=== PATIENT | male | born 1970 | race Caucasian/White ===

== ENCOUNTER 2020-03-30 15:54 | Emergency (ER) | payer BC, SELFPAY ==
[2020-03-30 16:10] VITALS: BP 150/92; PULSE 80; RESP 16; TEMP 36.8; O2SAT 98
--- NOTE | 2020-03-30 16:18 | ED.SKABFB ---
HPI - Skin/Abscess/Foreign Bdy General Chief complaint: Skin/Abscess/Foreign Body Stated complaint: Possible poison oak Time Seen by Provider: 03/30/20 16:12 Source: patient and RN notes reviewed Mode of arrival: ambulatory Limitations: no limitations History of Present Illness HPI narrative: Patient presents today complaining of weeping, severely pruritic rash to the left arm x2 days after doing some yard work. Believes he may have poison zulema or poison oak. He has been using calamine lotion without relief. MD complaint: rash Related Data Allergies Allergy/AdvReac Type Severity Reaction Status Date / Time peanut Allergy Unknown Swelling Verified 03/30/20 16:10 of Lip/Tongue/Throat Review of Systems Review of Systems: Narrative: CONSTITUTIONAL: Denies body aches, fever, chills, or sweats. EYES: Denies visual changes, redness, or discharge. ENT: Denies rhinorrhea, congestion, sore throat, or otalgia. CARDIOVASCULAR: Denies chest pain, palpitations, or edema. RESPIRATORY: Denies cough or dyspnea. GASTROINTESTINAL: Denies abdominal pain, nausea, vomiting, or diarrhea. GENITOURINARY: Denies dysuria or hematuria. SKIN: Denies wounds.+ Pruritic rash MUSCULOSKELETAL: Denies back pain, joint pain, or myalgia. NEUROLOGIC: Denies headache, numbness, tingling, or weakness. PSYCH: Denies depression or anxiety. PMFSH Social History Social History Gender identity (if verbalized by the patient): Male Comments At time of signature, I have reviewed and agree with nursing past medical, surgical, social and family history unless otherwise noted. Please see nursing chart for further information. There is no relevant family history pertinent to the presenting complaint Exam Narrative: Exam Narrative: GENERAL: Well-appearing, well-nourished, and in no acute distress. HEAD: Normocephalic, atraumatic. EYES: EOMI. No redness or drainage. Conjunctivae normal. ENT: Mucous membranes pink and moist. NECK: Normal AROM. CHEST: No respiratory distress. EXTREMITIES: Normal range of motion. No edema. SKIN: Warm, dry. Capillary refill normal. Normal skin turgor. Erythematous papular/vesicular rash to the left antecubital fossa measuring ~9x9cm, weeping yellow fluid from multiple vesicles. No induration. No edema. NEURO: No focal deficits. Alert and oriented x3. Gait steady. PSYCH: Normal affect. No signs of depression or anxiety. Course Vital Signs Vital signs: Vital Signs Temperature 98.3 F 03/30/20 16:10 Pulse Rate 80 03/30/20 16:10 Respiratory Rate 16 03/30/20 16:10 Blood Pressure 150/92 H 03/30/20 16:10 Pulse Oximetry 98 03/30/20 16:10 Temperature 98.3 F 03/30/20 16:10 Pulse Rate 80 03/30/20 16:10 Respiratory Rate 16 03/30/20 16:10 Blood Pressure 150/92 H 03/30/20 16:10 Pulse Oximetry 98 03/30/20 16:10 Reviewed. Pt has been instructed to follow up with his PCP regarding his elevated blood pressure today. MDM - Skin/Abscess/Foreign Bdy Differential Diagnosis Differential diagnosis: Likely abscess of skin or subcutaneous tissue, urticaria, cellulitis, eczema, insect bites, impetigo and contact dermatitis Critical Care Time Critical Care Time Critical Care Time: No Discharge Plan Discharge Clinical Impression: Contact dermatitis Qualifiers: Contact dermatitis type: irritant Contact dermatitis trigger: unspecified trigger Qualified Code(s): L24.9 - Irritant contact dermatitis, unspecified cause Patient Disposition: Home, Self-Care Condition: Stable Instructions: Poison Zulema (ED) Additional Instructions: Please take the prednisone as directed until gone. You may continue topical calamine lotion if you wish. Keep covered if dripping. Follow-up with your doctor with any signs of infection such as increased redness, increased swelling, increased pain or pus drainage. Your blood pressure was elevated above 120/80 today at Urgent Care. This puts you above the threshold
== END 2020-03-30 16:27 | disposition home or self-care (01) ==
PROVIDERS: Emergency Provider Nurse Practitioner
DX: L24.9 Irritant contact dermatitis, unspecified cause (principal)
CPT/HCPCS: 99213; G0463

== ENCOUNTER 2020-04-21 21:03 | Emergency (ER) | payer BC, SELFPAY ==
--- NOTE | ~2020-04-21 | CT_ITS ---
EXAMINATION: CT abdomen pelvis wo con DATE: 04/21/2020 22:42 INDICATION: Left back pain TECHNIQUE: Computed tomography (CT) of the abdomen and pelvis was performed without intravenous contr ast. Automated exposure control and iterative reconstruction technique were employed. The dose-length product was 1082.53 mGy-cm. COMPARISON: 02/04/2019 FINDINGS: Lung bases are clear. Heart size is normal. No pericardial or pleural effusion. Small amount of ather osclerotic calcification along the right coronary artery. Liver, gallbladder, spleen, pancreas and bi lateral adrenal glands are normal. Nonobstructing nephrolithiasis with a pair of 1-2 mm stones in the right kidney and a 2 mm stone in the left kidney. No hydronephrosis or stones seen along the normal bilateral ureters. Bladder is normal. Postoperative changes at the tip of the cecum likely related to prior appendectomy. Mild scattered colonic diverticulosis without adjacent inflammatory change to batista ggest diverticulitis. No bowel obstruction. There is subtle haziness to the fat at the root of the me sentery which likely inflammatory in etiology. Tiny fat-containing umbilical hernia and small fat-con taining left inguinal hernia. No free intraperitoneal gas or fluid. No pathologically enlarged abdomi nal or pelvic lymphadenopathy. Mild lumbar spondylosis and mild to moderate bilateral hip osteoarthri tis. IMPRESSION: 1. Nonobstructing bilateral nephrolithiasis. 2. Nonspecific mild haziness to the fat at the root of the mesentery which likely inflammatory in kieran ology. Correlate with amylase/lipase levels to exclude acute interstitial pancreatitis. 3. Mild diverticulosis. Reviewed, dictated and finalized at location A. IMPRESSION: 1. Nonobstructing bilateral nephrolithiasis. 2. Nonspecific mild haziness to the fat at the root of the mesentery which like ly inflammatory in etiology. Correlate with amylase/lipase levels to exclude ac michelle interstitial pancreatitis. 3. Mild diverticulosis.
[2020-04-21 21:04] VITALS: BP 149/110; PULSE 93; RESP 22; TEMP 36.9; O2SAT 98
[2020-04-21 21:19] LABS: Basophils Percent Auto 0.2 % (0.2-1.2); Eosinophils Absolute Auto 0.3 K/mm3 (0-0.3); Hematocrit 45.1 % (42.0-52.0); Hemoglobin 14.7 g/dL (14.0-18.0); Immature Granulocyte Absolute 0.08 K/mm3 (0.00-0.031); Immature Granulocyte Percent A 0.6 % (0-0.5); Lymphocytes Absolute Auto 2.61 K/mm3 (0.9-3.2); Lymphocytes Percent Auto 20.9 % (18.3-44.2); Mean Corpuscular HGB Conc 32.6 g/dl (32-36); Mean Corpuscular Hemoglobin 29.3 pg (26-34); Mean Corpuscular Volume 89.8 fl (80-100); Mean Platelet Volume 10.5 fl (7.4-10.4); Monocytes Absolute Auto 0.9 K/mm3 (0.1-0.6); Neutrophils Absolute Auto 8.7 K/mm3 (1.3-6.7); Neutrophils Percent Auto 69.3 % (45.5-73.1); Platelet Count Result 219 k/mm3 (150-375); Red Blood Count 5.02 M/mm3 (4.6-6.20); Red Cell Distribution Width 13.1 % (11.5-14.5); White Blood Count 12.5 K/mm3 (4.5-10.0)
[2020-04-21 21:30] LABS: Anion Gap 6 mmol/L (8-16); Blood Urea Nitrogen 16 mg/dL (9-20); Calcium 8.8 mg/dL (8.4-10.2); Carbon Dioxide 25 mmol/L (22-30); Chloride 107 mmol/L (98-107); Estimated CRCL calculation 89 ml/min; Estimated Glomerular Filt Rate > 60; Glucose 107 mg/dL (75-110); Potassium 4.3 mmol/L (3.4-5.0); Sodium 138 mmol/L (137-145)
--- NOTE | 2020-04-21 22:11 | PC.NURSE ---
PT ATTEMPTING TO USE RESTROOM TO GIVE URINE SPECIMEN AT THIS TIME. PT INITIALLY REFUSED STATING THAT HE JUST WENT BEFORE HE CAME TO THE ED. DISCUSSED OPTION OF STRAIGHT CATHETER WITH PT, PT REFUSED STATING AW NAW, YOU AINT STICKIN ANYTHING UP MY JUNK . PT AGREED TO TRY TO PROVIDE A URINE SPECIMEN.
[2020-04-21] MEDS: KETOROLAC 30 MG/ML VIAL (*BKC) IV PUSH (22:25)
[2020-04-21] MEDS: CYCLOBENZAPRINE HCL 10 MG TABLET PO (22:25)
[2020-04-21 22:27] LABS: Add Urine Microscopic? NO; Appearance Urine Clear (Clear); Bilirubin Urine Negative (Negative); Blood Urine Negative (Negative); Color Urine Yellow (Yellow); Glucose Urine UA Negative (Negative); Ketones Urine Negative (Negative); Leukocyte Esterase Ur Negative LEU/UL (Negative); Nitrate Urine Negative (Negative); Protein Urine Negative (Negative); Specific Grav Ur 1.017 (1.001-1.035); Urobilinogen Urine Negative mg/dL (<2.0)
--- NOTE | 2020-04-21 23:31 | ED.GENADULT ---
HPI - General Adult General Chief complaint: Abdominal Pain Stated complaint: left flank pain Time Seen by Provider: 04/21/20 21:46 Source: patient History of Present Illness HPI narrative: Patient is a 49 y/o male complaining of left back for last 3 day. He states that his pain is sharp with no radiation. He rates is pain as 6/10. Pain is worse with movement. He has no vomiting, diarrhea or dysuria. He state that he has history of kidney stone, but states that this pain does not feel like kidney stone. Related Data Allergies Allergy/AdvReac Type Severity Reaction Status Date / Time peanut Allergy Unknown Swelling Verified 03/30/20 16:10 of Lip/Tongue/Throat Review of Systems Constitutional: Constitutional: Denies chills, Denies fever(s), Denies headache(s) and Denies weakness Eyes: Eyes: Denies blurry vision ENT: Denies headache(s) and Denies neck pain Cardiovascular: Cardiovascular: Denies chest pain and Denies dyspnea Respiratory: Respiratory: Denies cough and Denies dyspnea Gastrointestinal: Gastrointestinal: Denies abdominal pain, Denies diarrhea, Denies nausea and Denies vomiting Genitourinary: Genitourinary: Denies hematuria and Denies dysuria Musculoskeletal: Musculoskeletal: Reports back pain and Denies neck pain Neurologic: Denies headache(s) and Denies weakness PMFSH Social History Social History Gender identity (if verbalized by the patient): Male Exam Const: General: no acute distress and well developed Orientation/consciousness: oriented to person, oriented to place, oriented to time and patient oriented x3 HENMT: Head: normocephalic Ears: external ears normal General nose exam: Normal external nose present Eyes: General: appearance normal, both eyes and all related structures Conjunctivae: conjunctivae normal Neck: Neck: normal visual inspection and full ROM Chest: Chest palpation & inspection: normal inspection of the chest and no tenderness Resp: Effort & Inspection: normal respiratory effort Auscultation: clear to auscultation bilaterally Cardio: Rate: regular rate Rhythm: regular rhythm GI: GI Palp: No abdominal tenderness and Yes Soft to palpation Skin: General skin exam: normal color and turgor normal Neuro: General: oriented to person, oriented to place, oriented to time and patient oriented x3 Cognition (Neuro): normal cognition Extrem: General: normal to inspection, full ROM and no pedal edema Psych: Appearance: grossly normal Mental Status: mental status grossly normal Affect: normal affect Course Vital Signs Vital signs: Vital Signs Temperature 36.9 C 04/21/20 21:04 Pulse Rate 93 04/21/20 21:04 Respiratory Rate 22 H 04/21/20 21:04 Blood Pressure 149/110 H 04/21/20 21:04 Pulse Oximetry 98 04/21/20 21:04 Temperature 36.2 C L 04/22/20 00:23 Pulse Rate 88 04/22/20 00:23 Respiratory Rate 19 04/22/20 00:23 Blood Pressure 134/87 04/22/20 00:23 Pulse Oximetry 100 04/22/20 00:23 Medical Decision Making Vital Signs Vital Signs: Vital Signs Temperature 36.9 C 04/21/20 21:04 Pulse Rate 93 04/21/20 21:04 Respiratory Rate 22 H 04/21/20 21:04 Blood Pressure 149/110 H 04/21/20 21:04 Pulse Oximetry 98 04/21/20 21:04 Temperature 36.2 C L 04/22/20 00:23 Pulse Rate 88 04/22/20 00:23 Respiratory Rate 04/22/20 00:23 Blood Pressure 134/87 04/22/20 00:23 Pulse Oximetry 100 04/22/20 00:23 Lab Data Result diagrams: 04/21/20 21:08 04/21/20 21:08 Labs: Lab Results 04/21/20 04/21/20 04/21/20 Range/Units 21:08 21:08 21:08 WBC 12.5 H (4.5-10.0) K/mm3 RBC 5.02 (4.6-6.20) M/mm3 Hgb 14.7 (14.0-18.0) g/dL Hct 45.1 (42.0-52.0) % MCV 89.8 (80-100) fl MCH 29.3 (26-34) pg MCHC 32.6 (32-36) g/dl RDW 13.1 (11.5-14.5) % Plt Count 219 (150-375) k/mm3 MPV 10.5 H (7.4
[2020-04-21 23:47] LABS: Lipase 87 U/L (23-300)
[2020-04-22 00:23] VITALS: BP 134/87; PULSE 88; RESP 19; TEMP 36.2; O2SAT 100
== END 2020-04-22 00:24 | disposition home or self-care (01) ==
PROVIDERS: Emergency Provider Emergency Medicine
DX: M54.5 Low back pain (principal)
CPT/HCPCS: 36415; 74176; 80048; 81003; 83690; 85025; 96374; 99284; A9270; J1885

== ENCOUNTER 2021-01-19 19:32 | Emergency (ER) | payer BC, SELFPAY ==
[2021-01-19 20:12] VITALS: BP 180/92; PULSE 100; RESP 20; TEMP 37.6; O2SAT 99
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
== END 2021-01-19 21:23 | disposition home or self-care (01) ==
PROVIDERS: Emergency Provider Nurse Practitioner
DX: R50.9 Fever, unspecified (principal); F17.200 Nicotine dependence, unspecified, uncomplicated; Z20.822 Contact with and (suspected) exposure to COVID-19
CPT/HCPCS: 87426; 99213; C9803; G0463

== ENCOUNTER 2021-09-20 10:32 | Emergency (ER) | payer BC, SELFPAY ==
--- NOTE | ~2021-09-20 | XR_ITS ---
Negative DATE: 09/20/2021 14:36 INDICATION: Right shoulder pain TECHNIQUE: 4 views COMPARISON: None FINDINGS: There is no fracture or dislocation, periosteal reaction or bone destruction or abnormal so ft tissue calcification. IMPRESSION: Negative Reviewed, dictated and finalized at location A. BOTOMY DIRECTOR IMPRESSION: Negative
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
[2021-09-20 11:36] VITALS: BP 150/85; PULSE 87; RESP 18; TEMP 37.2; O2SAT 97
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
[2021-09-20] MEDS: ACETAMINOPHEN 325 MG TABLET 650 MG PO (14:44)
[2021-09-20] MEDS: KETOROLAC 30 MG/ML VIAL (*BKC) IM (14:48)
[2021-09-20] MEDS: TETANUS,DIPHTHERIA,AC PERTUSSIS ADULT (0.5 ML) BOOSTRIX IM (14:48)
[2021-09-20 17:13] VITALS: BP 148/81; PULSE 90; RESP 18; TEMP 37.1; O2SAT 97
== END 2021-09-20 17:15 | disposition home or self-care (01) ==
PROVIDERS: Emergency Provider Emergency Medicine
DX: S02.832A Fracture of medial orbital wall, left side, initial encounter for closed fracture (principal); Z23 Encounter for immunization; K02.9 Dental caries, unspecified; M16.0 Bilateral primary osteoarthritis of hip; Y04.2XXA Assault by strike against or bumped into by another person, initial encounter
CPT/HCPCS: 70450; 70486; 71046; 72170; 73030; 90471; 90715; 96372; 99284; A9270; J1885

== ENCOUNTER 2022-05-04 03:58 | Inpatient (IN) | payer BC, SELFPAY ==
[2022-05-04] VITALS (33 sets, daily range): BP systolic 136–169; BP diastolic 67–127; PULSE 75–108; RESP 15–27; TEMP 36.6–36.9; O2SAT 89–100; BMI 30.6; BMI 31.0
--- NOTE | ~2022-05-04 | XR_ITS ---
EXAMINATION: XR chest 2V DATE: 05/04/2022 04:44 INDICATION: Shortness of breath. TECHNIQUE: Frontal and lateral views of the chest were obtained. COMPARISON: Chest CT 05/04/2022, chest 2 views 09/20/2021 FINDINGS: There is a diffuse interstitial pattern, consistent with mild pulmonary edema. There are sm all pleural effusions. No pneumothorax. The heart size is normal. There is mild chronic anterior wedg ing of multiple vertebral bodies. IMPRESSION: 1. Mild pulmonary edema. 2. Small pleural effusions. Reviewed, dictated and finalized at location A.
--- NOTE | ~2022-05-04 | CT_ITS ---
EXAMINATION: CTA chest PE protocol DATE: 05/04/2022 05:39 INDICATION: Right chest pain. Shortness of breath. TECHNIQUE: Computed tomography angiography (CTA) of the chest was performed with 100 mL Omnipaque-350 intravenous contrast timed to evaluate the pulmonary arteries. Coronal maximum intensity projection 3D-reconstructions were created by the technologist. Automated exposure control and iterative reconst ruction technique were employed. The dose-length product was 823.08 mGy-cm. COMPARISON: Chest CT 02/04/2019 FINDINGS: The lungs demonstrate smooth septal thickening and groundglass opacities, consistent with p ulmonary edema. There is a pneumatocele in right lower lobe. There is mild dependent atelectasis bila terally. There are small pleural effusions. There is left atrial and left ventricular enlargement of the heart. No pericardial effusion. There are coronary artery calcifications. There is no pulmonary e mbolus. There is mild mediastinal lymphadenopathy, likely reactive. There is mild thoracic spondylosi s. There is mild chronic anterior wedging of multiple vertebral bodies. IMPRESSION: 1. No pulmonary embolus. 2. Moderate pulmonary edema. 3. Small pleural effusions. 4. Cardiomegaly. 5. Mild mediastinal lymphadenopathy, likely reactive. Reviewed, dictated and finalized at location A.
--- NOTE | ~2022-05-04 | NM_ITS ---
EXAMINATION: NM marta stress w perfusion DATE: 05/04/2022 13:03 INDICATION: Chest pain. TECHNIQUE: Rest images were obtained following intravenous administration of 9 mCi Tc99m tetrofosmin (Myoview). The patient was infused intravenously with Lexiscan (regadenoson). Then, 28.8 mCi Tc99m te trofosmin (Myoview) was administered intravenously, and supine and prone stress images were obtained. Data was reconstructed into short axis and horizontal and vertical long axis SPECT images. Gated SPE CT images were also obtained. COMPARISON: Chest CT 05/04/2022 FINDINGS: There is a small, mild, fixed perfusion defect involving mid to basal anterior wall of left ventricle, consistent with infarct. There is a small, mild, fixed perfusion defect involving apical to mid inferior wall of left ventricle, consistent with infarct. No reversible component to suggest i schemia. There is global hypokinesis.. Left ventricular ejection fraction measures 39%. IMPRESSION: 1. Small area of mild infarct involving mid to basal anterior wall of left ventricle. Small area of m ild infarct involving apical to mid inferior wall of left ventricle. 2. Global hypokinesis with left ventricular ejection fraction measuring 39%. Reviewed, dictated and finalized at location A. IMPRESSION: 1. Small area of mild infarct involving mid to basal anterior wall of left vent ricle. Small area of mild infarct involving apical to mid inferior wall of left ventricle. 2. Global hypokinesis with left ventricular ejection fraction measuring 39%.
--- NOTE | 2022-05-04 04:04 | ECG_ITS ---
Measurements Intervals [place] Rate: 98 P: 58 [place]: 152 QRS: 33 QRSD: 92 T: 102 QT: 348 QTc: 445 Interpretive Statements SINUS RHYTHM WITH OCCASIONAL SUPRAVENTRICULAR PREMATURE COMPLEXES POSSIBLE LEFT ATRIAL ENLARGEMENT [-0.1mV P WAVE IN V1/V2] NONSPECIFIC T-WAVE ABNORMALITY NO PREVIOUS ECG AVAILABLE FOR COMPARISON Electronically Signed On 05-04-2022 19:56:12 CDT by Michelle Lagunas M.D.
[2022-05-04 04:26] LABS: Basophils Percent Auto 0.2 % (0.2-1.2); Eosinophils Absolute Auto 0.3 K/mm3 (0-0.3); Eosinophils Percent Auto 1.6 % (0-4.4); Hematocrit 49.8 % (42.0-52.0); Hemoglobin 16.4 g/dL (14.0-18.0); Immature Granulocyte Absolute 0.07 K/mm3 (0.00-0.031); Immature Granulocyte Percent A 0.4 % (0-0.5); Lymphocytes Absolute Auto 2.27 K/mm3 (0.9-3.2); Lymphocytes Percent Auto 13.9 % (18.3-44.2); Mean Corpuscular HGB Conc 32.9 g/dl (32-36); Mean Corpuscular Hemoglobin 29.5 pg (26-34); Mean Corpuscular Volume 89.6 fl (80-100); Mean Platelet Volume 11.2 fl (7.4-10.4); Monocytes Absolute Auto 1.1 K/mm3 (0.1-0.6); Monocytes Percent Auto 6.8 % (2.6-8.5); Neutrophils Absolute Auto 12.6 K/mm3 (1.3-6.7); Neutrophils Percent Auto 77.1 % (45.5-73.1); Platelet Count Result 267 k/mm3 (150-375); Red Blood Count 5.56 M/mm3 (4.6-6.20); White Blood Count 16.4 K/mm3 (4.5-10.0)
[2022-05-04 04:36] LABS: Alanine Aminotransferase 14 U/L (6-50); Albumin Level 4.4 g/dL (3.5-5.1); Alkaline Phosphatase 84 U/L (38-126); Anion Gap 13 mmol/L (8-16); Aspartate Amino Transferase 20 U/L (17-59); Bilirubin,Total 0.5 mg/dL (0.2-1.3); Blood Urea Nitrogen 16 mg/dL (9-20); Calcium 9.1 mg/dL (8.4-10.2); Carbon Dioxide 27 mmol/L (22-30); Chloride 102 mmol/L (98-107); Estimated CRCL calculation 101 ml/min; Estimated Glomerular Filt Rate > 60; Glucose 108 mg/dL (65-110); Lipase 76 U/L (23-300); Potassium 3.8 mmol/L (3.4-5.0); Sodium 142 mmol/L (137-145)
[2022-05-04 04:37] LABS: INR 1.1; Prothrombin Time 13.3 Seconds (11.1-14.7)
[2022-05-04 04:38] LABS: Partial Thromboplastin Time 28.9 SECONDS (22.3-36.8)
[2022-05-04 04:47] LABS: Troponin I 0.034 ng/mL (0.000-0.034)
[2022-05-04] MEDS: IPRATROPIUM BR 0.02% INH SOLN 0.5 MG/2.5 ML VIAL INHALATION (05:05)
[2022-05-04] MEDS: ALBUTEROL SULFATE NEB 2.5 MG/3 ML INH 5 MG INHALATION (05:05)
[2022-05-04 05:46] LABS: NT Pro B Type Natriuretic Pept 3390 pg/mL (5-100)
[2022-05-04] MEDS: ASPIRIN 81 MG CHEWABLE TABLET 324 MG PO (05:48)
[2022-05-04] MEDS: MORPHINE SULFATE (*CRX) 4 MG/ML INJ IV PUSH ×2 (05:49→22:41)
--- NOTE | 2022-05-04 05:50 | ED.GENADULT ---
HPI - General Adult General Chief complaint: Chest Pain Stated complaint: chest tightness, sob Time Seen by Provider: 05/04/22 04:44 History of Present Illness HPI narrative: Patient 51-year-old gentleman who presents the emergency department with chief complaint of chest pain. Patient reports that he started having a discomfort feeling in his chest patient states it is a tightness and heaviness. Patient patient the pain is essentially resolved at this point patient reports he had a sharp type pain in the right lower chest reports its worse with inspiration and improved with rest. Patient states that he has had no prior history of PE no prior history of cardiac disease reports he just not felt well. Related Data Allergies Allergy/AdvReac Type Severity Reaction Status Date / Time peanut Allergy Unknown Swelling Verified 05/04/22 04:11 of Lip/Tongue/Throat Review of Systems Review of Systems: A 10 system review of systems was completed on the patient and is negative except for what is stated in the HPI. Nursing and ancillary documentation was reviewed. PMFSH Past Medical History Medical History Chronic back pain Chronic neck pain Surgical History Surgical History History of appendectomy Family History Family History Father No pertinent past medical history Social History Social History Smoking status: Current every day smoker Additional smoking assessment comments: Half pack per day Alcohol intake: current Alcohol use details: Socially Substance use: never Gender identity (if verbalized by the patient): Male Spiritual care concerns: No Exam Narrative: GENERAL: Well-appearing, well-nourished, and in no acute distress. HEAD: Normocephalic, atraumatic. EYES: PERRLA and EOMI. ENT: Nares clear, no rhinorrhea or epistaxis. Mucous membranes moist. NECK: Supple. CHEST: Clear to auscultation. No respiratory distress. HEART: Regular rate and rhythm. No murmur heard. Normal peripheral pulses. ABDOMEN: Soft, nontender, nondistended, normal active bowel sounds. EXTREMITIES: Normal range of motion. No edema. SKIN: Warm, dry, no rash. NEURO: No focal deficits. Alert and oriented x3. PSYCH: Normal mood and affect. Course Course Emergency Course: EKG is sinus rhythm rate of [address] elevation or ST depression The patient's pleuritic type pain. A CT pulmonary angiogram was ordered that showed evidence of pulmonary edema pleural effusions and cardiomegaly Given the shortness of breath and elevated BNP. The patient was started on diuresis the case was discussed with the hospitalist and the patient was admitted to the hospital for serial cardiac markers diuresis and echo. Vital Signs Vital signs: Vital Signs Pulse Rate 100 05/04/22 04:11 Pulse Rate 95 05/04/22 05:20 Respiratory Rate 24 H 05/04/22 05:20 Blood Pressure 163/108 H 05/04/22 04:12 Pulse Oximetry 99 05/04/22 04:12 Oxygen Delivery Room Air 05/04/22 04:12 Medical Decision Making Vital Signs Vital Signs: Vital Signs Pulse Rate 100 05/04/22 04:11 Pulse Rate 95 05/04/22 05:20 Respiratory Rate 24 H 05/04/22 05:20 Blood Pressure 163/108 H 05/04/22 04:12 Pulse Oximetry 99 05/04/22 04:12 Oxygen Delivery Room Air 05/04/22 04:12 Lab Data Result diagrams: 05/04/22 04:20 05/04/22 04:20 Labs: Lab Results 05/04/22 05/04/22 05/04/22 Range/Units 04:20 04:20 04:20 WBC 16.4 H (4.5-10.0) K/mm3 RBC 5.56 (4.6-6.20) M/mm3 Hgb 16.4 (14.0-18.0) g/dL Hct 49.8 (42.0-52.0) % MCV 89.6 (80-100) fl MCH 29.5 (26-34) pg MCHC 32.9 (32-36) g/dl RDW 13.0 (11.5-14.5) % Plt Count
[2022-05-04 06:24] LABS: Influenza A QL RT-PCR Negative (Negative); Influenza B QL RT-PCR Negative (Negative); SARS-CoV-2 RNA PCR Negative
--- NOTE | 2022-05-04 07:19 | PC.NURSE ---
Report given to LIZBETH Jackson
[2022-05-04] MEDS: FUROSEMIDE INJ 40 MG/4 ML VIAL IV PUSH ×2 (07:46→20:42)
[2022-05-04 07:50] LABS: Troponin I 0.035 ng/mL (0.000-0.034)
--- NOTE | 2022-05-04 07:52 | EST_ITS ---
Patient Info Name: Gallito Houston Age: 51 years : 1970 Gender: Male Ht: 71 in Wt: 220 lbs BSA: 2.26 m2 HR: 91 bpm BP: 190 / 117 mmHg Heart Rhythm: Sinus Rhythm Exam Date: 05/04/2022 11:57 AM Exam Location: [facility] Stress Patient Status: Outpatient Admit Date: 05/04/2022 Staff Ordering Physician: Zac Mello MD Attending Provider: Saroj Plummer MD Exercise Technologist: Ivette García CT Exercise Physician: Michelle Lagunas MD Exam Type: CA stress marta w NM Study Info Indications R07.9 - Chest pain, unspecified R06.02 - Shortness of breath A regadenoson stress test was performed. Summary 1. Resting hypertension, blood pressure 168/123, 190/117, 157/[address]-T wave changes with lexiscan. 3. Nuclear test results to follow. Protocol: Lexiscan Stress ECG Details Stage: REST Duration (min): 4 min : 41 sec HR (bpm): 94 SBP (mmHg): 190 DBP (mmHg): 117 Stage: REST Duration (min): 17 min : 15 sec HR (bpm): 91 SBP (mmHg): 157 DBP (mmHg): 114 Stage: STAGE 1 Duration (min): 1 min : 0 sec HR (bpm): 93 SBP (mmHg): 162 DBP (mmHg): 93 Stage: RECOVERY Duration (min): 1 min : 0 sec HR (bpm): 95 SBP (mmHg): 162 DBP (mmHg): 93 Stage: RECOVERY Duration (min): 2 min : 0 sec HR (bpm): 100 SBP (mmHg): 162 DBP (mmHg): 93 Stage: RECOVERY Duration (min): 3 min : 0 sec HR (bpm): 98 SBP (mmHg): 162 DBP (mmHg): 93 Stage: RECOVERY Duration (min): 4 min : 0 sec HR (bpm): 100 SBP (mmHg): 162 DBP (mmHg): 93 Stage: RECOVERY Duration (min): 4 min : 22 sec HR (bpm): 98 SBP (mmHg): 139 DBP (mmHg): 95 Rest HR: 91 bpm Peak HR: 104 bpm Rest Sys BP: 157 mmHg Peak Sys BP: 162 mmHg Max Pred HR: 167 bpm % Max Pred HR: 62 % Target HR: 142 bpm Max RPP: 16,848 bpm*mmHg BP Response: Normal blood pressure response Termination Reason: Completed protocol Cardiac Symptoms: None Total Time: 1 min : 0 sec Rest Singh BP: 114 mmHg Peak Singh BP: 93 mmHg Total Dose: 0.4 mg Resting ECG Normal sinus rhythm - normal ECG. Stress ECG No abnormal ST/T wave changes with exercise. Arrhythmias Occasional PACs. Occasional PVCs. Report Signatures
--- NOTE | 2022-05-04 10:27 | ADMGEN ---
This patient, Gallito Houston, was admitted to IMU Room 204-01. Patient/family oriented to hospital policies and general routines including ID bracelet, bed and alarms, visiting hours, pain management, procedures, bathroom and other care routines, personal items, smoking policy, room service/diet, and visiting hours. Information on how to activate the Rapid Response Team has been discussed. Patient/Family are encouraged to report perceived risks to care and to ask questions if they do not understand what they are told or what they should do.
--- NOTE | 2022-05-04 10:43 | PC.NURSE ---
Pt to nuclear medicine for raz
[2022-05-04 11:34] LABS: Troponin I 0.029 ng/mL (0.000-0.034)
--- NOTE | 2022-05-04 12:58 | PC.NURSE ---
Pt returned from [employer]
--- NOTE | 2022-05-04 16:43 | PM.CNCAR ---
Assessment and Plan Assessment and plan (1) Acute combined systolic and diastolic congestive heart failure: Code(s): I50.41 - Acute combined systolic (congestive) and diastolic (congestive) heart failure Status: Acute Assessment and Plan: Patient presents with new onset of acute heart failure, probably systolic and diastolic. Likely due to uncontrolled hypertension, rule out underlying CAD Feeling better after IV diuresis Start guideline directed medical therapy with Entresto, metoprolol, spironolactone, and Farxiga if insurance covers the brand-name medications. If not will use an ARB and skip the Farxiga. Counseled patient extensively about hypertension, cardiomyopathy, CHF, pharmacologic and nonpharmacologic treatment, etc. Cardiac catheterization for further evaluation tomorrow. Daily BMP Echo (2) Cardiomyopathy: Code(s): I42.9 - Cardiomyopathy, unspecified Status: Acute Assessment and Plan: New cardiomyopathy, EF 39% (3) Hypertensive heart disease: Code(s): I11.9 - Hypertensive heart disease without heart failure Status: Acute Assessment and Plan: Has had years of ?borderline? hypertension (150-170/90/110 mmHg that has not been treated. (4) Elevated troponin: Code(s): R77.8 - Other specified abnormalities of plasma proteins Status: Acute Assessment and Plan: Had elevated troponins but they are flat, and chest discomfort but atypical. Doubt ACS However stress test showed some fixed defects suggestive of old MIs Recommend cardiac catheterization for further evaluation. Reviewed possible risks and complications with patient including breathing problems, bleeding problems, blood vessel problems, unanticipated surgery, allergic reactions, kidney problems, CVA, AR, and among others. Discussed possibility of stenting and possible need for DAPT. Discussed the possibility that if DAPT is interrupted stent thrombosis can occur resulting in heart attack and . Patient understands risks and desires to proceed. (5) Tobacco use: Code(s): Z72.0 - Tobacco use Status: Acute Assessment and Plan: Counseled patient about the deleterious effects of smoking. States he will quit smoking. History of Present Illness History of Present Illness Consult date/time: 05/04/22 16:43 Reason For Visit: new onset chf,pulmonary edema Narrative: Gallito Houston is a 51-year-old male whom I was asked to see at the request of Dr. Mello for my advice and opinion regarding his abnormal stress test and ejection fraction of 39%, in consultation. The patient has a history of hypertension but does not have any regular medical care and does not like to take any medications. The patient came to the emergency room early this morning not feeling well with shortness of breath, PND and orthopnea over the past 2 days. He was also having some chest tightness and heaviness which was somewhat pleuritic. No edema or palpitations. Blood pressure was 163/108 mmHg. Troponins were 0.035 and 0.029. ProBNP was 3400. Chest x-ray and CT scan consistent with CHF. Patient was started on IV Lasix and is feeling better. Lexiscan stress test showed ejection fraction of 39% with small mild fixed defects in the mid to basal anterior wall and apical and mid inferior wall. No known diabetes. Does smoke half a pack per week. Family history of heart disease. Cholesterol status unknown. Prior to 2 days ago the patient states he could work hard and walk fast with no shortness of breath or chest discomfort. Review of Systems Constitutional: Constitutional: Denies fever(s) Eyes: Eyes: Reports no additional eye complaints ENT: Denies epistaxis and Denies nasal congestion Cardiovascular: Cardiovascular: Reports chest pain, Denies pedal edema, Denies lightheadedness and Reports dyspnea Respiratory: Respiratory: Denies chest congestion, Denies
--- NOTE | 2022-05-04 18:26 | PM.IMHP ---
H&P: HPI History of Present Illness Date/Time: 05/04/22 18:26 Chief Complaint: Chest pain Narrative: EDHPI narrative: Patient 51-year-old gentleman who presents the emergency department with chief complaint of chest pain.? Patient reports that he started having a discomfort feeling in his chest patient states it is a tightness and heaviness.? Patient patient the pain is essentially resolved at this point patient reports he had a sharp type pain in the right lower chest reports its worse with inspiration and improved with rest.? Patient states that he has had no prior history of PE no prior history of cardiac disease reports he just not felt well. patient is a 51-year-old male with no significant cardiac history presented with complaint of chest pain, patient states did have a strong family history coronary artery disease from both side of his parents, patient does states he occasionally smokes and drinks, there are no acute changes on EKG and tropes are slightly elevated to further evaluate patient had a Lexiscan which showed 1. Small area of mild infarct involving mid to basal anterior wall of left ventricle. Small area of mild infarct involving apical to mid inferior wall of left ventricle. 2. Global hypokinesis with left ventricular ejection fraction measuring 39%, to further evaluate will consult Cardiology and further recommendation to follow. patient admitted as observation status Review of Systems Constitutional: Constitutional: Denies fever(s) Cardiovascular: Cardiovascular: Reports chest pain, Denies pedal edema, Denies lightheadedness and Reports dyspnea PMFSH Past Medical History Medical History Cardiomyopathy Chronic back pain Chronic neck pain Hypertensive heart disease Tobacco use Surgical History Surgical History History of appendectomy Family History Family History Father No pertinent past medical history Heart disease, Onset Age: 58 Has had 7 stents Other Lung cancer Cerebrovascular accident Acute myocardial infarction Mother MVA (motor vehicle accident), Onset Age: 37 COD Social History Social History Smoking packs per day: 0.5 Smoking cigarettes per day: 10.0 Smoking status: Current some day smoker Tobacco type: cigarettes Additional smoking assessment comments: Half pack per day Alcohol intake: never Alcohol use details: Socially Substance use: never Gender identity (if verbalized by the patient): Male Spiritual care concerns: No Meds Home Medications and Allergies Home Medications Medication Instructions Recorded Confirmed Type No Home Medications 05/04/22 05/04/22 History Allergies Allergy/AdvReac Type Severity Reaction Status Date / Time No Known Allergies Allergy Verified 05/04/22 10:31 Vital Signs Vital Signs - 24 hr 05/04/22 04:11 05/04/22 04:12 05/04/22 05:08 Temperature Pulse Rate 100 99 93 Respiratory Rate 27 H 20 Blood Pressure 163/108 H Pulse Oximetry 99 Oxygen Delivery Room Air 05/04/22 05:20 05/04/22 05:45 05/04/22 06:00 Temperature Pulse Rate 95 101 H 99 Respiratory Rate 24 H 21 H 24 H Blood Pressure 164/109 H 168/109 H Pulse Oximetry 96 93 Oxygen Delivery 05/04/22 06:15 05/04/22 07:46 05/04/22 07:44 Temperature Pulse Rate 100 101 H 96 Respiratory Rate 23 H 18 19 Blood Pressure 169/102 H 148/89 H Pulse Oximetry 96 100 Oxygen Delivery 05/04/22 07:45 05/04/22 07:47 05/04/22 08:00 Temperature Pulse Rate 97 94 90 Respiratory Rate 23 H 20 19 Blood Pressure 148/89 H Pulse Oximetry 100 Oxygen Delivery 05/04/22 08:01 05/04/22 08:42 05/04/22 08:45 Temperature Pulse Rate 93 96 108 H Respiratory Rate 20 23 H 23 H Blood Pressure 166/110 H Pulse Oximetry 93 92
[2022-05-04] MEDS: HEPARIN SODIUM 5,000 UNITS/ML VIAL 5000 UNITS SUB-Q (20:42)
[2022-05-04] MEDS: SACUBITRIL/VALSARTAN 24-26 MG TABLET 1 TAB PO (20:42)
[2022-05-04] MEDS: ACETAMINOPHEN 500 MG TABLET 1000 MG PO (21:29)
[2022-05-04] MEDS: MELATONIN 5 MG TABLET PO (21:31)
[2022-05-04] MEDS: LIDOCAINE 5% PATCH 1 PATCH TRANSDERM (21:43)
[2022-05-05] VITALS (20 sets, daily range): BP systolic 101–142; BP diastolic 75–115; PULSE 67–95; RESP 16–20; TEMP 35.9–37; O2SAT 94–99
[2022-05-05 05:22] LABS: Anion Gap 11 mmol/L (8-16); Blood Urea Nitrogen 16 mg/dL (9-20); Calcium 8.9 mg/dL (8.4-10.2); Carbon Dioxide 26 mmol/L (22-30); Chloride 101 mmol/L (98-107); Cholesterol 163 mg/dL (0-200); Estimated CRCL calculation 102 ml/min; Estimated Glomerular Filt Rate > 60; Glucose 102 mg/dL (65-110); Potassium 3.4 mmol/L (3.4-5.0); Sodium 138 mmol/L (137-145)
--- NOTE | 2022-05-05 06:00 | ECHO_ITS ---
Patient Info Name: Gallito Houston Age: 51 years : 1970 Gender: Male Ht: 72 in Wt: 225 lbs BSA: 2.30 m2 HR: 77 bpm BP: 101 / 75 mmHg Heart Rhythm: Sinus Rhythm Exam Date: 05/05/2022 2:27 PM Exam Location: [facility]monary Patient Status: Inpatient Admit Date: 05/05/2022 Staff Ordering Physician: Rudy Betancourt MD Lever Tender: Derek Dobson, ROMINA, RT Attending Provider: Saroj Plummer MD Referring Physician: Serafin COBB; Exam Type: CA echo doppler color flow Study Info Indications I50.9 - Heart failure, unspecified Complete two-dimensional, color flow and Doppler transthoracic echocardiogram is performed. Strain analysis performed. Summary 1. Complete two-dimensional, color flow and Doppler transthoracic echocardiogram is performed. 2. Mild left ventricular enlargement with normal wall thickness. Severe global hypokinesis, ejection fraction 30-35%. Diastolic function is normal. Global longitudinal strain is-11%, severely reduced, consistent with systolic dysfunction. 3. Left atrial chamber dimension is mildly enlarged. 4. There is mild mitral valve regurgitation. 5. Right ventricular systolic pressure could not be evaluated with the study. 6. Normal sinus rhythm. Left Ventricle Left ventricular chamber dimension is normal. Left ventricular systolic function is moderately reduced, estimated at 35-40%. There is no increased left ventricular wall thickness. Left ventricular septal wall motion is normal. The left ventricular diastolic function is normal. Global longitudinal strain is severely elevated at -11 %. Right Ventricle Right ventricular chamber dimension is normal. Right ventricular systolic function is normal. Left Atria Left atrial chamber dimension is mildly enlarged. Right Atria Right atrial chamber dimension is normal. Aortic Valve The aortic valve is trileaflet. There is no aortic valve sclerosis. There is no aortic valve stenosis. There is no aortic valve regurgitation. Pulmonic Valve The pulmonic valve is normal. There is no pulmonic valve stenosis. There is no pulmonic regurgitation. Mitral Valve The mitral valve has normal leaflets. There is no mitral valve stenosis. There is mild mitral valve regurgitation. Tricuspid Valve The tricuspid valve leaflets are normal. There is no significant tricuspid valve stenosis. There is trace tricuspid valve regurgitation. No pulmonary hypertension, estimated pulmonary arterial systolic pressure is Empty. Pericardium/Pleural The pericardium appears normal. There is no pericardial effusion. Inferior Vena Cava Normal inferior vena cava with >50% collapse upon inspiration consistent with Empty right atrial pressure, Empty. Aorta The aortic root size at the sinus of Valsalva is normal. The prox ascending aorta size is normal. Left Ventricular Outflow Tract Name Value Normal LVOT 2D LVOT Diameter 2.1 cm LVOT Doppler LVOT Peak Gradient 3 mmHg LVOT Mean Gradient 2 mmHg LVOT VTI 14 cm
[2022-05-05 06:35] LABS: Phosphorus 4.5 mg/dL (2.5-4.5)
[2022-05-05] MEDS: ASPIRIN 81 MG CHEWABLE TABLET PO (08:03)
--- NOTE | 2022-05-05 08:24 | PC.NURSE ---
Pt to concrete laborer for cardiac cath via stretcher
--- NOTE | 2022-05-05 08:32 | WPDHPUPDATE1 ---
History and Physical Update Update Date/Time: 05/05/22 08:32 History and Physical has been reviewed, including an updated exam of the patient. There are NO changes in the patient's condition. Risks, benefits, and alternatives have been discussed and questions answered. Reviewed possible risks and complications with patient including breathing problems, bleeding problems, blood vessel problems, unanticipated surgery, allergic reactions, kidney problems, CVA, CT, and among others. Discussed possibility of stenting and possible need for DAPT. Discussed the possibility that if DAPT is interrupted stent thrombosis can occur resulting in heart attack and . Patient understands risks and desires to proceed. Patient agrees to proceed with procedure.
--- NOTE | 2022-05-05 08:32 | WPDMODSED ---
Moderate Sedation Note-Pt Data Patient Data Diagnosis: New onset CHF, cardiomyopathy, uncontrolled hypertension, abnormal stress test showing some fixed defects. Present Complaint: Chest pain, shortness of breath Procedure to be performed/Plan: Conscious sedation Left heart catheterization Possible PCI Allergies Allergy/AdvReac Type Severity Reaction Status Date / Time No Known Allergies Allergy Verified 05/04/22 10:31 Home Medications Medication Instructions Recorded Confirmed Type No Home Medications 05/04/22 05/04/22 History Current Medications: Active Medications Aspirin (Aspirin 81 Mg Chewable Tablet) 81 mg PO DAILY@0800 [facility] Last Admin: 05/05/22 08:03 Dose: 81 mg Furosemide (Furosemide Inj 40 Mg/4 Ml Vial) 40 mg IV PUSH Q12HR [facility] Last Admin: 05/04/22 20:42 Dose: 40 mg Heparin Sodium (Porcine) (Heparin Sodium 5,000 Units/Ml Vial) 5,000 units SUB-Q Q12HR [facility] Last Admin: 05/04/22 20:42 Dose: 5,000 units Sodium Chloride (Normal Saline Iv) 500 mls @ 100 mls/hr IV CONT .Q5H [facility] Lidocaine (Lidocaine 5% Patch) 1 patch TRANSDERM Q24H [facility] Last Admin: 05/04/22 21:43 Dose: 1 patch Melatonin (Melatonin 5 Mg Tablet) 5 mg PO HS [facility] Last Admin: 05/04/22 21:31 Dose: 5 mg Metoprolol Succinate (Metoprolol Succinate Ext Rel 25 Mg Tabcr) 25 mg PO [facility] Nitroglycerin (Nitroglycerin Sl 0.4 Mg Tablet) 0.4 mg SUBLINGUAL Q5MIN PRN PRN Reason: Chest Pain Ondansetron HCl (Ondansetron Inj 4 Mg/2 Ml Vial) 4 mg IV PUSH Q4H PRN PRN Reason: Nausea Perflutren Lipid Microsphere (Perflutren Lipid Microspheres 1.5 Ml Vial Diluted To 10 Ml Total Volume) 0 ml IV PUSH ONCE PRN; Protocol PRN Reason: adequate visualization Stop: 05/06/22 06:45 Sacubitril/Valsartan (Sacubitril/Valsartan 24-26 Mg Tablet) 1 tab PO Q12HR [facility] Last Admin: 05/04/22 20:42 Dose: 1 tab Spironolactone (Spironolactone 25 Mg Tablet) 25 mg PO [facility] Sedation/Anesthesia: No previous sedation/anesthesia problems (including family history). [facility] Past Medical History Medical History Cardiomyopathy Chronic back pain Chronic neck pain Hypertensive heart disease Tobacco use Surgical History Surgical History History of appendectomy Family History Family History Father No pertinent past medical history Heart disease, Onset Age: 58 Has had 7 stents Other Lung cancer Cerebrovascular accident Acute myocardial infarction Mother MVA (motor vehicle accident), Onset Age: 37 COD Social History Social History Smoking packs per day: 0.5 Smoking cigarettes per day: 10.0 Smoking status: Current some day smoker Tobacco type: cigarettes Additional smoking assessment comments: Half pack per day Alcohol intake: never Alcohol use details: Socially Substance use: never Gender identity (if verbalized by the patient): Male Spiritual care concerns: No Mod Sed Physical Exam Physical Exam Pre Procedural Exam: Normal: Appearance, Eyes, Ears, Nose, Neck, Throat, Airway, Lungs, Heart Size, Heart Rate, Heart Rhythm, Neuro Exam, Abdomen, Extremities (intact pedal pulses and radial pulse) and Skin Hours since solid foods: 12 Hours since liquid intake: 12 Mallampati Classification: class II Internal Medicine - PN: Obj Da Vital Signs Vital Signs: Vital Signs - 24 hr 05/04/22 08:42 05/04/22 08:45 05/04/22 08:47 Temperature Pulse Rate 96 108 H 82 Respiratory Rate 23 H 23 H 15 Blood Pressure 167/127 H Pulse Oximetry 93 92 93 Oxygen Delivery 05/04/22 09:00 05/04/22 09:04 05/04/22 09:27 Temperature Pulse Rate 108 H 94 93 Respiratory Rate 18 Blood Pressure 143/107 H Pulse Oximetry 92 89 L 97 Oxygen Delivery 05/04/22 09:30 05/04/22 09:48 05/04/22 10:01 Temperature Pulse Rate 86 84 92
--- NOTE | 2022-05-05 09:47 | PM.OP ---
Procedure Note - Brief Procedure Note - Brief Date of procedure: 05/05/22 Pre-op diagnosis: new onset chf,pulmonary edema Chest pain, abnormal stress test, new onset CHF, cardiomyopathy Post-op diagnosis: Other ( CAD) Procedure performed: conscious sedation Left heart catheterization Description of procedure: uneventful left heart catheterization, right radial approach ( Dilip's test yesterday was normal) Surgeon: Michelle Lagunas MD Findings: Significant stenosis of the proximal and mid right coronary artery Mild calcification of the proximal left vessels with mild luminal irregularities Moderate left ventricular dysfunction Recommendation: Dr. Piña assumed care of the patient for PCI of the right coronary artery
--- NOTE | 2022-05-05 09:50 | WPDCARDPROC ---
Cardiac Cath Procedure Note Date of procedure:: 05/05/22 Performing physician:: Michelle Lagunas MD Indication:: chest pain, elevated troponins, abnormal stress test, new onset CHF Brief clinical history:: 51-year-old male with untreated hypertension admitted through emergency room with CHF. Complained of chest pressure and tightness. Slight elevation of troponin, new cardiomyopathy, somewhat abnormal stress test. Procedure Procedure performed:: Procedure: 1. Conscious sedation 2. Left heart catheterization 3. Selective Coronary angiography 4. Left ventriculography 5. Intra-arterial nitroglycerin Sedation/Medication given:: Conscious sedation: The patient has no known prior history of adverse affects of conscious sedation. Oropharynx was clear. The patient is deemed a good candidate for conscious sedation. Conscious sedation began at: 8:50 a.m. Conscious sedation ended at: 9:39 a.m. Total conscious sedation time: 49 minutes Medications: Versed 2 mg, fentanyl 50 mcg IV push The patient had continuous hemodynamic monitoring, and was also continuously monitored by: Linnea Christopher RN The patient tolerated conscious sedation well. Access site:: right radial artery Estimated blood loss:: 5 cc Procedure note:: Catheters: 5 Bulgarian tapered arterial sheath, 5 Bulgarian Thi catheter, 5 Bulgarian pigtail catheter Detailed procedure: The Dilip's test yesterday showed good flow to the right hand through the ulnar artery.After informed consent the patient brought to the cathode washer and the right Radial area was prepped and draped in the usual fashion. After conscious sedation and local anesthesia the right radial artery was punctured using the micropuncture technique with the assistance of vascular ultrasound and cannulated with the arterial sheath. Nitorglycerin 200 mcg, verapamil 2.5 mg and heparin 5,000 mg were injected intra-arterially. Selective Coronary angiography was performed with the coronary catheter in multiple projections. This was withdrawn. The pigtail catheter was advanced into the central circulation and left ventricle for pressure measurements and left ventriculography which was performed in the CAMACHO projection. This was withdrawn. the case was reviewed with the patient and with who assumed care of the patient to perform PCI of the right coronary artery. The patient tolerated the procedure well with no complications. Estimated blood loss was negligible. Findings:: Pressures: Pre-ventriculography the aortic pressure was 100/60 mmHg and LV pressure was 120/20 mmHg Post ventriculography the LV pressure was 120/ 18 and aortic pressure was 120/80 mmHg Left coronary artery: Mild calcification was seen of the left main and proximal left vessels. There are mild luminal irregularities of the left main, proximal and mid and distal Left anterior descending. There was a medium-sized ramus, then the proximal circumflex had 2 lesions of 30-40% stenosis. The Circumflex gave rise to 1 large branching obtuse marginal vessel. Right coronary artery: The dominant right coronary artery had calcification proximally. There was a long diffuse segment of disease in the proximal to mid segment, which culminated in a 70-80% stenosis. In the distal part of the mid RCA there was a more discrete 90% stenosis. Mild luminal irregularities were noted in the remaining vessel. Left ventriculogram: Left ventriculography revealed moderate to severe global hypokinesis, with akinesis of part of the inferior wall and anterolateral wall. Ejection fraction is estimated to be 25-30% visually. There was no mitral regurgitation. Conclusion:: Coronary artery disease with along diffuse stenosis of the proximal and mid RCA, with a maximum of 70-80% stenosis poor. In the distal part of the mid RCA there is a more discrete 90% stenosis. Mild disease of the left system Moderate to severe global hypokinesis, EF 25-30% Mildly elevated
--- NOTE | 2022-05-05 11:09 | WPDCARDPROC ---
Cardiac Cath Procedure Note Date of procedure:: 05/05/22 Performing physician:: Sherlyn Piña MD Indication:: Right coronary artery stenosis Brief clinical history:: patient has a history of cardiomyopathy Dr. Roldan just finished a cardiac catheterization and was found to high-degree has been proximal distal RCA. I will proceed with a staged intervention Procedure Procedure performed:: 1- moderate sedation that started at 9:39 a.m. and ended at 11:02 a.m. with total duration 83 minutes using 4 mg Versed 125 mcg of fentanyl. the registered nurse was lyly pereyra. 2- intravascular ultrasound of the right coronary artery. 3- Deployment of drug-eluting stents 3.5 x 12 covering distal RCA. 4- deployment of a drug-eluting stent 3.5 x 38 overlapping the distal stent and covering proximally. 5- deployment of drug-eluting stent 3.5 x 15 proximal to the last stent covering proximal RCA. Sedation/Medication given:: moderate sedation Access site:: right radial artery Estimated blood loss:: 20cc Procedure note:: - right coronary artery engaged using 6 Upper Sorbian JR4 guide catheter. Usual advanced to distal RCA and then balloon angioplasty of distal RCA using 3 x 15 balloon under normal pressure for 25 seconds. Two inflations. Then we used that balloon to inflated across the proximal RCA under normal pressure for 25 seconds with 2 inflations. Intravascular ultrasound was done to measure the diameter of the artery. - Then we deployed drug-eluting stent 3.5 x 12 curving distal RCA under normal pressure for 25 seconds. - after that because there was some haziness proximal to the stent we decided to cover the mid segment all the way to the proximal segment and therefore we took balloon with 3.5 x 30 just to measure the length and then deployed 3.5 x 38 overlapping the distal stent proximal to it under normal pressure for 35 seconds. Then we used a balloon 3 x 15 to measure the proximal length and then deployed a 3.5 x 15 proximal to 38 mm stent and overlapping it and proximal to the under normal pressure for 35 seconds. We used a stent balloon to post dilate the overlap segment. Then after that we used noncompliant balloon 3.5 x 30 and inflated it across the right coronary artery under 20 atmospheres for 25 seconds each inflation. several inflations Findings:: - high-grade stenosis distal RCA and proximal RCA. - intravascular ultrasound of the right coronary artery shows the diameter of the RCA was 3.5 mm. Conclusion:: successful stenting of the right coronary artery Assessment and Plan Assessment and plan (1) Cardiomyopathy: Code(s): I42.9 - Cardiomyopathy, unspecified Status: Acute Plan - continue aspirin and Brilinta. - aggressive risk factor modification for CAD. - tobacco cessation.
--- NOTE | 2022-05-05 11:25 | ECG_ITS ---
Measurements Intervals [place] Rate: 72 P: 32 CT: 152 QRS: 15 QRSD: 92 T: 59 QT: 407 QTc: 446 Interpretive Statements SINUS RHYTHM NONSPECIFIC T-WAVE ABNORMALITY- HIGH LATERAL LEADS BASELINE ARTIFACT- I, II, III, AVR, AVL, V1 BORDERLINE ECG COMPARED TO ECG 05/04/2022 04:15:22 NO SIGNIFICANT CHANGES Electronically Signed On 05-05-2022 12:01:19 CDT by Russell Hunter D.O.
--- NOTE | 2022-05-05 12:27 | PM.IMPN ---
Progress Note: A&P Assessment and Plan (1) Chest pain: Code(s): R07.9 - Chest pain, unspecified Status: Acute Assessment and Plan: Status post stent to the RCA Continue antiplatelets (2) Cardiomyopathy: Code(s): I42.9 - Cardiomyopathy, unspecified Status: Acute Assessment and Plan: Acute, systolic CHF Continue Lasix, Entresto, spironolactone Subjective Date/time seen: 05/05/22 12:27 Exam Narrative: moderately obese Patient is comfortable, NAD HEENT: eyes are clear and none icteric LUNGS: normal respiratory effort ABD: distended Lower extremities: no edema SKIN: nonjaundiced Neuro: grossly intact. Objective Data Vital Signs Vital Signs: Vital Signs - 24 hr 05/04/22 13:15 05/04/22 14:00 05/04/22 16:00 Temperature 97.8 F Pulse Rate 78 89 100 Respiratory Rate 16 Blood Pressure 150/88 H Pulse Oximetry 99 Oxygen Delivery 05/04/22 16:00 05/04/22 16:00 05/04/22 18:00 Temperature 98.4 F Pulse Rate 78 88 Respiratory Rate 16 Blood Pressure 143/82 H Pulse Oximetry 97 Oxygen Delivery Room Air 05/04/22 20:00 05/04/22 20:40 05/04/22 20:00 Temperature 98.0 F Pulse Rate 80 98 Respiratory Rate 18 Blood Pressure 136/84 Pulse Oximetry 99 Oxygen Delivery Room Air 05/04/22 22:00 05/04/22 23:15 05/05/22 00:00 Temperature 97.9 F Pulse Rate 75 78 95 Respiratory Rate 20 Blood Pressure 141/67 H Pulse Oximetry 99 Oxygen Delivery 05/05/22 00:00 05/05/22 02:00 05/05/22 04:00 Temperature Pulse Rate 75 67 Respiratory Rate Blood Pressure Pulse Oximetry Oxygen Delivery Room Air 05/05/22 04:30 05/05/22 04:00 05/05/22 06:00 Temperature 97.8 F Pulse Rate 71 71 Respiratory Rate 20 Blood Pressure 101/75 Pulse Oximetry 97 Oxygen Delivery Room Air 05/05/22 08:00 05/05/22 08:00 05/05/22 08:00 Temperature 97.2 F L Pulse Rate 91 75 Respiratory Rate 16 Blood Pressure 139/86 Pulse Oximetry 94 Oxygen Delivery Room Air Intake/Output Intake/Output: Intake & Output 05/02/22 05/03/22 05/04/22 05/05/22 23:59 23:59 23:59 23:59 Intake Total 1320 400 Output Total 1450 Balance -130 400 Meds/Results Medications: Active Medications Generic Name Dose Route Start Last Admin Trade Name Freq PRN Reason Stop Dose Admin Hydrocodone Bitart/Acetaminophen 1 tab 05/05/22 12:01 Hydrocodone/Acetaminophen (*Crx) 5-325 Mg Tablet PO Q4-6H PRN Pain Rated 1-3 Hydrocodone Bitart/Acetaminophen 2 tab 05/05/22 12:01 Hydrocodone/Acetaminophen (*Crx) 5-325 Mg Tablet PO Q4-6H PRN Pain Rated 4-6 Aspirin 81 mg 05/04/22 10:00 05/05/22 08:03 Aspirin 81 Mg Chewable Tablet PO 81 mg DAILY@0800 [facility] Administration Atorvastatin Calcium 40 mg 05/06/22 09:00 Atorvastatin 40 Mg Tablet PO DAILY [facility] Furosemide 40 mg 05/04/22 21:00 05/04/22 20:42 Furosemide Inj 40 Mg/4 Ml Vial IV PUSH 40 mg Q12HR [facility] Administration Heparin Sodium (Porcine) 5,000 units 05/04/22 21:00 05/04/22 20:42 Heparin Sodium 5,000 Units/Ml Vial SUB-Q 5,000 units Q12HR [facility] Administration Sodium Chloride 500 mls @ 100 mls/hr 05/05/22 05:00 Normal Saline Iv IV CONT .Q5H [facility] Lidocaine 1 patch 05/04/22 21:00 05/04/22 21:43 Lidocaine 5% Patch TRANSDERM 1 patch Q24H [facility] Administration Melatonin 5 mg 05/04/22 21:00 05/04/22 21:31 Melatonin 5 Mg Tablet PO 5 mg HS [facility] Administration Metoprolol Succinate 25 mg 05/05/22 09:00 Metoprolol Succinate Ext Rel 25 Mg Tabcr PO QAM [facility] Nitroglycerin 0.4 mg 05/04/22 06:43 Nitroglycerin Sl 0.4 Mg Tablet SUBLINGUAL Q5MIN PRN Chest Pain Ondansetron HCl 4 mg 05/04/22 06:43 Ondansetron Inj 4 Mg/2 Ml Vial IV PUSH Q4H PRN Nausea Perflutren Lipid Microsphere 0 ml 05/04/22 06:43 Perflutren Lipid Microspheres 1.5 Ml Vial Diluted T
[2022-05-05] MEDS: FUROSEMIDE INJ 40 MG/4 ML VIAL IV PUSH ×2 (13:53→20:33)
--- NOTE | 2022-05-05 14:56 | PC.NURSE ---
On 05/05/22, the student, [Francisca Grijalva], provided care and completed [facility] documentation on this patient. I have reviewed the student's documentation and agree with the findings.
--- NOTE | 2022-05-05 14:57 | PC.NURSE ---
Pt returned from assistant laboratory director
[2022-05-05] MEDS: SPIRONOLACTONE 25 MG TABLET PO (15:07)
[2022-05-05] MEDS: METOPROLOL SUCCINATE EXT REL 25 MG TABCR PO (15:19)
--- NOTE | 2022-05-05 15:30 | PC.NURSE ---
[facility] flyer was given to patient.
[2022-05-05] MEDS: LIDOCAINE 5% PATCH 1 PATCH TRANSDERM (20:33)
[2022-05-05] MEDS: HEPARIN SODIUM 5,000 UNITS/ML VIAL 5000 UNITS SUB-Q (20:33)
[2022-05-05] MEDS: TICAGRELOR 90 MG TABLET PO (20:34)
[2022-05-05] MEDS: SACUBITRIL/VALSARTAN 24-26 MG TABLET 1 TAB PO (20:34)
[2022-05-05] MEDS: MELATONIN 5 MG TABLET PO (20:34)
[2022-05-05] MEDS: HYDROcodone/acetaminophen (*CRX) 5-325 MG TABLET 2 TAB PO (20:36)
[2022-05-05] MEDS: MORPHINE SULFATE (*CRX) 4 MG/ML INJ IV PUSH (23:57)
[2022-05-06] VITALS (8 sets, daily range): BP systolic 111–137; BP diastolic 77–88; PULSE 66–80; RESP 16–18; TEMP 36.2–36.7; O2SAT 94–97
[2022-05-06 04:59] LABS: Anion Gap 9 mmol/L (8-16); Blood Urea Nitrogen 15 mg/dL (9-20); Carbon Dioxide 25 mmol/L (22-30); Chloride 104 mmol/L (98-107); Cholesterol 176 mg/dL (0-200); Estimated CRCL calculation 114 ml/min; Estimated Glomerular Filt Rate > 60; Glucose 102 mg/dL (65-110); HDL Direct 34 mg/dL; Sodium 138 mmol/L (137-145); Triglycerides 157 mg/dL (<150)
[2022-05-06 05:10] LABS: LDL Cholesterol Direct 109 mg/dL
[2022-05-06] MEDS: HEPARIN SODIUM 5,000 UNITS/ML VIAL 5000 UNITS SUB-Q (09:15)
[2022-05-06] MEDS: FUROSEMIDE INJ 40 MG/4 ML VIAL IV PUSH (09:16)
[2022-05-06] MEDS: ATORVASTATIN 40 MG TABLET PO (09:16)
[2022-05-06] MEDS: METOPROLOL SUCCINATE EXT REL 25 MG TABCR PO (09:16)
[2022-05-06] MEDS: SACUBITRIL/VALSARTAN 24-26 MG TABLET 1 TAB PO (09:16)
[2022-05-06] MEDS: EMPAGLIFLOZIN 10 MG TABLET PO (09:16)
[2022-05-06] MEDS: TICAGRELOR 90 MG TABLET PO (09:16)
[2022-05-06] MEDS: ASPIRIN 81 MG CHEWABLE TABLET PO (09:16)
[2022-05-06] MEDS: SPIRONOLACTONE 25 MG TABLET PO (09:16)
--- NOTE | 2022-05-06 10:42 | PM.PNCARD ---
Progress Note: A&P Assessment and Plan (1) Cardiomyopathy: Code(s): I42.9 - Cardiomyopathy, unspecified Status: Acute Assessment and Plan: Patient presents with new onset of acute heart failure, probably systolic and diastolic. Likely due to uncontrolled hypertension and some CAD identified on cath yesterday, s/p PCI Rec'd fluids during cath yesterday and had some CHF, feeling much better this morning following IV diuresis. No evidence of CHF on exam. Start guideline directed medical therapy with Entresto, metoprolol, spironolactone, and Farxiga. Counseled patient extensively about hypertension, cardiomyopathy, CHF, pharmacologic and nonpharmacologic treatment, etc. Reiterated the importance of adherence to all medical therapy but in particular DAPT without interruption for at least one year. Smokng cessation Echo showing LVEF 35 - 40%. Has been started on medical therapy as above (2) CAD (coronary artery disease): Code(s): I25.10 - Atherosclerotic heart disease of marshall coronary artery without angina pectoris Status: Acute Assessment and Plan: LHC yesterday revealed high grade stenosis of the proximal and distal RCA. These lesions were stented. DAPT with ASA, Brilinta Statin Smoking cessation Other lifestyle modifications for CAD risk reduction (3) Acute combined systolic and diastolic congestive heart failure: Code(s): I50.41 - Acute combined systolic (congestive) and diastolic (congestive) heart failure Status: Acute (4) Hypertensive heart disease: Code(s): I11.9 - Hypertensive heart disease without heart failure Status: Acute Subjective Date/time seen: 05/06/22 10:42 Cardiology follow up for CAD, CHF He is feeling very well this morning and does not have any complaints. He has been ambulating about the room without difficulty. No shortness of breath. Able to lie flat. No swelling. No chest pain or palpitations. Review of Systems Constitutional: Constitutional: Denies fever(s) Eyes: Eyes: Reports no additional eye complaints ENT: Denies epistaxis and Denies nasal congestion Cardiovascular: Cardiovascular: Reports chest pain, Denies pedal edema, Denies lightheadedness, Reports dyspnea and Reports dyspnea on exertion Respiratory: Respiratory: Denies chest congestion, Denies cough, Reports dyspnea and Reports dyspnea on exertion Gastrointestinal: Gastrointestinal: Denies abdominal pain and Denies hematochezia Genitourinary: Genitourinary: Reports urinary frequency (Nocturia) Musculoskeletal: Musculoskeletal: Reports no additional musculoskeletal complaints and Reports myalgias (Some calf aching and cramps at rest, no claudication) Integumentary/Breasts: Skin/Breast: Reports system reviewed and no additional complaints, except as docu Neurologic: Reports system reviewed and no additional complaints, except as documented, Denies behavioral changes and Denies confusion Psychiatric: Psychiatric: Denies behavioral changes, Denies confusion and Reports depression Exam Const: General: cooperative, healthy appearing and comfortable; No confusion Orientation/consciousness: oriented to person, patient oriented x3 and No confusion HENMT: Mouth: Yes moist mucous membranes Eyes: EOM: EOMs intact bilaterally Neck: Neck: supple and no JVD Thyroid: thyroid normal Carotids: no bruits Resp: Effort & Inspection: normal respiratory effort Auscultation: clear to auscultation bilaterally Cardio: Rate: regular rate Rhythm: regular rhythm Heart sounds: no murmurs Other: Dorsalis pedis pulses present but diminished GI: Inspection: normal to inspection Skin: General skin exam: normal color and no rashes or lesions noted Other: R wrist arterial access site free from hematoma, ecchymosis. Radial and ulnar pulses intact. Neuro: General: oriented to person, patient oriented x3 and No confusion Extrem: Right lower extremity: no edema Left lo
--- NOTE | 2022-05-06 12:13 | PM.DS ---
DS: Admitting Diagnosis Discharge Date May 06, 2022 Admitting Diagnosis New onset CHF, coronary disease, stent placed DS: Discharge Diagnosis Discharge Diagnosis (1) Chest pain: Code(s): R07.9 - Chest pain, unspecified Status: Acute (2) Cardiomyopathy: Code(s): I42.9 - Cardiomyopathy, unspecified Status: Acute DS: Summary Hospital Course Hospital Course: Patient was admitted with chest pain. Underwent catheterization found RCA with significant coronary disease. Had 3 stents placed in the RCA. Currently he is chest pain-free cardiology evaluated the patient for ongoing CHF and coronary disease. Patient be on several new cardiac medications on discharge. He will follow-up with cardiology. No oxygen as needed he is ambulating without any issues Time Spent with Patient Time attestation: Total time spent providing and/or coordinating discharge services: DS: Data Data Completed and Pending Labs on day of discharge: Labs from last 24 hours 05/06/22 04:24 Sodium 138 Potassium 4.0 Chloride 104 Carbon Dioxide 25 Anion Gap 9 BUN 15 Creatinine 0.80 Estim Creat Clear Calc 114 Estimated GFR > 60 Glucose 102 Calcium 9.0 Triglycerides 157 H Cholesterol 176 LDL Cholesterol Direct 109 HDL Direct 34 Discharge Plan Discharge Attending physician on discharge: Venkat Elizondo Consulting providers: Andria Steinberg ; Michelle Lagunas Discharging Clinician: Venkat Elizondo Patient Disposition: Home, Self-Care Activity: no preference Diet: as tolerated Discharge Instructions: [facility] [address] [place] [address] DISCHARGE INSTRUCTIONS - POST PCI Activity 1. No driving until 05/07/22. 2. No lifting, pushing or pulling more than 10 pounds for 1 week. 3. No strenuous exercise or activity (including sexual activity) until you are released to do so. 4. May shower but no tub baths or swimming pool for 1 week. Avoid commercial hot tubs. Medications DO NOT STOP YOUR MEDICATIONS ONLY YOUR SINGLE ENDING MACHINE OPERATOR CAN STOP THE FOLLOWING MEDICATIONS - PLEASE CALL THE OFFICE WITH QUESTIONS. *Aspirin *Ticagrelor (Brilinta) *Atorvastatin *Lisinopril or ARB *Metoprolol Important Reminders 1. Keep your stent card in your wallet at all times 2. Follow a heart healthy diet paying extra attention to cholesterol and fats. 3. Stay hydrated. 4. If you have chest pain unrelieved by rest or nitroglycerin (if prescribed) call 911 immediately. 5. If you miss one dose of Brilinta (if prescribed) take a tablet at the next time due. If you miss 2 doses take a tablet when you remember and resume at the next time due. *For any other questions please call the office at [phone]. Office hours are 8AM 4:30PM Monday through Monday. Patient Instructions: Antibiotic Form, Metoprolol (By mouth), Spironolactone (By mouth), Furosemide (By mouth), Regadenoson (By injection), Dapagliflozin (By mouth), Sacubitril/Valsartan (By mouth), Chest Pain (DC), How to Stop Smoking (GEN), Heart Healthy Diet (DC), Heart Catheterization (DC), Coronary Intravascular Stent Placement (DC), Cardiac Stress Test (DC) Stand Alone Forms: General Discharge Information Follow-up/Referrals: Nunu Sanchez, OPERATER-C [Advanced Practice Nurse] - (You have an appointment on 05/18/22 at 10:30. Please arrive at 10:15. ) Discharge Medications: New atorvastatin 40 mg Tablet
== END 2022-05-06 13:05 | disposition home or self-care (01) | DRG 175 ==
LOC: ANHED 06:48 → ANHIMU 09:26
PROVIDERS: Family Medicine; Internal Medicine Cardiovascular Disease; Student in an Organized Health Care Education/Training Program; Admitting Provider Internal Medicine; Emergency Provider Emergency Medicine; Visit Provider Chiropractor
PROC: 4A023N7 Measurement of Cardiac Sampling and Pressure, Left Heart, Percutaneous Approach (ICD-10-PCS; CPT 93452; principal; 2022-05-05 08:30)
PROC: 027036Z Dilation of Coronary Artery, One Artery with Three Drug-eluting Intraluminal Devices, Percutaneous Approach (ICD-10-PCS; 2022-05-05 08:30)
PROC: 027036Z Dilation of Coronary Artery, One Artery with Three Drug-eluting Intraluminal Devices, Percutaneous Approach (ICD-10-PCS; 2022-05-05 08:30)
DX: I11.0 Hypertensive heart disease with heart failure (principal); I50.41 Acute combined systolic (congestive) and diastolic (congestive) heart failure; I25.10 Atherosclerotic heart disease of native coronary artery without angina pectoris; I42.9 Cardiomyopathy, unspecified; Z20.822 Contact with and (suspected) exposure to COVID-19; R77.8 Other specified abnormalities of plasma proteins; F17.210 Nicotine dependence, cigarettes, uncomplicated; E66.9 Obesity, unspecified; Z68.31 Body mass index [BMI] 31.0-31.9, adult; Z90.49 Acquired absence of other specified parts of digestive tract
CPT/HCPCS: 36415; 71046; 71275; 78452; 80048; 80053; 80061; 82465; 83690; 83735; 83880; 84100; 84484; 85025; 85610; 85730; 87502; 92978; 93005; 93017; 93306; 93458; 94640; 96372; 96374; 96375; 99285; A9270; A9502; C1725; C1753; C1769; C1874; C1887; C1894; C9600; C9803; G0378; G0379; J0583; J1644; J1940; J2250; J2270; J2785; J3010; J7040; Q9967; U0003; U0005

== ENCOUNTER 2022-06-27 11:27 | Observation (INO) | payer BC, SELFPAY ==
[2022-06-27] VITALS (7 sets, daily range): BP systolic 74–127; BP diastolic 62–103; PULSE 48–137; RESP 14–20; TEMP 35.7–36.5; O2SAT 97–99; BMI 31.1
--- NOTE | ~2022-06-27 | CT_ITS ---
EXAMINATION: CT brain wo con DATE: 06/27/2022 19:56 INDICATION: Dizziness TECHNIQUE: Computed tomography (CT) of the head was performed without intravenous contrast. The mA wa s adjusted according to patient size. Iterative reconstruction technique was employed. Exam dose: 68 1.00 mGy-cm total exam DLP. COMPARISON: 09/20/2021 CT brain 02/04/2019 CT brain FINDINGS: Mild cerebral calcified atherosclerosis. Mild nonspecific diminished attenuation of the cer ebral white matter, likely due to chronic small vessel ischemic changes. Minimal pinpoint left basal ganglia calcification. No intracranial mass lesion or hemorrhage, midline shift or mass effect. Normal ventricular size. No subdural or epidural hematoma. Probable old blowout fracture of the medial wall of the left orbit. Otherwise no skull fracture or bone destruction. Included paranasal sinuses and the mastoid air cells are normally developed and aerated. IMPRESSION: Mild cerebral atherosclerosis and chronic small vessel ischemic changes of cerebral whit e matter No acute intracranial finding Reviewed, dictated and finalized at [facility]. Reviewed, dictated and finalized at location [facility]. IMPRESSION: Mild cerebral atherosclerosis and chronic small vessel ischemic ch anges of cerebral white matter No acute intracranial finding
--- NOTE | ~2022-06-27 | XR_ITS ---
EXAMINATION: XR chest 2V DATE: 06/27/2022 12:11 INDICATION: Dizziness. Diaphoresis. TECHNIQUE: Frontal and lateral views of the chest were obtained. COMPARISON: Chest 2 views 05/04/2022 FINDINGS: The chest demonstrates clear lungs without pneumonia, pleural effusion, or pneumothorax. Th e heart size is normal. There is mild chronic anterior wedging of a midthoracic vertebral body. IMPRESSION: 1. No acute cardiopulmonary disease. Reviewed, dictated and finalized at location [facility].
--- NOTE | 2022-06-27 11:42 | ECG_ITS ---
Measurements Intervals [place] Rate: 108 P: [place]: 0 QRS: 16 QRSD: 90 T: 60 QT: 333 QTc: 447 Interpretive Statements UNDERLYING SINUS RHYTHM WITH POSSIBLE BRIEF ATRIAL FIBRILLATION WITH RAPID VENTRICULAR RESPONSE WITH ABERRANT CONDUCTION OR VENTRICULAR PREMATURE COMPLEXES NONSPECIFIC T-WAVE ABNORMALITY ABNORMAL ECG COMPARED TO ECG 05/05/2022 11:31:10 ATRIAL FIBRILLATION NOW PRESENT ABERRANT CONDUCTION OF SUPRAVENTRICULAR BEAT(S) NOW PRESENT Electronically Signed On 06-27-2022 16:17:47 CDT by Curry Sylvester M.D.
[2022-06-27 11:52] LABS: Basophils Percent Auto 0.3 % (0.2-1.2); Eosinophils Absolute Auto 0.2 K/mm3 (0-0.3); Eosinophils Percent Auto 1.3 % (0-4.4); Hematocrit 48.4 % (42.0-52.0); Hemoglobin 16.1 g/dL (14.0-18.0); Immature Granulocyte Absolute 0.14 K/mm3 (0.00-0.031); Immature Granulocyte Percent A 1.2 % (0-0.5); Lymphocytes Absolute Auto 2.05 K/mm3 (0.9-3.2); Lymphocytes Percent Auto 16.9 % (18.3-44.2); Mean Corpuscular HGB Conc 33.3 g/dl (32-36); Mean Corpuscular Hemoglobin 29.4 pg (26-34); Mean Corpuscular Volume 88.3 fl (80-100); Mean Platelet Volume 10.2 fl (7.4-10.4); Monocytes Absolute Auto 0.9 K/mm3 (0.1-0.6); Monocytes Percent Auto 7.5 % (2.6-8.5); Neutrophils Absolute Auto 8.8 K/mm3 (1.3-6.7); Neutrophils Percent Auto 72.8 % (45.5-73.1); Platelet Count Result 305 k/mm3 (150-375); Red Blood Count 5.48 M/mm3 (4.6-6.20); Red Cell Distribution Width 13.3 % (11.5-14.5); White Blood Count 12.1 K/mm3 (4.5-10.0)
[2022-06-27 12:04] LABS: Alanine Aminotransferase 27 U/L (6-50); Albumin Level 4.4 g/dL (3.5-5.1); Alkaline Phosphatase 84 U/L (38-126); Anion Gap 14 mmol/L (8-16); Aspartate Amino Transferase 27 U/L (17-59); Bilirubin,Total 0.3 mg/dL (0.2-1.3); Blood Urea Nitrogen 25 mg/dL (9-20); Calcium 9.4 mg/dL (8.4-10.2); Carbon Dioxide 25 mmol/L (22-30); Chloride 102 mmol/L (98-107); Estimated CRCL calculation 85 ml/min; Estimated Glomerular Filt Rate > 60; Glucose 125 mg/dL (65-110); Potassium 4.3 mmol/L (3.4-5.0); Sodium 141 mmol/L (137-145)
[2022-06-27 12:55] LABS: Add Urine Microscopic? YES; Appearance Urine Clear (Clear); Bilirubin Urine Negative (Negative); Blood Urine Negative (Negative); Color Urine Straw (Yellow); Glucose Urine UA 3+ mg/dL (Negative); Ketones Urine Negative (Negative); Leukocyte Esterase Ur Negative LEU/UL (Negative); Nitrate Urine Negative (Negative); Protein Urine Negative (Negative); Specific Grav Ur 1.012 (1.001-1.035); Urobilinogen Urine Negative mg/dL (<2.0); WBC Urine 0-3 /hpf
[2022-06-27 13:24] LABS: NT Pro B Type Natriuretic Pept 293 pg/mL (5-100); Troponin I < 0.012 ng/mL (0.000-0.034)
--- NOTE | 2022-06-27 13:45 | PM.IMHP ---
H&P: HPI History of Present Illness Date/Time: 06/27/22 13:45 Chief Complaint: Dizziness. Narrative: This is a 52-year-old male with coronary artery disease and ischemic cardiomyopathy with history of multiple stents to presented to the emergency department from home for evaluation of dizziness. The last several days he has had difficulties maintaining an erection and this morning he and his significant other were having intercourse when he suddenly lost his erection and became extremely dizzy. He has difficulties describing the dizziness, at times it sounds as though he was lightheaded and other times it sounds as though he was experiencing vertigo. He also felt a bit short of breath with that and his symptoms resolved within a few minutes. It was mainly because of his difficulties with erection that he came to the ER today. His blood pressures were stable on arrival and have remained stable. Labs have also been reassuring. At times he is in a sinus rhythm with occasional ectopy however at times it looks as though he goes into brief episodes of atrial fibrillation with rapid ventricular response. On a few occasions while I was in the room with the patient he had 3 to 5 beat runs of nonsustained V-tach of which he was asymptomatic. Given his cardiac history he is being admitted overnight for observation consultation with Cardiology. He denies syncope, chest pain, pleuritic pain, palpitations, sensations of racing heart, nausea, vomiting, and diaphoresis. Review of Systems Review of Systems: Twelve systems were reviewed. No fever, chills, or sweats. No recent cold or flu symptoms. No ear pain or aural fullness. No sinus congestion or sore throat. Appetite has been fine. No diarrhea or dysuria. He denies lower extremity edema, calf pain, and tenderness. Except as documented, all other systems were reviewed and are negative. [facility] Past Medical History Medical History Cardiomyopathy Chronic back pain Chronic neck pain Combined systolic and diastolic congestive heart failure Coronary artery disease Hypertensive heart disease Tobacco use Surgical History Surgical History (Updated 06/27/22 @ 20:58 by Ashley De La Torre PA-C) History of appendectomy History of cardiac catheterization History of heart artery stent Family History Family History Father No pertinent past medical history Heart disease, Onset Age: 58 Has had 7 stents Other Lung cancer Cerebrovascular accident Acute myocardial infarction Mother MVA (motor vehicle accident), Onset Age: 37 COD Social History Social History (Updated 06/27/22 @ 20:58 by Ashley De La Torre PA-C) Social History: Freaks Code status: Full code. Smoking packs per day: 0.5 Smoking cigarettes per day: 10.0 Years smoked: 20 Smoking pack-years: 10.00 Smoking status: Current every day smoker Tobacco type: cigarettes Additional smoking assessment comments: Half pack per day Alcohol intake: never Alcohol use details: Socially Substance use: never Spiritual care concerns: Yes Has the Lack of Transportation Kept You From Medical Appointments or From Getting Medications?: No Within the Past 12 Months, Were You Worried Whether Your Food Would Run Out Before You Got Money to Buy More?: Sometimes True What is Your Housing Situation Today?: I Have Housing Are You Worried That in the Next 2 Months, You May Not Have Your Own Housing to Live In?: No Do You Have Trouble Paying Your Heating Or Electricity Bill?: No Do You Have Trouble Paying For Medicines?: No Are You Currently Unemployed and Looking for Work?: No Highest Level of Education Completed: Trade/Vocational Certificate Do You Have Trouble With Childcare or the Care of a Family Member?: No Meds Home Medications and Allergies Home Medications Medication Instructions Recorded Confirmed Type aspirin 81 mg wendy
[2022-06-27 15:06] LABS: Troponin I < 0.012 ng/mL (0.000-0.034)
[2022-06-27 15:19] LABS: Influenza A QL RT-PCR Negative (Negative); Influenza B QL RT-PCR Negative (Negative); SARS-CoV-2 RNA PCR Negative
--- NOTE | 2022-06-27 15:58 | ADMGEN ---
This patient, Kahn, was admitted to IMU Room 209-01 at 1543. Patient/family oriented to hospital policies and general routines including ID bracelet, bed and alarms, visiting hours, pain management, procedures, bathroom and other care routines, personal items, smoking policy, room service/diet, and visiting hours. Information on how to activate the Rapid Response Team has been discussed. Patient/Family are encouraged to report perceived risks to care and to ask questions if they do not understand what they are told or what they should do.
[2022-06-27 17:33] LABS: Troponin I < 0.012 ng/mL (0.000-0.034)
--- NOTE | 2022-06-27 20:10 | ED.DIZZY ---
HPI - Dizziness General Chief Complaint: Dizziness Stated Complaint: dizziness Time Seen by Provider: 06/27/22 11:34 History of Present Illness HPI Narrative: 52-year-old male with history of CAD status post 3 stents placed a year month ago presents because he was trying to have sexual intercourse with his partner, and then felt he was having difficulty staying hard, and he feels somewhat dizzy so he came into the hospital. Denies any chest pain or difficulty breathing. Related Data Allergies Allergy/AdvReac Type Severity Reaction Status Date / Time No Known Allergies Allergy Verified 06/27/22 11:40 Review of Systems Review of Systems: CONST: No fever. HEENT: No sore throat C/V: No chest pain RESP: No difficulty breathing GI: No abdominal pain : Erectile dysfunction M/S: No joint pain. SKIN: No rash. NEURO: Episode of lightheadedness that resolved PSYCH: [No depression] PMFSH Past Medical History Medical History Cardiomyopathy Chronic back pain Chronic neck pain Hypertensive heart disease Tobacco use Surgical History Surgical History History of appendectomy Family History Family History Father No pertinent past medical history Heart disease, Onset Age: 58 Has had 7 stents Other Lung cancer Cerebrovascular accident Acute myocardial infarction Mother MVA (motor vehicle accident), Onset Age: 37 COD Social History Social History Smoking packs per day: 0.5 Smoking cigarettes per day: 10.0 Years smoked: 20 Smoking pack-years: 10.00 Smoking status: Current every day smoker Tobacco type: cigarettes Additional smoking assessment comments: Half pack per day Alcohol intake: never Alcohol use details: Socially Substance use: never Gender identity (if verbalized by the patient): Male Spiritual care concerns: Yes Has the Lack of Transportation Kept You From Medical Appointments or From Getting Medications?: No Within the Past 12 Months, Were You Worried Whether Your Food Would Run Out Before You Got Money to Buy More?: Sometimes True What is Your Housing Situation Today?: I Have Housing Are You Worried That in the Next 2 Months, You May Not Have Your Own Housing to Live In?: No Do You Have Trouble Paying Your Heating Or Electricity Bill?: No Do You Have Trouble Paying For Medicines?: No Are You Currently Unemployed and Looking for Work?: No Highest Level of Education Completed: Trade/Vocational Certificate Do You Have Trouble With Childcare or the Care of a Family Member?: No Exam Narrative: EXAMINATION OF ORGAN SYSTEMS/BODY AREAS: Constitutional: Vital signs per nursing GENERAL:[No acute distress, non-toxic appearing.] HEAD: Normal with no signs of head trauma. EYES: EOMI, conjunctiva normal ENT: Hearing grossly intact LUNGS: Nonlabored breathing. HEART: Irregularly irregular ABD: [Soft], [nontender to palpation] EXT: Normal range of motion SKIN: [No rashes or lesions.] NEURO: [Alert and oriented x 3. No gross focal sensory or strength deficits.] PSYCH: Normal affect Course Vital Signs Vital signs: Vital Signs Temperature 97.4 F L 06/27/22 11:33 Pulse Rate 88 06/27/22 11:33 Respiratory Rate 14 06/27/22 11:33 Blood Pressure 127/103 H 06/27/22 11:33 Pulse Oximetry 99 06/27/22 11:33 Temperature 96.2 F L 06/27/22 16:00 Pulse Rate 137 H 06/27/22 18:00 Respiratory Rate 16 06/27/22 16:00 Blood Pressure 96/74 L 06/27/22 16:00 Pulse Oximetry 99 06/27/22 16:00 Oxygen Delivery Room Air 06/27/22 16:00 MDM - Dizziness MDM Narrative Medical decision making narrative: 52-year-old male presenting with episode of dizziness after intercourse, vital signs notable for tachycardia, on exam he is well-appearing, in no distress, with normal respirations
--- NOTE | 2022-06-27 21:14 | ECG_ITS ---
Measurements Intervals [place] Rate: 128 P: 38 WY: 161 QRS: 19 QRSD: 101 T: 97 QT: 335 QTc: 489 Interpretive Statements UNDERLYING SINUS RHYTHM WITH POSSIBLE BRIEF ATRIAL FIBRILLATION WITH RAPID VENTRICULAR RESPONSE NONSPECIFIC T-WAVE ABNORMALITY COMPARED TO ECG 06/27/2022 11:39:00 NO SIGNIFICANT CHANGES Electronically Signed On 06-28-2022 16:05:00 CDT by Gab Avila M.D.
[2022-06-27] MEDS: TICAGRELOR 90 MG TABLET PO (21:32)
[2022-06-27] MEDS: SACUBITRIL/VALSARTAN 24-26 MG TABLET 1 TAB PO (21:32)
[2022-06-27 21:44] LABS: Magnesium 2.2 mg/dL (1.6-2.3)
[2022-06-27 21:45] LABS: Anion Gap 10 mmol/L (8-16); Blood Urea Nitrogen 29 mg/dL (9-20); Calcium 8.4 mg/dL (8.4-10.2); Carbon Dioxide 25 mmol/L (22-30); Chloride 101 mmol/L (98-107); Estimated CRCL calculation 83 ml/min; Estimated Glomerular Filt Rate > 60; Glucose 137 mg/dL (65-110); Magnesium 2.3 mg/dL (1.6-2.3); Potassium 3.8 mmol/L (3.4-5.0); Sodium 136 mmol/L (137-145)
--- NOTE | 2022-06-27 21:48 | PC.NURSE ---
PATIENTS GIRLFRIEND WAS STILL IN ROOM WHEN I WENT TO SEE PATIENT. PATIENT WAS INFORMED OF THE CURRENT VISITING POLICY. HE STARTED YELLING AND STATED THAT IF SHE CAN'T STAY THAT HE WAS LEAVING. CHARGE NURSE JOSE WAS JUST OUTSIDE THE ROOM AND I CALLED HER IN TO TRY TO EXPLAIN TO THE PATIENT THE POLICY. HE BECAME MORE IRATE AND DEMANDED TO SPEAK TO THE BOSS. NEAL THE MANUFACTURING QUALITY INSPECTOR WAS CALLED AND CAME IN AND INFORMED PATIENT OF THE VISITING POLICY. NOTHING ANY OF SAID MADE A DIFFERENCE. HE WAS DEMANDING THAT SHE COULD STAY. RICHY ZIEGLER AND SHE IS AWARE OF PATIENTS DECISION TO LEAVE AMA. HE SIGNED AMA PAPERS AND HIS IV WAS REMOVED FROM HIS RT FOREARM AND TELEMETRY BOX WAS REMOVED. PATIENT GOT DRESSED AND AMBULATED OUT OF HERE.
--- NOTE | 2022-06-27 23:11 | PC.NURSE ---
At 2144 this Nurse asked to speak to patient about visitor policy. As entering room patient is stating if she cant stay I will leave . Explained that we has a visitor policy that ends at 1999. We do not allow visitors to stay overnight. Pt getting more upset stating his girlfriend could stay at other hospitals. Re-explained our policy doesn't allow for overnight visitors and pt interrupts saying he will leave. Explained to patient that he has an abnormal heart rate and a blood pressure that is very low when he stands. Pt states I will have an abnormal heart rate at home . Explained he is putting his health at risk and could even experience sudden cardiac . Pt reiterates he is leaving if his girlfriend cant stay and asks to speak to your boss . Contacted Millie Barbosa and she came to speak with patient. Millie calmly reiterated visitor policy and warned against stroke and other health hazards. Pt saumya, talking over staff, states he is not going to argue while being argumentative. Patient signed AMA papers.
== END 2022-06-27 22:00 | disposition left against medical advice (07) ==
LOC: ANHED 12:23 → ANHIMU 15:55
PROVIDERS: Internal Medicine Cardiovascular Disease; Physician Assistant; Admitting Provider Internal Medicine; Emergency Provider Emergency Medicine; Visit Provider Internal Medicine
DX: R42 Dizziness and giddiness (principal); I25.10 Atherosclerotic heart disease of native coronary artery without angina pectoris; I50.40 Unspecified combined systolic (congestive) and diastolic (congestive) heart failure; I11.0 Hypertensive heart disease with heart failure; F17.210 Nicotine dependence, cigarettes, uncomplicated; Z79.82 Long term (current) use of aspirin
CPT/HCPCS: 36415; 70450; 71046; 80048; 80053; 81001; 83735; 83880; 84443; 84484; 85025; 87502; 93005; 99285; A9270; G0378; G0379; U0003; U0005

== ENCOUNTER 2023-05-19 09:30 | Emergency (ER) | payer BC, SELFPAY ==
--- NOTE | 2023-05-19 09:36 | ED.URI ---
HPI - URI/Sore Throat General Chief Complaint: Upper Respiratory Infection Stated Complaint: Sore Throat,Fatigue Time Seen by Provider: 05/19/23 09:36 Source: patient Mode of arrival: ambulatory Limitations: no limitations History of Present Illness HPI Narrative: 52-year-old male with history of hypertension, recent stents presents with complaint of nasal congestion, sneezing, fatigue for the last 2-3 days. Reports that he was very fatigued and slept for the past 2 days. Last night he was wide awake and could not fall asleep due to all of the recent sleeping. Was not able to go to work today even though he is feeling better because he did not sleep last night. Denies sore throat, cough. No nausea vomiting diarrhea. Patient concerned he may have had COVID. All systems reviewed and negative except as noted above. Related Data Allergies Allergy/AdvReac Type Severity Reaction Status Date / Time No Known Allergies Allergy Verified 05/19/23 09:39 Review of Systems Review of Systems: CONSTITUTIONAL: Denies fever, chills, or sweats. EYES: Denies visual changes, redness, or discharge. ENT: Reports rhinorrhea, congestion,, sneezing. Denies sore throat, or otalgia. CARDIOVASCULAR: Denies chest pain, palpitations, or edema. RESPIRATORY: Denies cough or dyspnea. GASTROINTESTINAL: Denies abdominal pain, nausea, vomiting, or diarrhea. GENITOURINARY: Denies dysuria or hematuria. SKIN: Denies rash or itching. MUSCULOSKELETAL: Denies back pain, joint pain, or myalgia. NEUROLOGIC: Denies headache, numbness, or weakness. PSYCHIATRIC: Denies anxiety or depression. All other systems reviewed are negative, except as documented in HPI. [facility] Past Medical History Medical History Cardiomyopathy Chronic back pain Chronic neck pain Combined systolic and diastolic congestive heart failure Coronary artery disease Hypertensive heart disease Tobacco use Surgical History Surgical History (Updated 06/27/22 @ 20:58 by Ashlye De La Torre PA-C) History of appendectomy History of cardiac catheterization History of heart artery stent Family History Family History Father No pertinent past medical history Heart disease, Onset Age: 60 Has had 7 stents Other Lung cancer Cerebrovascular accident Acute myocardial infarction Mother MVA (motor vehicle accident), Onset Age: 37 COD Social History Social History (Updated 06/27/22 @ 20:58 by Ashley De La Torre PA-C) Social History: Freaks Code status: Full code. Smoking packs per day: 0.5 Smoking cigarettes per day: 10.0 Years smoked: 20 Smoking pack-years: 10.00 Smoking status: Current every day smoker Tobacco type: cigarettes Additional smoking assessment comments: Half pack per day Alcohol intake: never Alcohol use details: Socially Substance use: never Lack of Transportation: No Lack of Food: Sometimes True Current Housing: I Have Housing Concerned About Future Housing: No Difficulty Paying Gas/Electric Bills: No Difficulty Paying for Meds: No Currently Unemployed: No Education: Trade/Vocational Certificate Difficulty w/ Childcare or Family Care: No Living arrangements: with family Spiritual care concerns: Yes Comments At time of signature, agree with nursing past medical, surgical, social and family history. There is no relevant family history pertinent to the presenting complaint. Exam Narrative: GENERAL: This is a well-nourished, well-developed patient, in no apparent distress. HEAD: normocephalic, atraumatic. EYES: PERRL. Sclera clear/white. Vision is grossly intact. EARS: External ears normal, auditory canals clear and without drainage, TMs normal without perforation. Hearing grossly intact. NOSE: External nose normal with clear nasal drainage, mild congestion. No significant erythema or swelling to nares. THROAT: Mucous membra
[2023-05-19 09:43] VITALS: BP 180/118; PULSE 77; RESP 18; TEMP 36.3; O2SAT 100
[2023-05-19 09:55] VITALS: BP 172/100
== END 2023-05-19 10:05 | disposition home or self-care (01) ==
PROVIDERS: Emergency Provider Nurse Practitioner Family
DX: J06.9 Acute upper respiratory infection, unspecified (principal); I25.10 Atherosclerotic heart disease of native coronary artery without angina pectoris; I11.0 Hypertensive heart disease with heart failure; I50.9 Heart failure, unspecified; F17.210 Nicotine dependence, cigarettes, uncomplicated; Z20.822 Contact with and (suspected) exposure to COVID-19
CPT/HCPCS: 87426; 99213; C9803; G0463

== ENCOUNTER 2024-01-02 15:55 | Inpatient (IN) | payer OTHER, MEDICAID, SELFPAY ==
[2024-01-02] VITALS (8 sets, daily range): BP systolic 129–151; BP diastolic 70–98; PULSE 65–78; RESP 16–20; TEMP 36.4; O2SAT 95–100; BMI 32.8
--- NOTE | ~2024-01-02 | XR_ITS ---
XR chest 2V DATE: 01/02/2024 16:23 INDICATION: Chest pain TECHNIQUE: PA and lateral views COMPARISON: 06/27/2022 2 view chest FINDINGS: Bilateral hyperinflation, suggesting COPD. No pulmonary infiltrate or consolidation, pleura l effusion or pulmonary vascular congestion or pneumothorax is detected. Normal heart size. Prominent coronary artery calcification and/or coronary stent. Aortic calcificatio n and minimal tortuosity. No hilar or mediastinal enlargement. IMPRESSION: Bilateral hyperinflation suggesting obstructive airways disease Aortic atherosclerosis Coronary atherosclerosis and/or coronary artery stent Reviewed, dictated and finalized at location A.
--- NOTE | ~2024-01-02 | NM_ITS ---
EXAMINATION: NM marta stress w perfusion DATE: 01/04/2024 11:18 INDICATION: Coronary artery disease. TECHNIQUE: Rest images were obtained following intravenous administration of 10.0 mCi Tc99m tetrofosm in (Myoview). The patient was infused intravenously with Lexiscan (Regadenoson). Then, 31.0 mCi Tc99m tetrofosmin (Myoview) was administered intravenously, and stress images were obtained initially in t he supine position with repeat post stress images obtained in the prone position. Data was reconstruc cata into short axis and horizontal and vertical long axis SPECT images. Gated SPECT images were also obtained. COMPARISON: 05/04/2022 FINDINGS: There is likely diaphragmatic attenuation artifact along a significant portion of the infer ior and inferolateral ames on both the rest and more prominently on the post stress imaging which ne alen normalize on the post stress imaging performed in the prone position with residual small region of mild decreased activity at the mid inferior segment equivalent for ischemia versus small amount of residual artifact. There is an additional small region of likely artifactual decreased perfusion at the mid anterolateral wall which also normalizes on the post stress imaging obtained in the prone pos ition. No other definite perfusion abnormalities identified in the prone post stress imaging. There is normal left ventricular chamber size, wall motion and ejection fraction. Left ventricular ejectio n fraction measures 56%. IMPRESSION: 1. Likely artifactual regions of decreased activity along significant portions of the inferior, infer olateral and anterolateral ames which largely normalizes on the post stress imaging obtained in the prone position. 2. Small region of persistent relative decreased activity at the mid inferior wall on the prone post stress images when compared with the rest images which is equivocal for mild reversible ischemia vers us residual diaphragmatic attenuation artifact. 3. Left ventricular ejection fraction measuring 56%. Reviewed, dictated and finalized at location A. IMPRESSION: 1. Likely artifactual regions of decreased activity along significant portions of the inferior, inferolateral and anterolateral ames which largely normalizes on the post stress imaging obtained in the prone position. 2. Small region of persistent relative decreased activity at the mid inferior w all on the prone post stress images when compared with the rest images which is equivocal for mild reversible ischemia versus residual diaphragmatic attenuati on artifact. 3. Left ventricular ejection fraction measuring 56%.
--- NOTE | 2024-01-02 15:59 | ECG_ITS ---
SEE SCANNED COPY FOR CONFIRMED REPORT MTDD
--- NOTE | 2024-01-02 16:01 | ED.GENADULT ---
HPI - General Adult General Chief complaint: Chest Pain Stated complaint: CHEST PAIN INT X WEEKS Time Seen by Provider: 01/02/24 16:01 Focused HPI: Winston is a 53 y/o with reports of having chest pain off and on for 2 weeks to his mid chest and radiates to his left arm. He states it was happening every other day and now its happening everyday - pain lasts for a couple hours / he also states that he is feeling a little short of breath. He reports he had 3 stents placed last year. 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 GENERAL: Well-appearing, well-nourished, and in no acute distress. HEAD: Normocephalic, atraumatic. CHEST: Clear to auscultation. ?No respiratory distress. HEART: Regular rate and rhythm.? NEURO: ?Alert and oriented x3. Patient screened in triage and initial orders placed.? ?Additional care and disposition to be based upon?diagnostic testing and treatment. Related Data Allergies Allergy/AdvReac Type Severity Reaction Status Date / Time No Known Allergies Allergy Verified 05/19/23 09:39 [facility] Past Medical History Medical History Chronic back pain Chronic neck pain Coronary artery disease Hypertensive heart disease Ischemic cardiomyopathy Mild left ventricular enlargement with severe global hypokinesis, EF of 33% global longitudinal strain negative of 11% Mixed hyperlipidemia Tobacco use Surgical History Surgical History (Updated 06/27/22 @ 20:58 by Ashley De La Torre PA-C) History of appendectomy History of cardiac catheterization History of heart artery stent Family History Family History Father No pertinent past medical history Heart disease, Onset Age: 60 Has had 7 stents Other Lung cancer Cerebrovascular accident Acute myocardial infarction Mother MVA (motor vehicle accident), Onset Age: 37 COD Social History Social History (Updated 01/03/24 @ 05:19 by Luly Rosales DO) Social History: [employer] where he works in [place]. He lives in his own apartment alone. He does have a 10-year-old son. He still smokes 0.5 packs of cigarettes per day for the last 6 months. He originally smoked at least 1 pack of cigarettes per day previously Since his mid 20s. He occasionally drinks alcohol but denies heavy alcohol use. He occasionally smokes marijuana. Code status: Full code. Surrogate decision maker: Greg (father) Smoking packs per day: 0.5 Smoking cigarettes per day: 10.0 Years smoked: 30 Smoking pack-years: 15.00 Smoking status: Current every day smoker Tobacco type: cigarettes Additional smoking assessment comments: Half pack per day Alcohol intake: never Alcohol use details: Socially Substance use: never Substance use type: marijuana Do You Feel Safe in your Home?: Yes Lack of Transportation: No Lack of Food: Never True Current Housing: I Have Housing Concerned About Future Housing: No Difficulty Paying Gas/Electric Bills: No Difficulty Paying for Meds: YES Currently Unemployed: No Education: Trade/Vocational Certificate Difficulty w/ Childcare or Family Care: No Living arrangements: with family Spiritual care concerns: No Course Vital Signs Vital signs: Vital Signs Temperature 36.4 C 01/02/24 16:32 Pulse Rate 78 01/02/24 16:32 Respiratory Rate 16 01/02/24 16:32 Blood Pressure 151/86 H 01/02/24 16:32 Pulse Oximetry 98 01/02/24 16:32 Oxygen Delivery Room Air 01/02/24 16:32 Temperature 35.8 C L 01/04/24 11:28 Pulse Rate 73 01/04/24 14:00 Respiratory Rate 18 01/04/24 11:28 Blood Pressure 149/73 H 01/04/24 12:50 Pulse Oximetry 97 01/04/24 11:28 Oxygen Delivery Room Air 01/04/24 12:00 Medical Decision Making Vital Signs Vital Signs: Vital Signs Temperature 36.4
[2024-01-02 16:19] LABS: Basophils Percent Auto 0.2 % (0.2-1.2); Eosinophils Absolute Auto 0.1 K/mm3 (0-0.3); Eosinophils Percent Auto 1.1 % (0-4.4); Hematocrit 51.5 % (42.0-52.0); Immature Granulocyte Absolute 0.04 K/mm3 (0.00-0.031); Immature Granulocyte Percent A 0.4 % (0-0.5); Lymphocytes Absolute Auto 1.71 K/mm3 (0.9-3.2); Lymphocytes Percent Auto 15.3 % (18.3-44.2); Mean Corpuscular Hemoglobin 29.7 pg (26-34); Mean Platelet Volume 10.2 fl (7.4-10.4); Monocytes Absolute Auto 0.6 K/mm3 (0.1-0.6); Monocytes Percent Auto 5.4 % (2.6-8.5); Neutrophils Absolute Auto 8.7 K/mm3 (1.3-6.7); Neutrophils Percent Auto 77.6 % (45.5-73.1); Platelet Count Result 251 k/mm3 (150-375); Red Blood Count 5.72 M/mm3 (4.6-6.20); Red Cell Distribution Width 12.5 % (11.5-14.5); White Blood Count 11.2 K/mm3 (4.5-10.0)
[2024-01-02 16:35] LABS: Partial Thromboplastin Time 27.2 Seconds (22.3-36.8); Prothrombin Time 13.4 Seconds (11.1-14.7)
[2024-01-02 17:59] LABS: Alanine Aminotransferase 21 U/L (6-50); Albumin Level 4.6 g/dL (3.5-5.1); Alkaline Phosphatase 82 U/L (38-126); Anion Gap 13 mmol/L (4-12); Aspartate Amino Transferase 25 U/L (17-59); Bilirubin,Total 0.8 mg/dL (0.2-1.3); Blood Urea Nitrogen 13 mg/dL (9-20); Calcium 9.8 mg/dL (8.4-10.2); Carbon Dioxide 18 mmol/L (22-30); Chloride 108 mmol/L (98-107); Estimated CRCL calculation 101 ml/min; Estimated Glomerular Filt Rate > 60; Glucose 125 mg/dL (65-110); Lipase 45 U/L (23-300); Potassium 3.9 mmol/L (3.4-5.0); Sodium 139 mmol/L (137-145)
[2024-01-02 18:33] LABS: NT Pro B Type Natriuretic Pept 366 pg/mL (19.9-100); Troponin I 0.043 ng/mL (0.000-0.034)
--- NOTE | 2024-01-02 18:52 | ECG_ITS ---
SEE SCANNED COPY FOR CONFIRMED REPORT MTDD
[2024-01-02] MEDS: ASPIRIN 81 MG CHEWABLE TABLET 324 MG PO (18:53)
[2024-01-02 19:36] LABS: Troponin I 0.047 ng/mL (0.000-0.034)
[2024-01-02] MEDS: ATORVASTATIN 40 MG TABLET 80 MG PO (20:14)
[2024-01-02] MEDS: METOPROLOL TARTRATE 25 MG TABLET PO (20:14)
[2024-01-02] MEDS: ENOXAPARIN 120 MG/0.8 ML SYRINGE 105 MG SUB-Q (20:15)
--- NOTE | 2024-01-02 20:22 | ED.GENADULT ---
HPI - General Adult General Chief complaint: Chest Pain Stated complaint: CHEST PAIN INT X WEEKS Time Seen by Provider: 01/02/24 16:01 History of Present Illness HPI narrative: This is a 53-year-old male with a history of coronary artery disease with 3 stents and medication noncompliance presenting with chest pain. Patient says that he has been having intermittent burning/stabbing pain in the center of his chest over the last 3 weeks. Before the pain would car while he was at work, resolved with rest. However last 3 days has been increasing in intensity and last night he had episode of chest pain while sitting on his sofa. Patient still has some discomfort at this time. It has been associated with diaphoresis and exertion, no nausea or vomiting. Patient says that he has not been taking the statin and the advice of some of his friends. He also says that cannot afford Brilinta and has not been taking that as well. He takes aspirin and he is not sure what else he is currently taking. Related Data Allergies Allergy/AdvReac Type Severity Reaction Status Date / Time No Known Allergies Allergy Verified 05/19/23 09:39 [facility] Past Medical History Medical History Cardiomyopathy Chronic back pain Chronic neck pain Combined systolic and diastolic congestive heart failure Coronary artery disease Hypertensive heart disease Tobacco use Surgical History Surgical History (Updated 06/27/22 @ 20:58 by Ashley De La Torre PA-C) History of appendectomy History of cardiac catheterization History of heart artery stent Family History Family History Father No pertinent past medical history Heart disease, Onset Age: 60 Has had 7 stents Other Lung cancer Cerebrovascular accident Acute myocardial infarction Mother MVA (motor vehicle accident), Onset Age: 37 COD Social History Social History (Updated 06/27/22 @ 20:58 by Ashley De La Torre PA-C) Social History: Freaks Code status: Full code. Smoking packs per day: 0.5 Smoking cigarettes per day: 10.0 Years smoked: 20 Smoking pack-years: 10.00 Smoking status: Current every day smoker Tobacco type: cigarettes Additional smoking assessment comments: Half pack per day Alcohol intake: never Alcohol use details: Socially Substance use: never Lack of Transportation: No Lack of Food: Sometimes True Current Housing: I Have Housing Concerned About Future Housing: No Difficulty Paying Gas/Electric Bills: No Difficulty Paying for Meds: No Currently Unemployed: No Education: Trade/Vocational Certificate Difficulty w/ Childcare or Family Care: No Living arrangements: with family Spiritual care concerns: Yes Exam Narrative: APPEARANCE: No apparent distress. Head: atraumatic. EYES: EOMI, NOSE: Atraumatic NECK: Trachea midline RESPIRATORY: No increased rate of breathing CTAB CARDIOVASCULAR: RRR, no peripheral edema ABDOMINAL: Non-distended MUSCULOSKELETAl: No obvious deformities NEURO: Alert. Moving 4/4 extremities SKIN:: Warm, dry. Normal color PSYCHIATRIC: Normal affect Course Vital Signs Vital signs: Vital Signs Temperature 97.6 F 01/02/24 16:32 Pulse Rate 78 01/02/24 16:32 Respiratory Rate 16 01/02/24 16:32 Blood Pressure 151/86 H 01/02/24 16:32 Pulse Oximetry 98 01/02/24 16:32 Oxygen Delivery Room Air 01/02/24 16:32 Temperature 97.6 F 01/02/24 16:32 Pulse Rate 71 01/02/24 20:14 Respiratory Rate 16 01/02/24 16:32 Blood Pressure 151/86 H 01/02/24 16:32 Pulse Oximetry 100 01/02/24 18:48 Oxygen Delivery Room Air 01/02/24 18:48 Medical Decision Making MDM Narrative Medical decision making narrative: -Course: 53-year-old male with coronary artery disease presenting with increasing episodes substernal chest pain. EKG without STEMI. Troponins elevated at 0.043 -> .047. Patient given as
--- NOTE | 2024-01-02 20:35 | ECG_ITS ---
SEE SCANNED COPY FOR CONFIRMED REPORT MTDD
[2024-01-02] MEDS: NITROGLYCERIN OINTMENT 1 INCH DOSE TRANSDERM (20:36)
[2024-01-02] MEDS: MORPHINE SULFATE (*CRX) 4 MG/ML INJ IV PUSH (20:58)
[2024-01-02 21:30] LABS: Cholesterol 201 mg/dL (0-200); HDL Direct 40 mg/dL; Triglycerides 184 mg/dL (<150)
--- NOTE | 2024-01-02 21:35 | ADMGEN ---
This patient, Kahn, was admitted to IMU Room 203-01. Patient/family oriented to hospital policies and general routines including ID bracelet, bed and alarms, visiting hours, pain management, procedures, bathroom and other care routines, personal items, smoking policy, room service/diet, and visiting hours. Information on how to activate the Rapid Response Team has been discussed. Patient/Family are encouraged to report perceived risks to care and to ask questions if they do not understand what they are told or what they should do.
[2024-01-02 21:40] LABS: LDL Cholesterol Direct 130 mg/dL
[2024-01-02 23:18] LABS: Troponin I 0.052 ng/mL (0.000-0.034)
[2024-01-03] VITALS (19 sets, daily range): BP systolic 125–150; BP diastolic 68–90; PULSE 53–74; RESP 14–20; TEMP 36.1–36.6; O2SAT 93–99
--- NOTE | 2024-01-03 | ECHO_ITS ---
Patient Info Name: Kahn Age: 53 years : 1970 Gender: Male Ht: 71 in Wt: 235 lbs BSA: 2.34 m2 HR: 74 bpm BP: 139 / 86 mmHg Heart Rhythm: Sinus Rhythm Technical Quality: Good Exam Date: 01/03/2024 2:28 PM Exam Location: Echo Lab Patient Status: Inpatient Admit Date: 01/02/2024 Staff Ordering Physician: Guille Dale MD Trim Stencil Maker: Jennifer Ferreira RDCS Attending Provider: Luly Rosales DO Exam Type: CA echo dop color flow w con Study Info Indications - CHF, Reduced ejection fraction Complete two-dimensional, color flow and Doppler transthoracic echocardiogram is performed with contrast to opacify the left ventricle and to improve the deliniation of the left ventricle endocardial borders. Strain analysis performed. Contrast/Agitated Saline Contrast/Ag. Saline: Definity Amount: 2.00 ml Administered By: Jennifer Ferreira RDCS Existing IV Access: Yes IV Access Condition: patent with no signs of infiltration Summary 1. Left ventricular chamber dimension is normal. 2. Left ventricular systolic function is normal, estimated at >70%. 3. There is mildly increased left ventricular wall thickness. 4. The left ventricular diastolic function is grade I diastolic dysfunction. 5. Right ventricular systolic function is normal. 6. No significant valvular disease. Left Ventricle Left ventricular chamber dimension is normal. Left ventricular systolic function is normal, estimated at >70%. There is mildly increased left ventricular wall thickness. The left ventricular diastolic function is grade I diastolic dysfunction. Global longitudinal strain is -19 %. Right Ventricle Right ventricular chamber dimension is normal. Right ventricular systolic function is normal. Left Atria Left atrial chamber dimension is normal. Right Atria Right atrial chamber dimension is normal. Atrial Septum Intact interatrial septum visualized by color flow imaging. Aortic Valve The aortic valve is probable trileaflet. There is no aortic valve stenosis. There is no aortic valve regurgitation. Pulmonic Valve The pulmonic valve is not well visualized. Mitral Valve There is trace mitral valve regurgitation. Tricuspid Valve There is trace tricuspid valve regurgitation. Pericardium/Pleural The pericardium appears epicardial fat pad. There is no pericardial effusion. Inferior Vena Cava Normal inferior vena cava with >50% collapse upon inspiration consistent with normal right atrial pressure, 3 mmHg. Left Ventricular Outflow Tract Name Value Normal LVOT 2D LVOT Diameter 2.24 cm LVOT Doppler LVOT Peak Gradient 11 mmHg LVOT Mean Gradient 5 mmHg LVOT VTI 28.41 cm LVOT VTI/AV VTI Ratio 0.91 LVOT Stroke Volume 112.08 ml LVOT CO 7.55 l/min LVOT CI 3.22 L/min/m2 Pulmonic Valve Name Value Normal
--- NOTE | 2024-01-03 01:12 | PC.NURSE ---
Patient stated that she becomes anxious when coughing. She states that this affects her breathing. Dr. Rosales made aware. New order for Xanax 0.125mg PO x 1 ordered.
--- NOTE | 2024-01-03 01:45 | PM.IMHP ---
H&P: HPI History of Present Illness Date/Time: 01/03/24 01:45 Chief Complaint: Chest pain Narrative: 53-year-old male with past medical history of premature coronary disease were requiring 3 RCA stents May 2022 with initial presentation of acute CHF with systolic dysfunction who presented to the ER with chest pain. 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 He reports that over the last 3 weeks he has been having progressive and more frequent episodes of chest pain. Initially was having an episode every few days and now he is having episodes multiple times a day. The pain is he a general hot sensation across his entire anterior chest with intermittent stabbing. When the pain occurs it lasts anywhere from 5 minutes up to 2 hours. It is accompanied occasionally but his symptoms of dizziness. The pain usually radiates down the left arm. The pain would usually resolve with rest. Along with the increasing number of occurrences a day he then developed chest pain at rest on the day of admission. He was still having some chest discomfort in the ER and nitro paste was placed which relieved his chest pain. He was having diaphoresis and some shortness of breath with exertion. Denied any nausea. He reports that his legs are not really all that swollen. He denies any orthopnea. He does snore quite loudly and at times will wake himself up with snoring. He has what sounds like periodically good movements weights wake him up as well. He does occasionally gasps for air which causes him to wake up. He denies any orthopnea or paroxysmal nocturnal dyspnea. He quit taking the home his cardiac meds at least 8 or 9 months ago. He does tell me that he has gotten his meds refilled but it sounds like he goes to the pharmacy in asks about his meds and when they state that he needs to have a refill from his doctor he states they somehow managed to give him the refill. Although on review of external medical history the patient has not had any medications filled in over a year. He states that he gets his medications filled at [facility] which should show up on the external medication reconciliation. He quit taking his Lipitor after he he listen to some friends and then did his own research in stops taking it. He states that he cannot afford Brilinta because it was 267 dollars a month. He quit taking the Entresto because he stated that his blood pressure was ?fine? and he does not see why he needs to take a blood pressure medication. He does check his blood pressures on a somewhat frequent basis in they are usually in the 140s to 150 systolic. He does still smoke 0.5 packs of cigarettes per day. This is down from his prior use of 1 pack of cigarettes per day any has a 30 pack per year smoking history. He reports only occasional alcohol use and occasional marijuana use. Review of Systems Review of Systems: Weight 106.6 kg BMI 32.8 [facility] Past Medical History Medical History Chronic back pain Chronic neck pain Coronary artery disease Hypertensive heart disease Ischemic cardiomyopathy Mild left ventricular enlargement with severe global hypokinesis, EF of 33% global longitudinal strain negative of 11% Mixed hyperlipidemia Tobacco use Surgical History Surgical History (Updated 06/27/22 @ 20:58 by Ashley De La Torre PA-C) History of appendectomy History of cardiac catheterization History of heart artery stent Family History Family History Father No pertinent past medical history Heart disease, Onset Age: 58 Has had 7 stents Other Lung cancer Cerebrovascular accident Acute myocardial infarction Mother MVA (motor vehicle accident), Onset Age: 37 COD Social History Social History (Updated 01/03/24 @ 05:19 by Luly Rosales DO) Social History: [employer] where he works in [employer]
[2024-01-03] MEDS: ZOLPIDEM TARTRATE (*CRX) 5 MG TABLET PO (02:25)
[2024-01-03 05:53] LABS: Anion Gap 3 mmol/L (4-12); Blood Urea Nitrogen 15 mg/dL (9-20); Calcium 8.8 mg/dL (8.4-10.2); Carbon Dioxide 27 mmol/L (22-30); Chloride 106 mmol/L (98-107); Estimated CRCL calculation 101 ml/min; Estimated Glomerular Filt Rate > 60; Glucose 87 mg/dL (65-110); Potassium 3.9 mmol/L (3.4-5.0); Sodium 136 mmol/L (137-145)
[2024-01-03] MEDS: NITROGLYCERIN OINTMENT 1 INCH DOSE TRANSDERM ×3 (05:59→17:10)
[2024-01-03] MEDS: ATORVASTATIN 40 MG TABLET 80 MG PO (08:20)
[2024-01-03] MEDS: SACUBITRIL/VALSARTAN 24-26 MG TABLET 1 TAB PO ×2 (08:20→20:19)
[2024-01-03] MEDS: METOPROLOL SUCCINATE EXT REL 25 MG TABCR PO (08:21)
[2024-01-03] MEDS: ASPIRIN 81 MG CHEWABLE TABLET PO (08:21)
[2024-01-03] MEDS: CLOPIDOGREL BISULFATE 75 MG TABLET PO (08:21)
--- NOTE | 2024-01-03 11:42 | PM.IMPN ---
Progress Note: A&P Assessment and Plan (1) Cardiomyopathy: Code(s): I42.9 - Cardiomyopathy, unspecified Status: Acute Assessment and Plan: Patient with heart failure with reduced ejection fraction Likely due to uncontrolled hypertension and some CAD history of PCI and stent placement in the past feeling much better this morning following IV diuresis. No evidence of CHF on exam. medical therapy with Entresto, metoprolol, has been noncompliant with Brilinta and aspirin Counseled patient extensively about hypertension, cardiomyopathy, CHF, pharmacologic and nonpharmacologic treatment, etc. Reiterated the importance of adherence to all medical therapy but in particular DAPT without interruption for at least one year. Smokng cessation Echo showing LVEF 35 - 40%. in 2021 cardiology consult for possible stress test will repeat 2D echo patient been advised to optimize statin therapy lifestyle modification for CAD risk reduction (2) CAD (coronary artery disease): Code(s): I25.10 - Atherosclerotic heart disease of [place] coronary artery without angina pectoris Status: Acute (3) Acute combined systolic and diastolic congestive heart failure: Code(s): I50.41 - Acute combined systolic (congestive) and diastolic (congestive) heart failure Status: Acute (4) Hypertensive heart disease: Code(s): I11.9 - Hypertensive heart disease without heart failure Status: Acute Plan DVT prophylaxis. SCDs GI prophylaxis. All records reviewed Discussed plan of care with the nursing staff and with the patient in detail. Answered all questions and concerns from the patient. All labs have been reviewed. Code status updated dictation may have been done utilizing a voice recognition system. Attempts have been made to correct errors. However, there may be uncorrected grammatical, spelling, and recognition errors present. Subjective Date/time seen: 01/03/24 11:42 Interval history: patient denies any history of chest pain no shortness of breath. Patient was admitted for positive troponin and chest pain not compliant with his medication and stop taking Brilinta and Plavix previous history of an TN about a year ago and had a stent placed at that time also history of smoking pending Cardiology input Review of Systems Review of Systems: All systems reviewed & are unremarkable except as noted in HPI and below Exam Narrative: GENERAL: Well appearing, no acute distress. HEAD: Normocephalic, atraumatic. NECK: Supple. No adenopathy, no masses. RESPIRATORY: respirations nonlabored. , no rales, wheezing. CARDIOVASCULAR: Regular rate and rhythm without murmurs, . Peripheral pulses 2+ and equal bilaterally. ABDOMINAL: Soft, nontender, nondistended, no hepatosplenomegaly. Normoactive BS. MUSCULOSKELETAL: no Epigastric and no hypochondrial tenderness SKIN: Warm, dry, NEURO: A&O X3. Moves all extremities Objective Data Vital Signs Vital Signs: Vital Signs - 24 hr 01/02/24 16:32 01/02/24 18:47 01/02/24 18:48 Temperature 36.4 C Pulse Rate 78 74 Respiratory Rate 16 Blood Pressure 151/86 H Pulse Oximetry 98 97 Oxygen Delivery Room Air Room Air 01/02/24 18:48 01/02/24 20:14 01/02/24 21:29 Temperature Pulse Rate 71 67 Respiratory Rate 16 Blood Pressure 129/70 Pulse Oximetry 100 95 Oxygen Delivery Room Air 01/02/24 21:52 01/02/24 21:50 01/02/24 22:00 Temperature 36.4 C Pulse Rate 66 65 72 Respiratory Rate 20 16 Blood Pressure 138/98 H 138/98 H Pulse Oximetry 98 Oxygen Delivery 01/02/24 21:35 01/03/24 00:14 01/03/24 00:00 Temperature 36.1 C L Pulse Rate 60 63 Respiratory Rate 20 Blood Pressure 125/68 Pulse Oximetry 93 Oxygen Delivery Room Air 01/03/24 00:00 01/03/24 02:00 01/03/24 04:56 Temperature 36.5 C Pulse Rate 58 L 58 L Respiratory Rate 20 Blood Pressure 127/76 Pulse Oximetry 94
--- NOTE | 2024-01-03 11:59 | PM.CNCAR ---
Assessment and Plan Assessment and plan (1) Hx of noncompliance with medical treatment, presenting hazards to health: Code(s): Z91.199 - Patient's noncompliance with other medical treatment and regimen due to unspecified reason Status: Acute (2) Elevated troponin: Code(s): R77.8 - Other specified abnormalities of plasma proteins Status: Acute (3) Chest pain: Code(s): R07.9 - Chest pain, unspecified Status: Acute Plan This is a 53-year-old man with known coronary disease in left ventricular systolic dysfunction who presents with chest pain which on the surface is quite atypical of myocardial ischemia. He had single-vessel coronary disease identified 2 years ago and underwent successful PCI of long segment of his right coronary artery. He unfortunately continues to smoke and has not been compliant with his medical regimen. I will reorder his GD MT and order a Lexiscan nuclear stress test to be done tomorrow morning. 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 Venkat Brown MD [facility] History of Present Illness History of Present Illness Consult date/time: 01/03/24 11:59 Reason For Visit: NSTEMI Narrative: This is a 53-year-old man of unknown to me prior to this encounter I am seeing at the request of the hospitalist today because of chest pain. The patient has previously been seen by my partner, Dr. Lagunas but has not been seen in the office for follow-up in about 2 years. He enters the hospital with episodes of intermittent chest pain that been bothering him for 2-3 weeks. He says that with activity but also with sedentary state he is having episodes of a burning chest pain with some shooting pain into the left arm. He says the pain thickening progressively worse so yesterday he came to the emergency room to be evaluated. His electrocardiogram looks normal and his troponin levels are just out of normal range but are flat, not indicative of acute myocardial injury or ACS. For some reason he was given the diagnosis of a non STEMI and admitted to the hospital to the IMU. The patient has a history of ischemic heart disease and left ventricular systolic dysfunction that was found in 2021. At that time he was in the hospital with shortness of breath and some chest pain he was found to have a low ejection fraction and a nuclear stress test was somewhat abnormal. A coronary angiogram was done which demonstrated high-grade stenosis of a long segment of the right coronary artery and no significant left coronary disease. He received 3 overlapping 3.5 mm drug eluting stents to the right coronary artery from the distal portion back to the proximal segment with a good angiographic result. He was seen in the office later that month for follow-up by the nurse practitioner but has not been seen again since then. He says that he has been mostly compliant with his medications although that is clearly not the case when his pharmacy was contacted by the foamite mixer last night and indicating that his medications have not been filled in quite some time. He was previously on a regimen of aspirin, Brilinta, Entresto, metoprolol XL, spironolactone and Jardiance. Review of Systems Constitutional: Constitutional: Reports no additional constitutional complaints Eyes: Eyes: Reports no additional eye complaints ENT: Reports system reviewed and no additional complaints, except as documented Cardiovascular: Cardiovascular: Reports as per HPI Respiratory: Respiratory: Reports as per HPI Gastrointestinal: Gastrointestinal: Reports no additional gastrointestinal complaints Musculoskeletal: Musculoskeletal: Reports no additional musculoskeletal complaints Integumentary/Breasts: Skin/Breast: Reports system
[2024-01-03] MEDS: PERFLUTREN LIPID MICROSPHERES 1.5 ML VIAL DILUTED TO 10 ML TOTAL VOLUME IV PUSH (14:51)
--- NOTE | 2024-01-03 15:29 | IVDEFINITY ---
Prior to administration of IV Definity the patient was educated on the risks and benefits of the imaging enhancing agent including potential adverse side effects. The patient verbalized understanding. Allergies were verified. No exclusion criteria were identified and at least one of the following inclusion criteria were met: 1) physician request, 2) patient technically difficult to image (per the [place] [employer] guidelines of two or more segments not discernable within the apical view), or 3) questionable left ventricular function. ?
[2024-01-03] MEDS: MORPHINE SULFATE (*CRX) 4 MG/ML INJ IV PUSH (23:57)
[2024-01-04] VITALS (14 sets, daily range): BP systolic 149–162; BP diastolic 73–98; PULSE 51–73; RESP 14–20; TEMP 35.8–36.5; O2SAT 97–100
--- NOTE | 2024-01-04 | EST_ITS ---
Patient Info Name: Kahn Age: 53 years : 1970 Gender: Male Ht: 71 in Wt: 235 lbs BSA: 2.34 m2 HR: 59 bpm BP: 143 / 95 mmHg Heart Rhythm: Sinus Rhythm Exam Date: 01/04/2024 10:04 AM Exam Location: Echo Lab Patient Status: Inpatient Admit Date: 01/02/2024 Staff Ordering Physician: Venkat Brown MD Attending Provider: Luly Rosales DO Exercise Technologist: Jennifer Ferreira RDCS Exam Type: CA stress marta w NM Study Info A regadenoson stress test was performed. Summary 1. No abnormal ST/T wave changes diagnostic of ischemia with Lexiscan. 2. Please correlate with nuclear medicine images, reported separately. 3. Stress test supervised by Nunu Sanchez NP. Stress test interpreted by Gab Avila MD. Protocol: Lexiscan Stress ECG Details Stage: REST Duration (min): 0 min : 52 sec HR (bpm): 60 SBP (mmHg): 143 DBP (mmHg): 95 Stage: REST Duration (min): 6 min : 52 sec HR (bpm): 60 SBP (mmHg): 143 DBP (mmHg): 95 Stage: STAGE 1 Duration (min): 0 min : 59 sec HR (bpm): 66 SBP (mmHg): 121 DBP (mmHg): 89 Stage: RECOVERY Duration (min): 1 min : 0 sec HR (bpm): 77 SBP (mmHg): 121 DBP (mmHg): 89 Stage: RECOVERY Duration (min): 2 min : 0 sec HR (bpm): 71 SBP (mmHg): 121 DBP (mmHg): 89 Stage: RECOVERY Duration (min): 3 min : 0 sec HR (bpm): 70 SBP (mmHg): 152 DBP (mmHg): 92 Stage: RECOVERY Duration (min): 4 min : 0 sec HR (bpm): 68 SBP (mmHg): 152 DBP (mmHg): 92 Stage: RECOVERY Duration (min): 5 min : 0 sec HR (bpm): 68 SBP (mmHg): 153 DBP (mmHg): 90 Stage: RECOVERY Duration (min): 5 min : 5 sec HR (bpm): 68 SBP (mmHg): 153 DBP (mmHg): 90 Rest HR: 60 bpm Peak HR: 77 bpm Rest Sys BP: 143 mmHg Peak Sys BP: 153 mmHg Max Pred HR: 165 bpm % Max Pred HR: 47 % Target HR: 140 bpm Max RPP: 11,781 bpm*mmHg Total Time: 1 min : 0 sec Rest Singh BP: 95 mmHg Peak Singh BP: 90 mmHg Total Dose: 0.4 mg Resting ECG Sinus bradycardia. Stress ECG Sinus rhythm. No abnormal ST/T wave changes diagnostic of ischemia with Lexiscan. Arrhythmias None. Report Signatures
[2024-01-04] MEDS: NITROGLYCERIN OINTMENT 1 INCH DOSE TRANSDERM ×2 (05:12)
[2024-01-04] MEDS: METOPROLOL SUCCINATE EXT REL 25 MG TABCR PO (08:16)
[2024-01-04] MEDS: ASPIRIN 81 MG CHEWABLE TABLET PO (08:16)
[2024-01-04] MEDS: CLOPIDOGREL BISULFATE 75 MG TABLET PO (08:16)
[2024-01-04] MEDS: ATORVASTATIN 40 MG TABLET 80 MG PO (08:16)
[2024-01-04] MEDS: SACUBITRIL/VALSARTAN 24-26 MG TABLET 1 TAB PO (08:17)
[2024-01-04] MEDS: SPIRONOLACTONE 25 MG TABLET PO (08:17)
--- NOTE | 2024-01-04 08:55 | PC.NURSE ---
Pt to nuclear medicine for Lexiscan via wheelchair.
--- NOTE | 2024-01-04 11:02 | PC.NURSE ---
Pt returned from nuclear medicine after stress test via wheelchair with no issues noted
--- NOTE | 2024-01-04 11:09 | PM.IMPN ---
Progress Note: A&P Assessment and Plan (1) Cardiomyopathy: Code(s): I42.9 - Cardiomyopathy, unspecified Status: Acute Assessment and Plan: Patient with heart failure with reduced ejection fraction Likely due to uncontrolled hypertension and some CAD history of PCI and stent placement in the past feeling much better this morning following IV diuresis. No evidence of CHF on exam. medical therapy with Entresto, metoprolol, has been noncompliant with Brilinta and aspirin Counseled patient extensively about hypertension, cardiomyopathy, CHF, pharmacologic and nonpharmacologic treatment, etc. Reiterated the importance of adherence to all medical therapy but in particular DAPT without interruption for at least one year. Smokng cessation Echo showing LVEF 35 - 40%. in 2021 EF 70% 01/04/2024 cardiology consult for possible stress test wi patient been advised to optimize statin therapy lifestyle modification for CAD risk reduction possible discharge home if stress test is negative for (2) CAD (coronary artery disease): Code(s): I25.10 - Atherosclerotic heart disease of [place] coronary artery without angina pectoris Status: Acute (3) Acute combined systolic and diastolic congestive heart failure: Code(s): I50.41 - Acute combined systolic (congestive) and diastolic (congestive) heart failure Status: Acute (4) Hypertensive heart disease: Code(s): I11.9 - Hypertensive heart disease without heart failure Status: Acute Plan DVT prophylaxis. SCDs GI prophylaxis. All records reviewed Discussed plan of care with the nursing staff and with the patient in detail. Answered all questions and concerns from the patient. All labs have been reviewed. Code status updated dictation may have been done utilizing a voice recognition system. Attempts have been made to correct errors. However, there may be uncorrected grammatical, spelling, and recognition errors present. Subjective Date/time seen: 01/04/24 11:09 Interval history: patient denies any history of chest pain no shortness of breath. Patient was admitted for positive troponin and chest pain not compliant with his medication and stop taking Brilinta and Plavix previous history of an ID about a year ago and had a stent placed at that time also history of smoking pending Cardiology input Exam Narrative: GENERAL: Well appearing, no acute distress. HEAD: Normocephalic, atraumatic. NECK: Supple. No adenopathy, no masses. RESPIRATORY: respirations nonlabored. , no rales, wheezing. CARDIOVASCULAR: Regular rate and rhythm without murmurs, . Peripheral pulses 2+ and equal bilaterally. ABDOMINAL: Soft, nontender, nondistended, no hepatosplenomegaly. Normoactive BS. MUSCULOSKELETAL: no Epigastric and no hypochondrial tenderness SKIN: Warm, dry, NEURO: A&O X3. Moves all extremities Objective Data Vital Signs Vital Signs: Vital Signs - 24 hr 01/03/24 11:43 01/03/24 12:00 01/03/24 12:00 Temperature 36.5 C Pulse Rate 62 70 Respiratory Rate 14 Blood Pressure 139/86 Pulse Oximetry 98 Oxygen Delivery Room Air 01/03/24 14:00 01/03/24 15:40 01/03/24 16:00 Temperature 36.2 C L Pulse Rate 74 71 Respiratory Rate 14 Blood Pressure 150/86 H Pulse Oximetry 98 Oxygen Delivery Room Air 01/03/24 16:00 01/03/24 18:00 01/03/24 20:10 Temperature 36.6 C Pulse Rate 67 68 69 Respiratory Rate 14 Blood Pressure 146/80 H Pulse Oximetry 95 Oxygen Delivery 01/03/24 20:00 01/03/24 22:00 01/04/24 00:17 Temperature 36.3 C L Pulse Rate 70 60 62 Respiratory Rate 14 Blood Pressure 158/98 H Pulse Oximetry 100 Oxygen Delivery 01/04/24 00:00 01/04/24 00:00 01/04/24 02:00 Temperature Pulse Rate 61 53 L Respiratory Rate Blood Pressure Pulse Oximetry Oxygen Delivery Room Air 01/03/24 22:15 01/04/24 05:22 01/04/24 04:00 [facility]
--- NOTE | 2024-01-04 14:53 | PM.PNCARD ---
Progress Note: A&P Assessment and Plan (1) Hx of noncompliance with medical treatment, presenting hazards to health: Code(s): Z91.199 - Patient's noncompliance with other medical treatment and regimen due to unspecified reason Status: Acute (2) Elevated troponin: Code(s): R77.8 - Other specified abnormalities of plasma proteins Status: Acute (3) Chest pain: Code(s): R07.9 - Chest pain, unspecified Status: Acute Assessment and Plan: Presents with atypical sounding chest pain and underwent nuclear stress test today which showed: 1. Likely artifactual regions of decreased activity along significant portions of the inferior, inferolateral and anterolateral ames which largely normalizes on the post stress imaging obtained in the prone position. 2. Small region of persistent relative decreased activity at the mid inferior wall on the prone post stress images when compared with the rest images which is equivocal for mild reversible ischemia versus residual diaphragmatic attenuation artifact. 3. Left ventricular ejection fraction measuring 56%. As this test did not show any significant ischemic burden, no wall motion abnormalities, and LV systolic function is now normal, plan to treat his CAD medically for the time being. He has not had recurrent chest pain. We discussed importance of medication adherence as well as routine follow up with a cupola worker. Patient states he saw a cupola worker at [facility] during an admission for chest pain but did not follow up because he was feeling well therefore did not see a need for ongoing follow up. He does state he was compliant with his DAPT but he does admit to not taking the statin. Discussed importance of smoking cessation and offered assistance with this which he declines and states if he is going to quit, he will quit cold turkey. He does express a desire to want to quit and states he has cut back on his cigarette use significantly. Since his EF has now normalized will discontinue his medical therapy for cardiomyopathy. Will add Imdur. His intervention was more than one year ago, so does not require DAPT at this point. Continue ASA, statin. Will arrange for close outpatient follow up in our office. OK for discharge today from a cardiac perspective. Subjective Date/time seen: 01/04/24 14:53 Interval history: Cardiology follow up for chest pain Not having any chest pain today. States he is feeling much better. Review of Systems Constitutional: Constitutional: Reports no additional constitutional complaints Eyes: Eyes: Reports no additional eye complaints ENT: Reports system reviewed and no additional complaints, except as documented Cardiovascular: Cardiovascular: Reports as per HPI Respiratory: Respiratory: Reports as per HPI Gastrointestinal: Gastrointestinal: Reports no additional gastrointestinal complaints Musculoskeletal: Musculoskeletal: Reports no additional musculoskeletal complaints Integumentary/Breasts: Skin/Breast: Reports system reviewed and no additional complaints, except as docu Neurologic: Reports system reviewed and no additional complaints, except as documented Endocrine: Endocrine: Reports no additional endocrine complaints Hematologic/Lymphatic: Hematologic/Lymphatic: Reports no additional hematologic/lymphatic complaints Allergic/Immunologic: Allergic/Immunologic: Reports no additional allergic/immunologic complaints Exam Const: General: comfortable and no acute distress Other: Well-developed well-nourished white male no apparent distress HENMT: Mouth: Yes moist mucous membranes Eyes: Pupils: Equal, round and reactive pupils present Neck: Neck: supple and no JVD Other: Carotid pulses are intact without bruits Resp: Effort & Inspection: normal respiratory effort Auscultation: clear to auscultation bilaterally Cardio: Rate: regular rate Rhythm: regular rhythm Other: No g
--- NOTE | 2024-01-04 14:59 | PM.DS ---
DS: Admitting Diagnosis Discharge Date 01/04/2024 Admitting Diagnosis acute chest pain DS: Discharge Diagnosis Discharge Diagnosis (1) Non-ST elevation [place] (NSTEMI): Code(s): I21.4 - Non-ST elevation (NSTEMI) myocardial infarction Status: Acute (2) Unstable angina: Code(s): I20.0 - Unstable angina Status: Acute (3) Hx of noncompliance with medical treatment, presenting hazards to health: Code(s): Z91.199 - Patient's noncompliance with other medical treatment and regimen due to unspecified reason Status: Acute (4) Mixed hyperlipidemia: Code(s): E78.2 - Mixed hyperlipidemia Status: Acute DS: Summary Hospital Course Reason for hospitalization: chest pain Hospital Course: 53-year-old male with past medical history of premature coronary disease were requiring 3 RCA stents May 2022 with initial presentation of acute CHF with systolic dysfunction who presented to the ER with chest pain.? 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 He reports that over the last 3 weeks he has been having progressive and more frequent episodes of chest pain.? Initially was having an episode every few days and now he is having episodes multiple times a day.? The pain is he a general hot sensation across his entire anterior chest with intermittent stabbing.? When the pain occurs it lasts anywhere from 5 minutes up to 2 hours.? It is accompanied occasionally but his symptoms of dizziness.? The pain usually radiates down the left arm.? The pain would usually resolve with rest.? Along with the increasing number of occurrences a day he then developed chest pain at rest on the day of admission.? He was still having some chest discomfort in the ER and nitro paste was placed which relieved his chest pain.? He was having diaphoresis and some shortness of breath with exertion.? Denied any nausea.? He reports that his legs are not really all that swollen.? He denies any orthopnea.? He does snore quite loudly and at times will wake himself up with snoring.? He has what sounds like periodically good movements weights wake him up as well.? He does occasionally gasps for air which causes him to wake up.? He denies any orthopnea or paroxysmal nocturnal dyspnea. He quit taking the home his cardiac meds at least 8 or 9 months ago.? He does tell me that he has gotten his meds refilled but it sounds like he goes to the pharmacy in asks about his meds and when they state that he needs to have a refill from his doctor he states they somehow managed to give him the refill.? Although on review of external medical history the patient has not had any medications filled in over a year.? He states that he gets his medications filled at [facility] which should show up on the external medication reconciliation.? He quit taking his Lipitor after he he listen to some friends and then did his own research in stops taking it.? He states that he cannot afford Brilinta because it was 267 dollars a month.? He quit taking the Entresto because he stated that his blood pressure was ?fine? and he does not see why he needs to take a blood pressure medication.? He does check his blood pressures on a somewhat frequent basis in they are usually in the 140s to 150 systolic.? He does still smoke 0.5 packs of cigarettes per day.? This is down from his prior use of 1 pack of cigarettes per day any has a 30 pack per year smoking history.? He reports only occasional alcohol use and occasional marijuana use patient has slight high troponin with no EKG changes. patient underwent stress test which was negative patient had a 2D echo which showed ejection fraction 70% patient has history of coronary disease in the past previous echo in 2021 showed ejection fraction of 45% switch much improved patient has been base no drinking smoking medication will be adjusted started on statins compliance of medication discussed with [place]
== END 2024-01-04 15:25 | disposition home or self-care (01) | DRG 291 ==
LOC: ANHED 21:22 → ANHIMU 21:24
PROVIDERS: Emergency Medicine; Admitting Provider Internal Medicine; Emergency Provider Emergency Medicine; Visit Provider Internal Medicine
DX: I11.0 Hypertensive heart disease with heart failure (principal); I50.41 Acute combined systolic (congestive) and diastolic (congestive) heart failure; E78.2 Mixed hyperlipidemia; F17.210 Nicotine dependence, cigarettes, uncomplicated; F12.90 Cannabis use, unspecified, uncomplicated; G89.29 Other chronic pain; I25.10 Atherosclerotic heart disease of native coronary artery without angina pectoris; I25.2 Old myocardial infarction; I25.5 Ischemic cardiomyopathy; M54.9 Dorsalgia, unspecified; Z90.49 Acquired absence of other specified parts of digestive tract; Z95.5 Presence of coronary angioplasty implant and graft; Z91.199 Patient's noncompliance with other medical treatment and regimen due to unspecified reason
CPT/HCPCS: 36415; 71046; 78452; 80048; 80053; 80061; 83690; 83880; 84484; 85025; 85610; 85730; 93005; 93017; 94762; 96372; 96374; 99291; A9270; A9502; C8929; J1650; J2270; J2785; Q9957

== ENCOUNTER 2024-08-16 14:33 | Inpatient (IN) | payer OTHER, MEDICAID, SELFPAY ==
[2024-08-16] VITALS (14 sets, daily range): BP systolic 111–147; BP diastolic 72–95; PULSE 70–99; RESP 16–20; TEMP 36.6–36.8; O2SAT 96–98; BMI 35.2
--- NOTE | ~2024-08-16 | XR_ITS ---
EXAMINATION: XR chest 2V 08/16/2024 15:13 INDICATION: Chest pain. History of stent placement. PROCEDURE: 2 view chest COMPARISON: Comparison to multiple prior studies sequentially, with oldest reviewed study dated 09/20. FINDINGS: The lungs are clear. The cardiomediastinal silhouette is within normal limits. There are no pleural effusions. There is no pneumothorax suspected. There is a right sided coronary stent. IMPRESSION: 1: NO ACUTE CARDIOPULMONARY DISEASE. Reviewed, dictated and finalized at location B. ING MANAGER
--- NOTE | 2024-08-16 14:34 | ECG_ITS ---
Test Date: 2024-08-16 14:36:40 Measurements Intervals [place] Rate: 79 P: 26 IA: 157 QRS: 40 QRSD: 88 T: 51 QT: 369 QTc: 425 Interpretive Statements SINUS RHYTHM No previous ECG available for comparison Electronically Signed On 08-16-2024 18:46:23 [employer] [employer] [employer] by Sherlyn Piña M.D.
--- NOTE | 2024-08-16 15:24 | ED_ITS ---
HPI - Chest Pain General Chief Complaint: Chest Pain Stated Complaint: cp Time Seen by Provider: 08/16/24 14:40 History of Present Illness HPI narrative: Patient is a 54-year-old male who presents ER with chest pain. Central and burning in nature. Occurs with exertion. Occurring with increased frequency over the last month. History of coronary disease with stents. He takes aspirin and is on Entresto. Any gets the chest discomfort he becomes short of breath and clammy. Related Data Home Medications ?Medication ?Instructions ?Recorded ?Confirmed ?Last Taken ?Type empagliflozin 10 mg tablet 10 mg PO DAILY 02/12/24 02/12/24 02/12/24 09:30 History (Jardiance) nitroglycerin 0.4 mg sublingual 0.4 mg sublingual Q5-15M PRN Chest 02/12/24 02/12/24 02/09/24 History tablet Pain sacubitril 24 mg-valsartan 26 mg 1 tablet PO DAILY 02/12/24 02/12/24 02/12/24 09:30 History tablet (Entresto) spironolactone 25 mg tablet 25 mg PO DAILY 02/12/24 02/12/24 02/12/24 09:30 History (Aldactone) Allergies Allergy/AdvReac Type Severity Reaction Status Date / Time No Known Allergies Allergy Verified 02/12/24 10:03 [facility] Past Medical History Medical History (HFpEF) heart failure with preserved ejection fraction echo on 01/03/24 showed Normal systolic function, estimated EF > 70% Grade 1 diastolic dysfunction No significant valvular disease Chronic neck pain Chronic back pain Tobacco use Coronary artery disease Mixed hyperlipidemia Ischemic cardiomyopathy Mild left ventricular enlargement with severe global hypokinesis, EF of 33% global longitudinal strain negative of 11% Surgical History Surgical History History of appendectomy History of heart artery stent History of cardiac catheterization Family History Family History Father No pertinent past medical history Heart disease, Onset Age: 58 Has had 7 stents Other Lung cancer Cerebrovascular accident Acute myocardial infarction Mother MVA (motor vehicle accident), Onset Age: 37 COD Social History Social History Social History: [employer]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 He lives in his own apartment alone. He does have a 10-year-old son. He still smokes 0.5 packs of cigarettes per day for the last 6 months. He originally smoked at least 1 pack of cigarettes per day previously Since his mid 20s. He occasionally drinks alcohol but denies heavy alcohol use. He occasionally smokes marijuana. Code status: Full code. Surrogate decision maker: Greg (father) Smoking packs per day: 0.30 Smoking cigarettes per day: 6.0 Years smoked: 30 Smoking pack-years: 9.00 Smoking status: Current every day smoker Alcohol intake: current Drinks per week: 5 Alcohol use details: Socially Substance use: current Substance use type: marijuana Last use: 08/15/24 Do You Feel Safe in your Home?: Yes Lack of Transportation: No Lack of Food: Never True Current Housing: I Have Housing Concerned About Future Housing: No Difficulty Paying Gas/Electric Bills: No Difficulty Paying for Meds: No Currently Unemployed: No Education: Associate Degree Difficulty w/ Childcare or Family Care: No Living arrangements: with family Spiritual care concerns: No Exam 2 Narrative: GENERAL: Well-appearing, well-nourished, and in no acute distress. HEAD: Normocephalic, atraumatic. ENT: Mucous membranes moist. NECK: Supple. CHEST: Clear to auscultation. No respiratory distress. HEART: Regular rate and rhythm. Normal peripheral pulses. ABDOMEN: Soft, nontender, nondistended. EXTREMITIES: Normal range of motion. No edema. SKIN: Warm, dry, no rash. NEURO: Alert and oriented x3. PSYCH: Normal mood and affect. Course Course Emergency Course: 1625: Pain improving with nitro, heparin gtt, discussed with Nunu Sanchez NP with heart care group. admit to hospitalist service. Vital Signs Vital signs: Vital Signs Temperature 98 F 08/16/24 14:37 Pulse Rate 81 08/16/24 14:37 Respiratory Rate 16 08/16/24 14:37 Blood Pressure 147/95 H 08/16/24 14:37 Pulse Oximetry 97 08/16/24 14:37 Temperature 98.3 F 08/16/24 19:30 Pulse Rate 77 08/16/24 19:30 Respiratory Rate 16 08/16/24 19:30 Blood Pressure 135/80 08/16/24 19:30 Pulse Oximetry 96 08/16/24 19:30 Oxygen Delivery Room Air 08/16/24 15:33 MDM - Chest Pain Lab Data 08/16/24 15:38 08/16/24 15:38 Labs: Lab Results 08/16/24 08/16/24 Range/Units 15:38 17:41 WBC 13.9 H (4.5-10.0) K/mm3 RBC 4.89 (4.6-6.20) M/mm3 Hgb 14.7 (14.0-18.0) g/dL Hct 44.9 (42.0-52.0) % MCV 91.8 (80-100) fl MCH 30.1 (26-34) pg MCHC 32.7 (32-36) g/dl RDW 12.5 (11.5-14.5) % Plt Count 239 (150-375) k/mm3 MPV 10.5 H (7.4-10.4) fl Immature Gran % (Auto) 0.4 (0-0.5) % Neut % (Auto) 74.3 H (45.5-73.1) % Lymph % (Auto) 16.8 L (18.3-44.2) % [place] % (Auto) 7.8 (2.6-8.5) % Eos % (Auto) 0.5 (0-4.4) % Baso % (Auto) 0.2 (0.2-1.2) % Lymph # (Auto) 2.34 (0.9-3.2) K/mm3 [place] # (Auto) 1.1 H (0.1-0.6) K/mm3 Eos # (Auto) 0.1 (0-0.3) K/mm3 Baso # (Auto) 0.0 (0.0-0.1) K/mm3 Abs Immat Gran (auto) 0.06 H (0.00-0.031) K/mm3 Absolute Neuts (auto) 10.3 H (1.3-6.7) K/mm3 Absolute Nucleated RBC 0.000 (0.0-0.012) K/mm3 Nucleated RBC % 0.0 (0.0-0.2) % PT 13.8 (11.1-14.7) Seconds INR 1.0 APTT 28.1 (22.3-36.8) Seconds Sodium 141 (137-145) mmol/L Potassium 4.0 (3.4-5.0) mmol/L Chloride 107 (98-107) mmol/L Carbon Dioxide 29 (22-30) mmol/L Anion Gap 5 (4-12) mmol/L BUN 13 (9-20) mg/dL Creatinine 1.00 (0.7-1.3) mg/dL Estim Creat Clear Calc Not Reportable Estimated GFR > 60 (59 - ) Glucose 91 (65-110) mg/dL Calcium 9.2 (8.4-10.2) mg/dL Total Bilirubin 0.7 (0.2-1.3) mg/dL AST 30 (17-59) U/L ALT 36 (6-50) U/L Alkaline Phosphatase 84 (38-126) U/L Troponin I 0.314 H* 0.466 H* D (0.000-0.034) ng/mL Total Protein 7.0 (6.3-8.2) g/dL Albumin 4.3 (3.5-5.1) g/dL Lipase 47 (23-300) U/L Imaging Data Radiologist's impression: ITS Impressions Chest X-Ray 08/16/24 15:14 IMPRESSION: 1: NO ACUTE CARDIOPULMONARY DISEASE. ECG Data EKG #1: ECG completion date: 08/16/24 ECG completion time: 14:36 EKG Interpretation: normal rate (79), sinus rhythm, no ectopy, normal QRS, normal QT and NL axis Critical Care Time Critical Care Time Critical Care Time: Yes Total Critical Care Time: 35 Discharge Plan Discharge Clinical Impression: Non-ST elevation [place] (NSTEMI) Patient Disposition: Still a Patient Condition: Stable
[2024-08-16] MEDS: IPRATROPIUM 0.5 MG/ALBUTEROL SULFATE 2.5 MG AMPUL.NEB 3 ML INHALATION (15:30)
[2024-08-16 15:49] LABS: Basophils Percent Auto 0.2 % (0.2-1.2); Eosinophils Absolute Auto 0.1 K/mm3 (0-0.3); Eosinophils Percent Auto 0.5 % (0-4.4); Hematocrit 44.9 % (42.0-52.0); Hemoglobin 14.7 g/dL (14.0-18.0); Immature Granulocyte Absolute 0.06 K/mm3 (0.00-0.031); Immature Granulocyte Percent A 0.4 % (0-0.5); Lymphocytes Absolute Auto 2.34 K/mm3 (0.9-3.2); Lymphocytes Percent Auto 16.8 % (18.3-44.2); Mean Corpuscular HGB Conc 32.7 g/dl (32-36); Mean Corpuscular Hemoglobin 30.1 pg (26-34); Mean Corpuscular Volume 91.8 fl (80-100); Mean Platelet Volume 10.5 fl (7.4-10.4); Monocytes Absolute Auto 1.1 K/mm3 (0.1-0.6); Monocytes Percent Auto 7.8 % (2.6-8.5); Neutrophils Absolute Auto 10.3 K/mm3 (1.3-6.7); Neutrophils Percent Auto 74.3 % (45.5-73.1); Platelet Count Result 239 k/mm3 (150-375); Red Blood Count 4.89 M/mm3 (4.6-6.20); Red Cell Distribution Width 12.5 % (11.5-14.5); White Blood Count 13.9 K/mm3 (4.5-10.0)
[2024-08-16 16:00] LABS: Alanine Aminotransferase 36 U/L (6-50); Albumin Level 4.3 g/dL (3.5-5.1); Alkaline Phosphatase 84 U/L (38-126); Anion Gap 5 mmol/L (4-12); Aspartate Amino Transferase 30 U/L (17-59); Bilirubin,Total 0.7 mg/dL (0.2-1.3); Blood Urea Nitrogen 13 mg/dL (9-20); Calcium 9.2 mg/dL (8.4-10.2); Carbon Dioxide 29 mmol/L (22-30); Chloride 107 mmol/L (98-107); Estimated Glomerular Filt Rate > 60; Glucose 91 mg/dL (65-110); Lipase 47 U/L (23-300); Sodium 141 mmol/L (137-145)
[2024-08-16 16:02] LABS: Prothrombin Time 13.8 Seconds (11.1-14.7)
[2024-08-16 16:03] LABS: Partial Thromboplastin Time 28.1 Seconds (22.3-36.8)
[2024-08-16] MEDS: NITROGLYCERIN SL 0.4 MG TABLET SUBLINGUAL (16:10)
[2024-08-16 16:18] LABS: Troponin I 0.314 ng/mL (0.000-0.034)
[2024-08-16] MEDS: HEPARIN SODIUM 5,000 UNITS/ML VIAL 4000 UNITS IV PUSH (17:00)
[2024-08-16] MEDS: HEPARIN SOD/D5W 100 UNITS/ML 25,000 UNITS/250 ML BAG 10 UNITS IV CONT (17:03)
--- NOTE | 2024-08-16 17:34 | ECG_ITS ---
Test Date: 2024-08-16 17:45:45 Measurements Intervals [place] Rate: 70 P: 31 FL: 155 QRS: 45 QRSD: 91 T: 65 QT: 394 QTc: 427 Interpretive Statements SINUS RHYTHM Compared to ECG 08/16/2024 14:36:40 No significant changes Electronically Signed On 08-17-2024 13:00:15 [employer] by Sherlyn Piña M.D.
--- NOTE | 2024-08-16 17:47 | PM.IMHP ---
H&P: HPI History of Present Illness Date/Time: 08/16/24 17:47 Chief Complaint: Chest Pain Narrative: 54 y/o M presents here with chest pain with PMH of ischemic cardiomyopathy, CAD, hypertension, mixed hyperlipidemia, and coronary artery stent placement x3 (2021). The patient presents here from home via EMS for further evaluation of chest pain. He reports this is been ongoing for the past year. Pain has been occurring with exertion. 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 Has more recently started occurring with rest. He describes the chest pain as burning (compared to a sunburn), midsternal, radiating into his left arm described as shooting/sharp, intermittent, episodes have lasted over an hour, aggravated by exertion, and alleviated by nitro. He reports the episodes have been increasing over the last month. Endorsing associated diaphoresis, GERD-like symptoms (worse over the last 6 months), and dizziness. Denies nausea. He has a cardiac history of ischemic cardiomyopathy, CAD, and previous cardiac stent placement in 2021 x3. Follows with cardiology at [facility]. Initial VS at presentation: 98? F, HR 81, RR 16, 147/95, and 97% on RA. ED workup showed: WBC 13.9, no anemia, normal coags, no significant electrolyte derangements, creatinine 1.0 and GFR >60, initial troponin 0.314. CXR showed no acute cardiopulmonary disease. Initial EKG showed sinus rhythm, rate 79. Awaiting formal read. Review of Systems Review of Systems: All systems reviewed & are unremarkable except as noted in HPI and below PMFSH Past Medical History Medical History (HFpEF) heart failure with preserved ejection fraction echo on 01/03/24 showed Normal systolic function, estimated EF > 70% Grade 1 diastolic dysfunction No significant valvular disease Chronic neck pain Chronic back pain Tobacco use Coronary artery disease Mixed hyperlipidemia Ischemic cardiomyopathy Mild left ventricular enlargement with severe global hypokinesis, EF of 33% global longitudinal strain negative of 11% Surgical History Surgical History History of appendectomy History of heart artery stent History of cardiac catheterization Family History Family History Father No pertinent past medical history Heart disease, Onset Age: 58 Has had 7 stents Other Lung cancer Cerebrovascular accident Acute myocardial infarction Mother MVA (motor vehicle accident), Onset Age: 37 COD Social History Social History Social History: [employer] where he works in [employer]. He lives in his own apartment alone. He does have a 10-year-old son. He still smokes 0.5 packs of cigarettes per day for the last 6 months. He originally smoked at least 1 pack of cigarettes per day previously Since his mid 20s. He occasionally drinks alcohol but denies heavy alcohol use. He occasionally smokes marijuana. Code status: Full code. Surrogate decision maker: Greg (father) Smoking packs per day: 0.30 Smoking cigarettes per day: 6.0 Years smoked: 30 Smoking pack-years: 9.00 Smoking status: Current every day smoker Alcohol intake: current Drinks per week: 5 Alcohol use details: Socially Substance use: current Substance use type: marijuana Last use: 08/15/24 Do You Feel Safe in your Home?: Yes Lack of Transportation: No Lack of Food: Never True Current Housing: I Have Housing Concerned About Future Housing: No Difficulty Paying Gas/Electric Bills: No Difficulty Paying for Meds: No Currently Unemployed: No Education: Associate Degree Difficulty w/ Childcare or Family Care: No Living arrangements: with family Spiritual care concerns: No Meds Home Medications and Allergies Home Medications ?Medication ?Instructions ?Recorded ?Confirmed ?Type aspirin 81 mg chewable tablet 81 mg PO DAILY@0800 30 days #30 05/06/22 08/16/24 Rx (Children's Aspirin) tabs metoprolol succinate 25 mg 25 mg PO QAM 30 days #30 tabs 05/06/22 08/16/24 Rx tablet,extended release 24 hr (Toprol XL) atorvastatin 40 mg tablet 80 mg (2 x 40 mg) PO DAILY 30 days 01/04/24 08/16/24 Rx #60 tabs empagliflozin 10 mg tablet 10 mg PO DAILY 02/12/24 08/16/24 History (Jardiance) nitroglycerin 0.4 mg sublingual 0.4 mg sublingual Q5-15M PRN Chest 02/12/24 08/16/24 History tablet Pain sacubitril 24 mg-valsartan 26 mg 1 tablet PO DAILY 02/12/24 08/16/24 History tablet (Entresto) spironolactone 25 mg tablet 25 mg PO DAILY 02/12/24 08/16/24 History (Aldactone) Allergies Allergy/AdvReac Type Severity Reaction Status Date / Time No Known Allergies Allergy Verified 02/12/24 10:03 Vital Signs Vital Signs - 24 hr 08/16/24 14:37 08/16/24 14:40 08/16/24 15:00 Temperature 98 F Pulse Rate 81 89 Respiratory Rate 16 Blood Pressure 147/95 H Pulse Oximetry 97 Oxygen Delivery Room Air 08/16/24 15:30 08/16/24 15:33 08/16/24 15:33 Temperature Pulse Rate 76 70 Respiratory Rate 18 20 Blood Pressure 147/85 H Pulse Oximetry 96 97 Oxygen Delivery Room Air 08/16/24 15:39 08/16/24 16:10 08/16/24 16:15 Temperature Pulse Rate 72 76 78 Respiratory Rate 18 16 20 Blood Pressure 143/83 H 115/76 Pulse Oximetry 97 98 Oxygen Delivery 08/16/24 16:20 08/16/24 17:00 Temperature Pulse Rate 77 77 Respiratory Rate 16 18 Blood Pressure 125/72 111/80 Pulse Oximetry 96 98 Oxygen Delivery Exam Const: General: comfortable and no acute distress Other: , male, nontoxic appearance HENMT: Face/Nose/Sinus: Normal nares present Mouth: Yes moist mucous membranes Eyes: General: appearance normal, both eyes and all related structures Sclera: sclerae normal Pupils: Equal, round and reactive pupils present EOM: EOMs intact bilaterally Resp: Effort & Inspection: normal respiratory effort Auscultation: clear to auscultation bilaterally Cardio: Rate: regular rate Rhythm: regular rhythm Other: S1-S2 present without murmur, rub, ectopy GI: Other: Abdomen soft, nondistended, nontender Skin: General skin exam: normal color and no rashes or lesions noted Wounds: no wounds Neuro: General: gait normal Speech: normal speech Motor exam (neuro): 5/5 motor strength present throughout Sensory Exam: normal sensation Other: A&O x4 Extrem: General: normal to inspection Psych: Mental Status: mental status grossly normal Affect: normal affect Other: Good insight and judgment, pleasant H&P: Results Labs Labs: Short CBC 08/16/24 Range/Units 15:38 WBC 13.9 H (4.5-10.0) K/mm3 Hgb 14.7 (14.0-18.0) g/dL Hct 44.9 (42.0-52.0) % Plt Count 239 (150-375) k/mm3 BMP 08/16/24 15:38 Sodium 141 Potassium 4.0 Chloride 107 Carbon Dioxide 29 BUN 13 Creatinine 1.00 Glucose 91 Calcium 9.2 Cardiac Enzymes 08/16/24 Range/Units 15:38 Troponin I 0.314 H* (0.000-0.034) ng/mL Liver Function 08/16/24 Range/Units 15:38 Total Bilirubin 0.7 (0.2-1.3) mg/dL AST 30 (17-59) U/L ALT 36 (6-50) U/L Alkaline Phosphatase 84 (38-126) U/L Albumin 4.3 (3.5-5.1) g/dL Assessment and Plan Assessment and plan (1) Non-ST elevation NV (NSTEMI): Code(s): I21.4 - Non-ST elevation (NSTEMI) myocardial infarction Status: Acute Assessment and Plan: - EKG, initial: NSR, rate 79. Awaiting formal read. - EKG, repeat (1): Remains in NSR, no significant changes when compared to prior, awaiting formal read. - CXR: No acute cardiopulmonary disease - Troponin: 0.314 -> 0.466 -> 0.688 - ASA 324 given by EMS, SL nitro PRN - cardiology consulted, awaiting recs - started on heparin gtt - add lipid panel and A1c - echo, previous (01/2024): Normal systolic function, estimated EF > 70%, grade 1 diastolic dysfunction. See report for details. - stress test, previous (01/2024): 1. Likely artifactual regions of decreased activity along significant portions of the inferior, inferolateral and anterolateral ames which largely normalizes on the post stress imaging obtained in the prone position. 2. Small region of persistent relative decreased activity at the mid inferior wall on the prone post stress images when compared with the rest images which is equivocal for mild reversible ischemia versus residual diaphragmatic attenuation artifact. 3. Left ventricular ejection fraction measuring 56%. - telemetry monitoring (2) Mixed hyperlipidemia: Code(s): E78.2 - Mixed hyperlipidemia Status: Acute Assessment and Plan: - continue home medication: (3) Hypertension: Qualifiers: Hypertension type: primary hypertension Qualified Code(s): I10 - Essential (primary) hypertension Code(s): I10 - Essential (primary) hypertension Status: Acute Assessment and Plan: - chronic, currently 111/80 - continue home medications: - monitor Plan Diet: Heart healthy, NPO midnight GI Prophylaxis: Not currently indicated DVT Prophylaxis: Heparin drip Lines: Peripheral Code Status: Full code Quality VTE Prophylaxis VTE prophylaxis: pharmacologic ordered Hospitalist MIPS Advance Care Plan I have confirmed that the patient's Advanced Care Plan is present, code status is documented, or surrogate decision maker is listed in patient medical record.: Yes Medication Reconciliation I have utilized all available resources to obtain, update and review the patients current medications (includes all prescriptions, OTC, herbals, cannabis, and nutritional supplements).: Yes
[2024-08-16 18:39] LABS: Troponin I 0.466 ng/mL (0.000-0.034)
--- NOTE | 2024-08-16 21:11 | ADMGEN ---
This patient, Kahn, was admitted to IMU Room 210-01. Patient/family oriented to hospital policies and general routines including ID bracelet, bed and alarms, visiting hours, pain management, procedures, bathroom and other care routines, personal items, smoking policy, room service/diet, and visiting hours. Information on how to activate the Rapid Response Team has been discussed. Patient/Family are encouraged to report perceived risks to care and to ask questions if they do not understand what they are told or what they should do.
[2024-08-16 21:50] LABS: Troponin I 0.688 ng/mL (0.000-0.034)
[2024-08-17] VITALS (16 sets, daily range): BP systolic 117–147; BP diastolic 72–89; PULSE 64–84; RESP 12–24; TEMP 36.4–36.8; O2SAT 97–99
--- NOTE | 2024-08-17 | ECHO_ITS ---
Patient Info Name: Kahn Age: 54 years : 1970 Gender: Male Ht: 72 in Wt: 255 lbs BSA: 2.46 m2 HR: 77 bpm BP: 135 / 84 mmHg Technical Quality: Fair Exam Date: 08/17/2024 1:15 PM Exam Location: Echo Lab Exam Room: [facility] Patient Status: Inpatient Admit Date: 08/16/2024 Staff Ordering Physician: Denisse Cadet MD (arron/papa) Coordinating Producer: Marielle Ro RDCS Attending Provider: Abel Loving MD Referring Physician: Helio HSU; Exam Type: CA echo doppler color flow Study Info Complete two-dimensional, color flow and Doppler transthoracic echocardiogram is performed. Summary 1. Complete two-dimensional, color flow and Doppler transthoracic echocardiogram is performed. 2. Left ventricular systolic function is hyperdynamic, estimated at >70%. 3. There is mildly increased left ventricular wall thickness. 4. The left ventricular diastolic function is grade I diastolic dysfunction. Left Ventricle Left ventricular chamber dimension is normal. Left ventricular systolic function is hyperdynamic, estimated at >70%. There is mildly increased left ventricular wall thickness. Left ventricular septal wall motion is normal. The left ventricular diastolic function is grade I diastolic dysfunction. Right Ventricle Right ventricular chamber dimension is normal. Right ventricular systolic function is normal. Left Atria Left atrial chamber dimension is normal. Right Atria Right atrial chamber dimension is normal. Aortic Valve The aortic valve is trileaflet. There is no aortic valve sclerosis. There is no aortic valve stenosis. There is no aortic valve regurgitation. There is mild aortic valve calcification. Pulmonic Valve The pulmonic valve is normal. There is no pulmonic valve stenosis. There is no pulmonic regurgitation. Mitral Valve The mitral valve has normal leaflets. There is no mitral valve stenosis. There is no mitral valve regurgitation. Tricuspid Valve The tricuspid valve leaflets are normal. There is no significant tricuspid valve stenosis. There is no tricuspid valve regurgitation. Pericardium/Pleural The pericardium appears normal. There is no pericardial effusion. Inferior Vena Cava Normal inferior vena cava with >50% collapse upon inspiration consistent with normal right atrial pressure, Empty. Aorta The aortic root size at the sinus of Valsalva is normal. The prox ascending aorta size is normal. Left Ventricular Outflow Tract Name Value Normal LVOT 2D LVOT Diameter 2.3 cm Mitral Valve Name Value Normal MV Doppler MV Decel Baker 233 cm/s2 MV PHT 101 ms MV Area (PHT) 2.2 cm2 4.0-5.0 MV Diastolic Function MV E Peak Velocity 81 cm/s MV A Peak Velocity 102 cm/s MV E/A 0.8 MV Decel Time 347 ms MV Annular TDI MV E/e' (Septal) 14.0 <=8.0 MV E/e' (Lateral) 8.1 <=8.0 MV E/e' (Average) 11.1 Aorta Name Value Normal Ascending Aorta Ao Root Diameter (2D) 3.6 cm Ao Root Diam Index (2D) 1.5 cm/m2 Aortic Valve Name Value Normal AV Doppler AV Peak Velocity 185 cm/s AV Peak Gradient 14 mmHg AV Mean Gradient 7 mmHg AV VTI 32 cm AV Regurgitation 2D LVOT Area 4.1 cm2 Ventricles Name Value Normal LV Dimensions 2D/MM IVS Diastolic Thickness (2D) 1.2 cm 0.6-1.0 LVID Diastole (2D) 4.7 cm 4.2-5.8 LVIW Diastolic Thickness (2D) 1.1 cm 0.6-1.0 LVID Systole (2D) 3.4 cm 2.5-4.0 LVOT Diameter 2.3 cm LV Mass (2D Cubed) 191.61 g 88.00-224.00 LV Mass Index (2D Cubed) 78 g/m2 49-115 Relative Wall Thickness (2D) 0.46 LV Fractional Shortening/Ejection Fraction 2D/MM LV Fractional Shortening (2D) 27 % 25-43 LV EF (2D Teicholz) 53 % 52-72 LV Diastolic Volume (4C MOD) 142 ml LV EF (4C MOD) 53 % LV Diastolic Length (4C) 10.3 cm LV Systolic Length (4C) 8.6 cm LV Stroke Volume (4C MOD) 77 ml Atria Name Value Normal LA Dimensions LA Volume (4C A-L) 74 ml Report Signatures
[2024-08-17 00:43] LABS: INR 1.1; Prothrombin Time 14.2 Seconds (11.1-14.7)
[2024-08-17 00:44] LABS: Partial Thromboplastin Time 34.6 Seconds (22.3-36.8)
[2024-08-17 01:14] LABS: Troponin I 0.793 ng/mL (0.000-0.034)
[2024-08-17] MEDS: PANTOPRAZOLE 40 MG TABLET PO ×2 (01:33→08:41)
[2024-08-17] MEDS: HEPARIN SODIUM 5,000 UNITS/ML VIAL 4000 UNITS IV PUSH ×2 (01:34→08:41)
[2024-08-17 04:05] LABS: Hemoglobin A1C 5.9 % (<5.7)
[2024-08-17 08:02] LABS: Basophils Percent Auto 0.4 % (0.2-1.2); Eosinophils Absolute Auto 0.2 K/mm3 (0-0.3); Eosinophils Percent Auto 2.1 % (0-4.4); Hematocrit 43.1 % (42.0-52.0); Hemoglobin 13.9 g/dL (14.0-18.0); Immature Granulocyte Absolute 0.06 K/mm3 (0.00-0.031); Immature Granulocyte Percent A 0.6 % (0-0.5); Lymphocytes Absolute Auto 2.46 K/mm3 (0.9-3.2); Lymphocytes Percent Auto 24.7 % (18.3-44.2); Mean Corpuscular HGB Conc 32.3 g/dl (32-36); Mean Corpuscular Hemoglobin 30.1 pg (26-34); Mean Corpuscular Volume 93.3 fl (80-100); Mean Platelet Volume 10.7 fl (7.4-10.4); Monocytes Absolute Auto 0.9 K/mm3 (0.1-0.6); Monocytes Percent Auto 8.6 % (2.6-8.5); Neutrophils Absolute Auto 6.3 K/mm3 (1.3-6.7); Neutrophils Percent Auto 63.6 % (45.5-73.1); Platelet Count Result 217 k/mm3 (150-375); Red Blood Count 4.62 M/mm3 (4.6-6.20); Red Cell Distribution Width 12.6 % (11.5-14.5)
[2024-08-17 08:15] LABS: Alanine Aminotransferase 33 U/L (6-50); Albumin Level 3.9 g/dL (3.5-5.1); Alkaline Phosphatase 79 U/L (38-126); Anion Gap 3 mmol/L (4-12); Aspartate Amino Transferase 35 U/L (17-59); Bilirubin,Total 0.6 mg/dL (0.2-1.3); Blood Urea Nitrogen 18 mg/dL (9-20); Calcium 8.9 mg/dL (8.4-10.2); Carbon Dioxide 28 mmol/L (22-30); Chloride 108 mmol/L (98-107); Cholesterol 146 mg/dL (0-200); Estimated CRCL calculation 95 ml/min; Estimated Glomerular Filt Rate > 60; Glucose 93 mg/dL (65-110); HDL Direct 36 mg/dL; Sodium 139 mmol/L (137-145); Triglycerides 205 mg/dL (<150)
[2024-08-17 08:22] LABS: Partial Thromboplastin Time 51.7 Seconds (22.3-36.8)
[2024-08-17 08:26] LABS: LDL Cholesterol Direct 68 mg/dL
[2024-08-17] MEDS: HEPARIN SOD/D5W 100 UNITS/ML 25,000 UNITS/250 ML BAG 18 UNITS IV CONT (12:53)
--- NOTE | 2024-08-17 15:00 | PM.CNCAR ---
Assessment and Plan Assessment and plan (1) Non-ST elevation [place] (NSTEMI): Code(s): I21.4 - Non-ST elevation (NSTEMI) myocardial infarction Status: Acute (2) Mixed hyperlipidemia: Code(s): E78.2 - Mixed hyperlipidemia Status: Acute (3) Hypertension: Qualifiers: Hypertension type: primary hypertension Qualified Code(s): I10 - Essential (primary) hypertension Code(s): I10 - Essential (primary) hypertension Status: Acute (4) CAD (coronary artery disease): Code(s): I25.10 - Atherosclerotic heart disease of [place] coronary artery without angina pectoris Status: Acute Plan 1. CAD 2. NSTEMI [place] 5 3. Ischemic cardiomyopathy, recovered EF 4. Hypertension 5. Hyperlipidemia 6. Chronic smoker -I suspect his coronary artery disease has worsened or he has an eye side of his RCA stents and will need a cardiac catheterization to evaluate his coronary anatomy. We discussed the risks, benefits, alternatives and he agreed for cardiac catheterization -continue heparin infusion -continue aspirin 81 mg p.o. once a day -continue atorvastatin 40 mg p.o. once daily -continue Toprol-XL and Entresto at current dosage -will add Imdur 30 mg once daily -echo to assess LV function -NPO midnight, left heart catheterization tomorrow History of Present Illness History of Present Illness Consult date/time: 08/17/24 15:00 Reason For Visit: cp Narrative: This is a 53-year-old man with known coronary disease s/p PCI to RCA in 2021, ischemic cardiomyopathy with recovered EF on last echo done in January 2024. He has been having intermittent episodes of chest pain which appear as a burning sensation in the retrosternal area with a past air. They occur on moderate exertion and sometimes even at rest and improved with nitro. He does have occasionally 2-4 similar episodes in a week. This time the pain was more intense and persisted longer which brought him to the ED. He had a stress test done in January 2024 which was reported as a low risk study. EKG done shows normal sinus rhythm with no dynamic ST or T-wave changes Troponin profile has been relatively flat; 0.314, 0.466, 0.688, 0.793 Current later time of my evaluation he is chest pain-free He is a chronic smoker but is willing to quit No prior CVA, bleeding from any source Review of Systems Review of Systems: All systems reviewed & are unremarkable except as noted in HPI and below PMFSH Past Medical History Medical History (HFpEF) heart failure with preserved ejection fraction echo on 01/03/24 showed Normal systolic function, estimated EF > 70% Grade 1 diastolic dysfunction No significant valvular disease Chronic neck pain Chronic back pain Tobacco use Coronary artery disease Mixed hyperlipidemia Ischemic cardiomyopathy Mild left ventricular enlargement with severe global hypokinesis, EF of 33% global longitudinal strain negative of 11% Surgical History Surgical History History of appendectomy History of heart artery stent History of cardiac catheterization Family History Family History Father No pertinent past medical history Heart disease, Onset Age: 58 Has had 7 stents Other Lung cancer Cerebrovascular accident Acute myocardial infarction Mother MVA (motor vehicle accident), Onset Age: 37 COD Social History Social History Social History: [employer] where he works in [employer]. He lives in his own apartment alone. He does have a 10-year-old son. He still smokes 0.5 packs of cigarettes per day for the last 6 months. He originally smoked at least 1 pack of cigarettes per day previously Since his mid 20s. He occasionally drinks alcohol but denies heavy alcohol use. He occasionally smokes marijuana. Code status: Full code. Surrogate decision maker: Greg (father) Smoking packs per day: 0.30 Smoking cigarettes per day: 6.0 Years smoked: 30 Smoking pack-years: 9.00 Smoking status: Current every day smoker Alcohol intake: current Drinks per week: 5 Alcohol use details: Socially Substance use: current Substance use type: marijuana Last use: 08/15/24 Do You Feel Safe in your Home?: Yes Lack of Transportation: No Lack of Food: Never True Current Housing: I Have Housing Concerned About Future Housing: No Difficulty Paying Gas/Electric Bills: No Difficulty Paying for Meds: No Currently Unemployed: No Education: Associate Degree Difficulty w/ Childcare or Family Care: No Living arrangements: with family Spiritual care concerns: No Meds Home Medications and Allergies Home Medications ?Medication ?Instructions ?Recorded ?Confirmed ?Type aspirin 81 mg chewable tablet 81 mg PO DAILY@0800 30 days #30 05/06/22 08/16/24 Rx (Children's Aspirin) tabs metoprolol succinate 25 mg 25 mg PO QAM 30 days #30 tabs 05/06/22 08/16/24 Rx tablet,extended release 24 hr (Toprol XL) atorvastatin 40 mg tablet 80 mg (2 x 40 mg) PO DAILY 30 days 01/04/24 08/16/24 Rx #60 tabs empagliflozin 10 mg tablet 10 mg PO DAILY 02/12/24 08/16/24 History (Jardiance) nitroglycerin 0.4 mg sublingual 0.4 mg sublingual Q5-15M PRN Chest 02/12/24 08/16/24 History tablet Pain sacubitril 24 mg-valsartan 26 mg 1 tablet PO DAILY 02/12/24 08/16/24 History tablet (Entresto) spironolactone 25 mg tablet 25 mg PO DAILY 02/12/24 08/16/24 History (Aldactone) Allergies Allergy/AdvReac Type Severity Reaction Status Date / Time No Known Allergies Allergy Verified 02/12/24 10:03 Vital Signs Vital Signs - 24 hr 08/16/24 15:30 08/16/24 15:33 08/16/24 15:33 Temperature Pulse Rate 76 70 Respiratory Rate 18 20 Blood Pressure 147/85 H Pulse Oximetry 96 97 Oxygen Delivery Room Air Fraction of Inspired Oxygen 08/16/24 15:39 08/16/24 16:10 08/16/24 16:15 Temperature Pulse Rate 72 76 78 Respiratory Rate 18 16 20 Blood Pressure 143/83 H 115/76 Pulse Oximetry 97 98 Oxygen Delivery Fraction of Inspired Oxygen 08/16/24 16:20 08/16/24 17:00 08/16/24 17:30 Temperature Pulse Rate 77 77 78 Respiratory Rate 16 18 16 Blood Pressure 125/72 111/80 120/78 Pulse Oximetry 96 98 98 Oxygen Delivery Fraction of Inspired Oxygen 08/16/24 18:45 08/16/24 19:30 08/16/24 20:00 Temperature 36.8 C Pulse Rate 73 77 74 Respiratory Rate 18 16 Blood Pressure 135/87 135/80 Pulse Oximetry 97 96 Oxygen Delivery Fraction of Inspired Oxygen 08/16/24 22:00 08/17/24 00:00 08/17/24 00:00 Temperature 36.7 C Pulse Rate 99 79 77 Respiratory Rate 18 Blood Pressure 147/81 H Pulse Oximetry 97 Oxygen Delivery Fraction of Inspired Oxygen 08/17/24 02:00 08/17/24 04:00 08/17/24 04:00 Temperature 36.4 C Pulse Rate 74 64 71 Respiratory Rate 20 Blood Pressure 141/72 H Pulse Oximetry 99 Oxygen Delivery Fraction of Inspired Oxygen 08/17/24 06:00 08/17/24 07:33 08/17/24 08:00 Temperature 36.7 C Pulse Rate 65 76 67 Respiratory Rate 18 Blood Pressure 135/84 Pulse Oximetry 97 Oxygen Delivery Fraction of Inspired Oxygen 08/17/24 08:26 08/17/24 10:00 08/17/24 11:40 Temperature 36.6 C Pulse Rate 67 75 Respiratory Rate 16 Blood Pressure 138/89 Pulse Oximetry 97 98 Oxygen Delivery Room Air Fraction of Inspired Oxygen 21 08/17/24 12:00 08/17/24 13:50 Temperature Pulse Rate 84 75 Respiratory Rate Blood Pressure Pulse Oximetry Oxygen Delivery Fraction of Inspired Oxygen Exam Narrative: GENERAL: Well-appearing, well-nourished, and in no acute distress. HEAD: Normocephalic, atraumatic. ENT: Mucous membranes moist. NECK: Supple. CHEST: Clear to auscultation. No respiratory distress. HEART: Regular rate and rhythm. Normal peripheral pulses. ABDOMEN: Soft, nontender, nondistended. EXTREMITIES: Normal range of motion. No edema. SKIN: Warm, dry, no rash. NEURO: Alert and oriented x3. PSYCH: Normal mood and affect. Const: General: comfortable and no acute distress Other: , male, nontoxic appearance HENMT: Face/Nose/Sinus: Normal nares present Mouth: Yes moist mucous membranes Eyes: General: appearance normal, both eyes and all related structures Sclera: sclerae normal Pupils: Equal, round and reactive pupils present EOM: EOMs intact bilaterally Resp: Effort & Inspection: normal respiratory effort Auscultation: clear to auscultation bilaterally Cardio: Rate: regular rate Rhythm: regular rhythm Other: S1-S2 present without murmur, rub, ectopy GI: Other: Abdomen soft, nondistended, nontender Skin: General skin exam: normal color and no rashes or lesions noted Wounds: no wounds Neuro: General: gait normal Cranial nerves: Yes Equal, round and reactive pupils present Speech: normal speech Motor exam (neuro): 5/5 motor strength present throughout Sensory Exam: normal sensation Other: A&O x4 Extrem: General: normal to inspection Psych: Mental Status: mental status grossly normal Affect: normal affect Other: Good insight and judgment, pleasant Results Labs and Meds 08/17/24 07:39 08/17/24 07:39 Lab results: Cardiac Enzymes 08/16/24 08/16/24 08/16/24 Range/Units 15:38 17:41 21:12 AST 30 (17-59) U/L Troponin I 0.314 H* 0.466 H* D 0.688 H* D (0.000-0.034) ng/mL 08/17/24 08/17/24 Range/Units 00:23 07:39 AST 35 (17-59) U/L Troponin I 0.793 H* (0.000-0.034) ng/mL Coagulation 08/16/24 08/17/24 08/17/24 Range/Units 15:38 00:23 07:39 PT 13.8 14.2 (11.1-14.7) Seconds APTT 28.1 34.6 51.7 H (22.3-36.8) Seconds Lipids 08/17/24 Range/Units 07:39 Triglycerides 205 H (<150) mg/dL Cholesterol 146 (0-200) mg/dL CBC 08/16/24 08/17/24 Range/Units 15:38 07:39 WBC 13.9 H 10.0 (4.5-10.0) K/mm3 RBC 4.89 4.62 (4.6-6.20) M/mm3 Hgb 14.7 13.9 L (14.0-18.0) g/dL Hct 44.9 43.1 (42.0-52.0) % Plt Count 239 217 (150-375) k/mm3 Lymph # (Auto) 2.34 2.46 (0.9-3.2) K/mm3 [place] # (Auto) 1.1 H 0.9 H (0.1-0.6) K/mm3 Eos # (Auto) 0.1 0.2 (0-0.3) K/mm3 Baso # (Auto) 0.0 0.0 (0.0-0.1) K/mm3 Comprehensive Metabolic Panel 08/16/24 08/17/24 Range/Units 15:38 07:39 Sodium 141 139 (137-145) mmol/L Potassium 4.0 4.0 (3.4-5.0) mmol/L Chloride 107 108 H (98-107) mmol/L Carbon Dioxide 29 28 (22-30) mmol/L BUN 13 18 (9-20) mg/dL Creatinine 1.00 1.00 (0.7-1.3) mg/dL Glucose 91 93 (65-110) mg/dL Calcium 9.2 8.9 (8.4-10.2) mg/dL AST 30 35 (17-59) U/L ALT 36 33 (6-50) U/L Alkaline Phosphatase 84 79 (38-126) U/L Total Protein 7.0 7.0 (6.3-8.2) g/dL Albumin 4.3 3.9 (3.5-5.1) g/dL Intake and Output 08/16/24 08/17/24 08/17/24 23:59 07:59 15:59 Intake Total 86 644.0 Output Total 325 725 Balance -239 -81.0 Intake: IV 86 164.0 Heparin Sod/D5w 100 Units/ml 25 86 164.0 ,000 units In 250 ml @ 1,800 UNITS/HR 18 mls/hr IV CONT . [id number] [facility] Rx#:[id number] Oral 480 Output: Urine 325 725 Patient Weight 08/17/24 23:59 Weight 116 kg
[2024-08-17 15:04] LABS: Partial Thromboplastin Time 71.3 Seconds (22.3-36.8)
--- NOTE | 2024-08-17 17:09 | PM.IMPN ---
Progress Note: A&P Assessment and Plan (1) Non-ST elevation [place] (NSTEMI): Code(s): I21.4 - Non-ST elevation (NSTEMI) myocardial infarction Status: Acute Assessment and Plan: - EKG, initial: NSR, rate 79. Awaiting formal read. - EKG, repeat (1): Remains in NSR, no significant changes when compared to prior, awaiting formal read. - CXR: No acute cardiopulmonary disease - Troponin: 0.314 -> 0.466 -> 0.688 Continue heparin infusion, aspirin, Lipitor, metoprolol, to. Echo, A1c, lipid profile pending. For cardiac catheterization tomorrow. NPO from midnight Cardiology following a. (2) Mixed hyperlipidemia: Code(s): E78.2 - Mixed hyperlipidemia Status: Acute Assessment and Plan: - continue home medication: (3) Hypertension: Qualifiers: Hypertension type: primary hypertension Qualified Code(s): I10 - Essential (primary) hypertension Code(s): I10 - Essential (primary) hypertension Status: Acute Assessment and Plan: Titrate medications with clinical course. Plan Diet: Heart healthy, NPO midnight DVT Prophylaxis: Heparin drip Lines: Peripheral Code Status: Full code Subjective Date/time seen: 08/17/24 17:09 Interval history: Comfortable at bedside for cardiac cath tomorrow Review of Systems Review of Systems: All systems reviewed & are unremarkable except as noted in HPI and below Exam Narrative: exam fine. Const: General: comfortable and no acute distress Other: , male, nontoxic appearance HENMT: Face/Nose/Sinus: Normal nares present Mouth: Yes moist mucous membranes Eyes: General: appearance normal, both eyes and all related structures Sclera: sclerae normal Pupils: Equal, round and reactive pupils present EOM: EOMs intact bilaterally Resp: Effort & Inspection: normal respiratory effort Auscultation: clear to auscultation bilaterally Cardio: Rate: regular rate Rhythm: regular rhythm Other: S1-S2 present without murmur, rub, ectopy GI: Other: Abdomen soft, nondistended, nontender Skin: General skin exam: normal color and no rashes or lesions noted Wounds: no wounds Neuro: General: gait normal Cranial nerves: Yes Equal, round and reactive pupils present Speech: normal speech Motor exam (neuro): 5/5 motor strength present throughout Sensory Exam: normal sensation Other: A&O x4 Extrem: General: normal to inspection Psych: Mental Status: mental status grossly normal Affect: normal affect Other: Good insight and judgment, pleasant Objective Data Vital Signs Vital Signs: Vital Signs - 24 hr 08/16/24 17:30 08/16/24 18:45 08/16/24 19:30 Temperature 98.3 F Pulse Rate 78 73 77 Respiratory Rate 16 18 16 Blood Pressure 120/78 135/87 135/80 Pulse Oximetry 98 97 96 Oxygen Delivery Fraction of Inspired Oxygen 08/16/24 20:00 08/16/24 22:00 08/17/24 00:00 Temperature 98.1 F Pulse Rate 74 99 79 Respiratory Rate 18 Blood Pressure 147/81 H Pulse Oximetry 97 Oxygen Delivery Fraction of Inspired Oxygen 08/17/24 00:00 08/17/24 02:00 08/17/24 04:00 Temperature Pulse Rate 77 74 64 Respiratory Rate Blood Pressure Pulse Oximetry Oxygen Delivery Fraction of Inspired Oxygen 08/17/24 04:00 08/17/24 06:00 08/17/24 07:33 Temperature 97.6 F 98.1 F Pulse Rate 71 65 76 Respiratory Rate 20 18 Blood Pressure 141/72 H 135/84 Pulse Oximetry 99 97 Oxygen Delivery Fraction of Inspired Oxygen 08/17/24 08:00 08/17/24 08:26 08/17/24 10:00 Temperature Pulse Rate 67 67 Respiratory Rate Blood Pressure Pulse Oximetry 97 Oxygen Delivery Room Air Fraction of Inspired Oxygen 21 08/17/24 11:40 08/17/24 12:00 08/17/24 13:50 Temperature 98 F Pulse Rate 75 84 75 Respiratory Rate 16 Blood Pressure 138/89 Pulse Oximetry 98 Oxygen Delivery Fraction of Inspired Oxygen 08/17/24 16:00 08/17/24 16:00 Temperature 98.2 F Pulse Rate 72 Respiratory Rate 12 Blood Pressure 117/76 Pulse Oximetry 97 Oxygen Delivery Room Air Fraction of Inspired Oxygen Intake/Output Intake/Output: Intake & Output 08/14/24 08/15/24 08/16/24 08/17/24 23:59 23:59 23:59 23:59 Intake Total 768.1 Output Total 1050 Balance -281.9 Meds/Results Medications: Active Medications Generic Name Dose Route Start Last Admin Trade Name Freq PRN Reason Stop Dose Admin Acetaminophen 650 mg 08/16/24 16:54 Acetaminophen 325 Mg Tablet PO Q4H PRN Mild Pain (1-3) or Fever Hydrocodone Bitart/Acetaminophen 1 tab 08/16/24 16:54 Hydrocodone/Acetaminophen (*Crx) 5-325 Mg Tablet PO Q4H PRN Pain Rated 4-6 Aspirin 81 mg 08/18/24 09:00 Aspirin 81 Mg Enteric Tablet PO QAM [facility] Heparin Sodium (Porcine) 4,000 units 08/16/24 16:33 08/17/24 08:41 Heparin Sodium 5,000 Units/Ml Vial IV PUSH 4,000 units PRN PRN Administration aPTT less than 55 seconds Heparin Sodium (Porcine) 4,000 units 08/16/24 16:33 Heparin Sodium 5,000 Units/Ml Vial IV PUSH PRN PRN aPTT 55 - 70 seconds Heparin Sodium/Dextrose 25,000 units in 250 mls @ 18 mls/hr 08/16/24 16:35 08/17/24 15:00 Heparin Sodium/D5w 100 Units/Ml IV CONT 1,800 units/hr .[id number] [facility] 18 mls/hr Titration Protocol 1,800 UNITS/HR Isosorbide Mononitrate 30 mg 08/18/24 09:00 Isosorbide Mononitrate 30 Mg Tab.Er.[facility]h [facility] [place] Metoprolol Succinate 25 mg 08/18/24 09:00 Metoprolol Succinate Ext Rel 25 Mg Tabcr [facility] [place] Morphine Sulfate 2 mg 08/16/24 16:54 Morphine Sulfate (*Crx) 2 Mg/Ml Inj IV PUSH Q2H PRN Pain Rated 7-10 Nitroglycerin 0.4 mg 08/16/24 18:22 Nitroglycerin Sl 0.4 Mg Tablet SUBLINGUAL Q5MIN PRN Chest Pain Ondansetron HCl 4 mg 08/16/24 16:54 Ondansetron Inj 4 Mg/2 Ml Vial IV PUSH Q4H PRN Nausea Pantoprazole Sodium 40 mg 08/16/24 21:50 08/17/24 08:41 Pantoprazole 40 Mg Tablet PO 40 mg QAM [facility] Administration Perflutren Lipid Microsphere 0 ml 08/17/24 09:41 Perflutren Lipid Microspheres 1.5 Ml Vial Diluted To 10 Ml Total Volume IV PUSH 08/20/24 09:41 ONCE PRN adequate visualization Protocol Radiology Results: ITS Impressions Chest X-Ray 08/16/24 15:14 IMPRESSION: 1: NO ACUTE CARDIOPULMONARY DISEASE. Labs Labs: Laboratory Results - last 24 hr 08/16/24 08/16/24 08/16/24 15:33 17:41 21:12 WBC RBC Hgb Hct MCV MCH MCHC RDW Plt Count MPV Immature Gran % (Auto) Neut % (Auto) Lymph % (Auto) [place] % (Auto) Eos % (Auto) Baso % (Auto) Lymph # (Auto) [place] # (Auto) Eos # (Auto) Baso # (Auto) Abs Immat Gran (auto) Absolute Neuts (auto) Absolute Nucleated RBC Nucleated RBC % PT INR APTT Sodium Potassium Chloride Carbon Dioxide Anion Gap BUN Creatinine Estim Creat Clear Calc Estimated GFR Glucose Hemoglobin A1c 5.9 H Calcium Total Bilirubin AST ALT Alkaline Phosphatase Troponin I 0.466 H* D 0.688 H* D Total Protein Albumin Triglycerides Cholesterol LDL Cholesterol Direct HDL Direct 08/17/24 08/17/24 08/17/24 00:23 07:39 14:41 WBC 10.0 RBC 4.62 Hgb 13.9 L Hct 43.1 MCV 93.3 MCH 30.1 MCHC 32.3 RDW 12.6 Plt Count 217 MPV 10.7 H Immature Gran % (Auto) 0.6 H Neut % (Auto) 63.6 Lymph % (Auto) 24.7 [place] % (Auto) 8.6 H Eos % (Auto) 2.1 Baso % (Auto) 0.4 Lymph # (Auto) 2.46 [place] # (Auto) 0.9 H Eos # (Auto) 0.2 Baso # (Auto) 0.0 Abs Immat Gran (auto) 0.06 H Absolute Neuts (auto) 6.3 Absolute Nucleated RBC 0.000 Nucleated RBC % 0.0 PT 14.2 INR 1.1 APTT 34.6 51.7 H 71.3 H Sodium 139 Potassium 4.0 Chloride 108 H Carbon Dioxide 28 Anion Gap 3 L BUN 18 Creatinine 1.00 Estim Creat Clear Calc 95 Estimated GFR > 60 Glucose 93 Hemoglobin A1c Calcium 8.9 Total Bilirubin 0.6 AST 35 ALT 33 Alkaline Phosphatase 79 Troponin I 0.793 H* Total Protein 7.0 Albumin 3.9 Triglycerides 205 H Cholesterol 146 LDL Cholesterol Direct 68 HDL Direct 36 Quality VTE Prophylaxis VTE prophylaxis: pharmacologic ordered
[2024-08-17 21:48] LABS: Partial Thromboplastin Time 75.3 Seconds (22.3-36.8)
[2024-08-17] MEDS: traZODone HCL 50 MG TABLET PO (21:51)
[2024-08-18] VITALS (17 sets, daily range): BP systolic 102–156; BP diastolic 47–89; PULSE 56–78; RESP 18–24; TEMP 36.3–37.2; O2SAT 96–100
[2024-08-18] MEDS: HEPARIN SOD/D5W 100 UNITS/ML 25,000 UNITS/250 ML BAG 18 UNITS IV CONT ×2 (02:01→15:56)
[2024-08-18 05:05] LABS: Basophils Percent Auto 0.3 % (0.2-1.2); Eosinophils Absolute Auto 0.2 K/mm3 (0-0.3); Eosinophils Percent Auto 2.5 % (0-4.4); Hematocrit 41.4 % (42.0-52.0); Hemoglobin 13.3 g/dL (14.0-18.0); Immature Granulocyte Absolute 0.05 K/mm3 (0.00-0.031); Immature Granulocyte Percent A 0.6 % (0-0.5); Lymphocytes Absolute Auto 2.76 K/mm3 (0.9-3.2); Lymphocytes Percent Auto 31.7 % (18.3-44.2); Mean Corpuscular HGB Conc 32.1 g/dl (32-36); Mean Corpuscular Hemoglobin 29.5 pg (26-34); Mean Corpuscular Volume 91.8 fl (80-100); Mean Platelet Volume 10.5 fl (7.4-10.4); Monocytes Absolute Auto 0.7 K/mm3 (0.1-0.6); Monocytes Percent Auto 8.4 % (2.6-8.5); Neutrophils Absolute Auto 4.9 K/mm3 (1.3-6.7); Neutrophils Percent Auto 56.5 % (45.5-73.1); Platelet Count Result 201 k/mm3 (150-375); Red Blood Count 4.51 M/mm3 (4.6-6.20); Red Cell Distribution Width 12.2 % (11.5-14.5); White Blood Count 8.7 K/mm3 (4.5-10.0)
[2024-08-18 05:14] LABS: Hemoglobin A1C 5.8 % (<5.7)
[2024-08-18 05:17] LABS: Partial Thromboplastin Time 95.1 Seconds (22.3-36.8)
[2024-08-18 05:19] LABS: Alanine Aminotransferase 27 U/L (6-50); Albumin Level 3.5 g/dL (3.5-5.1); Alkaline Phosphatase 70 U/L (38-126); Aspartate Amino Transferase 26 U/L (17-59); Bilirubin,Total 0.4 mg/dL (0.2-1.3); Blood Urea Nitrogen 14 mg/dL (9-20); Calcium 8.6 mg/dL (8.4-10.2); Carbon Dioxide 26 mmol/L (22-30); Cholesterol 141 mg/dL (0-200); Estimated CRCL calculation 105 ml/min; Estimated Glomerular Filt Rate > 60; Glucose 99 mg/dL (65-110); HDL Direct 38 mg/dL; Magnesium 2.1 mg/dL (1.6-2.3); Triglycerides 205 mg/dL (<150)
[2024-08-18 05:27] LABS: LDL Cholesterol Direct 72 mg/dL
[2024-08-18 05:40] LABS: Anion Gap 2 mmol/L (4-12); Chloride 109 mmol/L (98-107); Sodium 137 mmol/L (137-145)
[2024-08-18] MEDS: ASPIRIN 81 MG ENTERIC TABLET PO (08:44)
[2024-08-18] MEDS: ISOSORBIDE MONONITRATE 30 MG TAB.ER.24H PO (08:44)
[2024-08-18] MEDS: METOPROLOL SUCCINATE EXT REL 25 MG TABCR PO (08:44)
[2024-08-18] MEDS: PANTOPRAZOLE 40 MG TABLET PO (08:45)
--- NOTE | 2024-08-18 12:06 | P.PNCA_ITS ---
Progress Note: A&P Assessment and Plan (1) Non-ST elevation ID (NSTEMI): Code(s): I21.4 - Non-ST elevation (NSTEMI) myocardial infarction Status: Acute (2) Mixed hyperlipidemia: Code(s): E78.2 - Mixed hyperlipidemia Status: Acute (3) Hypertension: Qualifiers: Hypertension type: primary hypertension Qualified Code(s): I10 - Essential (primary) hypertension Code(s): I10 - Essential (primary) hypertension Status: Acute (4) CAD (coronary artery disease): Code(s): I25.10 - Atherosclerotic heart disease of [place] coronary artery without angina pectoris Status: Acute Plan 1. CAD 2. NSTEMI LAURITA 5 3. Ischemic cardiomyopathy, recovered EF TTE (17/08/2024) shows EF more than 70% 4. Hypertension 5. Hyperlipidemia 6. Chronic smoker -I suspect his coronary artery disease has worsened or he has an eye side of his RCA stents and will need a cardiac catheterization to evaluate his coronary anatomy. We discussed the risks, benefits, alternatives and he agreed for cardiac catheterization. Unfortunately could not be done today as the phlebotomist medical lab assistant expressed inability to come over the weekend. Left heart catheterization for tomorrow -continue heparin infusion -continue aspirin 81 mg p.o. once a day -continue atorvastatin 40 mg p.o. once daily -continue Toprol-XL and Entresto at current dosage -continue Imdur 30 mg once daily -NPO midnight, left heart catheterization tomorrow Subjective Date/time seen: 08/18/24 12:06 Interval history: Denies any chest pain No acute events overnight On heparin infusion Review of Systems Review of Systems: All systems reviewed & are unremarkable except as noted in HPI and below Exam Narrative: GENERAL: Well-appearing, well-nourished, and in no acute distress. HEAD: Normocephalic, atraumatic. ENT: Mucous membranes moist. NECK: Supple. CHEST: Clear to auscultation. No respiratory distress. HEART: Regular rate and rhythm. Normal peripheral pulses. ABDOMEN: Soft, nontender, nondistended. EXTREMITIES: Normal range of motion. No edema. SKIN: Warm, dry, no rash. NEURO: Alert and oriented x3. PSYCH: Normal mood and affect. Const: General: comfortable and no acute distress Other: , male, nontoxic appearance HENMT: Face/Nose/Sinus: Normal nares present Mouth: Yes moist mucous membranes Eyes: General: appearance normal, both eyes and all related structures Sclera: sclerae normal Pupils: Equal, round and reactive pupils present EOM: EOMs intact bilaterally Resp: Effort & Inspection: normal respiratory effort Auscultation: clear to auscultation bilaterally Cardio: Rate: regular rate Rhythm: regular rhythm Other: S1-S2 present without murmur, rub, ectopy GI: Other: Abdomen soft, nondistended, nontender Skin: General skin exam: normal color and no rashes or lesions noted Wounds: no wounds Neuro: General: gait normal Cranial nerves: Yes Equal, round and reactive pupils present Speech: normal speech Motor exam (neuro): 5/5 motor strength present throughout Sensory Exam: normal sensation Other: A&O x4 Extrem: General: normal to inspection Psych: Mental Status: mental status grossly normal Affect: normal affect Other: Good insight and judgment, pleasant Objective Data Vital Signs Vital Signs: Vital Signs - 24 hr 08/17/24 13:50 08/17/24 16:00 08/17/24 16:00 Temperature 36.8 C Pulse Rate 75 72 Respiratory Rate 12 Blood Pressure 117/76 Pulse Oximetry 97 Oxygen Delivery Room Air 08/17/24 16:00 08/17/24 18:00 08/17/24 19:58 Temperature 36.7 C Pulse Rate 70 74 72 Respiratory Rate 24 H Blood Pressure 131/84 Pulse Oximetry 97 Oxygen Delivery 08/17/24 20:00 08/17/24 20:00 08/17/24 22:00 Temperature Pulse Rate 69 70 Respiratory Rate Blood Pressure Pulse Oximetry Oxygen Delivery Room Air 08/18/24 00:00 08/18/24 00:00 08/18/24 00:00 Temperature 36.4 C L Pulse Rate 69 71 Respiratory Rate 24 H Blood Pressure 125/66 Pulse Oximetry 99 Oxygen Delivery Room Air 08/18/24 02:00 08/18/24 04:00 08/18/24 04:00 Temperature 36.6 C Pulse Rate 71 78 Respiratory Rate 20 Blood Pressure 115/71 Pulse Oximetry 100 Oxygen Delivery Room Air 08/18/24 04:00 08/18/24 06:00 08/18/24 07:32 Temperature 36.7 C Pulse Rate 61 56 L 68 Respiratory Rate 20 Blood Pressure 156/89 H Pulse Oximetry 96 Oxygen Delivery 08/18/24 08:00 08/18/24 08:00 08/18/24 08:44 Temperature Pulse Rate 62 58 L 62 Respiratory Rate 20 Blood Pressure Pulse Oximetry 96 Oxygen Delivery Room Air 08/18/24 10:00 08/18/24 11:36 Temperature 36.6 C Pulse Rate 65 70 Respiratory Rate 18 Blood Pressure 131/68 Pulse Oximetry 97 Oxygen Delivery Intake/Output Intake/Output: Intake & Output 08/15/24 08/16/24 08/17/24 08/18/24 23:59 23:59 23:59 23:59 Intake Total 3042.0 434.4 Output Total 1350 300 Balance 1692.0 134.4 Meds/Results Medications: Active Medications Generic Name Dose Route Start Last Admin Trade Name Freq PRN Reason Stop Dose Admin Acetaminophen 650 mg 08/16/24 16:54 Acetaminophen 325 Mg Tablet PO Q4H PRN Mild Pain (1-3) or Fever Hydrocodone Bitart/Acetaminophen 1 tab 08/16/24 16:54 Hydrocodone/Acetaminophen (*Crx) 5-325 Mg Tablet PO Q4H PRN Pain Rated 4-6 Aspirin 81 mg 08/18/24 09:00 08/18/24 08:44 Aspirin 81 Mg Enteric Tablet PO 81 mg QAM [facility] Administration Heparin Sodium (Porcine) 4,000 units 08/16/24 16:33 08/17/24 08:41 Heparin Sodium 5,000 Units/Ml Vial IV PUSH 4,000 units PRN PRN Administration aPTT less than 55 seconds Heparin Sodium (Porcine) 4,000 units 08/16/24 16:33 Heparin Sodium 5,000 Units/Ml Vial IV PUSH PRN PRN aPTT 55 - 70 seconds Heparin Sodium/Dextrose 25,000 units in 250 mls @ 18 mls/hr 08/16/24 16:35 08/18/24 02:01 Heparin Sodium/D5w 100 Units/Ml IV CONT 1,800 units/hr .[id number] HAL 18 mls/hr Administration Protocol 1,800 UNITS/HR Isosorbide Mononitrate 30 mg 08/18/24 09:00 08/18/24 08:44 Isosorbide Mononitrate 30 Mg Tab.Er.24h PO 30 mg QAM [facility] Administration Metoprolol Succinate 25 mg 08/18/24 09:00 08/18/24 08:44 Metoprolol Succinate Ext Rel 25 Mg Tabcr PO 25 mg QAM HAL Administration Morphine Sulfate 2 mg 08/16/24 16:54 Morphine Sulfate (*Crx) 2 Mg/Ml Inj IV PUSH Q2H PRN Pain Rated 7-10 Nitroglycerin 0.4 mg 08/16/24 18:22 Nitroglycerin Sl 0.4 Mg Tablet SUBLINGUAL Q5MIN PRN Chest Pain Ondansetron HCl 4 mg 08/16/24 16:54 Ondansetron Inj 4 Mg/2 Ml Vial IV PUSH Q4H PRN Nausea Pantoprazole Sodium 40 mg 08/16/24 21:50 08/18/24 08:45 Pantoprazole 40 Mg Tablet PO 40 mg QAM [facility] Administration Perflutren Lipid Microsphere 0 ml 08/17/24 09:41 Perflutren Lipid Microspheres 1.5 Ml Vial Diluted To 10 Ml Total Volume IV PUSH 08/20/24 09:41 ONCE PRN adequate visualization Protocol Radiology Results: ITS Impressions Chest X-Ray 08/16/24 15:14 IMPRESSION: 1: NO ACUTE CARDIOPULMONARY DISEASE. Labs Labs: Laboratory Results - last 24 hr 08/17/24 08/17/24 08/18/24 14:41 21:23 04:47 WBC 8.7 RBC 4.51 L Hgb 13.3 L Hct 41.4 L MCV 91.8 MCH 29.5 MCHC 32.1 RDW 12.2 Plt Count 201 MPV 10.5 H Immature Gran % (Auto) 0.6 H Neut % (Auto) 56.5 Lymph % (Auto) 31.7 [place] % (Auto) 8.4 Eos % (Auto) 2.5 Baso % (Auto) 0.3 Lymph # (Auto) 2.76 [place] # (Auto) 0.7 H Eos # (Auto) 0.2 Baso # (Auto) 0.0 Abs Immat Gran (auto) 0.05 H Absolute Neuts (auto) 4.9 Absolute Nucleated RBC 0.000 Nucleated RBC % 0.0 APTT 71.3 H 75.3 H 95.1 H Sodium 137 Potassium 4.0 Chloride 109 H Carbon Dioxide 26 Anion Gap 2 L BUN 14 Creatinine 0.90 Estim Creat Clear Calc 105 Estimated GFR > 60 Glucose 99 Hemoglobin A1c 5.8 H Calcium 8.6 Magnesium 2.1 Total Bilirubin 0.4 AST 26 ALT 27 Alkaline Phosphatase 70 Troponin I 0.400 H* Total Protein 6.0 L Albumin 3.5 Triglycerides 205 H Cholesterol 141 LDL Cholesterol Direct 72 HDL Direct 38
--- NOTE | 2024-08-18 12:37 | P.PNIM_ITS ---
Progress Note: A&P Assessment and Plan (1) Non-ST elevation [place] (NSTEMI): Code(s): I21.4 - Non-ST elevation (NSTEMI) myocardial infarction Status: Acute Assessment and Plan: - EKG, initial: NSR, rate 79. Awaiting formal read. - EKG, repeat (1): Remains in NSR, no significant changes when compared to prior, awaiting formal read. - CXR: No acute cardiopulmonary disease - Troponin: 0.314 -> 0.466 -> 0.688 Continue heparin infusion, aspirin, Lipitor, metoprolol Echo, A1c 5.8, LDL 72. For cardiac catheterization tomorrow. NPO from midnight Cardiology following (2) Mixed hyperlipidemia: Code(s): E78.2 - Mixed hyperlipidemia Status: Acute Assessment and Plan: - continue home medication: (3) Hypertension: Qualifiers: Hypertension type: primary hypertension Qualified Code(s): I10 - Essential (primary) hypertension Code(s): I10 - Essential (primary) hypertension Status: Acute Assessment and Plan: Titrate medications with clinical course. Plan Diet: Heart healthy, NPO midnight DVT Prophylaxis: Heparin drip Lines: Peripheral Code Status: Full code Subjective Date/time seen: 08/18/24 12:37 Interval history: No chest pain Cardiac cath tomorrow Review of Systems Review of Systems: All systems reviewed & are unremarkable except as noted in HPI and below Exam Narrative: exam fine. Const: General: comfortable and no acute distress Other: , male, nontoxic appearance HENMT: Face/Nose/Sinus: Normal nares present Mouth: Yes moist mucous membranes Eyes: General: appearance normal, both eyes and all related structures Sclera: sclerae normal Pupils: Equal, round and reactive pupils present EOM: EOMs intact bilaterally Resp: Effort & Inspection: normal respiratory effort Auscultation: clear to auscultation bilaterally Cardio: Rate: regular rate Rhythm: regular rhythm Other: S1-S2 present without murmur, rub, ectopy GI: Other: Abdomen soft, nondistended, nontender Skin: General skin exam: normal color and no rashes or lesions noted Wounds: no wounds Neuro: General: gait normal Cranial nerves: Yes Equal, round and reactive pupils present Speech: normal speech Motor exam (neuro): 5/5 motor strength present throughout Sensory Exam: normal sensation Other: A&O x4 Extrem: General: normal to inspection Psych: Mental Status: mental status grossly normal Affect: normal affect Other: Good insight and judgment, pleasant Objective Data Vital Signs Vital Signs: Vital Signs - 24 hr 08/17/24 13:50 08/17/24 16:00 08/17/24 16:00 Temperature 98.2 F Pulse Rate 75 72 Respiratory Rate 12 Blood Pressure 117/76 Pulse Oximetry 97 Oxygen Delivery Room Air 08/17/24 16:00 08/17/24 18:00 08/17/24 19:58 Temperature 98.0 F Pulse Rate 70 74 72 Respiratory Rate 24 H Blood Pressure 131/84 Pulse Oximetry 97 Oxygen Delivery 08/17/24 20:00 08/17/24 20:00 08/17/24 22:00 Temperature Pulse Rate 69 70 Respiratory Rate Blood Pressure Pulse Oximetry Oxygen Delivery Room Air 08/18/24 00:00 08/18/24 00:00 08/18/24 00:00 Temperature 97.5 F L Pulse Rate 69 71 Respiratory Rate 24 H Blood Pressure 125/66 Pulse Oximetry 99 Oxygen Delivery Room Air 08/18/24 02:00 08/18/24 04:00 08/18/24 04:00 Temperature 97.8 F Pulse Rate 71 78 Respiratory Rate 20 Blood Pressure 115/71 Pulse Oximetry 100 Oxygen Delivery Room Air 08/18/24 04:00 08/18/24 06:00 08/18/24 07:32 Temperature 98.0 F Pulse Rate 61 56 L 68 Respiratory Rate 20 Blood Pressure 156/89 H Pulse Oximetry 96 Oxygen Delivery 08/18/24 08:00 08/18/24 08:00 08/18/24 08:44 Temperature Pulse Rate 62 58 L 62 Respiratory Rate 20 Blood Pressure Pulse Oximetry 96 Oxygen Delivery Room Air 08/18/24 10:00 08/18/24 11:36 Temperature 97.8 F Pulse Rate 65 70 Respiratory Rate 18 Blood Pressure 131/68 Pulse Oximetry 97 Oxygen Delivery Intake/Output Intake/Output: Intake & Output 08/15/24 08/16/24 08/17/24 08/18/24 23:59 23:59 23:59 23:59 Intake Total 3042.0 434.4 Output Total 1350 300 Balance 1692.0 134.4 Meds/Results Medications: Active Medications Generic Name Dose Route Start Last Admin Trade Name Freq PRN Reason Stop Dose Admin Acetaminophen 650 mg 08/16/24 16:54 Acetaminophen 325 Mg Tablet PO Q4H PRN Mild Pain (1-3) or Fever Hydrocodone Bitart/Acetaminophen 1 tab 08/16/24 16:54 Hydrocodone/Acetaminophen (*Crx) 5-325 Mg Tablet PO Q4H PRN Pain Rated 4-6 Aspirin 81 mg 08/18/24 09:00 08/18/24 08:44 Aspirin 81 Mg Enteric Tablet PO 81 mg QAM [facility] Administration Heparin Sodium (Porcine) 4,000 units 08/16/24 16:33 08/17/24 08:41 Heparin Sodium 5,000 Units/Ml Vial IV PUSH 4,000 units PRN PRN Administration aPTT less than 55 seconds Heparin Sodium (Porcine) 4,000 units 08/16/24 16:33 Heparin Sodium 5,000 Units/Ml Vial IV PUSH PRN PRN aPTT 55 - 70 seconds Heparin Sodium/Dextrose 25,000 units in 250 mls @ 18 mls/hr 08/16/24 16:35 08/18/24 02:01 Heparin Sodium/D5w 100 Units/Ml IV CONT 1,800 units/hr .[id number] HAL 18 mls/hr Administration Protocol 1,800 UNITS/HR Isosorbide Mononitrate 30 mg 08/18/24 09:00 08/18/24 08:44 Isosorbide Mononitrate 30 Mg Tab.Er.24h [facility] Administration Metoprolol Succinate 25 mg 08/18/24 09:00 08/18/24 08:44 Metoprolol Succinate Ext Rel 25 Mg Tabcr [facility] [place] Administration Morphine Sulfate 2 mg 08/16/24 16:54 Morphine Sulfate (*Crx) 2 Mg/Ml Inj IV PUSH Q2H PRN Pain Rated 7-10 Nitroglycerin 0.4 mg 08/16/24 18:22 Nitroglycerin Sl 0.4 Mg Tablet SUBLINGUAL Q5MIN PRN Chest Pain Ondansetron HCl 4 mg 08/16/24 16:54 Ondansetron Inj 4 Mg/2 Ml Vial IV PUSH Q4H PRN Nausea Pantoprazole Sodium 40 mg 08/16/24 21:50 08/18/24 08:45 Pantoprazole 40 Mg Tablet PO 40 mg QAM [facility] Administration Perflutren Lipid Microsphere 0 ml 08/17/24 09:41 Perflutren Lipid Microspheres 1.5 Ml Vial Diluted To 10 Ml Total Volume IV PUSH 08/20/24 09:41 ONCE PRN adequate visualization Protocol Radiology Results: ITS Impressions Chest X-Ray 08/16/24 15:14 IMPRESSION: 1: NO ACUTE CARDIOPULMONARY DISEASE. Labs Labs: Laboratory Results - last 24 hr 08/17/24 08/17/24 08/18/24 14:41 21:23 04:47 WBC 8.7 RBC 4.51 L Hgb 13.3 L Hct 41.4 L MCV 91.8 MCH 29.5 MCHC 32.1 RDW 12.2 Plt Count 201 MPV 10.5 H Immature Gran % (Auto) 0.6 H Neut % (Auto) 56.5 Lymph % (Auto) 31.7 [place] % (Auto) 8.4 Eos % (Auto) 2.5 Baso % (Auto) 0.3 Lymph # (Auto) 2.76 [place] # (Auto) 0.7 H Eos # (Auto) 0.2 Baso # (Auto) 0.0 Abs Immat Gran (auto) 0.05 H Absolute Neuts (auto) 4.9 Absolute Nucleated RBC 0.000 Nucleated RBC % 0.0 APTT 71.3 H 75.3 H 95.1 H Sodium 137 Potassium 4.0 Chloride 109 H Carbon Dioxide 26 Anion Gap 2 L BUN 14 Creatinine 0.90 Estim Creat Clear Calc 105 Estimated GFR > 60 Glucose 99 Hemoglobin A1c 5.8 H Calcium 8.6 Magnesium 2.1 Total Bilirubin 0.4 AST 26 ALT 27 Alkaline Phosphatase 70 Troponin I 0.400 H* Total Protein 6.0 L Albumin 3.5 Triglycerides 205 H Cholesterol 141 LDL Cholesterol Direct 72 HDL Direct 38 Quality VTE Prophylaxis VTE prophylaxis: pharmacologic ordered
[2024-08-18] MEDS: traZODone HCL 50 MG TABLET PO (22:15)
[2024-08-19] VITALS (32 sets, daily range): BP systolic 117–171; BP diastolic 67–104; PULSE 57–79; RESP 15–23; TEMP 36.5–36.7; O2SAT 94–99
[2024-08-19 04:58] LABS: Basophils Percent Auto 0.4 % (0.2-1.2); Eosinophils Absolute Auto 0.3 K/mm3 (0-0.3); Eosinophils Percent Auto 2.7 % (0-4.4); Hematocrit 41.2 % (42.0-52.0); Hemoglobin 13.2 g/dL (14.0-18.0); Immature Granulocyte Absolute 0.09 K/mm3 (0.00-0.031); Lymphocytes Absolute Auto 2.61 K/mm3 (0.9-3.2); Lymphocytes Percent Auto 28.6 % (18.3-44.2); Mean Corpuscular Hemoglobin 29.4 pg (26-34); Mean Corpuscular Volume 91.8 fl (80-100); Mean Platelet Volume 10.8 fl (7.4-10.4); Monocytes Absolute Auto 0.8 K/mm3 (0.1-0.6); Monocytes Percent Auto 8.5 % (2.6-8.5); Neutrophils Absolute Auto 5.4 K/mm3 (1.3-6.7); Neutrophils Percent Auto 58.8 % (45.5-73.1); Platelet Count Result 199 k/mm3 (150-375); Red Blood Count 4.49 M/mm3 (4.6-6.20); Red Cell Distribution Width 12.2 % (11.5-14.5); White Blood Count 9.1 K/mm3 (4.5-10.0)
[2024-08-19 05:09] LABS: Partial Thromboplastin Time 61.2 Seconds (22.3-36.8)
[2024-08-19 05:16] LABS: Alanine Aminotransferase 31 U/L (6-50); Albumin Level 3.5 g/dL (3.5-5.1); Alkaline Phosphatase 69 U/L (38-126); Anion Gap 1 mmol/L (4-12); Aspartate Amino Transferase 28 U/L (17-59); Bilirubin,Total 0.3 mg/dL (0.2-1.3); Blood Urea Nitrogen 12 mg/dL (9-20); Calcium 8.7 mg/dL (8.4-10.2); Carbon Dioxide 28 mmol/L (22-30); Chloride 108 mmol/L (98-107); Estimated CRCL calculation 105 ml/min; Estimated Glomerular Filt Rate > 60; Glucose 94 mg/dL (65-110); Magnesium 2.2 mg/dL (1.6-2.3); Potassium 3.6 mmol/L (3.4-5.0); Sodium 137 mmol/L (137-145)
[2024-08-19] MEDS: HEPARIN SODIUM 5,000 UNITS/ML VIAL 4000 UNITS IV PUSH (05:24)
[2024-08-19] MEDS: HEPARIN SOD/D5W 100 UNITS/ML 25,000 UNITS/250 ML BAG 20 UNITS IV CONT (07:08)
[2024-08-19] MEDS: METOPROLOL SUCCINATE EXT REL 25 MG TABCR PO (10:40)
[2024-08-19] MEDS: ASPIRIN 81 MG ENTERIC TABLET PO (10:40)
[2024-08-19] MEDS: PANTOPRAZOLE 40 MG TABLET PO (10:41)
[2024-08-19] MEDS: ISOSORBIDE MONONITRATE 30 MG TAB.ER.24H PO (10:41)
--- NOTE | 2024-08-19 11:16 | P.PNCA_ITS ---
Progress Note: A&P Assessment and Plan (1) Non-ST elevation [place] (NSTEMI): Code(s): I21.4 - Non-ST elevation (NSTEMI) myocardial infarction Status: Acute (2) Mixed hyperlipidemia: Code(s): E78.2 - Mixed hyperlipidemia Status: Acute (3) Acute combined systolic and diastolic congestive heart failure: Code(s): I50.41 - Acute combined systolic (congestive) and diastolic (congestive) heart failure Status: Acute Plan 54-year-old man with CAD status post PCI, ischemic cardiomyopathy with recovered EF, and hyperlipidemia presented with chest pain whose clinical presentation is consistent with non ST elevation ND Non ST-elevation ND -aspirin 81 mg p.o. daily, Toprol 25 mg p.o. daily, and heparin drip -explained the risk and benefits of left heart catheterization with possible PCI and patient agreed to proceed forward -recommend adding atorvastatin 80 mg every evening Ischemic cardiomyopathy with recovered EF -would continue his Entresto, Jardiance, spironolactone, and metoprolol succinate Hyperlipidemia -atorvastatin 80 mg every evening Subjective Date/time seen: 08/19/24 11:16 Interval history: Denies any chest pain or shortness breath Review of Systems Cardiovascular: Cardiovascular: Reports as per HPI Respiratory: Respiratory: Reports as per HPI Exam Const: General: comfortable Eyes: EOM: EOMs intact bilaterally Neck: Neck: no JVD Resp: Effort & Inspection: normal respiratory effort Auscultation: clear to auscultation bilaterally Cardio: Rate: regular rate Rhythm: regular rhythm GI: GI Palp: Yes Soft to palpation Neuro: Speech: normal speech Extrem: General: no edema Objective Data Vital Signs Vital Signs: Vital Signs - 24 hr 08/18/24 11:36 08/18/24 12:00 08/18/24 12:00 Temperature 36.6 C Pulse Rate 70 70 68 Respiratory Rate 18 18 Blood Pressure 131/68 Pulse Oximetry 97 97 Oxygen Delivery Room Air 08/18/24 14:00 08/18/24 15:53 08/18/24 16:00 Temperature 36.7 C Pulse Rate 65 73 73 Respiratory Rate 20 20 Blood Pressure 102/61 Pulse Oximetry 97 97 Oxygen Delivery Room Air 08/18/24 16:00 08/18/24 18:00 08/18/24 20:00 Temperature 37.2 C Pulse Rate 69 64 63 Respiratory Rate 20 Blood Pressure 108/69 Pulse Oximetry 98 Oxygen Delivery 08/18/24 20:00 08/18/24 20:10 08/18/24 22:00 Temperature Pulse Rate 70 65 Respiratory Rate Blood Pressure Pulse Oximetry Oxygen Delivery Room Air 08/18/24 23:40 08/18/24 23:45 08/19/24 00:00 Temperature 36.3 C L Pulse Rate 60 57 L Respiratory Rate 18 Blood Pressure 112/47 L Pulse Oximetry 97 Oxygen Delivery Room Air 08/19/24 02:00 08/19/24 04:00 08/19/24 04:00 Temperature 36.6 C Pulse Rate 63 60 60 Respiratory Rate 18 18 Blood Pressure 129/93 H Pulse Oximetry 97 97 Oxygen Delivery Room Air 08/19/24 04:00 08/19/24 06:00 08/19/24 07:25 Temperature 36.7 C Pulse Rate 59 L 66 66 Respiratory Rate 22 H Blood Pressure 171/83 H Pulse Oximetry 97 Oxygen Delivery 08/19/24 10:40 Temperature Pulse Rate 69 Respiratory Rate Blood Pressure Pulse Oximetry Oxygen Delivery Intake/Output Intake/Output: Intake & Output 08/16/24 08/17/24 08/18/24 08/19/24 23:59 23:59 23:59 23:59 Intake Total 3042.0 2164.4 700.0 Output Total 1350 1250 400 Balance 1692.0 914.4 300.0 Meds/Results Medications: Active Medications Generic Name Dose Route Start Last Admin Trade Name Freq PRN Reason Stop Dose Admin Acetaminophen 650 mg 08/16/24 16:54 Acetaminophen 325 Mg Tablet PO Q4H PRN Mild Pain (1-3) or Fever Hydrocodone Bitart/Acetaminophen 1 tab 08/16/24 16:54 Hydrocodone/Acetaminophen (*Crx) 5-325 Mg Tablet PO Q4H PRN Pain Rated 4-6 Aspirin 81 mg 08/18/24 09:00 08/19/24 10:40 Aspirin 81 Mg Enteric Tablet PO 81 mg QAM [facility] Administration Empagliflozin 10 mg 08/20/24 09:00 Empagliflozin 10 Mg Tablet PO DAILY HAL Heparin Sodium (Porcine) 4,000 units 08/16/24 16:33 08/17/24 08:41 Heparin Sodium 5,000 Units/Ml Vial IV PUSH 4,000 units PRN PRN Administration aPTT less than 55 seconds Heparin Sodium (Porcine) 4,000 units 08/16/24 16:33 08/19/24 05:24 Heparin Sodium 5,000 Units/Ml Vial IV PUSH 4,000 units PRN PRN Administration aPTT 55 - 70 seconds Heparin Sodium/Dextrose 25,000 units in 250 mls @ 20 mls/hr 08/16/24 16:35 08/19/24 07:11 Heparin Sodium/D5w 100 Units/Ml IV CONT Not Given .[id number] HAL Protocol 2,000 UNITS/HR Isosorbide Mononitrate 30 mg 08/18/24 09:00 08/19/24 10:41 Isosorbide Mononitrate 30 Mg Tab.Er.24h PO 30 mg QAM [facility] Administration Metoprolol Succinate 25 mg 08/18/24 09:00 08/19/24 10:40 Metoprolol Succinate Ext Rel 25 Mg Tabcr PO 25 mg QAM [facility] Administration Morphine Sulfate 2 mg 08/16/24 16:54 Morphine Sulfate (*Crx) 2 Mg/Ml Inj IV PUSH Q2H PRN Pain Rated 7-10 Nitroglycerin 0.4 mg 08/16/24 18:22 Nitroglycerin Sl 0.4 Mg Tablet SUBLINGUAL Q5MIN PRN Chest Pain Ondansetron HCl 4 mg 08/16/24 16:54 Ondansetron Inj 4 Mg/2 Ml Vial IV PUSH Q4H PRN Nausea Pantoprazole Sodium 40 mg 08/16/24 21:50 08/19/24 10:41 Pantoprazole 40 Mg Tablet PO 40 mg QAM [facility] Administration Perflutren Lipid Microsphere 0 ml 08/17/24 09:41 Perflutren Lipid Microspheres 1.5 Ml Vial Diluted To 10 Ml Total Volume IV PUSH 08/20/24 09:41 ONCE PRN adequate visualization Protocol Sacubitril/Valsartan 1 tab 08/20/24 09:00 Sacubitril/Valsartan 24-26 Mg Tablet PO DAILY [facility] Spironolactone 25 mg 08/20/24 09:00 Spironolactone 25 Mg Tablet PO DAILY [facility] Trazodone HCl 50 mg 08/18/24 21:56 08/18/24 22:15 Trazodone Hcl 50 Mg Tablet PO 50 mg HS PRN Administration Insomnia Radiology Results: ITS Impressions Chest X-Ray 08/16/24 15:14 IMPRESSION: 1: NO ACUTE CARDIOPULMONARY DISEASE. Labs Labs: Laboratory Results - last 24 hr 08/19/24 04:38 WBC 9.1 RBC 4.49 L Hgb 13.2 L Hct 41.2 L MCV 91.8 MCH 29.4 MCHC 32.0 RDW 12.2 Plt Count 199 MPV 10.8 H Immature Gran % (Auto) 1.0 H Neut % (Auto) 58.8 Lymph % (Auto) 28.6 [place] % (Auto) 8.5 Eos % (Auto) 2.7 Baso % (Auto) 0.4 Lymph # (Auto) 2.61 [place] # (Auto) 0.8 H Eos # (Auto) 0.3 Baso # (Auto) 0.0 Abs Immat Gran (auto) 0.09 H Absolute Neuts (auto) 5.4 Absolute Nucleated RBC 0.000 Nucleated RBC % 0.0 APTT 61.2 H Sodium 137 Potassium 3.6 Chloride 108 H Carbon Dioxide 28 Anion Gap 1 L BUN 12 Creatinine 0.90 Estim Creat Clear Calc 105 Estimated GFR > 60 Glucose 94 Calcium 8.7 Magnesium 2.2 Total Bilirubin 0.3 AST 28 ALT 31 Alkaline Phosphatase 69 Total Protein 6.0 L Albumin 3.5
[2024-08-19 11:47] LABS: Partial Thromboplastin Time 102.6 Seconds (22.3-36.8)
--- NOTE | 2024-08-19 12:41 | WPDHPUPDATE1 ---
History and Physical Update Update Date/Time: 08/19/24 12:41 History and Physical has been reviewed, including an updated exam of the patient. There are NO changes in the patient's condition. Risks, benefits, and alternatives have been discussed and questions answered. Patient agrees to proceed with procedure.
--- NOTE | 2024-08-19 12:42 | P.PCNCC_ITS ---
Cardiac Cath Procedure Note Date of procedure:: 08/19/24 Performing physician:: CATHETERIZATION LABORATORY REPORT Procedure Date: Referring Physician: Anesthesia: Versed and Fentanyl were ordered and given in my presence at 13:05, procedure ended at 13:28. Supervision of nurse monitored moderate sedation with Versed and Fentanyl was provided for 23 minutes. 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 Procedure(s): Left heart catheterization with coronary angiography Access Site: Right radial artery Brief History and Clinical Indications: All risks, benefits and alternatives to left heart catheterization with or without percutaneous coronary intervention was discussed at length with the patient. Risk of complications including but not limited to bleeding, infection, arrhythmia, stroke, worsening kidney function, blood loss, groin hematoma, limb loss, emergency coronary artery bypass grafting, and even were discussed with the patient and all questions were answered. The patient understood and wished to proceed. Time out called, patient name, date of , medical record number, allergies, procedure performed, identify Geophysical Party Chief, patient and staff member concurred with accurate data, procedure carried on. Findings: LEFT HEART CATHETERIZATION FINDINGS: 1. Left main: The left main coronary artery is widely patent without any significant obstructive disease. 2. Left anterior descendin% stenosis of mid LAD with a large territory beyond this stenosis. 3. Left circumflex: 60% calcific stenosis in proximal LCx and 80% stenosis in a large OM. 4. Right coronary artery: Proximal RCA ELEMENTARY TEACHER (ISR within prior stent) with L to R collaterals. The RCA is the dominant vessel. (Prior RCA stents in 2021- drug- eluting stents 3.5 x 12, 3.5 x 38, and 3.5 x 15 from distal to proximal RCA) 5. Left ventricle: A. End-diastolic pressure 23 mmHg. B. LV gram deferred. C. No significant gradient across aortic valve on catheter pullback. 6. Opening AO pressure 104/80/92 mm Hg and closing AO pressure 123/90/105mm Hg Description of Procedure: Informed consent signed and placed in the chart. Patient transferred to dairy and food laboratory assistant room. Prepped and draped in usual sterile fashion. 2% lidocaine injected subcutaneously in right wrist area. 22-gauge venipuncture catheter used to access the right radial artery with the Seldinger technique. 6-FR slender sheath placed in right radial artery. Nitroglycerin 200mcg, Verapamil 2.5mg, and Heparin 5000U was given intraarterial through the sheath. J wire advanced under fluoroscopy JL3.5 diagnostic catheter engaged Left Main Coronary Artery. JR4 diagnostic catheter engaged Right Coronary Artery Multiple orthogonal angiogram obtained and reviewed JR4 diagnostic catheter crossed aortic valve to obtain LVEDP, LV angiogram deferred. Hemostasis was achieved by application of TR band. Assessment: 1. NSTEMI 2. 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 Post Operative Condition: Stable No significant blood loss Disposition: Floor Plan: The patient will be monitored in the recovery area. CT surgery consult for CABG. DAPT for 1 year followed by ASA indefinitely. The above findings were discussed with the referring physician. Continue aggressive medical therapy and risk factor modification. Further recommendations and management per primary cardiology team. Savannah Simmons MD Interventional Cardiology
--- NOTE | 2024-08-19 12:42 | P.SEDATION_ITS ---
Moderate Sedation Note-Pt Data Patient Data Allergies Allergy/AdvReac Type Severity Reaction Status Date / Time No Known Allergies Allergy Verified 02/12/24 10:03 Home Medications ?Medication ?Instructions ?Recorded ?Confirmed ?Type aspirin 81 mg chewable tablet 81 mg PO DAILY@0800 30 days #30 05/06/22 08/16/24 Rx (Children's Aspirin) tabs metoprolol succinate 25 mg 25 mg PO QAM 30 days #30 tabs 05/06/22 08/16/24 Rx tablet,extended release 24 hr (Toprol XL) atorvastatin 40 mg tablet 80 mg (2 x 40 mg) PO DAILY 30 days 01/04/24 08/16/24 Rx #60 tabs empagliflozin 10 mg tablet 10 mg PO DAILY 02/12/24 08/16/24 History (Jardiance) nitroglycerin 0.4 mg sublingual 0.4 mg sublingual Q5-15M PRN Chest 02/12/24 08/16/24 History tablet Pain sacubitril 24 mg-valsartan 26 mg 1 tablet PO DAILY 02/12/24 08/16/24 History tablet (Entresto) spironolactone 25 mg tablet 25 mg PO DAILY 02/12/24 08/16/24 History (Aldactone) Current Medications: Active Medications Acetaminophen (Acetaminophen 325 Mg Tablet) 650 mg PO Q4H PRN PRN Reason: Mild Pain (1-3) or Fever Hydrocodone Bitart/Acetaminophen (Hydrocodone/Acetaminophen (*Crx) 5-325 Mg Tablet) 1 tab PO Q4H PRN PRN Reason: Pain Rated 4-6 Aspirin (Aspirin 81 Mg Enteric Tablet) 81 mg PO QAM [facility] Last Admin: 08/19/24 10:40 Dose: 81 mg Atorvastatin Calcium (Atorvastatin 40 Mg Tablet) 80 mg PO EVENING HAL Empagliflozin (Empagliflozin 10 Mg Tablet) 10 mg PO DAILY [facility] Heparin Sodium (Porcine) (Heparin Sodium 5,000 Units/Ml Vial) 4,000 units IV PUSH PRN PRN PRN Reason: aPTT less than 55 seconds Last Admin: 08/17/24 08:41 Dose: 4,000 units Heparin Sodium (Porcine) (Heparin Sodium 5,000 Units/Ml Vial) 4,000 units IV PUSH PRN PRN PRN Reason: aPTT 55 - 70 seconds Last Admin: 08/19/24 05:24 Dose: 4,000 units Heparin Sodium/Dextrose (Heparin Sodium/D5w 100 Units/Ml) 25,000 units in 250 mls @ 20 mls/hr IV CONT .[id number] [facility]; Protocol Last Admin: 08/19/24 07:11 Dose: Not Given Isosorbide Mononitrate (Isosorbide Mononitrate 30 Mg Tab.Er.24h) 30 mg PO [facility] Last Admin: 08/19/24 10:41 Dose: 30 mg Metoprolol Succinate (Metoprolol Succinate Ext Rel 25 Mg Tabcr) 25 mg PO [facility] Last Admin: 08/19/24 10:40 Dose: 25 mg Morphine Sulfate (Morphine Sulfate (*Crx) 2 Mg/Ml Inj) 2 mg IV PUSH Q2H PRN PRN Reason: Pain Rated 7-10 Nitroglycerin (Nitroglycerin Sl 0.4 Mg Tablet) 0.4 mg SUBLINGUAL Q5MIN PRN PRN Reason: Chest Pain Ondansetron HCl (Ondansetron Inj 4 Mg/2 Ml Vial) 4 mg IV PUSH Q4H PRN PRN Reason: Nausea Pantoprazole Sodium (Pantoprazole 40 Mg Tablet) 40 mg PO [facility] Last Admin: 08/19/24 10:41 Dose: 40 mg Perflutren Lipid Microsphere (Perflutren Lipid Microspheres 1.5 Ml Vial Diluted To 10 Ml Total Volume) 0 ml IV PUSH ONCE PRN; Protocol PRN Reason: adequate visualization Stop: 08/20/24 09:41 Sacubitril/Valsartan (Sacubitril/Valsartan 24-26 Mg Tablet) 1 tab PO DAILY [facility] Spironolactone (Spironolactone 25 Mg Tablet) 25 mg PO DAILY [facility] Trazodone HCl (Trazodone Hcl 50 Mg Tablet) 50 mg PO HS PRN PRN Reason: Insomnia Last Admin: 08/18/24 22:15 Dose: 50 mg Sedation/Anesthesia: No previous sedation/anesthesia problems (including family history). [facility] Past Medical History Medical History (HFpEF) heart failure with preserved ejection fraction echo on 01/03/24 showed Normal systolic function, estimated EF > 70% Grade 1 diastolic dysfunction No significant valvular disease Chronic neck pain Chronic back pain Tobacco use Coronary artery disease Mixed hyperlipidemia Ischemic cardiomyopathy Mild left ventricular enlargement with severe global hypokinesis, EF of 33% global longitudinal strain negative of 11% Surgical History Surgical History History of appendectomy History of heart artery stent History of cardiac catheterization Family History Family History Father No pertinent past medical history Heart disease, Onset Age: 58 Has had 7 stents Other Lung cancer Cerebrovascular accident Acute myocardial infarction Mother MVA (motor vehicle accident), Onset Age: 37 COD Social History Social History Social History: [employer] where he works in [employer]. He lives in his own apartment alone. He does have a 10-year-old son. He still smokes 0.5 packs of cigarettes per day for the last 6 months. He originally smoked at least 1 pack of cigarettes per day previously Since his mid 20s. He occasionally drinks alcohol but denies heavy alcohol use. He occasionally smokes marijuana. Code status: Full code. Surrogate decision maker: Greg (father) Smoking packs per day: 0.30 Smoking cigarettes per day: 6.0 Years smoked: 30 Smoking pack-years: 9.00 Smoking status: Current every day smoker Alcohol intake: current Drinks per week: 5 Alcohol use details: Socially Substance use: current Substance use type: marijuana Last use: 08/15/24 Do You Feel Safe in your Home?: Yes Lack of Transportation: No Lack of Food: Never True Current Housing: I Have Housing Concerned About Future Housing: No Difficulty Paying Gas/Electric Bills: No Difficulty Paying for Meds: No Currently Unemployed: No Education: Associate Degree Difficulty w/ Childcare or Family Care: No Living arrangements: with family Spiritual care concerns: No Mod Sed Physical Exam Physical Exam Pre Procedural Exam: Normal: Heart Rate Hours since solid foods: 12 Hours since liquid intake: 12 Mallampati Classification: class II Internal Medicine - PN: Obj Da Vital Signs Vital Signs: Vital Signs - 24 hr 08/18/24 14:00 08/18/24 15:53 08/18/24 16:00 Temperature 36.7 C Pulse Rate 65 73 73 Respiratory Rate 20 20 Blood Pressure 102/61 Pulse Oximetry 97 97 Oxygen Delivery Room Air 12/15/24 16:00 08/18/24 18:00 08/18/24 20:00 Temperature 37.2 C Pulse Rate 69 64 63 Respiratory Rate 20 Blood Pressure 108/69 Pulse Oximetry 98 Oxygen Delivery 08/18/24 20:00 08/18/24 20:10 08/18/24 22:00 Temperature Pulse Rate 70 65 Respiratory Rate Blood Pressure Pulse Oximetry Oxygen Delivery Room Air 08/18/24 23:40 08/18/24 23:45 08/19/24 00:00 Temperature 36.3 C L Pulse Rate 60 57 L Respiratory Rate 18 Blood Pressure 112/47 L Pulse Oximetry 97 Oxygen Delivery Room Air 08/19/24 02:00 08/19/24 04:00 08/19/24 04:00 Temperature 36.6 C Pulse Rate 63 60 60 Respiratory Rate 18 18 Blood Pressure 129/93 H Pulse Oximetry 97 97 Oxygen Delivery Room Air 08/19/24 04:00 08/19/24 06:00 08/19/24 07:25 Temperature 36.7 C Pulse Rate 59 L 66 66 Respiratory Rate 22 H Blood Pressure 171/83 H Pulse Oximetry 97 Oxygen Delivery 08/19/24 10:40 08/19/24 11:36 Temperature 36.5 C Pulse Rate 69 79 Respiratory Rate 20 Blood Pressure 151/77 H Pulse Oximetry 96 Oxygen Delivery Intake/Output Intake/Output: Intake & Output 08/16/24 08/17/24 08/18/24 08/19/24 23:59 23:59 23:59 23:59 Intake Total 3042.0 2164.4 700.0 Output Total 1350 1250 400 Balance 1692.0 914.4 300.0 Meds/Results Medications: Active Medications Generic Name Dose Route Start Last Admin Trade Name Freq PRN Reason Stop Dose Admin Acetaminophen 650 mg 08/16/24 16:54 Acetaminophen 325 Mg Tablet PO Q4H PRN Mild Pain (1-3) or Fever Hydrocodone Bitart/Acetaminophen 1 tab 08/16/24 16:54 Hydrocodone/Acetaminophen (*Crx) 5-325 Mg Tablet PO Q4H PRN Pain Rated 4-6 Aspirin 81 mg 08/18/24 09:00 08/19/24 10:40 Aspirin 81 Mg Enteric Tablet PO 81 mg QAM HAL Administration Atorvastatin Calcium 80 mg 08/19/24 18:00 Atorvastatin 40 Mg Tablet PO EVENING HAL Empagliflozin 10 mg 08/20/24 09:00 Empagliflozin 10 Mg Tablet PO DAILY [facility] Heparin Sodium (Porcine) 4,000 units 08/16/24 16:33 08/17/24 08:41 Heparin Sodium 5,000 Units/Ml Vial IV PUSH 4,000 units PRN PRN Administration aPTT less than 55 seconds Heparin Sodium (Porcine) 4,000 units 08/16/24 16:33 08/19/24 05:24 Heparin Sodium 5,000 Units/Ml Vial IV PUSH 4,000 units PRN PRN Administration aPTT 55 - 70 seconds Heparin Sodium/Dextrose 25,000 units in 250 mls @ 20 mls/hr 08/16/24 16:35 08/19/24 07:11 Heparin Sodium/D5w 100 Units/Ml IV CONT Not Given .[id number] HAL Protocol 2,000 UNITS/HR Isosorbide Mononitrate 30 mg 08/18/24 09:00 08/19/24 10:41 Isosorbide Mononitrate 30 Mg Tab.Er.24h PO 30 mg QAM [facility] Administration Metoprolol Succinate 25 mg 08/18/24 09:00 08/19/24 10:40 Metoprolol Succinate Ext Rel 25 Mg Tabcr PO 25 mg QAM [facility] Administration Morphine Sulfate 2 mg 08/16/24 16:54 Morphine Sulfate (*Crx) 2 Mg/Ml Inj IV PUSH Q2H PRN Pain Rated 7-10 Nitroglycerin 0.4 mg 08/16/24 18:22 Nitroglycerin Sl 0.4 Mg Tablet SUBLINGUAL Q5MIN PRN Chest Pain Ondansetron HCl 4 mg 08/16/24 16:54 Ondansetron Inj 4 Mg/2 Ml Vial IV PUSH Q4H PRN Nausea Pantoprazole Sodium 40 mg 08/16/24 21:50 08/19/24 10:41 Pantoprazole 40 Mg Tablet PO 40 mg QAM HAL Administration Perflutren Lipid Microsphere 0 ml 08/17/24 09:41 Perflutren Lipid Microspheres 1.5 Ml Vial Diluted To 10 Ml Total Volume IV PUSH 08/20/24 09:41 ONCE PRN adequate visualization Protocol Sacubitril/Valsartan 1 tab 08/20/24 09:00 Sacubitril/Valsartan 24-26 Mg Tablet PO DAILY [facility] Spironolactone 25 mg 12/17/24 09:00 Spironolactone 25 Mg Tablet PO DAILY HAL Trazodone HCl 50 mg 08/18/24 21:56 08/18/24 22:15 Trazodone Hcl 50 Mg Tablet PO 50 mg HS PRN Administration Insomnia Radiology Results: ITS Impressions Chest X-Ray 08/16/24 15:14 IMPRESSION: 1: NO ACUTE CARDIOPULMONARY DISEASE. Labs 08/19/24 04:38 08/19/24 04:38 Labs: Laboratory Results - last 24 hr 08/19/24 08/19/24 04:38 11:15 WBC 9.1 RBC 4.49 L Hgb 13.2 L Hct 41.2 L MCV 91.8 MCH 29.4 MCHC 32.0 RDW 12.2 Plt Count 199 MPV 10.8 H Immature Gran % (Auto) 1.0 H Neut % (Auto) 58.8 Lymph % (Auto) 28.6 [place] % (Auto) 8.5 Eos % (Auto) 2.7 Baso % (Auto) 0.4 Lymph # (Auto) 2.61 [place] # (Auto) 0.8 H Eos # (Auto) 0.3 Baso # (Auto) 0.0 Abs Immat Gran (auto) 0.09 H Absolute Neuts (auto) 5.4 Absolute Nucleated RBC 0.000 Nucleated RBC % 0.0 APTT 61.2 H 102.6 H Sodium 137 Potassium 3.6 Chloride 108 H Carbon Dioxide 28 Anion Gap 1 L BUN 12 Creatinine 0.90 Estim Creat Clear Calc 105 Estimated GFR > 60 Glucose 94 Calcium 8.7 Magnesium 2.2 Total Bilirubin 0.3 AST 28 ALT 31 Alkaline Phosphatase 69 Total Protein 6.0 L Albumin 3.5 ASA Classification/Sedation ASA Classification/Sedation ASA Class: II Emergent: No Risks: Risks, benefits and alternatives explained and patient/family accepted plan for sedation. Patient re-evaluated immediately prior to sedation.
--- NOTE | 2024-08-19 12:57 | PC.NURSE ---
Pt to crime lab analyst via stretcher accompanied by crime lab analyst RN.
[2024-08-19] MEDS: SODIUM CHLORIDE 0.9% IV 1,000 ML 125 ML IV CONT (16:36)
--- NOTE | 2024-08-19 16:59 | PM.IMPN ---
Progress Note: A&P Assessment and Plan (1) Non-ST elevation AR (NSTEMI): Code(s): I21.4 - Non-ST elevation (NSTEMI) myocardial infarction Status: Acute Assessment and Plan: - EKG, initial: NSR, rate 79. Awaiting formal read. - EKG, repeat (1): Remains in NSR, no significant changes when compared to prior, awaiting formal read. - CXR: No acute cardiopulmonary disease - Troponin: 0.314 -> 0.466 -> 0.688 Continue heparin infusion, aspirin, Lipitor, metoprolol Echo, A1c 5.8, LDL 72. For cardiac catheterization today F/u cardiac cath report Cardiology following (2) Mixed hyperlipidemia: Code(s): E78.2 - Mixed hyperlipidemia Status: Acute Assessment and Plan: - continue home medication: (3) Hypertension: Qualifiers: Hypertension type: primary hypertension Qualified Code(s): I10 - Essential (primary) hypertension Code(s): I10 - Essential (primary) hypertension Status: Acute Assessment and Plan: Titrate medications with clinical course. Plan Diet: Heart healthy, NPO midnight DVT Prophylaxis: Heparin drip Lines: Peripheral Code Status: Full code Subjective Date/time seen: 08/19/24 16:59 Interval history: For cardiac cath today at the time of encounter this morning otherwise no chest pain Review of Systems Review of Systems: All systems reviewed & are unremarkable except as noted in HPI and below Exam Narrative: exam fine. Const: General: comfortable and no acute distress Other: , male, nontoxic appearance HENMT: Face/Nose/Sinus: Normal nares present Mouth: Yes moist mucous membranes Eyes: General: appearance normal, both eyes and all related structures Sclera: sclerae normal Pupils: Equal, round and reactive pupils present EOM: EOMs intact bilaterally Resp: Effort & Inspection: normal respiratory effort Auscultation: clear to auscultation bilaterally Cardio: Rate: regular rate Rhythm: regular rhythm Other: S1-S2 present without murmur, rub, ectopy GI: Other: Abdomen soft, nondistended, nontender Skin: General skin exam: normal color and no rashes or lesions noted Wounds: no wounds Neuro: General: gait normal Cranial nerves: Yes Equal, round and reactive pupils present Speech: normal speech Motor exam (neuro): 5/5 motor strength present throughout Sensory Exam: normal sensation Other: A&O x4 Extrem: General: normal to inspection Psych: Mental Status: mental status grossly normal Affect: normal affect Other: Good insight and judgment, pleasant Objective Data Vital Signs Vital Signs: Vital Signs - 24 hr 08/18/24 18:00 08/18/24 20:00 08/18/24 20:00 Temperature 98.9 F Pulse Rate 64 63 70 Pulse Rate [Right Radial] Respiratory Rate 20 Blood Pressure 108/69 Pulse Oximetry 98 Oxygen Delivery 08/18/24 20:10 08/18/24 22:00 08/18/24 23:40 Temperature Pulse Rate 65 Pulse Rate [Right Radial] Respiratory Rate Blood Pressure Pulse Oximetry Oxygen Delivery Room Air Room Air 08/18/24 23:45 08/19/24 00:00 08/19/24 02:00 Temperature 97.4 F L Pulse Rate 60 57 L 63 Pulse Rate [Right Radial] Respiratory Rate 18 Blood Pressure 112/47 L Pulse Oximetry 97 Oxygen Delivery 08/19/24 04:00 08/19/24 04:00 08/19/24 04:00 Temperature 97.9 F Pulse Rate 60 60 59 L Pulse Rate [Right Radial] Respiratory Rate 18 18 Blood Pressure 129/93 H Pulse Oximetry 97 97 Oxygen Delivery Room Air 08/19/24 06:00 08/19/24 07:25 08/19/24 08:00 Temperature 98.0 F Pulse Rate 66 66 Pulse Rate [Right Radial] Respiratory Rate 22 H Blood Pressure 171/83 H Pulse Oximetry 97 Oxygen Delivery Room Air 08/19/24 08:00 08/19/24 10:00 08/19/24 10:40 Temperature Pulse Rate 62 70 69 Pulse Rate [Right Radial] Respiratory Rate Blood Pressure Pulse Oximetry Oxygen Delivery 08/19/24 11:36 08/19/24 12:00 08/19/24 12:00 Temperature 97.7 F Pulse Rate 79 67 Pulse Rate [Right Radial] Respiratory Rate 20 Blood Pressure 151/77 H Pulse Oximetry 96 Oxygen Delivery Room Air 08/19/24 13:45 08/19/24 13:45 08/19/24 13:53 Temperature 97.7 F Pulse Rate 61 61 Pulse Rate [Right Radial] 61 Respiratory Rate 16 23 H Blood Pressure 121/92 H 153/80 H Pulse Oximetry 95 95 Oxygen Delivery Room Air Room Air 08/19/24 14:02 08/19/24 14:15 08/19/24 14:15 Temperature Pulse Rate 66 Pulse Rate [Right Radial] 61 66 Respiratory Rate 18 Blood Pressure 153/81 H Pulse Oximetry 94 Oxygen Delivery Room Air 08/19/24 14:30 08/19/24 14:30 08/19/24 14:45 Temperature 97.7 F Pulse Rate 58 L Pulse Rate [Right Radial] 58 L 66 Respiratory Rate 15 Blood Pressure 133/78 Pulse Oximetry 94 Oxygen Delivery Room Air 08/19/24 14:45 08/19/24 15:00 08/19/24 15:00 Temperature Pulse Rate 66 70 Pulse Rate [Right Radial] 70 Respiratory Rate 18 17 Blood Pressure 126/81 131/67 Pulse Oximetry 96 96 Oxygen Delivery Room Air Room Air 08/19/24 15:15 08/19/24 15:15 08/19/24 15:30 Temperature Pulse Rate 64 63 Pulse Rate [Right Radial] 64 Respiratory Rate 15 17 Blood Pressure 144/97 H 152/83 H Pulse Oximetry 96 97 Oxygen Delivery Room Air Room Air 08/19/24 15:30 08/19/24 15:45 08/19/24 15:45 Temperature Pulse Rate 61 Pulse Rate [Right Radial] 63 61 Respiratory Rate 21 H Blood Pressure 154/74 H Pulse Oximetry 96 Oxygen Delivery Room Air 08/19/24 16:00 08/19/24 16:00 08/19/24 16:15 Temperature Pulse Rate 63 Pulse Rate [Right Radial] 63 63 Respiratory Rate 16 Blood Pressure 147/104 H Pulse Oximetry 95 Oxygen Delivery Room Air 08/19/24 16:15 08/19/24 16:30 08/19/24 16:30 Temperature Pulse Rate 63 61 Pulse Rate [Right Radial] 61 Respiratory Rate 21 H 19 Blood Pressure 117/70 120/83 Pulse Oximetry 95 94 Oxygen Delivery Room Air Room Air 08/19/24 16:45 08/19/24 16:45 Temperature Pulse Rate 64 Pulse Rate [Right Radial] 64 Respiratory Rate 18 Blood Pressure 126/77 Pulse Oximetry 95 Oxygen Delivery Room Air Intake/Output Intake/Output: Intake & Output 08/16/24 08/17/24 08/18/24 08/19/24 23:59 23:59 23:59 23:59 Intake Total 3042.0 2164.4 700.0 Output Total 1350 1250 400 Balance 1692.0 914.4 300.0 Meds/Results Medications: Active Medications Generic Name Dose Route Start Last Admin Trade Name Freq PRN Reason Stop Dose Admin Acetaminophen 650 mg 08/16/24 16:54 Acetaminophen 325 Mg Tablet PO Q4H PRN Mild Pain (1-3) or Fever Hydrocodone Bitart/Acetaminophen 1 tab 08/16/24 16:54 Hydrocodone/Acetaminophen (*Crx) 5-325 Mg Tablet PO Q4H PRN Pain Rated 4-6 Aspirin 81 mg 08/18/24 09:00 08/19/24 10:40 Aspirin 81 Mg Enteric Tablet PO 81 mg QAM HAL Administration Atorvastatin Calcium 80 mg 08/19/24 18:00 Atorvastatin 40 Mg Tablet PO EVENING HAL Empagliflozin 10 mg 08/20/24 09:00 Empagliflozin 10 Mg Tablet PO DAILY HAL Sodium Chloride 1,000 mls @ 125 mls/hr 08/19/24 13:38 08/19/24 16:36 Normal Saline Iv IV CONT 08/19/24 21:37 125 mls/hr .Q8H ONE Administration Isosorbide Mononitrate 30 mg 08/18/24 09:00 08/19/24 10:41 Isosorbide Mononitrate 30 Mg Tab.Er.24h PO 30 mg QAM [facility] Administration Metoprolol Succinate 25 mg 08/18/24 09:00 08/19/24 10:40 Metoprolol Succinate Ext Rel 25 Mg Tabcr PO 25 mg QAM [facility] Administration Morphine Sulfate 2 mg 08/16/24 16:54 Morphine Sulfate (*Crx) 2 Mg/Ml Inj IV PUSH Q2H PRN Pain Rated 7-10 Nitroglycerin 0.4 mg 08/16/24 18:22 Nitroglycerin Sl 0.4 Mg Tablet SUBLINGUAL Q5MIN PRN Chest Pain Ondansetron HCl 4 mg 08/16/24 16:54 Ondansetron Inj 4 Mg/2 Ml Vial IV PUSH Q4H PRN Nausea Pantoprazole Sodium 40 mg 08/16/24 21:50 08/19/24 10:41 Pantoprazole 40 Mg Tablet PO 40 mg QAM [facility] Administration Perflutren Lipid Microsphere 0 ml 08/17/24 09:41 Perflutren Lipid Microspheres 1.5 Ml Vial Diluted To 10 Ml Total Volume IV PUSH 08/20/24 09:41 ONCE PRN adequate visualization Protocol Sacubitril/Valsartan 1 tab 08/20/24 09:00 Sacubitril/Valsartan 24-26 Mg Tablet PO DAILY HAL Spironolactone 25 mg 08/20/24 09:00 Spironolactone 25 Mg Tablet PO DAILY HAL Trazodone HCl 50 mg 08/18/24 21:56 08/18/24 22:15 Trazodone Hcl 50 Mg Tablet PO 50 mg HS PRN Administration Insomnia Radiology Results: ITS Impressions Chest X-Ray 08/16/24 15:14 IMPRESSION: 1: NO ACUTE CARDIOPULMONARY DISEASE. Labs Labs: Laboratory Results - last 24 hr 08/19/24 08/19/24 04:38 11:15 WBC 9.1 RBC 4.49 L Hgb 13.2 L Hct 41.2 L MCV 91.8 MCH 29.4 MCHC 32.0 RDW 12.2 Plt Count 199 MPV 10.8 H Immature Gran % (Auto) 1.0 H Neut % (Auto) 58.8 Lymph % (Auto) 28.6 [place] % (Auto) 8.5 Eos % (Auto) 2.7 Baso % (Auto) 0.4 Lymph # (Auto) 2.61 [place] # (Auto) 0.8 H Eos # (Auto) 0.3 Baso # (Auto) 0.0 Abs Immat Gran (auto) 0.09 H Absolute Neuts (auto) 5.4 Absolute Nucleated RBC 0.000 Nucleated RBC % 0.0 APTT 61.2 H 102.6 H Sodium 137 Potassium 3.6 Chloride 108 H Carbon Dioxide 28 Anion Gap 1 L BUN 12 Creatinine 0.90 Estim Creat Clear Calc 105 Estimated GFR > 60 Glucose 94 Calcium 8.7 Magnesium 2.2 Total Bilirubin 0.3 AST 28 ALT 31 Alkaline Phosphatase 69 Total Protein 6.0 L Albumin 3.5 Quality VTE Prophylaxis VTE prophylaxis: pharmacologic ordered
--- OUTSIDE RECORDS SUMMARY | 2024-08-19 20:46 | XMS_ITS | Patient Health Summary ---
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 Left hand: The osseous structures are intact and well aligned without acute fracture or dislocation. The joint spaces are preserved. Bone density and texture are normal. No soft tissue swelling is present. Right hand: The osseous structures are intact and well aligned without acute fracture or dislocation. The joint spaces are preserved. Bone density and texture are normal. No soft tissue swelling is present. Left foot: The osseous structures are intact and well aligned without acute fracture or dislocation. The joint spaces are preserved. Bone density and texture are normal. No soft tissue swelling is present. Right foot: The osseous structures are intact and well aligned without acute fracture or dislocation. The joint spaces are preserved. Bone density and texture are normal. No soft tissue swelling is present. Procedure Note Mora Azevedo, DO - 02/04/2019 EXAMINATION: 1. XR HAND LEFT 2VW 2. XR HAND RIGHT 2VW 3. XR FOOT LEFT 2VW 4. XR FOOT RIGHT 2VW HISTORY: Trauma COMPARISON: None FINDINGS: Left hand: The osseous structures are intact and well aligned without acute fracture or dislocation. The joint spaces are preserved. Bone density and texture are normal. No soft tissue swelling is present. Right hand: The osseous structures are intact and well aligned without acute fracture or dislocation. The joint spaces are preserved. Bone density and texture are normal. No soft tissue swelling is present. Left foot: The osseous structures are intact and well aligned without acute fracture or dislocation. The joint spaces are preserved. Bone density and texture are normal. No soft tissue swelling is present. Right foot: The osseous structures are intact and well aligned without acute fracture or dislocation. The joint spaces are preserved. Bone density and texture are normal. No soft tissue swelling is present. IMPRESSION: No acute fracture or dislocation identified. Dictated by Fabi Avila MD (certified prosthetist vice president). Dr. MORA Mejias have personally reviewed and interpreted this examination/study. This report was electronically signed by OMRA AZEVEDO on 02/04/2019 3:18 PM . Mayi Stack MD DIAGNOSTIC IMAGING O RDERABLES * XR FOOT RIGHT 2VW (02/04/2019 1:38 PM CDT) Anatomical Region Laterality Modality Ankle / Foot Radiographic Steffany ging 02/04/2019 1:52 PM CDT Impressions 02/04/2019 3:18 PM CDT IMPRESSION: No acute fracture or dislocation identified. Dictated by Fabi Avila MD (certified prosthetist vice president). Dr. MORA Mejias have personally reviewed and interpreted this examination/study. This report was electronically signed by MORA AZEVEDO ??on 02/04/2019 3:18 PM . Narrative 02/04/2019 3:18 PM CDT EXAMINATION: 1. XR HAND LEFT 2VW 2. XR HAND RIGHT 2VW 3. XR FOOT LEFT 2VW 4. XR FOOT RIGHT 2VW HISTORY: Trauma COMPARISON: None FINDINGS: Left hand: The osseous structures are intact and well aligned without acute fracture or dislocation. The joint spaces are preserved. Bone density and texture are normal. No soft tissue swelling is present. Right hand: The osseous structures are intact and well aligned without acute fracture or dislocation. The joint spaces are preserved. Bone density and texture are normal. No soft tissue swelling is present. Left foot: The osseous structures are intact and well aligned without acute fracture or dislocation. The joint spaces are preserved. Bone density and texture are normal. No soft tissue swelling is present. Right foot: The osseous structures are intact and well aligned without acute fracture or dislocation. The joint spaces are preserved. Bone density and texture are normal. No soft tissue swelling is present. Procedure Note Mora Azevedo DO - 02/04/2019 EXAMINATION: 1. XR HAND LEFT 2VW 2. XR HAND RIGHT 2VW 3. XR FOOT LEFT 2VW 4. XR FOOT RIGHT 2VW HISTORY: Trauma COMPARISON: None FINDINGS: Left hand: The osseous structures are intact and well aligned without acute fracture or dislocation. The joint spaces are preserved. Bone density and texture are normal. No soft tissue swelling is present. Right hand: The osseous structures are intact and well aligned without acute fracture or dislocation. The joint spaces are preserved. Bone density and texture are normal. No soft tissue swelling is present. Left foot: The osseous structures are intact and well aligned without acute fracture or dislocation. The joint spaces are preserved. Bone density and texture are normal. No soft tissue swelling is present. Right foot: The osseous structures are intact and well aligned without acute fracture or dislocation. The joint spaces are preserved. Bone density and texture are normal. No soft tissue swelling is present. IMPRESSION: No acute fracture or dislocation identified. Dictated by Fabi Avila MD (certified prosthetist vice president). I, Dr. MORA AZEVEDO have personally reviewed and interpreted this examination/study. This report was electronically signed by MORA AZEVEDO on 02/04/2019 3:18 PM . Mayi Stack MD DIAGNOSTIC IMAGING O RDERABLES * CT TEMPORAL BONES WO CONTRAST (02/04/2019 12:38 PM CDT) Anatomical Region Laterality Modality Head Computed Tomogra phy 02/04/2019 1:03 PM CDT Impressions 02/04/2019 1:14 PM CDT IMPRESSION: No acute intracranial CT abnormality. Fracture of the mandibular right second molar tooth. No facial bone fracture. No temporal bone fracture. Opacities in bilateral external auditory canal is nonspecific but most likely cerumen. No fracture or subluxation of the cervical spine. This report was electronically signed by AREN LOZOYA ??on 02/04/2019 1:14 PM . Narrative 02/04/2019 1:14 PM CDT EXAMINATION: 1. Computed tomography (CT) of the head without contrast 2. CT of the maxillofacial bones, and temporal bone without contrast 3. CT of the cervical spine without contrast HISTORY: trauma TECHNIQUE: CT of the head, cervical spine, temporal bones, and maxillofacial bones was performed without contrast according to standard protocol. Automated dose reduction techniques were employed. FINDINGS: Head: No intracranial hemorrhage or extra-axial fluid collection. Bowling-white matter differentiation is preserved. No mass, mass effect, or midline shift. The ventricles are normal in size, shape, and configuration. The bony calvarium appears intact. Face: Fracture of the mandibular right second molar tooth. No acute facial bone fracture. Intraorbital soft tissue structures appear intact, with no significant trauma related abnormal finding. Trace mucosal thickening of bilateral maxillary antra. Poor dentition, with carious disease and periapical lucencies of several teeth. Bilateral temporal bones: Bilateral external auditory canal bony portion have opacity that is nonspecific but most likely cerumen. The, tympanic cavity, and ossicular chain appear normal. The aditus ad antrum, mastoid antrum, mastoid air cells are clear. The inner near structures are normal. The tegmen and sinus plates are intact. No temporal bone fracture. Cervical spine: Normal cervical alignment. Intervertebral disc space heights are maintained. Multilevel endplate spurs, including dorsal endplate spurs at the C6-7 level. Vertebral body heights are maintained. No cervical spine fracture. Limited assessment of canal contents demonstrates no evidence for hematoma within the cervical canal. No soft tissue swelling in the prevertebral compartment. Procedure Note Aren Lozoya MD - 02/04/2019 EXAMINATION: 1. Computed tomography (CT) of the head without contrast 2. CT of the maxillofacial bones, and temporal bone without contrast 3. CT of the cervical spine without contrast HISTORY: trauma TECHNIQUE: CT of the head, cervical spine, temporal bones, and maxillofacial bones was performed without contrast according to standard protocol. Automated dose reduction techniques were employed. FINDINGS: Head: No intracranial hemorrhage or extra-axial fluid collection. Bowling-white matter differentiation is preserved. No mass, mass effect, or midline shift. The ventricles are normal insize, shape, and configuration. The bony calvarium appears intact. Face: Fracture of the mandibular right second molar tooth. No acute facial bone fracture. Intraorbital soft tissue structures appear intact, with no significant trauma related abnormal finding. Trace mucosal thickening of bilateral maxillary antra. Poor dentition, with carious disease and periapical lucencies of several teeth. Bilateral temporal bones: Bilateral external auditory canal bony portion have opacity that is nonspecific but most likely cerumen. The, tympanic cavity, and ossicular chain appear normal. The aditus ad antrum, mastoid antrum, mastoid air cells are clear. The inner near structures are normal. The tegmen and sinus plates are intact. No temporal bone fracture. Cervical spine: Normal cervical alignment. Intervertebral disc space heights are maintained. Multilevel endplate spurs, including dorsal endplate spursat the C6-7 level. Vertebral body heights are maintained. No cervical spine fracture. Limited assessment of canal contents demonstrates no evidence forhematoma within the cervical canal. No soft tissue swelling in the prevertebral compartment. IMPRESSION: No acute intracranial CT abnormality. Fracture of the mandibular right second molar tooth. No facial bone fracture. No temporal bone fracture. Opacities in bilateral external auditorycanal is nonspecific but most likely cerumen. No fracture or subluxation of the cervical spine. This report was electronically signed by AREN LOZOYA on 02/04/2019 1:14PM . Mayi Stack MD CT ORDERABLES * CT CERVICAL SPINE WO CONTRAST (02/04/2019 12:38 PM CDT) Anatomical Region Laterality Modality Spine Computed Tomogra phy 02/04/2019 1:03 PM CDT Impressions 02/04/2019 1:14 PM CDT IMPRESSION: No acute intracranial CT abnormality. Fracture of the mandibular right second molar tooth. No facial bone fracture. No temporal bone fracture. Opacities in bilateral external auditory canal is nonspecific but most likely cerumen. No fracture or subluxation of the cervical spine. This report was electronically signed by AREN LOZOYA ??on 02/04/2019 1:14 PM . Narrative 02/04/2019 1:14 PM CDT EXAMINATION: 1. Computed tomography (CT) of the head without contrast 2. CT of the maxillofacial bones, and temporal bone without contrast 3. CT of the cervical spine without contrast HISTORY: trauma TECHNIQUE: CT of the head, cervical spine, temporal bones, and maxillofacial bones was performed without contrast according to standard protocol. Automated dose reduction techniques were employed. FINDINGS: Head: No intracranial hemorrhage or extra-axial fluid collection. Bowling-white matter differentiation is preserved. No mass, mass effect, or midline shift. The ventricles are normal in size, shape, and configuration. The bony calvarium appears intact. Face: Fracture of the mandibular right second molar tooth. No acute facial bone fracture. Intraorbital soft tissue structures appear intact, with no significant trauma related abnormal finding. Trace mucosal thickening of bilateral maxillary antra. Poor dentition, with carious disease and periapical lucencies of several teeth. Bilateral temporal bones: Bilateral external auditory canal bony portion have opacity that is nonspecific but most likely cerumen. The, tympanic cavity, and ossicular chain appear normal. The aditus ad antrum, mastoid antrum, mastoid air cells are clear. The inner near structures are normal. The tegmen and sinus plates are intact. No temporal bone fracture. Cervical spine: Normal cervical alignment. Intervertebral disc space heights are maintained. Multilevel endplate spurs, including dorsal endplate spurs at the C6-7 level. Vertebral body heights are maintained. No cervical spine fracture. Limited assessment of canal contents demonstrates no evidence for hematoma within the cervical canal. No soft tissue swelling in the prevertebral compartment. Procedure Note Aren Lozoya MD - 02/04/2019 EXAMINATION: 1. Computed tomography (CT) of the head without contrast 2. CT of the maxillofacial bones, and temporal bone without contrast 3. CT of the cervical spine without contrast HISTORY: trauma TECHNIQUE: CT of the head, cervical spine, temporal bones, and maxillofacial bones was performed without contrast according to standard protocol. Automated dose reduction techniques were employed. FINDINGS: Head: No intracranial hemorrhage or extra-axial fluid collection. Bowling-white matter differentiation is preserved. No mass, mass effect, or midline shift. The ventricles are normal insize, shape, and configuration. The bony calvarium appears intact. Face: Fracture of the mandibular right second molar tooth. No acute facial bone fracture. Intraorbital soft tissue structures appear intact, with no significant trauma related abnormal finding. Trace mucosal thickening of bilateral maxillary antra. Poor dentition, with carious disease and periapical lucencies of several teeth. Bilateral temporal bones: Bilateral external auditory canal bony portion have opacity that is nonspecific but most likely cerumen. The, tympanic cavity, and ossicular chain appear normal. The aditus ad antrum, mastoid antrum, mastoid air cells are clear. The inner near structures are normal. The tegmen and sinus plates are intact. No temporal bone fracture. Cervical spine: Normal cervical alignment. Intervertebral disc space heights are maintained. Multilevel endplate spurs, including dorsal endplate spursat the C6-7 level. Vertebral body heights are maintained. No cervical spine fracture. Limited assessment of canal contents demonstrates no evidence forhematoma within the cervical canal. No soft tissue swelling in the prevertebral compartment. IMPRESSION: No acute intracranial CT abnormality. Fracture of the mandibular right second molar tooth. No facial bone fracture. No temporal bone fracture. Opacities in bilateral external auditorycanal is nonspecific but most likely cerumen. No fracture or subluxation of the cervical spine. This report was electronically signed by AREN LOZOYA on 02/04/2019 1:14PM . Mayi Stack MD CT ORDERABLES * CT FACIAL BONES WO CONTRAST (02/04/2019 12:38 PM CDT) Anatomical Region Laterality Modality Head Computed Tomogra phy 02/04/2019 1:03 PM CDT Impressions 02/04/2019 1:14 PM CDT IMPRESSION: No acute intracranial CT abnormality. Fracture of the mandibular right second molar tooth. No facial bone fracture. No temporal bone fracture. Opacities in bilateral external auditory canal is nonspecific but most likely cerumen. No fracture or subluxation of the cervical spine. This report was electronically signed by AREN LOZOYA ??on 02/04/2019 1:14 PM . Narrative 02/04/2019 1:14 PM CDT EXAMINATION: 1. Computed tomography (CT) of the head without contrast 2. CT of the maxillofacial bones, and temporal bone without contrast 3. CT of the cervical spine without contrast HISTORY: trauma TECHNIQUE: CT of the head, cervical spine, temporal bones, and maxillofacial bones was performed without contrast according to standard protocol. Automated dose reduction techniques were employed. FINDINGS: Head: No intracranial hemorrhage or extra-axial fluid collection. Bowling-white matter differentiation is preserved. No mass, mass effect, or midline shift. The ventricles are normal in size, shape, and configuration. The bony calvarium appears intact. Face: Fracture of the mandibular right second molar tooth. No acute facial bone fracture. Intraorbital soft tissue structures appear intact, with no significant trauma related abnormal finding. Trace mucosal thickening of bilateral maxillary antra. Poor dentition, with carious disease and periapical lucencies of several teeth. Bilateral temporal bones: Bilateral external auditory canal bony portion have opacity that is nonspecific but most likely cerumen. The, tympanic cavity, and ossicular chain appear normal. The aditus ad antrum, mastoid antrum, mastoid air cells are clear. The inner near structures are normal. The tegmen and sinus plates are intact. No temporal bone fracture. Cervical spine: Normal cervical alignment. Intervertebral disc space heights are maintained. Multilevel endplate spurs, including dorsal endplate spurs at the C6-7 level. Vertebral body heights are maintained. No cervical spine fracture. Limited assessment of canal contents demonstrates no evidence for hematoma within the cervical canal. No soft tissue swelling in the prevertebral compartment. Procedure Note Aren Lozoya MD - 02/04/2019 EXAMINATION: 1. Computed tomography (CT) of the head without contrast 2. CT of the maxillofacial bones, and temporal bone without contrast 3. CT of the cervical spine without contrast HISTORY: trauma TECHNIQUE: CT of the head, cervical spine, temporal bones, and maxillofacial bones was performed without contrast according to standard protocol. Automated dose reduction techniques were employed. FINDINGS: Head: No intracranial hemorrhage or extra-axial fluid collection. Bowling-white matter differentiation is preserved. No mass, mass effect, or midline shift. The ventricles are normal insize, shape, and configuration. The bony calvarium appears intact. Face: Fracture of the mandibular right second molar tooth. No acute facial bone fracture. Intraorbital soft tissue structures appear intact, with no significant trauma related abnormal finding. Trace mucosal thickening of bilateral maxillary antra. Poor dentition, with carious disease and periapical lucencies of several teeth. Bilateral temporal bones: Bilateral external auditory canal bony portion have opacity that is nonspecific but most likely cerumen. The, tympanic cavity, and ossicular chain appear normal. The aditus ad antrum, mastoid antrum, mastoid air cells are clear. The inner near structures are normal. The tegmen and sinus plates are intact. No temporal bone fracture. Cervical spine: Normal cervical alignment. Intervertebral disc space heights are maintained. Multilevel endplate spurs, including dorsal endplate spursat the C6-7 level. Vertebral body heights are maintained. No cervical spine fracture. Limited assessment of canal contents demonstrates no evidence forhematoma within the cervical canal. No soft tissue swelling in the prevertebral compartment. IMPRESSION: No acute intracranial CT abnormality. Fracture of the mandibular right second molar tooth. No facial bone fracture. No temporal bone fracture. Opacities in bilateral external auditorycanal is nonspecific but most likely cerumen. No fracture or subluxation of the cervical spine. This report was electronically signed by AREN LOZOYA on 02/04/2019 1:14PM . Mayi Stack MD CT ORDERABLES * CT HEAD WO CONTRAST (02/04/2019 12:38 PM CDT) Anatomical Region Laterality Modality Head Computed Tomogra phy 02/04/2019 1:03 PM CDT Impressions 02/04/2019 1:14 PM CDT IMPRESSION: No acute intracranial CT abnormality. Fracture of the mandibular right second molar tooth. No facial bone fracture. No temporal bone fracture. Opacities in bilateral external auditory canal is nonspecific but most likely cerumen. No fracture or subluxation of the cervical spine. This report was electronically signed by AREN LOZOYA ??on 02/04/2019 1:14 PM . Narrative 02/04/2019 1:14 PM CDT EXAMINATION: 1. Computed tomography (CT) of the head without contrast 2. CT of the maxillofacial bones, and temporal bone without contrast 3. CT of the cervical spine without contrast HISTORY: trauma TECHNIQUE: CT of the head, cervical spine, temporal bones, and maxillofacial bones was performed without contrast according to standard protocol. Automated dose reduction techniques were employed. FINDINGS: Head: No intracranial hemorrhage or extra-axial fluid collection. Bowling-white matter differentiation is preserved. No mass, mass effect, or midline shift. The ventricles are normal in size, shape, and configuration. The bony calvarium appears intact. Face: Fracture of the mandibular right second molar tooth. No acute facial bone fracture. Intraorbital soft tissue structures appear intact, with no significant trauma related abnormal finding. Trace mucosal thickening of bilateral maxillary antra. Poor dentition, with carious disease and periapical lucencies of several teeth. Bilateral temporal bones: Bilateral external auditory canal bony portion have opacity that is nonspecific but most likely cerumen. The, tympanic cavity, and ossicular chain appear normal. The aditus ad antrum, mastoid antrum, mastoid air cells are clear. The inner near structures are normal. The tegmen and sinus plates are intact. No temporal bone fracture. Cervical spine: Normal cervical alignment. Intervertebral disc space heights are maintained. Multilevel endplate spurs, including dorsal endplate spurs at the C6-7 level. Vertebral body heights are maintained. No cervical spine fracture. Limited assessment of canal contents demonstrates no evidence for hematoma within the cervical canal. No soft tissue swelling in the prevertebral compartment. Procedure Note Aren Lozoya MD - 02/04/2019 EXAMINATION: 1. Computed tomography (CT) of the head without contrast 2. CT of the maxillofacial bones, and temporal bone without contrast 3. CT of the cervical spine without contrast HISTORY: trauma TECHNIQUE: CT of the head, cervical spine, temporal bones, and maxillofacial bones was performed without contrast according to standard protocol. Automated dose reduction techniques were employed. FINDINGS: Head: No intracranial hemorrhage or extra-axial fluid collection. Bowling-white matter differentiation is preserved. No mass, mass effect, or midline shift. The ventricles are normal insize, shape, and configuration. The bony calvarium appears intact. Face: Fracture of the mandibular right second molar tooth. No acute facial bone fracture. Intraorbital soft tissue structures appear intact, with no significant trauma related abnormal finding. Trace mucosal thickening of bilateral maxillary antra. Poor dentition, with carious disease and periapical lucencies of several teeth. Bilateral temporal bones: Bilateral external auditory canal bony portion have opacity that is nonspecific but most likely cerumen. The, tympanic cavity, and ossicular chain appear normal. The aditus ad antrum, mastoid antrum, mastoid air cells are clear. The inner near structures are normal. The tegmen and sinus plates are intact. No temporal bone fracture. Cervical spine: Normal cervical alignment. Intervertebral disc space heights are maintained. Multilevel endplate spurs, including dorsal endplate spursat the C6-7 level. Vertebral body heights are maintained. No cervical spine fracture. Limited assessment of canal contents demonstrates no evidence forhematoma within the cervical canal. No soft tissue swelling in the prevertebral compartment. IMPRESSION: No acute intracranial CT abnormality. Fracture of the mandibular right second molar tooth. No facial bone fracture. No temporal bone fracture. Opacities in bilateral external auditorycanal is nonspecific but most likely cerumen. No fracture or subluxation of the cervical spine. This report was electronically signed by AREN LOZOYA on 02/04/2019 1:14PM . Mayi Stack MD CT ORDERABLES * XR CHEST 1VW PORTABLE (02/04/2019 12:03 PM CDT) Anatomical Region Laterality Modality Chest Radiographic Steffany ging 02/04/2019 1:20 PM CDT Impressions 02/04/2019 3:10 PM CDT IMPRESSION: No acute pulmonary process. Dictated by Fabi Avila MD (certified prosthetist vice president). Dr. MORA Mejias have personally reviewed and interpreted this examination/study. This report was electronically signed by MORA AZEVEDO ??on 02/04/2019 3:10 PM . Narrative 02/04/2019 3:10 PM CDT EXAMINATION: XR CHEST 1VW PORTABLE HISTORY: Trauma COMPARISON: None FINDINGS: Clear lungs.There is no focal consolidation, pleural effusion, or pneumothorax. The cardiomediastinal silhouette is normal. The visible bony thorax is intact. Procedure Note Mora Azevedo, DO - 02/04/2019 EXAMINATION: XR CHEST 1VW PORTABLE HISTORY: Trauma COMPARISON: None FINDINGS: Clear lungs.There is no focal consolidation, pleural effusion, or pneumothorax. The cardiomediastinal silhouette is normal. The visiblebony thorax is intact. IMPRESSION: No acute pulmonary process. Dictated by Fabi Avila MD (certified prosthetist vice president). IDr. MORA have personally reviewed and interpreted this examination/study. This report was electronically signed by MORA AZEVEDO on 02/04/2019 3:10 PM . Mayi Stack MD DIAGNOSTIC IMAGING O RDERABLES * PTT [facility] (02/04/2019 12:03 PM CDT) APTT 27.0 23.0 - 38.4 Seconds 02/04/2019 12:19 PM CDT [facility] Comment: * Please Note: New therapeutic range for heparin therapy. * Suggested therapeutic range for full dose I.V. heparin therapy for venous thromboembolism is 65 to 103 seconds. Blood BLOOD SPECIMEN / Unknown Venipuncture / Unknown 02/04/2019 12:03 PM CDT 02/04/2019 12:06 PM CDT Mayi Stack MD LAB - COAGULATION OR DERABLES Performing Organization Address [facility] Co de Phone Number [address] [phone] * PT-INR [facility] (02/04/2019 12:03 PM CDT) PT 12.8 12.1 - 14.8 Seconds 02/04/2019 12:18 PM CDT [facility] INR 1.0 See Comment 02/04/2019 12:18 PM T [facility] Comment: The suggested therapeutic range for standard coumadin (warfarin) therapy is an INR of 2.0-3.0. For high-risk patients (Mechanical Mitral Valve Prosthesis, etc.), the suggested prophylactic therapeutic range is an INR of 2.5-3.5. Blood BLOOD SPECIMEN / Unknown Venipuncture / Unknown 02/04/2019 12:03 PM CDT 02/04/2019 12:06 PM CDT Mayi Stack MD LAB - COAGULATION OR DERABLES Performing Organization Address [facility]/ZIP Co de Phone Number [address] [phone] * TYPE + SCREEN PANEL (02/04/2019 12:03 PM CDT) Antibody Screen NEG 9 12:58 PM CDT [facility] ABO Rh A POS 02/04/2019 12:58 PM CDT [facility] Blood Bank BLOOD SPECIMEN / Unknown Venipuncture / Unknown 02/04/2019 12:03 PM CDT 02/04/2019 12:09 PM CDT Mayi Stack MD LAB - BLOOD BANK ORD ERABLES [facility] [id number] * BASIC METABOLIC PANEL (CALCIUM TOTAL) (02/04/2019 12:03 PM CDT) BUN 10 7 - 26 mg/dL 02/04/2019 12:22 PM [facility] Creatinine 0.8 0.6 - 1.2 mg/dL 02/04/2019 12:22 PM [facility] Sodium 140 136 - 145 mmol/L 02/04/2019 12:22 PM [facility] Potassium 4.3 3.5 - 4.5 mmol/L 02/04/2019 12:22 PM [facility] Chloride 107 98 - 107 mmol/L 02/04/2019 12:22 PM [facility] CO2 24 22 - 29 mmol/L 02/04/2019 12:22 PM [facility] Glucose 93 70 - 115 mg/dL 02/04/2019 12:22 PM [facility] Calcium 9.3 8.4 - 10.2 mg/dL 02/04/2019 12:22 PM [facility] Anion Gap 13 8 - 18 02/04/2019 12:22 PM [facility] BUN/Creatinine Ratio 13 7 - 23 02/04/2019 12:22 PM [facility] Osmolality Calculated 289 270 - 300 mOsm/kg 02/04/2019 12:22 PM [facility] eGFR >60 >60 mL/min/1.7 3 m2 02/04/2019 12:22 PM [facility] Blood BLOOD SPECIMEN / Unknown Venipuncture / Unknown 02/04/2019 12:03 PM CDT 02/04/2019 12:06 PM CDT Mayi Stack MD LAB - CHEMISTRY [place]DE [place] [address] [phone] * ALCOHOL ETHYL BLOOD (02/04/2019 12:03 PM CDT) Interpretation Ethanol None Detected None Detected mg/dL 02/04/2019 12:22 PM CDT [facility] Comment: Ethanol levels less than 10 mg/dL are resulted as None detected . Blood BLOOD SPECIMEN / Unknown Venipuncture / Unknown 02/04/2019 12:03 PM CDT 02/04/2019 12:06 PM CDT Mayi Stack MD LAB - CHEMISTRY LIZ PRIETO [address] [phone] * (ABNORMAL) CULTURE WOUND+GRAM STAIN (05/31/2014 11:29 AM CDT) Culture Wound COAG NEG STAPH SPECIES(A) [facility] Comment:Light Growth Coagula se Neg Staph Species Gram Stain No Organism Seen [facility] Wound 05/31/2014 11:2 9 AM CDT 05/31/2014 8:31 PM CDT Narrative [facility] - 06/03/2014 12:31 PM CDT MattSpecimen#[id number] Matt Loc/Rm/Bed: EXPCARE C// Source: ABSCESS, BACK Historical Provider LAB - MICROBIOLOG Y ORDERABLES [address] [phone]
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
--- OUTSIDE RECORDS SUMMARY | 2024-08-19 20:46 | XMS_ITS | Encounter Summary ---
Author Organization [facility] Address [address] [place] [address] Care Team Providers Care Dyno Technician Name Role Phone Unavailable Primary Care Provider Unavailabl e Reason for Referral * Neurology (Routine) - Closed Specialty Diagnoses / Procedures Referred By Leslie mccloud Referred To Contact Neurology Diagnoses Left arm weakness Procedures EMG WITH NERVE CONDUCTION STUDY Reuben Rios MD [address] [place] [id number] [facility] Eeg/Emg [address] [place] [address] Referral ID Status Reason Start Date Expiration Date Visits Re quested Visits Authorized [id number] Closed 03/01/2019 08/28/2019 1 1 Reason for Visit * Neurology (Routine) - Closed Specialty Diagnoses / Procedures Referred By Contac t Referred To Contact Neurology Diagnoses Left arm weakness Procedures EMG WITH NERVE CONDUCTION STUDY Reuben Rios MD [address] [place] [id number] [facility] Eeg/Emg [address] [place] [address] Referral ID Status Reason Start Date Expiration Date Visits Re quested Visits Authorized [id number] Closed 03/01/2019 08/28/2019 1 1 Encounter Details Date Type Department Care Team (Latest Contact Info) Description 03/15/2019 7:36 AM CDT - 03/15/2019 11:59 PM CDT Hospital Encounter [facility] EEG/EMG [address] [place] [id number] Gabby Gallo MD [address] [facility] [address] [place] [address] Julian García MD [address] [facility] [address] [place] [address] EMG Discharge Disposition: Home or Self Care Social [...] on file documented as of this encounter Medications at Time of Discharge [...] tablet 02/04/2019 documented as of this encounter Plan of Treatment Scheduled Orders Name Type Priority Associated Diagnoses Orde r Schedule EMG WITH NERVE CONDUCTION STUDY Neurology Routine Left arm weakness 1 Occurrences starting 03/15/2019 until 03/15/2019 documented as of this encounter Visit Diagnoses Diagnosis Left arm weakness Other musculoskeletal symptoms referable to limbs documented in this encounter
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
--- OUTSIDE RECORDS SUMMARY | 2024-08-19 20:46 | XMS_ITS | Clinical Summary ---
Author Organization [facility] Address [address] [place] [address] Care Team Providers Care Pumper Gauger Apprentice Name Role Phone Unavailable Primary Care Provider Unavailabl e Source Comments [facility],non-owned Affiliates and Associated Physician Practices is amultiple site organization consisting of ambulatory clinics and hospital sitesin [place], [place], [place] and [place]. This disclosure is being madepursuant to the Care Everywhere program and may not contain all information available regarding this patient. Last updated 18.[facility] [employer] Allergies Active Allergy Reactions Criticality Noted Date Comments Peanut Butter Flavor Angioedema High 02/04/2019 Medications * Be aware that medications may not be up to date on this document. Alwaysverify current medications with the patient. Medication Sig Dispensed Refills Start Date End Date Status ibuprofen (MOTRIN) 800 MG tablet Take 1 tablet by mouth every 6 hours as needed for Pain 30 tablet 02/04/2019 Active amLODIPine (NORVASC) 5 MG tablet Take 5 mg by mouth once daily 02/18/2019 Active HYDROcodone-acetamino phen (NORCO) 5-325 MG tablet Take 1 tablet by mouth every 6 hours as needed for Pain 8 tablet 03/01/2019 Active Active Problems Problem Noted Date Diagnosed Date [...] Mass Index 31.19 02/28/2019 12:43 PM CDT Plan of Treatment Health Maintenance Due Date Last Done Comments COLOGUARD (AGES 45-75) - COL ON CA SCREENING 1968 COLON MONITORING 1968 COLONOSCOPY - COLON CA SCREENING 1968 CT COLONOGRAPHY - COLON CA SCREENING 1970 Colorectal Cancer Screening 1968 FIT - COLON CA SCREENING 1968 FLEX SIG - COLON CA SCREENING 1968 LIPID TESTING 1968 PNEUMOCOCCAL VACCINE (1 of 2 - PCV) 1974 HEPATITIS C SCREENING 06/01/1986 DTAP/TDAP/TD VACCINES (1 - Tdap) 1987 HEPATITIS B VACCINE (1 of 3 - 19+ 3-dose series) 1987 ZOSTER VACCINE (1 of 2) 2018 SCREENING FOR DIABETES 02/28/2022 9, 02/04/2019 DEPRESSION SCREENING 09/04/2023 COVID-19 VACCINE (1 - 2023-2 5 season) 2024 INFLUENZA VACCINE (#1) 2024 HIV SCREENING Completed 02/28/2019 HIB VACCINE Aged Out No longer eligi ble based on patient's age to complete this topic HPV VACCINE Aged Out No longer eligi ble based on patient's age to complete this topic MENINGOCOCCAL VACCINE Aged Out No bibi kelsie eligible based on patient's age to complete this topic Procedures Procedure Name Priority Date/Time Associated Diagnosis Comments COMPREHENSIVE METABOLIC PANEL STAT 02/28/2019 3:41 PM CDT HIV-1 HIV-2 ANTIGEN/ANTIBODY STAT 02/28/2019 3:41 PM CDT from Last 3 Months or Most Recently Relevant to Health Maintenance Results * HIV-1 HIV-2 ANTIGEN/ANTIBODY (02/28/2019 3:41 PM CDT) HIV Antigen/Antibod y 1 & 2 Non-reacti ve Non-react judi 02/28/2019 4:24 PM CDT [facility] Comment: Neither HIV-1 p24 Antigen nor HIV-1/HIV-2 Antibodies are detected. ? Blood BLOOD SPECIMEN / Unknown Venipuncture / Unknown 02/28/2019 3:41 PM CDT 02/28/2019 3:46 PM CDT Carline Pardo MD LAB - HEMATOLOGY ORD ERABLES Performing Organization Address City/State/[facility] Co de Phone Number [facility] [address] [place] [address] * COMPREHENSIVE METABOLIC PANEL (02/28/2019 3:41 PM CDT) Pathologist [facility] BUN 11 7 - 26 mg/dL 02/28/2019 4:03 PM CDT [facility] Creatinine 0.7 0.6 - 1.2 mg/dL 02/28/2019 4:03 PM [facility] Sodium 141 136 - 145 mmol/L 02/28/2019 4:03 PM [facility] Potassium 4.2 3.5 - 4.5 mmol/L 02/28/2019 4:03 PM [facility] Chloride 106 98 - 107 mmol/L 02/28/2019 4:03 PM T [facility] CO2 24 22 - 29 mmol/L 02/28/2019 4:03 PM T [facility] Glucose 79 70 - 115 mg/dL 02/28/2019 4:03 PM [facility] Calcium 9.5 8.4 - 10.2 mg/dL 02/28/2019 4:03 PM [facility] Protein Total 7.4 6.0 - 8.3 g/dL 02/28/2019 4:03 PM [facility] Albumin 3.9 3.4 - 5.0 g/dL 02/28/2019 4:03 PM [facility] Bilirubin Total 0.3 0.2 - 1.2 mg/dL 02/28/2019 4:03 PM [facility] Alkaline Phosphatase 80 40 - 150 Units/L 02/28/2019 4:03 PM [facility] ALT 26 0 - 55 Units/L 02/28/2019 4:03 PM [facility] AST 15 5 - 34 Units/L 02/28/2019 4:03 PM [facility] Anion Gap 15 8 - 18 02/28/2019 4:03 PM [facility] BUN/Creatinine Ratio 16 7 - 23 02/28/2019 4:03 PM [facility] Osmolality Calculated 290 270 - 300 mOsm/kg 02/28/2019 4:03 PM [facility] Albumin/Globulin Ratio 1.1 1.1 - 2.3 02/28/2019 4:03 PM [facility] eGFR >60 >60 mL/min/1.7 3 m2 02/28/2019 4:03 PM [facility] Blood BLOOD SPECIMEN / Unknown Venipuncture / Unknown 02/28/2019 3:41 PM CDT 02/28/2019 3:46 PM T Carline Pardo MD LAB - CHEMISTRY LIZ PRIETO [facility] Organization Address City/State/ZIP Co de Phone Number [facility] [address] [phone] from Last 3 Months or Most Recently Relevant to Health Maintenance MAYE HERRERA A Personal/Famil y 1970 [address] [place] [address] MAYE HERRERA A Personal/Famil y [address] [place] [address]
--- OUTSIDE RECORDS SUMMARY | 2024-08-19 20:46 | XMS_ITS | Encounter Summary ---
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 Mon02/04/19 at 1153, Until Mon02/04/19 at 1803, Flush peripheral IV catheter with 1-10 mL of normal saline before and after medications and prn to clear blood from the line or to verify patency. documented in this encounter
--- OUTSIDE RECORDS SUMMARY | 2024-08-19 20:46 | XMS_ITS | Referral Summary ---
Author Organization [facility] Address [address] [place] [address] Care Team Providers Care Kier Tender Name Role Phone Unavailable Primary Care Provider Unavailabl e Source Comments [facility],non-owned Affiliates and Associated Physician Practices is amultiple site organization consisting of ambulatory clinics and hospital sitesin [place], [place], [place] and [place]. This disclosure is being madepursuant to the Care Everywhere program and may not contain all information available regarding this patient. Last updated 18.[facility] [employer] Allergies Active Allergy Reactions Criticality Noted Date [...] 02/28/2019 12:43 PM CDT Plan of Treatment Not on file Procedures Procedure Name Priority Date/Time Associated Diagnosis Comments COMPREHENSIVE METABOLIC PANEL STAT 02/28/2019 3:41 PM CDT HIV-1 HIV-2 ANTIGEN/ANTIBODY STAT 02/28/2019 3:41 PM CDT from Last 3 Months or Most Recently Relevant to Health Maintenance Results * HIV-1 HIV-2 ANTIGEN/ANTIBODY (02/28/2019 3:41 PM CDT) HIV Antigen/Antibod y 1 & 2 Non-reacti ve Non-react judi 02/28/2019 4:24 PM CDT [facility] Comment: Neither HIV-1 p24 Antigen nor HIV-1/HIV-2 Antibodies are detected. ? Blood BLOOD SPECIMEN / Unknown Venipuncture / Unknown 02/28/2019 3:41 PM CDT 02/28/2019 3:46 PM CDT Carline Pardo MD LAB - HEMATOLOGY ORD ERABLES [facility] [address] [place] [address], [facility] [phone] * COMPREHENSIVE METABOLIC PANEL (02/28/2019 3:41 PM CDT) BUN 11 7 - 26 mg/dL 02/28/2019 4:03 PM CDT [facility] Creatinine 0.7 0.6 - 1.2 mg/dL 02/28/2019 4:03 PM [facility] Sodium 141 136 - 145 mmol/L 02/28/2019 4:03 PM [facility] Potassium 4.2 3.5 - 4.5 mmol/L 02/28/2019 4:03 PM [facility] Chloride 106 98 - 107 mmol/L 02/28/2019 4:03 PM [facility] CO2 24 22 - 29 mmol/L 02/28/2019 4:03 PM [facility] Glucose 79 70 - 115 mg/dL 02/28/2019 4:03 PM [facility] Calcium 9.5 8.4 - 10.2 mg/dL 02/28/2019 4:03 PM [facility] Protein Total 7.4 6.0 - 8.3 g/dL 02/28/2019 4:03 PM [facility] Albumin 3.9 3.4 - 5.0 g/dL 02/28/2019 4:03 PM [facility] Bilirubin Total 0.3 0.2 - 1.2 mg/dL 02/28/2019 4:03 PM [facility] Alkaline Phosphatase 80 40 - 150 Units/L 02/28/2019 4:03 PM [facility] ALT 26 0 - 55 Units/L 02/28/2019 4:03 PM [facility] AST 15 5 - 34 Units/L 02/28/2019 4:03 PM [facility] Anion Gap 15 8 - 18 02/28/2019 4:03 PM [facility] BUN/Creatinine Ratio 16 7 - 23 02/28/2019 4:03 PM [facility] Osmolality Calculated 290 270 - 300 mOsm/kg 02/28/2019 4:03 PM [facility] Albumin/Globulin Ratio 1.1 1.1 - 2.3 02/28/2019 4:03 PM [facility] eGFR >60 >60 mL/min/1.7 3 m2 02/28/2019 4:03 PM [facility] Blood BLOOD SPECIMEN / Unknown Venipuncture / Unknown 02/28/2019 3:41 PM CDT 02/28/2019 3:46 PM CDT Carline Pardo MD LAB - CHEMISTRY LIZ PRIETO [facility] Organization Address City/State/ZIP Co de Phone Number [address] [phone] from Last 3 Months or Most Recently Relevant to Health Maintenance MAYE HERRERA A Personal/Famil y 1970 [address] [facility] [facility] [place] [address] MAYE HERRERA A Personal/Famil y 1970 [address] [facility] [address] [facility] [place] [address]
--- OUTSIDE RECORDS SUMMARY | 2024-08-19 20:47 | XMS_ITS | Encounter Summary ---
Author Organization [facility] Address [address] [place] [address] Care Team Providers Care Cut Off Saw Set Up Operator Name Role Phone Unavailable Primary Care Provider Unavailabl e Encounter Details Date Type Department Care Team (Late st Contact Info) Description 06/04/2024 External Device Data [facility] ABSTRACTION Provider, Abstract NO ADDRESS ON FILE Social History Tobacco Use Types Packs/Day Years Used Date Smoking Tobacco: Every Day Cigarettes 0.5 21 Started: 2003 Feeling Safe Answer Date Recorded Are you in a relationship wi th someone who hurts you emotionally and/or physically? No 05/06/2024 Sex and Gender Information Value Date Recorded Sex Assigned at Not on file Gender Identity Not on file Sexual Orientation Not on file documented as of this encounter Plan of Treatment Not on file documented as of this encounter Visit Diagnoses Not on filedocumented in this encounter
--- OUTSIDE RECORDS SUMMARY | 2024-08-19 20:47 | XMS_ITS | Encounter Summary ---
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 6:43 PM CDT 1,000 mg HYDROmorphone (PF) (DILAUDID) injection 1 mg 1 mg, IV, ONE TIME ONLY, 1 dose, On Mon05/06/24 at 1800, Routine Given 05/06/2024 5:53 PM CDT 1 mg iopamidoL (ISOVUE-300) 61% injection (drawn from multi-use bulk pack) 100 mL 100 mL, IV, INTRA-PROCEDURE ONCE, 1 dose, Starting on Mon05/06/24 at 1700, Until Mon05/06/24 at 1710, Routine Contrast Given 05/06/2024 5:10 PM CDT 100 mL ketorolac (TORADOL) injection 10 mg 10 mg, IV, ONE TIME ONLY, 1 dose, On Mon05/06/24 at 1815, Routine Given 05/06/2024 6:43 PM CDT 10 mg Lidocaine 4 % topical patch 1 Patch 1 Patch, Topical, DAILY, First dose (after last modification) on Mon05/06/24 at 2030, Until Discontinued, Stat Applied 05/06/2024 8:30 PM CDT 1 Patch Buttock, Right morphine injection 6 mg 6 mg, IV, ONE TIME ONLY, 1 dose, On Mon05/06/24 at 1700, Routine Given 05/06/2024 5:18 PM CDT 6 mg documented in this encounter Active and Recently Administered Medications Times are shown in CDT. Scheduled Medication Order 05/04/2024 05/05/2024 05/06/2024 acetaminophen (TYLENOL) tablet 1,000 mg (COMPLETED) 1,000 mg, Oral, ONE TIME ONLY, 1 dose, On Mon05/06/24 at 1815, Routine 1843 (Given - Provid er: Naina Barnhart RN) HYDROmorphone (PF) (DILAUDID) injection 1 mg (COMPLETED) 1 mg, IV, ONE TIME ONLY, 1 dose, On Mon05/06/24 at 1800, Routine 1753 (Given - Provid er: Naina Barnhart RN) iopamidoL (ISOVUE-300) 61% injection (drawn from multi-use bulk pack) 100 mL (COMPLETED) 100 mL, IV, INTRA-PROCEDURE ONCE, 1 dose, Starting on Mon05/06/24 at 1700, Until Mon05/06/24 at 1710, Routine 1710 (Contrast Given - Provider: Dary Singleton, RT) ketorolac (TORADOL) injection 10 mg (COMPLETED) 10 mg, IV, ONE TIME ONLY, 1 dose, On Mon05/06/24 at 1815, Routine 1843 (Given - Provid er: Naina Barnhart RN) Lidocaine 4 % topical patch 1 Patch 1 Patch, Topical, DAILY, First dose (after last modification) on Mon05/06/24 at 2030, Until Discontinued, Stat 2029 (Applied - Prov ider: Nigel Balderas RN)2034 (Due: Removed - Provider: PROVIDER, DISCHARGE PATIENT - Comment: Time automatically adjusted from order being discontinued) morphine injection 6 mg (COMPLETED) 6 mg, IV, ONE TIME ONLY, 1 dose, On Mon05/06/24 at 1700, Routine 1718 (Given - Provid er: Naina Barnhart RN) documented in this encounter
--- OUTSIDE RECORDS SUMMARY | 2024-08-19 20:47 | XMS_ITS | Encounter Summary ---
Author Organization [facility] Address [address] [place] [address] Care Team Providers Care Field Application Engineer Name Role Phone Unavailable Primary Care Provider [...]
--- OUTSIDE RECORDS SUMMARY | 2024-08-19 20:47 | XMS_ITS | Encounter Summary ---
Author Organization [facility] Address [address] [place] [address] Care Team Providers Care Tribal Delegate Name Role Phone Unavailable Primary Care Provider Unavailabl e Encounter Details Date Type Department Care Team (Late st Contact Info) Description 07/03/2024 External Device Data [facility] ABSTRACTION Provider, Abstract [...]
--- OUTSIDE RECORDS SUMMARY | 2024-08-19 20:47 | XMS_ITS | Encounter Summary ---
Author Organization [facility] Address [address] [place] [address] Care Team Providers Care Value Analysis Coordinator Name Role Phone Unavailable Primary Care Provider Unavailabl e Encounter Details Date Type Department Care Team (Late st Contact Info) Description 07/02/2024 External Device Data [facility] ABSTRACTION Provider, Abstract [...]
--- OUTSIDE RECORDS SUMMARY | 2024-08-19 20:47 | XMS_ITS | Encounter Summary ---
Author Organization [facility] Address [address] [facility] Attn: Epic Prelude ADT ARTURO PEARL [address] Care Team Providers Care Enrollment Services Vice President Name Role Phone Unavailable Primary Care Provider Unavailabl e Encounter Details Date Type Department Care Team (Latest Contact Info) Description 05/06/2024 Travel Social History Tobacco Use Types Packs/Day Years [...]
--- OUTSIDE RECORDS SUMMARY | 2024-08-19 20:47 | XMS_ITS | Encounter Summary ---
Author Organization [facility] Address [address] [place] [address] Care Team Providers Care Uniformer Name Role Phone Unavailable Primary Care Provider Unavailabl e Encounter Details Date Type Department Care Team (Late st Contact Info) Description 05/07/2024 External Device Data ST[facility] ABSTRACTION Provider, Abstract [...]
--- OUTSIDE RECORDS SUMMARY | 2024-08-19 20:47 | XMS_ITS | Encounter Summary ---
Author Organization [facility] Address [address] [place] [address] Care Team Providers Care Assembler Piano Name Role Phone Unavailable Primary Care Provider [...]
--- OUTSIDE RECORDS SUMMARY | 2024-08-19 20:47 | XMS_ITS | Encounter Summary ---
Author Organization [facility] Address [address] [place] [address] Care Team Providers Care Communications Director Name Role Phone Unavailable Primary Care Provider [...]
--- OUTSIDE RECORDS SUMMARY | 2024-08-19 20:47 | XMS_ITS | Clinical Summary ---
Author Organization [facility] Address [address] [address] Phone Care Team Providers Care Instructional Design Manager Name Role Phone Unavailable Primary Care Provider Unavailabl e Allergies No known active allergies Medications Medication Sig Dispensed Refills Start Date End Date Status oxyCODONE (ROXICODONE) 5 mg tabletIndications:Con tusion of abdominal wall, initial encounter,Contusion of duodenum, initial encounter Take 1 Tablet (5 mg) by mouth every 4 hours as needed for Pain. Max Daily Amount: 30 mg 20 Tablet 05/06/2024 Active Encounters Date Type Department Care Team Description 07/03/2024 External Device Data [facility] ABSTRACTION Provider, Abstract 07/02/2024 External Device Data [facility] ABSTRACTION Provider, Abstract 06/04/2024 External Device Data [facility] ABSTRACTION Provider, Abstract 06/04/2024 External Device Data [facility] ABSTRACTION Provider, Abstract 06/04/2024 External Device Data [facility] ABSTRACTION Provider, Abstract from Last 3 Months Social History Tobacco Use Types Packs/Day Years [...] Mass Index 33.01 05/06/2024 4:37 PM CDT Plan of Treatment Health Maintenance Due Date Last Done Comments Pre-Diabetes and Diabetes Screening 1968 PNEUMOCOCCAL VACCINE 0-64 YEARS (1 of 2 - PCV) 974 DTAP/TDAP/TD VACCINES (1 - Tdap) 1987 HEPATITIS B VACCINES (1 of 3 - 19+ 3-dose series) 10/1986 COLORECTAL SCREENING 2013 Colorectal Cancer Screening 2013 FIT-DNA Q 3 years 2013 FIT/FOBT Q 1 year 2013 Flex Sig/CT Colonography Q 5 years 2013 ZOSTER VACCINE (1 of 2) 2018 INFLUENZA VACCINE (#1) 2024
--- OUTSIDE RECORDS SUMMARY | 2024-08-19 20:47 | XMS_ITS | Encounter Summary ---
Author Organization [facility] Address [address] [place] [address] Care Team Providers Care Marketing Communications Associate Name Role Phone Unavailable Primary Care Provider [...]
[2024-08-19] MEDS: ATORVASTATIN 40 MG TABLET 80 MG PO (20:56)
--- NOTE | 2024-08-19 22:04 | PC.NURSE ---
Pt reports that he is very anxious about being discharged from hospital. Pt verbalized that he would prefer to be transferred to outside facility for CABG. Pt reports that he is homeless and has no job. Pt is unsure where he will go once discharged.
[2024-08-19] MEDS: traZODone HCL 50 MG TABLET PO (23:25)
--- OUTSIDE RECORDS SUMMARY | 2024-08-19 23:38 | XMS_ITS | Encounter Summary ---
Author Organization [facility] Address [address] [place] [address] Care Team Providers Care Cookie Padder Name Role Phone Unavailable Primary Care Provider [...]
--- OUTSIDE RECORDS SUMMARY | 2024-08-19 23:38 | XMS_ITS | Encounter Summary ---
Author Organization [facility] Address [address] [place] [address] Care Team Providers Care Prekindergarten Teacher Name Role Phone Unavailable Primary Care Provider [...]
--- OUTSIDE RECORDS SUMMARY | 2024-08-19 23:38 | XMS_ITS | Patient Health Summary ---
Author Organization [facility] Address [address] [place] [address] Care Team Providers Care School Traffic Guard Name Role Phone Unavailable Primary Care Provider Unavailabl e Note from [facility],non-owned Affiliates and Associated Physician Practices is amultiple site organization consisting of ambulatory clinics and hospital sitesin [place], [place], [place] and [place]. This disclosure is being madepursuant to the Care Everywhere program and may not contain all information available regarding this patient. Last updated 18.[facility] Allergies * Peanut Butter Flavor(Angioedema) -High Criticality [...] and below. Dictated by Dino Montemayor M.D. (residential designer). I, Dr. AREN LOZOYA have personally reviewed [...] and below. Dictated by Dino Montemayor M.D. (residential designer). I, Dr. AREN LOZOYA have personally reviewed and interpreted this examination/study. This report was electronically signed by AREN LOZOYA on 03/01/2019 9:50 AM . Rossy Trujillo MD MR ORDERABLES * XR CHEST 2VW (02/28/2019 5:00 PM CDT) Anatomical Region Laterality Modality Chest Radiographic Tseffany ging 02/28/2019 4:52 PM CDT Impressions 03/01/2019 [...] ve Non-react judi 02/28/2019 4:24 PM CDT [facility] Comment: Neither HIV-1 p24 Antigen nor HIV-1/HIV-2 Antibodies are detected. ? Blood BLOOD SPECIMEN / Unknown Venipuncture / Unknown 02/28/2019 3:41 PM CDT 02/28/2019 3:46 PM CDT Carline Pardo MD LAB - HEMATOLOGY ORD ERABLES [facility] [address] [place] [address] * (ABNORMAL) CBC W AUTO DIFFERENTIAL (02/28/2019 3:41 PM CDT) Only the most recent of2 resultswithin the time period is included. Pathologist [facility] WBC 10.8(H) 3.5 - 10.5 10? 3 /uL 02/28/2019 3:48 PM CDT [facility] RBC 5.20 4.30 - 5.70 10? 6 /uL 02/28/2019 3:48 PM CDT [facility] Hemoglobin 15.6 13.5 - 17.5 g/dL 02/28/2019 3:48 PM CDT [facility] Hematocrit 46.6 39.0 - 50.0 % 02/28/2019 3:48 PM CDT [facility] MCV 89.6 81.0 - 97.0 fL 02/28/2019 3:48 PM CDT [facility] MCH 30.0 28.0 - 34.0 pg 02/28/2019 3:48 PM CDT [facility] MCHC 33.5 32.0 - 36.0 g/dL 02/28/2019 3:48 PM CDT [facility] Platelet Count 240 150 - 400 10? 3 /uL 02/28/2019 3:48 PM [facility] RDW-SD 40.4 36.0 - 50.0 fL 02/28/2019 3:48 PM [facility] RDW-CV 12.2 11.2 - 14.8 % 02/28/2019 3:48 PM [facility] MPV 10.0 9.3 - 12.8 fL 02/28/2019 3:48 PM [facility] nRBC Absolute 0.00 0 10? 3 /uL 02/28/2019 3:48 PM [facility] nRBC Auto 0.0 0 /100 WBC 02/28/2019 3:48 PM [facility] Neutrophils % 73.7(H) 35.0 - 70.0 % 02/28/2019 3:48 PM [facility] Lymphocytes % 15.5(L) 19.7 - 55.1 % 02/28/2019 3:48 PM [facility] Monocytes % 7.4 3.0 - 15.0 % 02/28/2019 3:48 PM [facility] Eosinophils % 2.4 0.0 - 6.0 % 02/28/2019 3:48 PM [facility] Basophil % 0.4 0.0 - 1.5 % 02/28/2019 3:48 PM [facility] Neutrophils Absolute 8.0(H) 1.6 - 7.0 10? 3 /uL 02/28/2019 3:48 PM [facility] Lymphocyte Absolute 1.7 0.8 - 2.9 10? 3 /uL 02/28/2019 3:48 PM [facility] Monocytes Absolute 0.80(H) 0.14 - 0.66 10? 3 /uL 02/28/2019 3:48 PM [facility] Eosinophils Absolute 0.26 0.00 - 0.45 10? 3 /uL 02/28/2019 3:48 PM [facility] Basophils Absolute 0.04 0.00 - 0.06 10? 3 /uL 02/28/2019 3:48 PM [facility] Immature Granulocytes % 0.6 0.0 - 1.0 % 02/28/2019 3:48 PM [facility] Blood BLOOD SPECIMEN / Unknown Venipuncture / Unknown 02/28/2019 3:41 PM CDT 02/28/2019 3:46 PM CDT Carline Pardo MD LAB - HEMATOLOGY ORD ERABLES [facility] [address] [phone] * COMPREHENSIVE METABOLIC PANEL (02/28/2019 3:41 PM CDT) BUN 11 7 - 26 mg/dL 02/28/2019 4:03 PM [facility] Creatinine 0.7 0.6 - 1.2 mg/dL 02/28/2019 4:03 PM [facility] Sodium 141 136 - 145 mmol/L 02/28/2019 4:03 PM [facility] Potassium 4.2 3.5 - 4.5 mmol/L 02/28/2019 4:03 PM [facility] Chloride 106 98 - 107 mmol/L 02/28/2019 4:03 PM [facility] CO2 24 22 - 29 mmol/L 02/28/2019 4:03 PM [facility] Glucose 79 70 - 115 mg/dL 02/28/2019 4:03 PM [facility] Calcium 9.5 8.4 - 10.2 mg/dL 02/28/2019 4:03 PM [facility] Protein Total 7.4 6.0 - 8.3 g/dL 02/28/2019 4:03 PM [facility] Albumin 3.9 3.4 - 5.0 g/dL 02/28/2019 4:03 PM [facility] Bilirubin Total 0.3 0.2 - 1.2 mg/dL 02/28/2019 4:03 PM [facility] Alkaline Phosphatase 80 40 - 150 Units/L 02/28/2019 4:03 PM [facility] ALT 26 0 - 55 Units/L 02/28/2019 4:03 PM [facility] AST 15 5 - 34 Units/L 02/28/2019 4:03 PM [facility] Anion Gap 15 8 - 18 02/28/2019 4:03 PM CDT [facility] BUN/Creatinine Ratio 16 7 - 23 02/28/2019 4:03 PM CDT [facility] Osmolality Calculated 290 270 - 300 mOsm/kg 02/28/2019 4:03 PM CDT [facility] Albumin/Globulin Ratio 1.1 1.1 - 2.3 02/28/2019 4:03 PM CDT [facility] eGFR >60 >60 mL/min/1.7 3 m2 02/28/2019 4:03 PM CDT [facility] Blood BLOOD SPECIMEN / Unknown Venipuncture / Unknown 02/28/2019 3:41 PM CDT 02/28/2019 3:46 PM CDT Carline Pardo MD LAB - CHEMISTRY LIZ PRIETO [facility] Organization Address City/State/ZIP Co de Phone Number [address] [phone] * XR ELBOW LEFT 3VW OR MORE (02/04/2019 3:49 PM CDT) Anatomical Region Laterality Modality Upper Extremity Radiographic Steffany ging 02/04/2019 3:56 PM CDT Impressions 02/05/2019 9:04 AM CDT IMPRESSION: No acute fracture or dislocation identified. Dictated by Fabi Avila MD (residential designer). Dr. Starla Mejias M.D. have personally reviewed [...] dislocation identified. Dictated by Fabi Avila MD (residential designer). Dr. Starla Mejias M.D. have personally reviewed [...] dislocation identified. Dictated by Fabi Avila MD (residential designer). Dr. MORA Mejias have personally reviewed and [...] dislocation identified. Dictated by Fabi Avila MD (residential designer). Dr. MORA Mejias have personally reviewed and [...] dislocation identified. Dictated by Fabi Avila MD (residential designer). Dr. MORA Mejias have personally reviewed and [...] dislocation identified. Dictated by Fabi Avila MD (residential designer). I, Dr. MORA AZEVEDO have personally reviewed [...] dislocation identified. Dictated by Fabi Avila MD (residential designer). I, Dr. MORA AZEVEDO have personally reviewed [...] dislocation identified. Dictated by Fabi Avila MD (residential designer). Dr. MORA Mejias have personally reviewed and [...] dislocation identified. Dictated by Fabi Avila MD (residential designer). Dr. MORA Mejias have personally reviewed and [...] dislocation identified. Dictated by Fabi Avila MD (residential designer). I, Dr. MORA AZEVEDO have personally reviewed [...] pulmonary process. Dictated by Fabi Avila MD (residential designer). Dr. MORA Mejias have personally reviewed and [...] pulmonary process. Dictated by Fabi Avila MD (residential designer). IDr. MORA have personally reviewed and interpreted this examination/study. This report was electronically signed by MORA AZEVEDO on 02/04/2019 3:10 PM . Mayi Stack MD DIAGNOSTIC IMAGING O RDERABLES * PTT [facility] (02/04/2019 12:03 PM CDT) APTT 27.0 23.0 - 38.4 Seconds 02/04/2019 12:19 PM CDT [facility] Comment: * Please Note: New therapeutic range for heparin therapy. * Suggested therapeutic range for full dose I.V. heparin therapy for venous thromboembolism is 65 to 103 seconds. Blood BLOOD SPECIMEN / Unknown Venipuncture / Unknown 02/04/2019 12:03 PM CDT 02/04/2019 12:06 PM CDT Mayi Stack MD LAB - COAGULATION OR DERABLES Performing Organization Address [facility] Co de Phone Number [address] [phone] * PT-INR [facility] (02/04/2019 12:03 PM CDT) PT 12.8 12.1 - 14.8 Seconds 02/04/2019 12:18 PM CDT [facility] INR 1.0 See Comment 02/04/2019 12:18 PM T [facility] Comment: The suggested therapeutic range for standard coumadin (warfarin) therapy is an INR of 2.0-3.0. For high-risk patients (Mechanical Mitral Valve Prosthesis, etc.), the suggested prophylactic therapeutic range is an INR of 2.5-3.5. Blood BLOOD SPECIMEN / Unknown Venipuncture / Unknown 02/04/2019 12:03 PM CDT 02/04/2019 12:06 PM CDT Mayi Stack MD LAB - COAGULATION OR DERABLES Performing Organization Address [facility]/ZIP Co de Phone Number [address] [phone] * TYPE + SCREEN PANEL (02/04/2019 12:03 PM CDT) Antibody Screen NEG 9 12:58 PM CDT [facility] ABO Rh A POS 02/04/2019 12:58 PM CDT [facility] Blood Bank BLOOD SPECIMEN / Unknown Venipuncture / Unknown 02/04/2019 12:03 PM CDT 02/04/2019 12:09 PM CDT Mayi Stack MD LAB - BLOOD BANK ORD ERABLES [facility] [address] * BASIC METABOLIC PANEL (CALCIUM TOTAL) (02/04/2019 12:03 PM CDT) BUN 10 7 - 26 mg/dL 02/04/2019 12:22 PM [facility] Creatinine 0.8 0.6 - 1.2 mg/dL 02/04/2019 12:22 PM [facility] Sodium 140 136 - 145 mmol/L 02/04/2019 12:22 PM [facility] Potassium 4.3 3.5 - 4.5 mmol/L 02/04/2019 12:22 PM [facility] Chloride 107 98 - 107 mmol/L 02/04/2019 12:22 PM [facility] CO2 24 22 - 29 mmol/L 02/04/2019 12:22 PM [facility] Glucose 93 70 - 115 mg/dL 02/04/2019 12:22 PM [facility] Calcium 9.3 8.4 - 10.2 mg/dL 02/04/2019 12:22 PM [facility] Anion Gap 13 8 - 18 02/04/2019 12:22 PM [facility] BUN/Creatinine Ratio 13 7 - 23 02/04/2019 12:22 PM [facility] Osmolality Calculated 289 270 - 300 mOsm/kg 02/04/2019 12:22 PM [facility] eGFR >60 >60 mL/min/1.7 3 m2 02/04/2019 12:22 PM [facility] Blood BLOOD SPECIMEN / Unknown Venipuncture / Unknown 02/04/2019 12:03 PM CDT 02/04/2019 12:06 PM CDT Mayi Stack MD LAB - CHEMISTRY ORDE CONNER [address] [phone] * ALCOHOL ETHYL BLOOD (02/04/2019 12:03 PM CDT) Interpretation Ethanol None Detected None Detected mg/dL 02/04/2019 12:22 PM CDT [facility] Comment: Ethanol levels less than 10 mg/dL are resulted as None detected . Blood BLOOD SPECIMEN / Unknown Venipuncture / Unknown 02/04/2019 12:03 PM CDT 02/04/2019 12:06 PM CDT Mayi Stack MD LAB - CHEMISTRY LIZ PRIETO [address] [phone] * (ABNORMAL) CULTURE WOUND+GRAM STAIN (05/31/2014 11:29 AM CDT) Culture Wound COAG NEG STAPH SPECIES(A) [facility] Comment:Light Growth Coagula se Neg Staph Species Gram Stain No Organism Seen [facility] Wound 05/31/2014 11:2 9 AM CDT 05/31/2014 8:31 PM CDT Narrative [facility] - 06/03/2014 12:31 PM CDT MattSpecimen#[id number] Matt Loc/Rm/Bed: EXPCARE C// Source: ABSCESS, BACK Historical Provider LAB - MICROBIOLOG Y ORDERABLES [address] [phone]
--- OUTSIDE RECORDS SUMMARY | 2024-08-19 23:38 | XMS_ITS | Encounter Summary ---
Author Organization [facility] Address [address] [place] [address] Care Team Providers Care Mva Operator Name Role Phone Unavailable Primary Care [...]
--- OUTSIDE RECORDS SUMMARY | 2024-08-19 23:38 | XMS_ITS | Encounter Summary ---
Author Organization [facility] Address [address] [place] [address] Care Team Providers Care Application Infrastructure Engineer Name Role Phone Unavailable Primary Care [...] Leslie mccloud Referred To Contact Emergency Medicine [facility] Emergency Department [address] [address] Referral ID Status Reason Start Date Expiration Date Visits Re quested Visits Authorized [id number] 1 1 Encounter Details Date Type Department Care Team (Late st Contact Info) Description 05/06/2024 4:39 PM CDT - 05/06/2024 8:35 PM CDT Emergency [facility] Emergency Services [address] [place] [phone] Luis Waddell MD 1400 [facility] [address] [place] [address] Contusion of abdominal wall, initial [...] sent through Care Everywhere. * Abdominal Pain ([place] Zealander) documented in this encounter Medications at Time [...] this time. 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 DICTATION LOCATION: Location 1 - [facility] EKG: PROCEDURES Procedures MEDICAL DECISION MAKING AND PLAN OF CARE ED Course as of 05/07/2457May 06, [address] ABDOMEN PELVIS W CONTRAST IMPRESSION: Nonspecific [...] further recommendations. [MS] 1846 Initiated contact with [facility]. [MS] 191 Rechecked patient. Updated him with [...] decision making performed by Luis Waddell MD.. [facility] scribing for and in the presence of [...] this time. DICTATION LOCATION: Location 1 - [facility] 05/06/2024 11:[address] [...] this time. DICTATION LOCATION: Location 1 - [facility] Luis Waddell MD CT ORDERABLES * (ABNORMAL) CBC WITH DIFFERENTIAL (05/06/2024 5:05 PM CDT) WBC 16.4(H) 4.0 - 11.0 K/uL 05/06/2024 5:11 PM CDT [facility] RBC 4.85 4.60 - 6.20 M/uL 05/06/2024 5:11 PM CDT [facility] HEMOGLOBIN 14.9 13.5 - 17.0 g/dL 05/06/2024 5:11 PM CDT [facility] HEMATOCRIT 45.2 40.0 - 54.0 % 05/06/2024 5:11 PM T [facility] MCV 93.2 80.0 - 98.0 fL 05/06/2024 5:11 PM CDT [facility] MCH 30.7 26.0 - 34.0 pg 05/06/2024 5:11 PM CDT [facility] MCHC 33.0 31.0 - 37.0 g/dL 05/06/2024 5:11 PM CDT [facility] RDW 12.7 11.5 - 14.5 % 05/06/2024 5:11 PM CDT [facility] RDW-STDEV 43.6 34.0 - 54.0 fL 05/06/2024 5:11 PM CDT [facility] PLATELETS 223 150 - 400 K/uL 05/06/2024 5:11 PM CDT [facility] MPV 10.6 8.5 - 12.5 fL 05/06/2024 5:11 PM CDT [facility] NEUTROPHILS 85(H) 50 - 70 % 05/06/2024 5:11 PM CDT [facility] LYMPHOCYTES 7(L) 20 - 40 % 05/06/2024 5:11 PM CDT [facility] MONOCYTES 7 2 - 8 % 05/06/2024 5:11 PM CDT [facility] EOSINOPHILS 1 1 - 3 % 05/06/2024 5:11 PM CDT [facility] BASOPHILS 0 0 - 1 % 05/06/2024 5:11 PM CDT [facility] IMMATURE GRANULOCYTES 1 0 - 2 % 05/06/2024 5:11 PM CDT [facility] NEUTROPHIL ABSOLUTE 13.89(H) 1.80 - 7.70 K/uL 05/06/2024 5:11 PM CDT [facility] LYMPHOCYTE ABSOLUTE 1.22 1.00 - 3.30 K/uL 05/06/2024 5:11 PM CDT [facility] MONOCYTE ABSOLUTE 1.07(H) 0.00 - 0.80 K/uL 05/06/2024 5:11 PM CDT [facility] EOSINOPHIL ABSOLUTE 0.12 0.00 - 0.45 K/uL 05/06/2024 5:11 PM CDT [facility] BASOPHILS ABSOLUTE 0.03 0.00 - 0.20 K/uL 05/06/2024 5:11 PM CDT [facility] IMMATURE GRANULOCYTES ABSOLUTE 0.08 0.00 - 0.31 K/uL 05/06/2024 5:11 PM CDT [facility] Blood Collection / Unknown 05/06/2024 5:05 PM CDT 05/06/2024 5:10 PM CDT Luis Waddell MD HEMATOLOGY ORD ERABLES [facility] CLIA # [id number] y [address] [place] [address] * LIPASE (05/06/2024 5:05 PM CDT) LIPASE 27 13 - 60 U/L 05/06/2024 5:26 PM CDT [facility] Blood Collection / Unknown 05/06/2024 5:05 PM CDT 05/06/2024 5:15 PM CDT Luis Waddell MD CHEMISTRY [facility] CLIA # [id number] [facility] [address] [place] [address] * COMPREHENSIVE METABOLIC PANEL (05/06/2024 5:05 PM CDT) SODIUM 140 136 - 145 mmol/L 05/06/2024 5:26 PM CDT [facility] POTASSIUM 4.3 3.5 - 5.1 mmol/L 05/06/2024 5:26 PM CDT [facility] CHLORIDE 105 98 - 107 mmol/L 05/06/2024 5:26 PM CDT [facility] CO2 25 22 - 29 mmol/L 05/06/2024 5:26 PM CDT [facility] CALCIUM 9.8 8.6 - 10.0 mg/dL 05/06/2024 5:26 PM CDT [facility] BUN 15 6 - 20 mg/dL 05/06/2024 5:26 PM CDT [facility] CREATININE 1.04 0.67 - 1.17 mg/dL 05/06/2024 5:26 PM T [facility] GLUCOSE 92 74 - 99 mg/dL 05/06/2024 5:26 PM T [facility] TOTAL PROTEIN 7.2 6.6 - 8.7 g/dL 05/06/2024 5:26 PM T [facility] ALBUMIN 4.4 4.0 - 5.0 g/dL 05/06/2024 5:26 PM CDT [facility] BILIRUBIN TOTAL 0.2 <=1.2 mg/dL 05/06/2024 5:26 PM T [facility] ALKALINE PHOSPHATASE 92 40 - 129 U/L 05/06/2024 5:26 PM T [facility] AST 23 <=41 U/L 05/06/2024 5:26 PM T [facility] ALT 27 <=41 U/L 05/06/2024 5:26 PM T [facility] GFR >60 >=60 mL/min/1.7 3 sq meter 05/06/2024 5:26 PM T [facility] Comment:eGFR calculated with 2020 CKD-EPI equation. Vegetarian diet, extremely high or low muscle mass, and may affect results. Cystatin C with Glomerular Filtration Rate is a suitable alternative for these patients. ANION GAP 10 5 - 15 mmol/L 05/06/2024 5:26 PM T [facility] Blood Collection / Unknown 05/06/2024 5:05 PM CDT 05/06/2024 5:15 PM CDT Luis Waddell MD CHEMISTRY ORDEstella PRIETO [facility] CLIA # [id number] y [address] [place] [address] documented in this encounter Visit Diagnoses Diagnosis [...] Discontinued, Stat 2029 (Applied - Prov ider: Nigle Balderas RN)2034 (Due: Removed - Provider: PROVIDER, DISCHARGE PATIENT - Comment: Time automatically adjusted from order being discontinued) morphine injection 6 mg (COMPLETED) 6 mg, IV, ONE TIME ONLY, 1 dose, On Mon05/06/24 at 1700, Routine 1718 (Given - Provid er: Naina Barnhart RN) documented in this encounter
--- OUTSIDE RECORDS SUMMARY | 2024-08-19 23:38 | XMS_ITS | Encounter Summary ---
Author Organization [facility] Address [address] [place] [address] Care Team Providers Care Trailer Assembler Name Role Phone Unavailable Primary Care Provider [...]
--- OUTSIDE RECORDS SUMMARY | 2024-08-19 23:38 | XMS_ITS | Encounter Summary ---
Author Organization [facility] Address [address] [place] [address] Care Team Providers Care Broadcast Maintenance Engineer Name Role Phone Unavailable Primary Care [...]
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
--- OUTSIDE RECORDS SUMMARY | 2024-08-19 23:38 | XMS_ITS | Clinical Summary ---
Author Organization [facility] Address [address] [place] [address] Care Team Providers Care Steel Analyst Name Role Phone Unavailable Primary Care Provider Unavailabl e Source Comments [facility],non-owned Affiliates and Associated Physician Practices is amultiple site organization consisting of ambulatory clinics and hospital sitesin [place], [place], [place] and [place]. This disclosure is being madepursuant to the Care Everywhere program and may not contain all information available regarding this patient. Last updated 18.[facility] Allergies Active Allergy Reactions Criticality Noted Date [...] ve Non-react judi 02/28/2019 4:24 PM CDT [facility] Comment: Neither HIV-1 p24 Antigen nor HIV-1/HIV-2 Antibodies are detected. ? Blood BLOOD SPECIMEN / Unknown Venipuncture / Unknown 02/28/2019 3:41 PM CDT 02/28/2019 3:46 PM CDT Carline Pardo MD LAB - HEMATOLOGY ORD ERABLES Performing Organization Address City/State/[facility] Co de Phone Number [facility] [address] [place] [address] * COMPREHENSIVE METABOLIC PANEL (02/28/2019 3:41 PM CDT) Pathologist [facility] BUN 11 7 - 26 mg/dL 02/28/2019 4:03 PM CDT [facility] Creatinine 0.7 0.6 - 1.2 mg/dL 02/28/2019 4:03 PM [facility] Sodium 141 136 - 145 mmol/L 02/28/2019 4:03 PM [facility] Potassium 4.2 3.5 - 4.5 mmol/L 02/28/2019 4:03 PM [facility] Chloride 106 98 - 107 mmol/L 02/28/2019 4:03 PM T [facility] CO2 24 22 - 29 mmol/L 02/28/2019 4:03 PM T [facility] Glucose 79 70 - 115 mg/dL 02/28/2019 4:03 PM [facility] Calcium 9.5 8.4 - 10.2 mg/dL 02/28/2019 4:03 PM [facility] Protein Total 7.4 6.0 - 8.3 g/dL 02/28/2019 4:03 PM [facility] Albumin 3.9 3.4 - 5.0 g/dL 02/28/2019 4:03 PM [facility] Bilirubin Total 0.3 0.2 - 1.2 mg/dL 02/28/2019 4:03 PM [facility] Alkaline Phosphatase 80 40 - 150 Units/L 02/28/2019 4:03 PM [facility] ALT 26 0 - 55 Units/L 02/28/2019 4:03 PM [facility] AST 15 5 - 34 Units/L 02/28/2019 4:03 PM [facility] Anion Gap 15 8 - 18 02/28/2019 4:03 PM [facility] BUN/Creatinine Ratio 16 7 - 23 02/28/2019 4:03 PM [facility] Osmolality Calculated 290 270 - 300 mOsm/kg 02/28/2019 4:03 PM [facility] Albumin/Globulin Ratio 1.1 1.1 - 2.3 02/28/2019 4:03 PM [facility] eGFR >60 >60 mL/min/1.7 3 m2 02/28/2019 4:03 PM [facility] Blood BLOOD SPECIMEN / Unknown Venipuncture / Unknown 02/28/2019 3:41 PM CDT 02/28/2019 3:46 PM T Carline Pardo MD LAB - CHEMISTRY LIZ PRIETO [facility] Organization Address City/State/ZIP Co de Phone Number [facility] [address] [phone] from Last 3 Months or Most Recently Relevant to Health Maintenance MAYE HERRERA A Personal/Famil y 1970 [address] [place] [address] MAYE HERRERA A Personal/Famil y 1970 [address] [place] [address]
--- OUTSIDE RECORDS SUMMARY | 2024-08-19 23:38 | XMS_ITS | Encounter Summary ---
Author Organization [facility] Address [address] [place] [address] Care Team Providers Care Clinical Research Manager Name Role Phone Unavailable Primary Care [...]
--- OUTSIDE RECORDS SUMMARY | 2024-08-19 23:38 | XMS_ITS | Referral Summary ---
Author Organization [facility] Address [address] [facility] [place] [address] Care Team Providers Care Aircraft Motor Mechanic Name Role Phone Unavailable Primary Care Provider Unavailabl e Source Comments [facility],non-owned Affiliates and Associated Physician Practices is amultiple site organization consisting of ambulatory clinics and hospital sitesin [place], [place], [place] and [place]. This disclosure is being madepursuant to the Care Everywhere program and may not contain all information available regarding this patient. Last updated 18.[facility] Allergies Active Allergy Reactions Criticality Noted Date [...] ve Non-react judi 02/28/2019 4:24 PM CDT [facility] Comment: Neither HIV-1 p24 Antigen nor HIV-1/HIV-2 Antibodies are detected. ? Blood BLOOD SPECIMEN / Unknown Venipuncture / Unknown 02/28/2019 3:41 PM CDT 02/28/2019 3:46 PM CDT Carline Pardo MD LAB - HEMATOLOGY ORD ERABLES [facility] [address] [place] [address], [facility] [phone] * COMPREHENSIVE METABOLIC PANEL (02/28/2019 3:41 PM CDT) BUN 11 7 - 26 mg/dL 02/28/2019 4:03 PM CDT [facility] Creatinine 0.7 0.6 - 1.2 mg/dL [...] 15 8 - 18 02/28/2019 4:03 PM [facility] BUN/Creatinine Ratio 16 7 - 23 02/28/2019 4:03 PM [facility] Osmolality Calculated 290 270 - 300 mOsm/kg 02/28/2019 4:03 PM [facility] Albumin/Globulin Ratio 1.1 1.1 - 2.3 02/28/2019 4:03 PM [facility] eGFR >60 >60 mL/min/1.7 3 m2 02/28/2019 4:03 PM [facility] Blood BLOOD SPECIMEN / Unknown Venipuncture / Unknown 02/28/2019 3:41 PM CDT 02/28/2019 3:46 PM CDT Carline Pardo MD LAB - CHEMISTRY LIZ PRIETO [facility] Organization Address City/State/ZIP Co de Phone Number [address] [phone] from Last 3 Months or Most Recently Relevant to Health Maintenance MAYE HERRERA A Personal/Famil y 1970 [address] [facility] [place] [address] MAYE HERRERA A Personal/Famil y 1970 [address] [facility] [address]
--- OUTSIDE RECORDS SUMMARY | 2024-08-19 23:38 | XMS_ITS | Encounter Summary ---
Author Organization [facility] Address [address] [place] [address] Care Team Providers Care Leg Assembler Name Role Phone Unavailable Primary Care [...]
--- OUTSIDE RECORDS SUMMARY | 2024-08-19 23:38 | XMS_ITS | Encounter Summary ---
Author Organization [facility] Address [address] [place] [address] Care Team Providers Care Corrective Therapist Name Role Phone Unavailable Primary Care Provider [...]
--- OUTSIDE RECORDS SUMMARY | 2024-08-19 23:38 | XMS_ITS | Clinical Summary ---
Author Organization [facility] Address [address] [address] Phone Care Team Providers Care Trauma Program Manager Name Role Phone Unavailable Primary Care [...]
--- OUTSIDE RECORDS SUMMARY | 2024-08-19 23:38 | XMS_ITS | Encounter Summary ---
Author Organization [facility] Address [address] [facility] Attn: Epic Prelude ADT [place]AR[place] [address] Care Team Providers Care Floorworker Name Role Phone Unavailable Primary Care Provider [...]
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
[2024-08-20] VITALS (12 sets, daily range): BP systolic 108–168; BP diastolic 72–86; PULSE 58–95; RESP 16–22; TEMP 36.5–36.7; O2SAT 95–97
[2024-08-20 04:45] LABS: Basophils Percent Auto 0.2 % (0.2-1.2); Eosinophils Absolute Auto 0.2 K/mm3 (0-0.3); Eosinophils Percent Auto 2.2 % (0-4.4); Hematocrit 39.8 % (42.0-52.0); Hemoglobin 12.8 g/dL (14.0-18.0); Immature Granulocyte Absolute 0.07 K/mm3 (0.00-0.031); Immature Granulocyte Percent A 0.8 % (0-0.5); Lymphocytes Absolute Auto 1.88 K/mm3 (0.9-3.2); Lymphocytes Percent Auto 21.6 % (18.3-44.2); Mean Corpuscular HGB Conc 32.2 g/dl (32-36); Mean Corpuscular Hemoglobin 29.8 pg (26-34); Mean Corpuscular Volume 92.8 fl (80-100); Mean Platelet Volume 10.6 fl (7.4-10.4); Monocytes Absolute Auto 0.8 K/mm3 (0.1-0.6); Monocytes Percent Auto 8.7 % (2.6-8.5); Neutrophils Absolute Auto 5.8 K/mm3 (1.3-6.7); Neutrophils Percent Auto 66.5 % (45.5-73.1); Platelet Count Result 196 k/mm3 (150-375); Red Blood Count 4.29 M/mm3 (4.6-6.20); Red Cell Distribution Width 12.1 % (11.5-14.5); White Blood Count 8.7 K/mm3 (4.5-10.0)
[2024-08-20 04:58] LABS: Alanine Aminotransferase 66 U/L (6-50); Albumin Level 3.5 g/dL (3.5-5.1); Alkaline Phosphatase 63 U/L (38-126); Anion Gap 1 mmol/L (4-12); Aspartate Amino Transferase 57 U/L (17-59); Bilirubin,Total 0.3 mg/dL (0.2-1.3); Blood Urea Nitrogen 13 mg/dL (9-20); Calcium 8.8 mg/dL (8.4-10.2); Carbon Dioxide 28 mmol/L (22-30); Chloride 109 mmol/L (98-107); Estimated CRCL calculation 95 ml/min; Estimated Glomerular Filt Rate > 60; Glucose 99 mg/dL (65-110); Magnesium 2.1 mg/dL (1.6-2.3); Potassium 3.9 mmol/L (3.4-5.0); Sodium 138 mmol/L (137-145)
--- NOTE | 2024-08-20 09:15 | PCCPR ---
received referral for cardiac rehab. Visited patient at bedside and discussed program after discharge. Information left at bedside.
[2024-08-20] MEDS: SPIRONOLACTONE 25 MG TABLET PO (09:19)
[2024-08-20] MEDS: SACUBITRIL/VALSARTAN 24-26 MG TABLET 1 TAB PO (09:19)
[2024-08-20] MEDS: METOPROLOL SUCCINATE EXT REL 25 MG TABCR PO (09:19)
[2024-08-20] MEDS: ASPIRIN 81 MG ENTERIC TABLET PO (09:19)
[2024-08-20] MEDS: ISOSORBIDE MONONITRATE 30 MG TAB.ER.24H PO (09:20)
[2024-08-20] MEDS: EMPAGLIFLOZIN 10 MG TABLET PO (09:25)
[2024-08-20] MEDS: PANTOPRAZOLE 40 MG TABLET PO (09:26)
--- NOTE | 2024-08-20 09:38 | P.PNIM_ITS ---
Progress Note: A&P Assessment and Plan (1) Non-ST elevation AZ (NSTEMI): Code(s): I21.4 - Non-ST elevation (NSTEMI) myocardial infarction Status: Acute (2) Mixed hyperlipidemia: Code(s): E78.2 - Mixed hyperlipidemia Status: Acute (3) Hypertension: Qualifiers: Hypertension type: primary hypertension Qualified Code(s): I10 - Essential (primary) hypertension Code(s): I10 - Essential (primary) hypertension Status: Acute (4) CAD (coronary artery disease): Code(s): I25.10 - Atherosclerotic heart disease of [place] coronary artery without angina pectoris Status: Acute (5) Acute combined systolic and diastolic congestive heart failure: Code(s): I50.41 - Acute combined systolic (congestive) and diastolic (congestive) heart failure Status: Acute (6) Cardiomyopathy: Code(s): I42.9 - Cardiomyopathy, unspecified Status: Acute Plan Non-ST elevation [place] (NSTEMI): Code(s): I21.4 - Non-ST elevation (NSTEMI) myocardial infarction Status: Acute Assessment and Plan: - EKG, initial: NSR, rate 79. Awaiting formal read. - EKG, repeat (1): Remains in NSR, no significant changes when compared to prior, awaiting formal read. - CXR: No acute cardiopulmonary disease - Troponin: 0.314 -> 0.466 -> 0.688 Continue heparin infusion, aspirin, Lipitor, metoprolol Echo, A1c 5.8, LDL 72. Status post cardiac catheterization that revealed multivessel disease Cardiologists consulted cardiothoracic surgeon for CABG. Ischemic cardiomyopathy and acute combined systolic-diastolic heart failure EF 70% on echocardiogram August 17, 2024 Cardiac catheterization revealed Ischemic cardiomyopathy Mild left ventricular enlargement with severe global hypokinesis, EF of 33% global longitudinal strain negative of 11% Patient is on Entresto 1 tab daily, spironolactone 25 mg daily, Mixed hyperlipidemia: Code(s): E78.2 - Mixed hyperlipidemia Status: Acute Assessment and Plan: - continue home medication: Hypertension: Qualifiers: Hypertension type: primary hypertension Qualified Code(s): I10 - Ess ential (primary) hypertension Code(s): I10 - Essential (primary) hypertension Status: Acute Assessment and Plan: On Entresto 1 tab daily p.o. Metoprolol 25 mg daily p.o., Patient will be transferred to [facility] for further evaluation treatment Before transfer, patient was stable Subjective Date/time seen: 08/20/24 09:38 Interval history: I saw examined patient today patient states he had manner chest pain awaiting morning, denies shortness breath, fever, chills, lightheadedness, abdomen pain, nausea vomiting. Patient is afebrile, blood pressure stable, labs reviewed, unremarkable Exam Narrative: GENERAL: Pleasant, in no acute distress. Well-nourished. - EYES: EOMI. Anicteric. - HENT: Moist mucous membranes. - LUNGS: Clear to auscultation bilateral ly, no wheezing, rhonchi, or rales. - CARDIOVASCULAR: Regular rate and rhyth m. No murmur. No JVD. - ABDOMEN: Soft, non-tender and non-dist ended. No palpable masses. - EXTREMITIES: No edema. Peripheral puls es 2+. Non-tender. - NEUROLOGIC: No focal neurological defi cits. CN II-XII grossly intact. - PSYCHIATRIC: Awake, Alert and oriented x 3. Appropriate mood and affect. - SKIN: No rashes or lesions. Warm. - LYMPH: No cervical lymphadenopathy. Objective Data Vital Signs Vital Signs: Vital Signs - 24 hr 08/19/24 10:00 08/19/24 10:40 08/19/24 11:36 Temperature 97.7 F Pulse Rate 70 69 79 Pulse Rate [Right Radial] Respiratory Rate 20 Blood Pressure 151/77 H Pulse Oximetry 96 Oxygen Delivery 08/19/24 12:00 08/19/24 12:00 08/19/24 13:45 Temperature Pulse Rate 67 61 Pulse Rate [Right Radial] Respiratory Rate 16 Blood Pressure 121/92 H Pulse Oximetry 95 Oxygen Delivery Room Air Room Air 08/19/24 13:45 08/19/24 13:53 08/19/24 14:02 Temperature 97.7 F Pulse Rate 61 Pulse Rate [Right Radial] 61 61 Respiratory Rate 23 H Blood Pressure 153/80 H Pulse Oximetry 95 Oxygen Delivery Room Air 08/19/24 14:15 08/19/24 14:15 08/19/24 14:30 Temperature 97.7 F Pulse Rate 66 58 L Pulse Rate [Right Radial] 66 Respiratory Rate 18 15 Blood Pressure 153/81 H 133/78 Pulse Oximetry 94 94 Oxygen Delivery Room Air Room Air 08/19/24 14:30 08/19/24 14:45 08/19/24 14:45 Temperature Pulse Rate 66 Pulse Rate [Right Radial] 58 L 66 Respiratory Rate 18 Blood Pressure 126/81 Pulse Oximetry 96 Oxygen Delivery Room Air 08/19/24 15:00 08/19/24 15:00 08/19/24 15:15 Temperature Pulse Rate 70 Pulse Rate [Right Radial] 70 64 Respiratory Rate 17 Blood Pressure 131/67 Pulse Oximetry 96 Oxygen Delivery Room Air 08/19/24 15:15 08/19/24 15:30 08/19/24 15:30 Temperature Pulse Rate 64 63 Pulse Rate [Right Radial] 63 Respiratory Rate 15 17 Blood Pressure 144/97 H 152/83 H Pulse Oximetry 96 97 Oxygen Delivery Room Air Room Air 08/19/24 15:45 08/19/24 15:45 08/19/24 16:00 Temperature Pulse Rate 61 Pulse Rate [Right Radial] 61 63 Respiratory Rate 21 H Blood Pressure 154/74 H Pulse Oximetry 96 Oxygen Delivery Room Air 08/19/24 16:00 08/19/24 16:00 08/19/24 16:15 Temperature Pulse Rate 63 72 Pulse Rate [Right Radial] 63 Respiratory Rate 16 Blood Pressure 147/104 H Pulse Oximetry 95 Oxygen Delivery Room Air 08/19/24 16:15 08/19/24 16:30 08/19/24 16:30 Temperature Pulse Rate 63 61 Pulse Rate [Right Radial] 61 Respiratory Rate 21 H 19 Blood Pressure 117/70 120/83 Pulse Oximetry 95 94 Oxygen Delivery Room Air Room Air 08/19/24 16:45 08/19/24 16:45 08/19/24 17:00 Temperature Pulse Rate 64 67 Pulse Rate [Right Radial] 64 Respiratory Rate 18 19 Blood Pressure 126/77 154/89 H Pulse Oximetry 95 96 Oxygen Delivery Room Air Room Air 08/19/24 17:00 08/19/24 17:00 08/19/24 17:15 Temperature 97.7 F Pulse Rate 63 Pulse Rate [Right Radial] 67 Respiratory Rate 18 Blood Pressure 136/73 Pulse Oximetry 99 Oxygen Delivery Room Air 08/19/24 18:00 08/19/24 18:09 08/19/24 19:00 Temperature 97.9 F 97.9 F Pulse Rate 64 64 63 Pulse Rate [Right Radial] Respiratory Rate 20 18 Blood Pressure 144/75 H 127/72 Pulse Oximetry 99 98 Oxygen Delivery 08/19/24 20:00 08/19/24 20:00 08/19/24 20:00 Temperature 97.8 F Pulse Rate 59 L 62 Pulse Rate [Right Radial] Respiratory Rate 18 Blood Pressure 140/75 Pulse Oximetry 99 Oxygen Delivery Room Air 08/19/24 22:00 08/19/24 23:23 08/20/24 00:00 Temperature 97.7 F Pulse Rate 70 67 Pulse Rate [Right Radial] Respiratory Rate 20 Blood Pressure 137/87 Pulse Oximetry 94 Oxygen Delivery Room Air 08/20/24 00:00 08/20/24 02:00 08/20/24 03:51 Temperature 97.9 F Pulse Rate 64 65 67 Pulse Rate [Right Radial] Respiratory Rate 16 Blood Pressure 153/85 H Pulse Oximetry 96 Oxygen Delivery 08/20/24 04:00 08/20/24 04:00 08/20/24 06:00 Temperature Pulse Rate 58 L 60 Pulse Rate [Right Radial] Respiratory Rate Blood Pressure Pulse Oximetry Oxygen Delivery Room Air 08/20/24 07:56 08/20/24 09:19 Temperature 97.8 F Pulse Rate 67 95 Pulse Rate [Right Radial] Respiratory Rate 18 Blood Pressure 168/86 H Pulse Oximetry 96 Oxygen Delivery Intake/Output Intake/Output: Intake & Output 08/17/24 08/18/24 08/19/24 08/20/24 23:59 23:59 23:59 23:59 Intake Total 3042.0 2164.4 1380.0 1350 Output Total 1350 3616 139 6271 Balance 1692.0 914.4 980.0 350 Meds/Results Medications: Active Medications Generic Name Dose Route Start Last Admin Trade Name Freq PRN Reason Stop Dose Admin Acetaminophen 650 mg 08/16/24 16:54 Acetaminophen 325 Mg Tablet PO Q4H PRN Mild Pain (1-3) or Fever Hydrocodone Bitart/Acetaminophen 1 tab 08/16/24 16:54 Hydrocodone/Acetaminophen (*Crx) 5-325 Mg Tablet PO Q4H PRN Pain Rated 4-6 Aspirin 81 mg 08/18/24 09:00 08/20/24 09:19 Aspirin 81 Mg Enteric Tablet PO 81 mg QAM HAL Administration Atorvastatin Calcium 80 mg 08/19/24 18:00 08/19/24 20:56 Atorvastatin 40 Mg Tablet PO 80 mg EVENING HAL Administration Empagliflozin 10 mg 08/20/24 09:00 08/20/24 09:25 Empagliflozin 10 Mg Tablet PO 10 mg DAILY HAL Administration Isosorbide Mononitrate 30 mg 08/18/24 09:00 08/20/24 09:20 Isosorbide Mononitrate 30 Mg Tab.Er.24h PO 30 mg QAM HAL Administration Metoprolol Succinate 25 mg 08/18/24 09:00 08/20/24 09:19 Metoprolol Succinate Ext Rel 25 Mg Tabcr PO 25 mg QAM HAL Administration Morphine Sulfate 2 mg 08/16/24 16:54 Morphine Sulfate (*Crx) 2 Mg/Ml Inj IV PUSH Q2H PRN Pain Rated 7-10 Nitroglycerin 0.4 mg 08/16/24 18:22 Nitroglycerin Sl 0.4 Mg Tablet SUBLINGUAL Q5MIN PRN Chest Pain Ondansetron HCl 4 mg 08/16/24 16:54 Ondansetron Inj 4 Mg/2 Ml Vial IV PUSH Q4H PRN Nausea Pantoprazole Sodium 40 mg 08/16/24 21:50 08/20/24 09:26 Pantoprazole 40 Mg Tablet PO 40 mg QAM HAL Administration Perflutren Lipid Microsphere 0 ml 08/17/24 09:41 Perflutren Lipid Microspheres 1.5 Ml Vial Diluted To 10 Ml Total Volume IV PUSH 08/20/24 09:41 ONCE PRN adequate visualization Protocol Sacubitril/Valsartan 1 tab 08/20/24 09:00 08/20/24 09:19 Sacubitril/Valsartan 24-26 Mg Tablet PO 1 tab DAILY HAL Administration Spironolactone 25 mg 08/20/24 09:00 08/20/24 09:19 Spironolactone 25 Mg Tablet PO 25 mg DAILY HAL Administration Trazodone HCl 50 mg 08/18/24 21:56 08/19/24 23:25 Trazodone Hcl 50 Mg Tablet PO 50 mg HS PRN Administration Insomnia Radiology Results: ITS Impressions Chest X-Ray 08/16/24 15:14 IMPRESSION: 1: NO ACUTE CARDIOPULMONARY DISEASE. Labs Labs: Laboratory Results - last 24 hr 08/19/24 08/20/24 11:15 04:25 WBC 8.7 RBC 4.29 L Hgb 12.8 L Hct 39.8 L MCV 92.8 MCH 29.8 MCHC 32.2 RDW 12.1 Plt Count 196 MPV 10.6 H Immature Gran % (Auto) 0.8 H Neut % (Auto) 66.5 Lymph % (Auto) 21.6 [place] % (Auto) 8.7 H Eos % (Auto) 2.2 Baso % (Auto) 0.2 Lymph # (Auto) 1.88 [place] # (Auto) 0.8 H Eos # (Auto) 0.2 Baso # (Auto) 0.0 Abs Immat Gran (auto) 0.07 H Absolute Neuts (auto) 5.8 Absolute Nucleated RBC 0.000 Nucleated RBC % 0.0 APTT 102.6 H Sodium 138 Potassium 3.9 Chloride 109 H Carbon Dioxide 28 Anion Gap 1 L BUN 13 Creatinine 1.00 Estim Creat Clear Calc 95 Estimated GFR > 60 Glucose 99 Calcium 8.8 Magnesium 2.1 Total Bilirubin 0.3 AST 57 ALT 66 H Alkaline Phosphatase 63 Total Protein 6.0 L Albumin 3.5
--- NOTE | 2024-08-20 10:36 | PM.PNCARD ---
Progress Note: A&P Assessment and Plan (1) Non-ST elevation NJ (NSTEMI): Code(s): I21.4 - Non-ST elevation (NSTEMI) myocardial infarction Status: Acute (2) Mixed hyperlipidemia: Code(s): E78.2 - Mixed hyperlipidemia Status: Acute (3) Acute combined systolic and diastolic congestive heart failure: Code(s): I50.41 - Acute combined systolic (congestive) and diastolic (congestive) heart failure Status: Acute Plan 54-year-old man with CAD status post PCI, ischemic cardiomyopathy with recovered EF, and hyperlipidemia presented with chest pain whose clinical presentation is consistent with non ST elevation NJ Non ST-elevation NJ -aspirin 81 mg p.o. daily, Toprol 25 mg p.o. daily -Found to have RCA [employer] and multivessel disease involving the LAD, prox LCx, and OM -Plan for outpatient CTS referral but in light of ongoing angina will arrange for inpatient transfer for CABG. -Resume heparin gtt per protocol Ischemic cardiomyopathy with recovered EF -would continue his Entresto, Jardiance, spironolactone, and metoprolol succinate Hyperlipidemia -atorvastatin 80 mg every evening Subjective Date/time seen: 08/20/24 10:36 Interval history: Denies any chest pain or shortness breath Date of service 08/20/2024: Patient is complaining of intermittent chest tightness/pressure. He has been having pain on and off all night while at rest. He does not have any other complaints. Telemetry showed 1 short run of nonsustained ventricular tachycardia which was self-limiting and asymptomatic. Review of Systems Review of Systems: All systems reviewed & are unremarkable except as noted in HPI and below Cardiovascular: Cardiovascular: Reports as per HPI Respiratory: Respiratory: Reports as per HPI Exam Narrative: GENERAL: Well-appearing, well-nourished, and in no acute distress. HEAD: Normocephalic, atraumatic. ENT: Mucous membranes moist. NECK: Supple. CHEST: Clear to auscultation. No respiratory distress. HEART: Regular rate and rhythm. Normal peripheral pulses. ABDOMEN: Soft, nontender, nondistended. EXTREMITIES: Normal range of motion. No edema. SKIN: Warm, dry, no rash. NEURO: Alert and oriented x3. PSYCH: Normal mood and affect. Const: General: comfortable and no acute distress Other: , male, nontoxic appearance HENMT: Face/Nose/Sinus: Normal nares present Mouth: Yes moist mucous membranes Eyes: General: appearance normal, both eyes and all related structures Sclera: sclerae normal Pupils: Equal, round and reactive pupils present EOM: EOMs intact bilaterally Neck: Neck: no JVD Resp: Effort & Inspection: normal respiratory effort Auscultation: clear to auscultation bilaterally Cardio: Rate: regular rate Rhythm: regular rhythm Other: S1-S2 present without murmur, rub, ectopy GI: Other: Abdomen soft, nondistended, nontender Skin: General skin exam: normal color and no rashes or lesions noted Wounds: no wounds Neuro: General: gait normal Cranial nerves: Yes Equal, round and reactive pupils present Speech: normal speech Motor exam (neuro): 5/5 motor strength present throughout Sensory Exam: normal sensation Other: A&O x4 Extrem: General: normal to inspection and no edema Psych: Mental Status: mental status grossly normal Affect: normal affect Other: Good insight and judgment, pleasant Objective Data Vital Signs Vital Signs: Vital Signs - 24 hr 08/19/24 10:40 08/19/24 11:36 08/19/24 12:00 Temperature 36.5 C Pulse Rate 69 79 67 Pulse Rate [Right Radial] Respiratory Rate 20 Blood Pressure 151/77 H Pulse Oximetry 96 Oxygen Delivery 08/19/24 12:00 08/19/24 13:45 08/19/24 13:45 Temperature Pulse Rate 61 Pulse Rate [Right Radial] 61 Respiratory Rate 16 Blood Pressure 121/92 H Pulse Oximetry 95 Oxygen Delivery Room Air Room Air 08/19/24 13:53 08/19/24 14:02 08/19/24 14:15 Temperature 36.5 C Pulse Rate 61 Pulse Rate [Right Radial] 61 66 Respiratory Rate 23 H Blood Pressure 153/80 H Pulse Oximetry 95 Oxygen Delivery Room Air 08/19/24 14:15 08/19/24 14:30 08/19/24 14:30 Temperature 36.5 C Pulse Rate 66 58 L Pulse Rate [Right Radial] 58 L Respiratory Rate 18 15 Blood Pressure 153/81 H 133/78 Pulse Oximetry 94 94 Oxygen Delivery Room Air Room Air 08/19/24 14:45 08/19/24 14:45 08/19/24 15:00 Temperature Pulse Rate 66 Pulse Rate [Right Radial] 66 70 Respiratory Rate 18 Blood Pressure 126/81 Pulse Oximetry 96 Oxygen Delivery Room Air 08/19/24 15:00 08/19/24 15:15 08/19/24 15:15 Temperature Pulse Rate 70 64 Pulse Rate [Right Radial] 64 Respiratory Rate 17 15 Blood Pressure 131/67 144/97 H Pulse Oximetry 96 96 Oxygen Delivery Room Air Room Air 08/19/24 15:30 08/19/24 15:30 08/19/24 15:45 Temperature Pulse Rate 63 Pulse Rate [Right Radial] 63 61 Respiratory Rate 17 Blood Pressure 152/83 H Pulse Oximetry 97 Oxygen Delivery Room Air 08/19/24 15:45 08/19/24 16:00 08/19/24 16:00 Temperature Pulse Rate 61 63 Pulse Rate [Right Radial] 63 Respiratory Rate 21 H 16 Blood Pressure 154/74 H 147/104 H Pulse Oximetry 96 95 Oxygen Delivery Room Air Room Air 08/19/24 16:00 08/19/24 16:15 08/19/24 16:15 Temperature Pulse Rate 72 63 Pulse Rate [Right Radial] 63 Respiratory Rate 21 H Blood Pressure 117/70 Pulse Oximetry 95 Oxygen Delivery Room Air 08/19/24 16:30 08/19/24 16:30 08/19/24 16:45 Temperature Pulse Rate 61 64 Pulse Rate [Right Radial] 61 Respiratory Rate 19 18 Blood Pressure 120/83 126/77 Pulse Oximetry 94 95 Oxygen Delivery Room Air Room Air 08/19/24 16:45 08/19/24 17:00 08/19/24 17:00 Temperature Pulse Rate 67 Pulse Rate [Right Radial] 64 67 Respiratory Rate 19 Blood Pressure 154/89 H Pulse Oximetry 96 Oxygen Delivery Room Air 08/19/24 17:00 08/19/24 17:15 08/19/24 18:00 Temperature 36.5 C Pulse Rate 63 64 Pulse Rate [Right Radial] Respiratory Rate 18 Blood Pressure 136/73 Pulse Oximetry 99 Oxygen Delivery Room Air 08/19/24 18:09 08/19/24 19:00 08/19/24 20:00 Temperature 36.6 C 36.6 C 36.6 C Pulse Rate 64 63 59 L Pulse Rate [Right Radial] Respiratory Rate 20 18 18 Blood Pressure 144/75 H 127/72 140/75 Pulse Oximetry 99 98 99 Oxygen Delivery 08/19/24 20:00 08/19/24 20:00 08/19/24 22:00 Temperature Pulse Rate 62 70 Pulse Rate [Right Radial] Respiratory Rate Blood Pressure Pulse Oximetry Oxygen Delivery Room Air 08/19/24 23:23 08/20/24 00:00 08/20/24 00:00 Temperature 36.5 C Pulse Rate 67 64 Pulse Rate [Right Radial] Respiratory Rate 20 Blood Pressure 137/87 Pulse Oximetry 94 Oxygen Delivery Room Air 08/20/24 02:00 08/20/24 03:51 08/20/24 04:00 Temperature 36.6 C Pulse Rate 65 67 Pulse Rate [Right Radial] Respiratory Rate 16 Blood Pressure 153/85 H Pulse Oximetry 96 Oxygen Delivery Room Air 08/20/24 04:00 08/20/24 06:00 08/20/24 07:56 Temperature 36.6 C Pulse Rate 58 L 60 67 Pulse Rate [Right Radial] Respiratory Rate 18 Blood Pressure 168/86 H Pulse Oximetry 96 Oxygen Delivery 08/20/24 09:19 Temperature Pulse Rate 95 Pulse Rate [Right Radial] Respiratory Rate Blood Pressure Pulse Oximetry Oxygen Delivery Intake/Output Intake/Output: Intake & Output 08/17/24 08/18/24 08/19/24 08/20/24 23:59 23:59 23:59 23:59 Intake Total 3042.0 2164.4 1380.0 1590 Output Total 1350 5457 431 9624 Balance 1692.0 914.4 980.0 590 Meds/Results Medications: Active Medications Generic Name Dose Route Start Last Admin Trade Name Freq PRN Reason Stop Dose Admin Acetaminophen 650 mg 08/16/24 16:54 Acetaminophen 325 Mg Tablet PO Q4H PRN Mild Pain (1-3) or Fever Hydrocodone Bitart/Acetaminophen 1 tab 08/16/24 16:54 Hydrocodone/Acetaminophen (*Crx) 5-325 Mg Tablet PO Q4H PRN Pain Rated 4-6 Aspirin 81 mg 08/18/24 09:00 08/20/24 09:19 Aspirin 81 Mg Enteric Tablet PO 81 mg QAM HAL Administration Atorvastatin Calcium 80 mg 08/19/24 18:00 08/19/24 20:56 Atorvastatin 40 Mg Tablet PO 80 mg EVENING HAL Administration Empagliflozin 10 mg 08/20/24 09:00 08/20/24 09:25 Empagliflozin 10 Mg Tablet PO 10 mg DAILY HAL Administration Isosorbide Mononitrate 30 mg 08/18/24 09:00 08/20/24 09:20 Isosorbide Mononitrate 30 Mg Tab.Er.24h PO 30 mg QAM HAL Administration Metoprolol Succinate 25 mg 08/18/24 09:00 08/20/24 09:19 Metoprolol Succinate Ext Rel 25 Mg Tabcr PO 25 mg QAM HAL Administration Morphine Sulfate 2 mg 08/16/24 16:54 Morphine Sulfate (*Crx) 2 Mg/Ml Inj IV PUSH Q2H PRN Pain Rated 7-10 Nitroglycerin 0.4 mg 08/16/24 18:22 Nitroglycerin Sl 0.4 Mg Tablet SUBLINGUAL Q5MIN PRN Chest Pain Ondansetron HCl 4 mg 08/16/24 16:54 Ondansetron Inj 4 Mg/2 Ml Vial IV PUSH Q4H PRN Nausea Pantoprazole Sodium 40 mg 08/16/24 21:50 08/20/24 09:26 Pantoprazole 40 Mg Tablet PO 40 mg QAM HAL Administration Sacubitril/Valsartan 1 tab 08/20/24 09:00 08/20/24 09:19 Sacubitril/Valsartan 24-26 Mg Tablet PO 1 tab DAILY HAL Administration Spironolactone 25 mg 08/20/24 09:00 08/20/24 09:19 Spironolactone 25 Mg Tablet PO 25 mg DAILY HAL Administration Trazodone HCl 50 mg 08/18/24 21:56 08/19/24 23:25 Trazodone Hcl 50 Mg Tablet PO 50 mg HS PRN Administration Insomnia Radiology Results: ITS Impressions Chest X-Ray 08/16/24 15:14 IMPRESSION: 1: NO ACUTE CARDIOPULMONARY DISEASE. Labs Labs: Laboratory Results - last 24 hr 08/19/24 08/20/24 11:15 04:25 WBC 8.7 RBC 4.29 L Hgb 12.8 L Hct 39.8 L MCV 92.8 MCH 29.8 MCHC 32.2 RDW 12.1 Plt Count 196 MPV 10.6 H Immature Gran % (Auto) 0.8 H Neut % (Auto) 66.5 Lymph % (Auto) 21.6 [place] % (Auto) 8.7 H Eos % (Auto) 2.2 Baso % (Auto) 0.2 Lymph # (Auto) 1.88 [place] # (Auto) 0.8 H Eos # (Auto) 0.2 Baso # (Auto) 0.0 Abs Immat Gran (auto) 0.07 H Absolute Neuts (auto) 5.8 Absolute Nucleated RBC 0.000 Nucleated RBC % 0.0 APTT 102.6 H Sodium 138 Potassium 3.9 Chloride 109 H Carbon Dioxide 28 Anion Gap 1 L BUN 13 Creatinine 1.00 Estim Creat Clear Calc 95 Estimated GFR > 60 Glucose 99 Calcium 8.8 Magnesium 2.1 Total Bilirubin 0.3 AST 57 ALT 66 H Alkaline Phosphatase 63 Total Protein 6.0 L Albumin 3.5 Quality VTE Prophylaxis VTE prophylaxis: pharmacologic ordered
[2024-08-20 11:40] LABS: Basophils Percent Auto 0.5 % (0.2-1.2); Eosinophils Absolute Auto 0.2 K/mm3 (0-0.3); Eosinophils Percent Auto 1.9 % (0-4.4); Hematocrit 43.2 % (42.0-52.0); Hemoglobin 13.8 g/dL (14.0-18.0); Immature Granulocyte Absolute 0.06 K/mm3 (0.00-0.031); Immature Granulocyte Percent A 0.7 % (0-0.5); Lymphocytes Absolute Auto 1.36 K/mm3 (0.9-3.2); Lymphocytes Percent Auto 15.5 % (18.3-44.2); Mean Corpuscular HGB Conc 31.9 g/dl (32-36); Mean Corpuscular Hemoglobin 29.7 pg (26-34); Mean Corpuscular Volume 92.9 fl (80-100); Mean Platelet Volume 10.5 fl (7.4-10.4); Monocytes Absolute Auto 0.7 K/mm3 (0.1-0.6); Monocytes Percent Auto 7.9 % (2.6-8.5); Neutrophils Absolute Auto 6.5 K/mm3 (1.3-6.7); Neutrophils Percent Auto 73.5 % (45.5-73.1); Platelet Count Result 208 k/mm3 (150-375); Red Blood Count 4.65 M/mm3 (4.6-6.20); Red Cell Distribution Width 12.1 % (11.5-14.5); White Blood Count 8.8 K/mm3 (4.5-10.0)
[2024-08-20 11:56] LABS: Prothrombin Time 13.7 Seconds (11.1-14.7)
[2024-08-20 11:57] LABS: Partial Thromboplastin Time 26.9 Seconds (22.3-36.8)
[2024-08-20] MEDS: HEPARIN SOD/D5W 100 UNITS/ML 25,000 UNITS/250 ML BAG 10 UNITS IV CONT (15:37)
--- NOTE | 2024-08-20 15:53 | PM.TDS ---
Transfer Discharge Sum: Prov Provider Date of admission: 08/16/24 18:16 Primary care physician: UNKNOWN,DOCTOR Admitting clinician: Abel Loving MD Consults: 08/16/24 16:56 Consult to Physician Routine Comment: Consulting Provider: Denisse Cadet Reason for consultation: nstemi Has provider been notified: Yes 08/19/24 Care Coordination Consult Routine Reason for Consult:: Other DS: Admitting Diagnosis Discharge Date 08/20/24 Admitting Diagnosis (1) Non-ST elevation NJ (NSTEMI): Code(s): I21.4 - Non-ST elevation (NSTEMI) myocardial infarction Status: Acute (2) Mixed hyperlipidemia: Code(s): E78.2 - Mixed hyperlipidemia Status: Acute (3) Hypertension: Qualifiers: Hypertension type: primary hypertension Qualified Code(s): I10 - Essential (primary) hypertension Code(s): I10 - Essential (primary) hypertension Status: Acute (4) CAD (coronary artery disease): Code(s): I25.10 - Atherosclerotic heart disease of [place] coronary artery without angina pectoris Status: Acute (5) Acute combined systolic and diastolic congestive heart failure: Code(s): I50.41 - Acute combined systolic (congestive) and diastolic (congestive) heart failure Status: Acute (6) Cardiomyopathy: Code(s): I42.9 - Cardiomyopathy, unspecified Status: Acute DS: Discharge Diagnosis Discharge Diagnosis (1) Non-ST elevation NJ (NSTEMI): Code(s): I21.4 - Non-ST elevation (NSTEMI) myocardial infarction Status: Acute (2) Mixed hyperlipidemia: Code(s): E78.2 - Mixed hyperlipidemia Status: Acute (3) Hypertension: Qualifiers: Hypertension type: primary hypertension Qualified Code(s): I10 - Essential (primary) hypertension Code(s): I10 - Essential (primary) hypertension Status: Acute (4) CAD (coronary artery disease): Code(s): I25.10 - Atherosclerotic heart disease of [place] coronary artery without angina pectoris Status: Acute (5) Acute combined systolic and diastolic congestive heart failure: Code(s): I50.41 - Acute combined systolic (congestive) and diastolic (congestive) heart failure Status: Acute (6) Cardiomyopathy: Code(s): I42.9 - Cardiomyopathy, unspecified Status: Acute Transfer Discharge Sum: Med Medications Active and Home Medications: Home Medications aspirin 81 mg chewable tablet (Children's Aspirin) 81 mg PO DAILY@0800 30 days #30 tabs 05/06/22 [Rx Confirmed 08/16/24] metoprolol succinate 25 mg tablet,extended release 24 hr (Toprol XL) 25 mg PO QAM 30 days #30 tabs 05/06/22 [Rx Confirmed 08/16/24] atorvastatin 40 mg tablet 80 mg (2 x 40 mg) PO DAILY 30 days #60 tabs 01/04/24 [Rx Confirmed 08/16/24] empagliflozin 10 mg tablet (Jardiance) 10 mg PO DAILY 02/12/24 [History Confirmed 08/16/24] nitroglycerin 0.4 mg sublingual tablet 0.4 mg sublingual Q5-15M PRN Chest Pain 02/12/24 [History Confirmed 08/16/24] sacubitril 24 mg-valsartan 26 mg tablet (Entresto) 1 tablet PO DAILY 02/12/24 [History Confirmed 08/16/24] spironolactone 25 mg tablet (Aldactone) 25 mg PO DAILY 02/12/24 [History Confirmed 08/16/24] Active Medications Acetaminophen (Acetaminophen 325 Mg Tablet) 650 mg PO Q4H PRN PRN Reason: Mild Pain (1-3) or Fever Hydrocodone Bitart/Acetaminophen (Hydrocodone/Acetaminophen (*Crx) 5-325 Mg Tablet) 1 tab PO Q4H PRN PRN Reason: Pain Rated 4-6 Aspirin (Aspirin 81 Mg Enteric Tablet) 81 mg PO QAM [facility] Last Admin: 08/20/24 09:19 Dose: 81 mg Atorvastatin Calcium (Atorvastatin 40 Mg Tablet) 80 mg PO EVENING [facility] Last Admin: 08/19/24 20:56 Dose: 80 mg Empagliflozin (Empagliflozin 10 Mg Tablet) 10 mg PO DAILY [facility] Last Admin: 08/20/24 09:25 Dose: 10 mg Heparin Sodium (Porcine) (Heparin Sodium 5,000 Units/Ml Vial) 4,000 units IV PUSH PRN PRN PRN Reason: aPTT less than 55 seconds Heparin Sodium (Porcine) (Heparin Sodium 5,000 Units/Ml Vial) 3,500 units IV PUSH PRN PRN PRN Reason: aPTT 55 - 70 seconds Heparin Sodium/Dextrose (Heparin Sodium/D5w 100 Units/Ml) 25,000 units in 250 mls @ 10 mls/hr IV CONT .Q24H [facility]; Protocol Last Admin: 08/20/24 15:37 Dose: 1,000 units/hr, 10 mls/hr Isosorbide Mononitrate (Isosorbide Mononitrate 30 Mg Tab.Er.24h) 30 mg PO [facility] Last Admin: 08/20/24 09:20 Dose: 30 mg Metoprolol Succinate (Metoprolol Succinate Ext Rel 25 Mg Tabcr) 25 mg PO [facility] Last Admin: 08/20/24 09:19 Dose: 25 mg Morphine Sulfate (Morphine Sulfate (*Crx) 2 Mg/Ml Inj) 2 mg IV PUSH Q2H PRN PRN Reason: Pain Rated 7-10 Nitroglycerin (Nitroglycerin Sl 0.4 Mg Tablet) 0.4 mg SUBLINGUAL Q5MIN PRN PRN Reason: Chest Pain Ondansetron HCl (Ondansetron Inj 4 Mg/2 Ml Vial) 4 mg IV PUSH Q4H PRN PRN Reason: Nausea Pantoprazole Sodium (Pantoprazole 40 Mg Tablet) 40 mg PO [facility] Last Admin: 08/20/24 09:26 Dose: 40 mg Sacubitril/Valsartan (Sacubitril/Valsartan 24-26 Mg Tablet) 1 tab PO DAILY [facility] Last Admin: 08/20/24 09:19 Dose: 1 tab Spironolactone (Spironolactone 25 Mg Tablet) 25 mg PO DAILY [facility] Last Admin: 08/20/24 09:19 Dose: 25 mg Trazodone HCl (Trazodone Hcl 50 Mg Tablet) 50 mg PO HS PRN PRN Reason: Insomnia Last Admin: 08/19/24 23:25 Dose: 50 mg Transfer Discharge Sum: Hosp Hospital Course Hospital course: Per H&P. 54 y/o M presents here with chest pain with PMH of ischemic cardiomyopathy, CAD, hypertension, mixed hyperlipidemia, and coronary artery stent placement x3 (2021).The patient presents here from home via EMS for further evaluation of chest pain. He reports this is been ongoing for the past year. Pain has been occurring with exertion. 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 Has more recently started occurring with rest. He describes the chest pain as burning (compared to a sunburn), midsternal, radiating into his left arm described as shooting/sharp, intermittent, episodes have lasted over an hour, aggravated by exertion, and alleviated by nitro. He reports the episodes have been increasing over the last month. Endorsing associated diaphoresis, GERD-like symptoms (worse over the last 6 months), and dizziness. Denies nausea. He has a cardiac history of ischemic cardiomyopathy, CAD, and previous cardiac stent placement in 2021 x3. Follows with cardiology at [facility]. Initial VS at presentation: 98? F, HR 81, RR 16, 147/95, and 97% on RA. ED workup showed: WBC 13.9, no anemia, normal coags, no significant electrolyte derangements, creatinine 1.0 and GFR >60, initial troponin 0.314. CXR showed no acute cardiopulmonary disease. Initial EKG showed sinus rhythm, rate 79. Awaiting formal read. The following med issues have been addressed during hospitalization Non-ST elevation NJ (NSTEMI): Code(s): I21.4 - Non-ST elevation (NSTEMI) myocardial infarction Status: Acute Assessment and Plan: - EKG, initial: NSR, rate 79. Awaiting formal read. - EKG, repeat (1): Remains in NSR, no significant changes when compared to prior, awaiting formal read. - CXR: No acute cardiopulmonary disease - Troponin: 0.314 -> 0.466 -> 0.688 Continue heparin infusion, aspirin, Lipitor, metoprolol Echo, A1c 5.8, LDL 72. Status post cardiac catheterization that revealed multivessel disease Cardiologists consulted cardiothoracic surgeon for CABG. Ischemic cardiomyopathy and acute combined systolic-diastolic heart failure EF 70% on echocardiogram August 17, 2024 Cardiac catheterization revealed Ischemic cardiomyopathy Mild left ventricular enlargement with severe global hypokinesis, EF of 33% global longitudinal strain negative of 11% Patient is on Entresto 1 tab daily, spironolactone 25 mg daily, Mixed hyperlipidemia: Code(s): E78.2 - Mixed hyperlipidemia Status: Acute Assessment and Plan: - continue home medication: Hypertension: Qualifiers: Hypertension type: primary hypertension Qualified Code(s): I10 - Essential (primary) hypertension Code(s): I10 - Essential (primary) hypertension Status: Acute Assessment and Plan: On Entresto 1 tab daily p.o. Metoprolol 25 mg daily p.o., Patient will be transferred to [facility] for further evaluation treatment Before transfer, patient was stable Time Spent with Patient Time attestation: Total time spent providing and/or coordinating transfer services: Exam Narrative: GENERAL: Pleasant, in no acute distress. Well-nourished. - EYES: EOMI. Anicteric. - HENT: Moist mucous membranes. - LUNGS: Clear to auscultation bilaterally, no wheezing, rhonchi, or rales. - CARDIOVASCULAR: Regular rate and rhythm. No murmur. No JVD. - ABDOMEN: Soft, non-tender and non-distended. No palpable masses. - EXTREMITIES: No edema. Peripheral pulses 2+. Non-tender. - NEUROLOGIC: No focal neurological deficits. CN II-XII grossly intact. - PSYCHIATRIC: Awake, Alert and oriented x 3. Appropriate mood and affect. - SKIN: No rashes or lesions. Warm. - LYMPH: No cervical lymphadenopathy. DS: Data Data Completed and Pending Labs on day of discharge: Labs from last 24 hours 08/20/24 08/20/24 11:35 04:25 WBC 8.8 8.7 RBC 4.65 4.29 L Hgb 13.8 L 12.8 L Hct 43.2 39.8 L MCV 92.9 92.8 MCH 29.7 29.8 MCHC 31.9 L 32.2 RDW 12.1 12.1 Plt Count 208 196 MPV 10.5 H 10.6 H Immature Gran % (Auto) 0.7 H 0.8 H Neut % (Auto) 73.5 H 66.5 Lymph % (Auto) 15.5 L 21.6 [place] % (Auto) 7.9 8.7 H Eos % (Auto) 1.9 2.2 Baso % (Auto) 0.5 0.2 Lymph # (Auto) 1.36 1.88 [place] # (Auto) 0.7 H 0.8 H Eos # (Auto) 0.2 0.2 Baso # (Auto) 0.0 0.0 Abs Immat Gran (auto) 0.06 H 0.07 H Absolute Neuts (auto) 6.5 5.8 Absolute Nucleated RBC 0.000 0.000 Nucleated RBC % 0.0 0.0 PT 13.7 INR 1.0 APTT 26.9 Sodium 138 Potassium 3.9 Chloride 109 H Carbon Dioxide 28 Anion Gap 1 L BUN 13 Creatinine 1.00 Estim Creat Clear Calc 95 Estimated GFR > 60 Glucose 99 Calcium 8.8 Magnesium 2.1 Total Bilirubin 0.3 AST 57 ALT 66 H Alkaline Phosphatase 63 Total Protein 6.0 L Albumin 3.5
== END 2024-08-20 18:42 | disposition other institution (70) | DRG 281 ==
LOC: ANHED 14:53 → ANHIMU 18:24
PROVIDERS: Internal Medicine; Internal Medicine Interventional Cardiology; Nurse Practitioner; Student in an Organized Health Care Education/Training Program; Admitting Provider Internal Medicine; Emergency Provider Emergency Medicine; Visit Provider Hospitalist
PROC: 4A023N7 Measurement of Cardiac Sampling and Pressure, Left Heart, Percutaneous Approach (ICD-10-PCS; CPT 93452; principal; 2024-08-19 13:00)
DX: I21.4 Non-ST elevation (NSTEMI) myocardial infarction (principal); T82.855A Stenosis of coronary artery stent, initial encounter; I11.0 Hypertensive heart disease with heart failure; I25.10 Atherosclerotic heart disease of native coronary artery without angina pectoris; I25.5 Ischemic cardiomyopathy; E78.2 Mixed hyperlipidemia; M54.2 Cervicalgia; M54.50 Low back pain, unspecified; G89.29 Other chronic pain; F17.210 Nicotine dependence, cigarettes, uncomplicated; Z79.82 Long term (current) use of aspirin; Z95.5 Presence of coronary angioplasty implant and graft
CPT/HCPCS: 36415; 71046; 80053; 80061; 83036; 83690; 83735; 84484; 85025; 85610; 85730; 93005; 93306; 93458; 94640; 96374; 96375; 99291; A9270; C1769; C1887; C1894; J1644; J2003; J2250; J2305; J3010; J7030; J7040

== ENCOUNTER 2024-08-30 12:14 | Emergency (ER) | payer OTHER, MEDICAID, SELFPAY ==
--- NOTE | ~2024-08-30 | XR_ITS ---
EXAMINATION: XR chest 2V DATE: 08/30/2024 13:01 INDICATION: Shortness of breath TECHNIQUE: PA and lateral views of the chest were obtained. COMPARISON: Chest radiograph dated 08/16/24 FINDINGS: Blunting at the bilateral posterior sulci consistent with very small bilateral pleural effusions. Nip ple shadows project over the bilateral lower lungs. No airspace opacities, pulmonary edema or pneumot horax. The cardiomediastinal silhouette is normal. Venous sternotomy wires likely related to reported recent coronary artery bypass grafting. Coronary artery stenting. IMPRESSION: 1. Very small bilateral pleural effusions. Reviewed, dictated and finalized at location B. [facility]
[2024-08-30 12:16] VITALS: BP 113/85; PULSE 75; RESP 16; TEMP 36.8; O2SAT 98
[2024-08-30 12:19] VITALS: PULSE 75
--- NOTE | 2024-08-30 12:20 | ECG_ITS ---
Test Date: 2024-08-30 12:13:48 Measurements Intervals [place] Rate: 75 P: 119 OR: 152 QRS: 65 QRSD: 105 T: 149 QT: 373 QTc: 418 Interpretive Statements SINUS RHYTHM POSSIBLE LEFT ATRIAL ENLARGEMENT [-0.1mV P-WAVE IN V1/V2] LOW QRS VOLTAGE IN EXTREMITY LEADS [QRS DEFLECTION < 0.5 mV IN LIMB LEADS] MODERATE ST DEPRESSION [0.05+ mV ST DEPRESSION] ABNORMAL QRS-T ANGLE [QRS-T AXIS DIFFERENCE > 60] ABNORMAL ECG Electronically Signed On 08-30-2024 17:25:14 [employer]ICENS[employer] SPECIALIST by Sachin Mcfadden M.D.
[2024-08-30 12:48] LABS: Basophils Percent Auto 0.3 % (0.2-1.2); Eosinophils Absolute Auto 0.5 K/mm3 (0-0.3); Eosinophils Percent Auto 3.8 % (0-4.4); Hematocrit 36.3 % (42.0-52.0); Hemoglobin 12.1 g/dL (14.0-18.0); Immature Granulocyte Absolute 0.23 K/mm3 (0.00-0.031); Lymphocytes Absolute Auto 1.79 K/mm3 (0.9-3.2); Lymphocytes Percent Auto 15.2 % (18.3-44.2); Mean Corpuscular HGB Conc 33.3 g/dl (32-36); Mean Corpuscular Hemoglobin 30.3 pg (26-34); Mean Corpuscular Volume 90.8 fl (80-100); Mean Platelet Volume 9.8 fl (7.4-10.4); Monocytes Absolute Auto 1.1 K/mm3 (0.1-0.6); Monocytes Percent Auto 8.9 % (2.6-8.5); Neutrophils Absolute Auto 8.2 K/mm3 (1.3-6.7); Neutrophils Percent Auto 69.8 % (45.5-73.1); Platelet Count Result 374 k/mm3 (150-375); Red Cell Distribution Width 12.3 % (11.5-14.5); White Blood Count 11.8 K/mm3 (4.5-10.0)
[2024-08-30 12:57] LABS: Alanine Aminotransferase 30 U/L (6-50); Albumin Level 4.1 g/dL (3.5-5.1); Alkaline Phosphatase 67 U/L (38-126); Anion Gap 5 mmol/L (4-12); Aspartate Amino Transferase 29 U/L (17-59); Bilirubin,Total 0.5 mg/dL (0.2-1.3); Blood Urea Nitrogen 23 mg/dL (9-20); Calcium 9.5 mg/dL (8.4-10.2); Carbon Dioxide 27 mmol/L (22-30); Chloride 104 mmol/L (98-107); Estimated CRCL calculation 89 ml/min; Estimated Glomerular Filt Rate > 60; Glucose 99 mg/dL (65-110); Potassium 4.3 mmol/L (3.4-5.0); Sodium 136 mmol/L (137-145)
[2024-08-30 13:11] LABS: NT Pro B Type Natriuretic Pept 515 pg/mL (19.9-100); Troponin I 0.067 ng/mL (0.000-0.034)
--- NOTE | 2024-08-30 14:02 | ED.GENADULT ---
HPI - General Adult General Chief complaint: Unspecified Stated complaint: chest wall pain Time Seen by Provider: 08/30/24 12:20 Source: patient Mode of arrival: EMS Limitations: no limitations History of Present Illness HPI narrative: 54-year-old status post CABG 5 days ago at [facility] these presents to the ER with a complains of generalized pain since last night. Patient states that he was discharged from [facility] to [facility] for rehab , patient states s he has not received his oxycodone tablets as prescribed and he is having pain all over. He states that he was supposed to get oxycodone 10s and he only had 1 tablet since yesterday. He presently has no shortness of breath fever chills however complains of mild swelling on the sternum which is been there since the time of surgery. He has states that he had CT scan of his chest and multiple x-rays and was told by Cardiothoracic surgery Dr. Daily that it is not concerning at this time denies any fever or chills. He states the swelling is about the same size from the time he got discharged from the hospital Onset (ago): day(s) (1) Location: chest Radiation: non-radiation Severity: mild Quality: aching Pain Consistency: constant Relieving factors: none Exacerbating factors: none Associated symptoms: denies other symptoms Related Data Home Medications ?Medication ?Instructions ?Recorded ?Confirmed ?Last Taken ?Type empagliflozin 10 mg tablet 10 mg PO DAILY 02/12/24 08/16/24 07/25/24 History (Jardiance) nitroglycerin 0.4 mg sublingual 0.4 mg sublingual Q5-15M PRN Chest 02/12/24 08/16/24 02/09/24 History tablet Pain sacubitril 24 mg-valsartan 26 mg 1 tablet PO DAILY 02/12/24 08/16/24 07/25/24 History tablet (Entresto) spironolactone 25 mg tablet 25 mg PO DAILY 02/12/24 08/16/24 07/25/24 History (Aldactone) Allergies Allergy/AdvReac Type Severity Reaction Status Date / Time No Known Allergies Allergy Verified 02/12/24 10:03 Review of Systems Review of Systems: All systems reviewed & are unremarkable except as noted in HPI and below Constitutional: Constitutional: Reports no additional constitutional complaints Eyes: Eyes: Reports no additional eye complaints ENT: Reports system reviewed and no additional complaints, except as documented Cardiovascular: Cardiovascular: Reports no additional cardiovascular complaints Respiratory: Respiratory: Reports no additional respiratory complaints Gastrointestinal: Gastrointestinal: Reports no additional gastrointestinal complaints Musculoskeletal: Musculoskeletal: Reports no additional musculoskeletal complaints Neurologic: Reports system reviewed and no additional complaints, except as documented Psychiatric: Psychiatric: Reports no additional psychiatric complaints PMFSH Past Medical History Medical History (HFpEF) heart failure with preserved ejection fraction echo on 01/03/24 showed Normal systolic function, estimated EF > 70% Grade 1 diastolic dysfunction No significant valvular disease Chronic neck pain Chronic back pain Tobacco use Coronary artery disease Mixed hyperlipidemia Ischemic cardiomyopathy Mild left ventricular enlargement with severe global hypokinesis, EF of 33% global longitudinal strain negative of 11% Surgical History Surgical History History of appendectomy History of heart artery stent History of cardiac catheterization Family History Family History Father No pertinent past medical history Heart disease, Onset Age: 58 Has had 7 stents Other Lung cancer Cerebrovascular accident Acute myocardial infarction Mother MVA (motor vehicle accident), Onset Age: 37 COD Social History Social History Social History: [employer] where he works in [employer]ing [employer]. He lives in his own apartment alone. He does have a 10-year-old son. He still smokes 0.5 packs of cigarettes per day for the last 6 months. He originally smoked at least 1 pack of cigarettes per day previously Since his mid 20s. He occasionally drinks alcohol but denies heavy alcohol use. He occasionally smokes marijuana. Code status: Full code. Surrogate decision maker: Greg (father) Smoking packs per day: 0.30 Smoking cigarettes per day: 6.0 Years smoked: 30 Smoking pack-years: 9.00 Smoking status: Current every day smoker Alcohol intake: current Drinks per week: 5 Alcohol use details: Socially Substance use: current Substance use type: marijuana Last use: 08/15/24 Do You Feel Safe in your Home?: Yes Lack of Transportation: No Lack of Food: Never True Current Housing: I Have Housing Concerned About Future Housing: No Difficulty Paying Gas/Electric Bills: No Difficulty Paying for Meds: No Currently Unemployed: No Education: Associate Degree Difficulty w/ Childcare or Family Care: No Living arrangements: with family Spiritual care concerns: No Exam Narrative: GENERAL: Well-appearing, well-nourished, and in no acute distress. HEAD: Normocephalic, atraumatic. EYES: PERRLA and EOMI. ENT: Nares clear, no rhinorrhea or epistaxis. Mucous membranes moist. NECK: Supple. CHEST: Clear to auscultation. No respiratory distress. sternotomy incision present. A small swelling about 1.5 cm present on the sternum HEART: Regular rate and rhythm. No murmur heard. Normal peripheral pulses. ABDOMEN: Soft, nontender, nondistended, normal active bowel sounds. EXTREMITIES: Normal range of motion. No edema. SKIN: Warm, dry, no rash. NEURO: No focal deficits. Alert and oriented x3. PSYCH: Normal mood and affect. Course Course Emergency Course: notified patient about his lab work, chest x-ray findings. Recommended him to follow up with Cardiothoracic surgery is scheduled for a follow-up. He feels comfortable going back to the senior care. Vital Signs Vital signs: Vital Signs Temperature 36.8 C 08/30/24 12:16 Pulse Rate 75 08/30/24 12:16 Respiratory Rate 16 08/30/24 12:16 Blood Pressure 113/85 08/30/24 12:16 Pulse Oximetry 98 08/30/24 12:16 Temperature 36.8 C 08/30/24 12:16 Pulse Rate 75 08/30/24 12:19 Respiratory Rate 16 08/30/24 12:16 Blood Pressure 113/85 08/30/24 12:16 Pulse Oximetry 98 08/30/24 12:16 Medical Decision Making Differential Diagnosis Differential Diagnosis: Pneumonia, chest wall pain postoperative pain Medical Records Medical records reviewed: Yes I reviewed the external patient's medical records. Vital Signs Vital Signs: Vital Signs Temperature 36.8 C 08/30/24 12:16 Pulse Rate 75 08/30/24 12:16 Respiratory Rate 16 08/30/24 12:16 Blood Pressure 113/85 08/30/24 12:16 Pulse Oximetry 98 08/30/24 12:16 Temperature 36.8 C 08/30/24 12:16 Pulse Rate 75 08/30/24 12:19 Respiratory Rate 16 08/30/24 12:16 Blood Pressure 113/85 08/30/24 12:16 Pulse Oximetry 98 08/30/24 12:16 Lab Data Lab results reviewed: Yes I reviewed the patient's lab results. 08/30/24 12:42 08/30/24 12:42 Labs: Lab Results 08/30/24 Range/Units 12:42 WBC 11.8 H (4.5-10.0) K/mm3 RBC 4.00 L (4.6-6.20) M/mm3 Hgb 12.1 L (14.0-18.0) g/dL Hct 36.3 L (42.0-52.0) % MCV 90.8 (80-100) fl MCH 30.3 (26-34) pg MCHC 33.3 (32-36) g/dl RDW 12.3 (11.5-14.5) % Plt Count 374 D (150-375) k/mm3 MPV 9.8 (7.4-10.4) fl Immature Gran % (Auto) 2.0 H (0-0.5) % Neut % (Auto) 69.8 (45.5-73.1) % Lymph % (Auto) 15.2 L (18.3-44.2) % [place] % (Auto) 8.9 H (2.6-8.5) % Eos % (Auto) 3.8 (0-4.4) % Baso % (Auto) 0.3 (0.2-1.2) % Lymph # (Auto) 1.79 (0.9-3.2) K/mm3 [place] # (Auto) 1.1 H (0.1-0.6) K/mm3 Eos # (Auto) 0.5 H (0-0.3) K/mm3 Baso # (Auto) 0.0 (0.0-0.1) K/mm3 Abs Immat Gran (auto) 0.23 H (0.00-0.031) K/mm3 Absolute Neuts (auto) 8.2 H (1.3-6.7) K/mm3 Absolute Nucleated RBC 0.000 (0.0-0.012) K/mm3 Nucleated RBC % 0.0 (0.0-0.2) % Sodium 136 L (137-145) mmol/L Potassium 4.3 (3.4-5.0) mmol/L Chloride 104 (98-107) mmol/L Carbon Dioxide 27 (22-30) mmol/L Anion Gap 5 (4-12) mmol/L BUN 23 H D (9-20) mg/dL Creatinine 1.00 (0.7-1.3) mg/dL Estim Creat Clear Calc 89 ml/min Estimated GFR > 60 (59 - ) Glucose 99 (65-110) mg/dL Calcium 9.5 (8.4-10.2) mg/dL Total Bilirubin 0.5 (0.2-1.3) mg/dL AST 29 (17-59) U/L ALT 30 (6-50) U/L Alkaline Phosphatase 67 (38-126) U/L Troponin I 0.067 H* (0.000-0.034) ng/mL NT-Pro-B Natriuret Pep 515 H (19.9-100) pg/mL Total Protein 8.0 (6.3-8.2) g/dL Albumin 4.1 (3.5-5.1) g/dL Imaging Data Radiologist's impression: ITS Impressions Chest X-Ray 08/30/24 13:02 IMPRESSION: 1. Very small bilateral pleural effusions. ECG Data EKG #1: ECG completion date: 08/30/24 ECG completion time: 12:13 EKG Interpretation: normal rate (75), sinus rhythm, no ectopy, normal QT and NL axis Discharge Plan Discharge Clinical Impression: Post-operative pain Patient Disposition: Home, Self-Care Condition: Stable Instructions: Antibiotic Form, Pain Management After Surgery (DC) Additional Instructions: continue home medication. Follow-up with your manager telemarketing and your cardiothoracic surgeon in the next few days. Patient Language: Tamazight Prescriptions: No Action aspirin [Children's Aspirin] 81 mg Tablet,Chewable 81 mg PO DAILY@0800 30 Days Qty: 30 11RF metoprolol succinate [Toprol XL] 25 mg Tablet Extended Release 24 Hr 25 mg PO QAM 30 Days Qty: 30 3RF atorvastatin 40 mg Tablet 80 mg PO DAILY 30 Days Qty: 60 1RF Jardiance 10 mg tablet 10 mg PO DAILY Entresto 24-26 mg tablet 1 tablet PO DAILY spironolactone [Aldactone] 25 mg Tablet 25 mg PO DAILY nitroglycerin 0.4 mg Tablet, Sublingual 0.4 mg SUBLINGUAL Q5-15M PRN (Reason: Chest Pain) Rx Instructions: do not exceed 3 doses per episode Follow-up/Referrals: Cesar Jorgensen MD [Physician] - UNKNOWN,DOCTOR [Primary Care Provider] - Time of Disposition: 14:14
[2024-08-30] MEDS: oxyCODONE/ACETAMINOPHEN (*CRX) 5-325 MG TABLET 1 TABLET PO (14:10)
--- NOTE | 2024-08-30 14:42 | PCCCNOTE ---
Called to the ED to get pt a ride back to his facility, [facility]. Cab voucher given, housing resources also given to pt.
[2024-08-30 14:48] VITALS: BP 142/86; PULSE 78; RESP 16; O2SAT 98
== END 2024-08-30 14:49 | disposition home or self-care (01) ==
PROVIDERS: Emergency Provider Family Medicine
DX: T82.847A Pain due to cardiac prosthetic devices, implants and grafts, initial encounter (principal); G89.18 Other acute postprocedural pain; Z95.1 Presence of aortocoronary bypass graft; I50.30 Unspecified diastolic (congestive) heart failure; I25.10 Atherosclerotic heart disease of native coronary artery without angina pectoris; E78.2 Mixed hyperlipidemia; F17.210 Nicotine dependence, cigarettes, uncomplicated
CPT/HCPCS: 36415; 71046; 80053; 83880; 84484; 85025; 93005; 99284; A9270

== ENCOUNTER 2025-03-22 14:37 | Emergency (ER) | payer MEDICAID, SELFPAY ==
--- NOTE | ~2025-03-22 | CT_ITS ---
Non-contrast CT scan of the Abdomen and Pelvis Clinical indication: Left flank pain Technique: 2.5 mm axial scans were obtained through the abdomen and pelvis without intravenous or or al contrast. Dose reduction technique was used on this scan by utilizing automated exposure control a nd iterative reconstruction technique. The dose-length product (DLP) was 729.45 mGy-cm. Findings: Images through the lung bases reveal no abnormalities. Bilateral renal stones are present, largest in the right kidney measuring up to 5 mm. No ureteral sto ne or hydronephrosis evident. There is diffuse hepatic steatosis. The spleen, pancreas, gallbladder, and adrenals appear normal. T here is no aortic aneurysm. There is no evidence of bowel obstruction. Images through the pelvis were performed. There is no evidence of ascites or lymphadenopathy. Urinary bladder unremarkable. No pelvic mass seen. Impression: Bilateral nonobstructing renal stones, as detailed above. Reviewed, dictated and finalized at [facility]. Impression: Bilateral nonobstructing renal stones, as detailed above.
--- OUTSIDE RECORDS SUMMARY | 2025-03-22 14:39 | XMS_ITS | Referral Summary ---
Author Organization [facility] [address] Address [address] [place] [address] Care Team Providers Care Assistant Purchasing Manager Name Role Phone No, Physician Primary Care Provider [phone] Nunu Sanchez NP Unavailable [phone] Saul Daily MD Unavailable [phone] Eligio Porras MD Unavailable Allergies Active Allergy Reactions Criticality Noted Date Comments Chlorhexidine Rash Medium 08/26/2024 Medications furosemide (LASIX) 40 mg tablet Take 1 tablet (40 mg total) by mouth daily for 14 days 14 tablet 4 Active gabapentin (NEURONTIN) 300 mg capsule Take 1 capsule (300 mg total) by mouth 3 (three) times a day for 14 days 21 capsule 1 4 Active polyethylene glycol (MIRALAX) 17 gram/dose bulk powderIndications:c onstipation Take 17 g by mouth daily for 7 days 119 g 4 Active senna-docusate (PERICOLACE) 8.6-50 mgIndications:const ipation Take 1 tablet by mouth daily for 7 days 7 tablet 4 Active potassium chloride ER (KLOR-CON) 20 mEq CR tablet Take 1 tablet (20 mEq total) by mouth daily for 14 days 14 tablet 4 Active acetaminophen 500 mg capsule Take 2 capsules (1,000 mg total) by mouth every 6 (six) hours as needed for mild pain (pain scale 1-4) Active acetaminophen ER (TYLENOL) 650 mg 8 hr tablet Take 1 tablet (650 mg total) by mouth every 4 (four) hours as needed for pain Active melatonin 5 mg tablet Take 1 tablet (5 mg total) by mouth nightly Active methocarbamoL (ROBAXIN) 750 mg tablet Take 1 tablet (750 mg total) by mouth 3 (three) times a day Active HYDROcodone-acetami nophen (NORCO) 5-325 mg per tabletIndications:P ain Take 1 tablet by mouth every 8 (eight) hours as needed for pain Active aspirin 81 mg enteric coated tablet Take 1 tablet (81 mg total) by mouth daily 30 tablet 3 5 04/24/20 25 Active atorvastatin (LIPITOR) 40 mg tablet Take 1 tablet (40 mg total) by mouth nightly 30 tablet 3 5 04/24/20 25 Active clopidogreL (PLAVIX) 75 mg tablet Take 1 tablet (75 mg total) by mouth daily 30 tablet 3 5 04/24/20 25 Active metoprolol tartrate (LOPRESSOR) 25 mg immediate release tablet Take 1 tablet (25 mg total) by mouth 2 (two) times a day 30 tablet 3 5 04/24/20 25 Active empagliflozin (JARDIANCE) 10 mg tabletIndications:D ilated cardiomyopathy (HCC) Take 1 tablet (10 mg total) by mouth daily 30 tablet 3 5 Active Active Problems Problem Noted Date Diagnosed Date Coronary artery disease of n ative heart with stable angina pectoris 08/22/2024 Dyslipidemia 08/21/2024 Chronic diastolic congestive heart failure 08/21 Former smoker 08/21/2024 CAD in [place] artery 08/20/2024 Stable angina pectoris 01/31/2024 History of cardiomyopathy 05/18/2022 Coronary artery disease invo lving [place] coronary artery of [place] heart without angina pectoris 05/18/2022 Primary hypertension 05/18/2022 Social History Tobacco Use Types Packs/Day Years Used Date Smoking Tobacco: Former Cigarettes 0.3 34.9 S tarted: 05/05/1990 Smokeless Tobacco: Current Tobacco Cessation:Ready to Q uit: Not Asked; Counseling Given: Not Answered [facility] Utilities Answer Date Recorded In the past 12 months has [employer], [employer], or water [employer] threatened to shut off services in your home? Patient declined 08/21/2024 Social Connection and Isolat ion Panel [NHANES] Answer Date Recorded In a typical week, how many times do you talk on the phone with family, friends, or neighbors? More than three times a week 08/21/2024 How often do you get togethe r with friends or relatives? Never 08/21/2024 How often do you attend chur ch or mormon services? Never 08/21/2024 Do you belong to any clubs o r organizations such as anabaptism groups, unions, fraternal or athletic groups, or school groups? No 08/21/2024 How often do you attend meet ings of the clubs or organizations you belong to? Never 08/21/2024 Are you , , di vorced, , never , or living with a partner? 08/21/2024 AUDIT-C Answer Date Recorded Q1: How often do you have a drink containing alc ohol? Monthly or less 08/21/2024 Average Number of Drinks Not on file 024 Frequency of Binge Drinking Not on file 08/04 Overall Financial Resource Strain (CARDIA) Answe r Date Recorded How hard is it for you to pa y for the very basics like food, housing, medical care, and heating? Very hard 08/21/2024 PHQ-2 Answer Date Recorded PHQ-2 Total Score (If total score is 3 or more points, staff should administer the PHQ-9) 4 08/21/2024 Hunger Vital Sign Answer Date Recorded Within the past 12 months, y ou worried that your food would run out before you got the money to buy more. Never true 08/21/20 24 Within the past 12 months, t he food you bought just didn't last and you didn't have money to get more. Never true 08/21/2024 PRAPARE - Transportation Answer Date Re corded In the past 12 months, has l ack of transportation kept you from medical appointments or from getting medications? Yes 08/04 In the past 12 months, has l ack of transportation kept you from meetings, work, or from getting things needed for daily living? Yes 08/21/2024 PHQ-9 Answer Date Recorded PHQ-9 Total Score 9 08/21/2024 Housing Stability Vital Sign Answer Kolby e Recorded In the last 12 months, was t here a time when you were not able to pay the mortgage or rent on time? Yes 08/21/2024 In the past 12 months, how m any times have you moved where you were living? Not on file 08/21/2024 [facility] were you [facility] or living in a group home (including now)? Yes 08/21/2024 Personal Safety Answer Date Recorded Have you ever been in or are you currently in a harmful physical or emotional relationship or is someone making you feel afraid or unsafe? 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 Male 7:27 PM DESIGN ENGINEERING TECHNICIAN Gender Identity Not on file Sexual Orientation Not on file Last Filed Vital Signs Vital Sign Reading Time Taken Comments Blood Pressure 132/78 10/03/2024 2:27 PM DESIGN ENGINEERING TECHNICIAN Pulse 71 10/03/2024 2:27 PM DESIGN ENGINEERING TECHNICIAN Temperature 36.6 C (97.9 F) 08/29/2024 12:34 PM DESIGN ENGINEERING TECHNICIAN Respiratory Rate 16 09/26/2024 1:49 PM DESIGN ENGINEERING TECHNICIAN Oxygen Saturation 96% 10/03/2024 2:27 PM DESIGN ENGINEERING TECHNICIAN Inhaled Oxygen Concentration - - Weight 117.9 kg (260 lb) 10/03/2024 2:27 PM DESIGN ENGINEERING TECHNICIAN Height 180.3 cm (5' 11) 10/03/2024 2:27 PM DESIGN ENGINEERING TECHNICIAN Body Mass Index 36.26 10/03/2024 2:27 PM DESIGN ENGINEERING TECHNICIAN Plan of Treatment Not on file Medical Devices Implanted Type Area Master Certified Rv Technician Device Identifier Shelf Expiration Date Model / Serial / Lot [employer] Plate Bone Low Profile 4 Hole Box Sternum Ti 115.103.04 - [id number] Implanted:Qty: 1 on 08/23/2024 by Saul Daily MD at [facility] Plate N/A: Sternum [employer] 115.103.04 / / [employer] Plate Bone Low Profile 6 Hole H Shape Sternum Ti 115.102.06 - [id number] Implanted:Qty: 1 on 08/23/2024 by Saul Daily MD at [facility] Plate N/A: Sternum [employer] 115.102.06 / / [employer] Plate Bone Low Profile 6 Hole O Shape Sternum Ti 115.104.06 - [id number] Implanted:Qty: 1 on 08/23/2024 by Saul Daily MD at [facility] Plate N/A: Sternum [employer] 115.104.06 / / [employer] Screw Bone Slf Drl Full Thread Locking 3.5x16mm Ti 100.035.16 - [id number] Implanted:Qty: 10 on 08/23/2024 by Saul Daily MD at [facility] Screw N/A: Sternum [employer] 100.035.16 / / [employer] Screw Bone Slf Drl Full Thread Locking 3.5x18mm Ti 100.035.18 - [id number] Implanted:Qty: 6 on 08/23/2024 by Saul Daily MD at [facility] Screw N/A: Sternum [employer] 100.035.18 / / [place] [address] [facility] IDPA [facility] IDNM Advance Directives For more information, please contact: [phone] * Full Code (Latest Code Status on File) Date Activated Date Inactivated Comments 08/23/2024 1:35 PM 08/29/2024 9:25 PM * Full Code Date Activated Date Inactivated Comments 08/21/2024 3:09 AM 08/23/2024 1:35 PM Care Teams Assistant Purchasing Manager Relationship Specialty Start Date End Date No, Physician PCP - General 05/04/22 Nunu Sanchez NP [address] [place] [address] [id number] Nurse Practitioner Cardiovascular Disease 01/31/24 Saul Daily MD [address] [address] Surgeon Cardiothoracic Surgery 08/26/24 Eligio Porras MD [address] [facility] [address] [address] Consulting Physician Cardiology 08/26/24
--- OUTSIDE RECORDS SUMMARY | 2025-03-22 14:39 | XMS_ITS | Clinical Summary ---
Author Organization [facility] Address [address] [place] [address] Phone Care Team Providers Care Swimming Pool Installer And Servicer Name Role Phone Unavailable Primary Care Provider Unavailabl e Allergies No known active allergies Medications oxyCODONE (ROXICODONE) 5 mg tabletIndication s:Contusion of abdominal wall, initial encounter,Contus ion of duodenum, initial encounter Take 1 Tablet (5 mg) by mouth every 4 hours as needed for Pain. Max Daily Amount: 30 mg 20 Tablet 05/06/2024 Active Encounters Date Type Department Care Team Description 03/19/2025 External Device Data [facility] Provider, Abstract 03/04/2025 External Device Data [facility] Provider, Abstract 03/04/2025 External Device Data [facility] Provider, Abstract 01/23/2025 External Device Data [facility] Provider, Abstract 01/22/2025 External Device Data [facility] Provider, Abstract 01/21/2025 External Device Data [facility] Provider, Abstract 01/14/2025 External Device Data [facility]CTION Provider, Abstract from Last 3 Months Social History Tobacco Use Types Packs/Day Years Used Date Smoking Tobacco: Every Day Cigarettes 0.5 21.5 Started: 2003 Tobacco Cessation:Ready to Q uit: Not Asked; Counseling Given: Not Answered Sex and Gender Information Value Date Recorded Sex Assigned at Not on file Legal Sex Male 10:34 PM CDT Gender Identity Not on file Sexual Orientation Not on file Last Filed Vital Signs Vital Sign Reading Time Taken Comments Blood Pressure 118/76 05/06/2024 8:00 PM CDT Pulse 71 05/06/2024 6:00 PM CDT Temperature 37.2 C (98.9 F) 05/06/2024 4:37 PM CDT Respiratory Rate 18 05/06/2024 4:37 PM CDT Oxygen Saturation 94% 05/06/2024 6:00 PM CDT Inhaled Oxygen Concentration - - Weight 108.9 kg (240 lb) 05/06/2024 4:37 PM CDT Height 181.6 cm (5' 11.5) 05/06/2024 4:37 PM CD T Body Mass Index 33.01 05/06/2024 4:37 PM CDT Plan of Treatment Health Maintenance Due Date Last Done Comments Pre-Diabetes and Diabetes Screening 1968 DTAP/TDAP/TD VACCINES (1 - Tdap) 1987 HEPATITIS B VACCINES (1 of 3 - 19+ 3-dose series) 10/1986 COLORECTAL SCREENING 2013 Colorectal Cancer Screening 2013 FIT-DNA Q 3 years 2013 FIT/FOBT Q 1 year 2013 Flex Sig/CT Colonography Q 5 years 2013 ZOSTER VACCINE (1 of 2) 2018 INFLUENZA VACCINE (#1) 2025 Insurance MEDICAID [place] [facility] INDIVIDUAL EXCHANGE [id number]
--- OUTSIDE RECORDS SUMMARY | 2025-03-22 14:39 | XMS_ITS | Clinical Summary ---
Author Organization [facility] [address] [facility] [address] Address [address] [place] [address] Care Team Providers Care City Planner Name Role Phone No, Physician Primary Care Provider [phone] Nunu Sanchez NP Unavailable [phone] Saul Daily MD Unavailable [phone] Eligio Porras MD Unavailable Allergies Active [...] failure 08/21 Former smoker 08/21/2024 CAD in [place] artery 08/20/2024 Stable angina pectoris 01/31/2024 History of cardiomyopathy 05/18/2022 Coronary artery disease invo lving [place] coronary artery of [place] heart without angina pectoris 05/18/2022 Primary hypertension 05/18/2022 Surgical History Surgery Date Site/Laterality Comments APPENDECTOMY 05/06/2019 Right Medical History Medical History Date Comments Hyperlipidemia Hypertension Heart disease Family History Medical History Relation Name Comments Heart disease Father Car Accident Mother Relation Name Status Comments Father Alive Mother Social History Tobacco Use Types Packs/Day Years Used Date Smoking Tobacco: Former Cigarettes 0.3 34.9 S tarted: 05/05/1990 Smokeless Tobacco: Current Tobacco Cessation:Ready to Q uit: Not Asked; Counseling Given: Not Answered [facility] Utilities Answer Date Recorded In the past 12 months has th e electric, gas, oil, or water company threatened to shut off services in your [...] often do you attend chur ch or confucianist services? Never 08/21/2024 Do you belong to any clubs o r organizations such as anglican groups, unions, fraternal or athletic groups, or [...] any time in the past 12 m [facility], were you homeless or living in a skilled nursing (including now)? Yes 08/21/2024 Personal Safety Answer Date Recorded Have you ever been in or are you currently in a harmful physical or emotional relationship or is someone making you feel afraid or unsafe? 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 Male 7:27 PM HIGH PRESSURE FIRER Gender Identity Not on file Sexual Orientation Not on file Obstetrics History Last Filed Vital Signs Vital Sign Reading Time Taken Comments Blood Pressure 132/78 10/03/2024 2:27 PM HIGH PRESSURE FIRER Pulse 71 10/03/2024 2:27 PM HIGH PRESSURE FIRER Temperature 36.6 C (97.9 F) 08/29/2024 12:34 PM HIGH PRESSURE FIRER Respiratory Rate 16 09/26/2024 1:49 PM HIGH PRESSURE FIRER Oxygen Saturation 96% 10/03/2024 2:27 PM HIGH PRESSURE FIRER Inhaled Oxygen Concentration - - Weight 117.9 kg (260 lb) 10/03/2024 2:27 PM HIGH PRESSURE FIRER Height 180.3 cm (5' 11) 10/03/2024 2:27 PM HIGH PRESSURE FIRER Body Mass Index 36.26 10/03/2024 2:27 PM HIGH PRESSURE FIRER Plan of Treatment Health Maintenance Due Date Last Done Comments Colon Cancer Screening-Colonoscopy 1968 Hepatitis C Screening 1968 Prostate Cancer Screening-PSA 1968 Hepatitis B Screening 1986 Regular Well Visit/Exam 18-64 1986 Pneumococcal vaccine <65 (1 of 2 - PCV) 1987 Zoster Vaccine (1 of 2) 2018 Influenza Vaccine (Season Ended) 2025 Depression Screening 08/20/2025 08/20/2024, 08/20/20 24 DTaP/Tdap/Td Vaccine (3 - Td or Tdap) 09/20/2031, 10/19/2012 Medical Devices Implanted Type Area Plating Machine Operator Device Identifier Shelf Expiration Date Model / Serial / Lot [employer] Plate Bone Low Profile 4 Hole Box Sternum Ti 115.103.04 - [id number] Implanted:Qty: 1 on 08/23/2024 by Saul Daily MD at [facility] Plate N/A: Sternum [employer] 115.103.04 / / [employer] Plate Bone Low Profile 6 Hole H Shape Sternum Ti 115.102.06 - [id number] Implanted:Qty: 1 on 08/23/2024 by Saul Daily MD at [facility] Plate N/A: Sternum [employer] 115.102.06 / / [employer] Plate Bone Low Profile 6 Hole O Shape Sternum Ti 115.104.06 - [id number] Implanted:Qty: 1 on 08/23/2024 by Saul Daily MD at [facility] Plate N/A: Sternum [employer] 115.104.06 / / [employer] Screw Bone Slf Drl Full Thread Locking 3.5x16mm Ti 100.035.16 - [id number] Implanted:Qty: 10 on 08/23/2024 by Saul Daily MD at [facility] Screw N/A: Sternum [employer] 100.035.16 / / [employer] Screw Bone Slf Drl Full Thread Locking 3.5x18mm Ti 100.035.18 - [id number] Implanted:Qty: 6 on 08/23/2024 by Saul Daily MD at [facility] Screw N/A: Sternum [employer] 100.035.18 / / [facility] [place] [address] [facility] [place] [address] Advance Directives For more information, please contact: [phone] * Full Code (Latest Code Status on File) Date Activated Date Inactivated Comments 08/23/2024 1:35 PM 08/29/2024 9:25 PM * Full Code Date Activated Date Inactivated Comments 08/21/2024 3:09 AM 08/23/2024 1:35 PM Care Teams City Planner Relationship Specialty Start Date End Date No, Physician PCP - General 05/04/22 Nunu Sanchez NP [address] [address] Nurse Practitioner Cardiovascular Disease 01/31/24 Saul Daily MD [address] [address] Surgeon Cardiothoracic Surgery 08/26/24 Eligio Porras MD [address] [facility] [address] [address] Consulting Physician Cardiology 08/26/24
--- OUTSIDE RECORDS SUMMARY | 2025-03-22 14:39 | XMS_ITS | Clinical Summary ---
Author Organization [facility] Address [address] [facility] [place] [address] Care Team Providers Care Mix Mill Tender Name Role Phone Unavailable Primary Care Provider Unavailabl e Source Comments [facility],non-owned Affiliates and Associated Physician Practices is amultiple site organization consisting of ambulatory clinics and hospital sitesin [place], [place], [place] and [place]. This disclosure is being madepursuant to the Care Everywhere program and may not contain all information available regarding this patient. Last updated 18.[facility] [employer] Allergies Active Allergy Reactions Criticality Noted Date Comments Peanut Butter Flavor Angioedema High 02/04/2019 Medications * Be aware that medications may not be up to date on this document. Alwaysverify current medications with the patient. ibuprofen (MOTRIN) 800 MG tablet Take 1 tablet by mouth every 6 hours as needed for Pain 30 tablet 02/04/2019 Active amLODIPine (NORVASC) 5 MG tablet Take 5 mg by mouth once daily 02/18/2019 Active HYDROcodone-acet aminophen (NORCO) 5-325 MG tablet Take 1 tablet [...] at Not on file Legal Sex Male 6:27 PM KILN CLEANER Gender Identity Not on file Sexual Orientation Not on file Last Filed Vital Signs Vital Sign Reading Time Taken Comments Blood Pressure 166/97 03/01/2019 8:06 AM CDT Pulse 86 03/01/2019 8:06 AM CDT Temperature 36.6 C (97.8 F) 02/28/2019 12:43 PM CDT Respiratory Rate 16 03/01/2019 8:06 AM CDT Oxygen Saturation 95% 03/01/2019 8:06 AM CDT Inhaled Oxygen Concentration - - Weight 104.3 kg (230 lb) 02/28/2019 12:43 PM CDT Height 182.9 cm (6') 02/28/2019 12:43 PM CDT Body Mass Index 31.19 02/28/2019 12:43 PM CDT Plan of Treatment Health Maintenance Due Date Last Done Comments COLOGUARD (AGES 45-75) - COLON CA SCREENING 1968 COLON MONITORING 1968 COLONOSCOPY - COLON CA SCREENING 1968 CT COLONOGRAPHY - COLON CA SCREENING 1968 Colorectal Cancer Screening 1968 FIT - COLON CA SCREENING 1968 FLEX SIG - COLON CA SCREENING 1968 LIPID TESTING 1968 HEPATITIS C SCREENING 06/01/1986 DTAP/TDAP/TD VACCINES (1 - Tdap) 1987 HEPATITIS B VACCINE (1 of 3 - 19+ 3-dose series) 1987 PNEUMOCOCCAL VACCINE 50+ (1 of 1 - PCV) 2018 ZOSTER VACCINE (1 of 2) 2018 SCREENING FOR DIABETES 02/28/2022 9, 02/18/2019, 02/18/2019, Additional history exists COVID-19 VACCINE ( season) 2024 DEPRESSION SCREENING 09/04/2024 INFLUENZA VACCINE (#1) 2025 HIV SCREENING Completed 02/28/2019 HIB VACCINE Aged Out No longer eligi ble based on patient's age to complete this topic HPV VACCINE Aged Out No longer eligi ble based on patient's age to complete this topic MENINGOCOCCAL (Group B) VACCINE SHARED DECISION-MAKING Aged Out No longer eligible based on patient's age to complete this topic MENINGOCOCCAL GROUPS A/C/Y/W VACCINE Aged Out No longer eligible based on patient's age to complete [...] ve Non-react judi 02/28/2019 4:24 PM CDT [facility] Comment: Neither HIV-1 p24 Antigen nor HIV-1/HIV-2 Antibodies are detected. Blood BLOOD SPECIMEN / Unknown Venipuncture / Unknown 02/28/2019 3:41 PM CDT 02/28/2019 3:46 PM CDT Carline Pardo MD LAB - HEMATOLOGY ORDERABLES Final Result [address] [phone] * COMPREHENSIVE METABOLIC PANEL (02/28/2019 3:41 PM CDT) Pathologist [facility] BUN 11 7 - 26 mg/dL 02/28/2019 4:03 PM CDT [facility] Creatinine 0.7 0.6 - 1.2 mg/dL 02/28/2019 4:03 PM CDT [facility] Sodium 141 136 - 145 mmol/L 02/28/2019 4:03 PM CDT [facility] Potassium 4.2 3.5 - 4.5 mmol/L 02/28/2019 4:03 PM T [facility] Chloride 106 98 - 107 mmol/L 02/28/2019 4:03 PM T [facility] CO2 24 22 - 29 mmol/L 02/28/2019 4:03 PM T [facility] Glucose 79 70 - 115 mg/dL 02/28/2019 4:03 PM CDT [facility] Calcium 9.5 8.4 - 10.2 mg/dL 02/28/2019 4:03 PM T [facility] Protein Total 7.4 6.0 - 8.3 g/dL 02/28/2019 4:03 PM [facility] Albumin 3.9 3.4 - 5.0 g/dL 02/28/2019 4:03 PM [facility] Bilirubin Total 0.3 0.2 - 1.2 mg/dL 02/28/2019 4:03 PM [facility] Alkaline Phosphatase 80 40 - 150 Units/L 02/28/2019 4:03 PM [facility] ALT 26 0 - 55 Units/L 02/28/2019 4:03 PM [facility] AST 15 5 - 34 Units/L 02/28/2019 4:03 PM [facility] Anion Gap 15 8 - 18 02/28/2019 4:03 PM [facility] BUN/Creatinine Ratio 16 7 - 23 02/28/2019 4:03 PM [facility] Osmolality Calculated 290 270 - 300 mOsm/kg 02/28/2019 4:03 PM [facility] Albumin/Globulin Ratio 1.1 1.1 - 2.3 02/28/2019 4:03 PM [facility] eGFR >60 >60 mL/min/1.7 3 m2 02/28/2019 4:03 PM [facility] Blood BLOOD SPECIMEN / Unknown Venipuncture / Unknown 02/28/2019 3:41 PM CDT 02/28/2019 3:46 PM CDT Carline Pardo MD LAB - CHEMISTRY ORDERABLES F inal Result [facility] [address] [place] [address] from Last 3 Months or Most Recently Relevant to [place] [address] MEDICAID - OUT OF STATE * Guarantor: MAYE HERRERA Account Type Relation to Patient Date of Phone Billing Address Personal/Family [address] [place] [id number] [place] * Guarantor: MAYE HERRERA A Account Type Relation to Patient Date of Phone Billing Address Personal/Family 1970 [address] [place] [id number] MEDICAID [facility]
[2025-03-22 15:51] VITALS: BP 181/107; PULSE 73; RESP 20; TEMP 36.6; O2SAT 98
--- OUTSIDE RECORDS SUMMARY | 2025-03-22 17:57 | XMS_ITS | Clinical Summary ---
Author Organization [facility] [address] [facility] [address] Address [address] [place] [address] Care Team Providers Care Hcc Coders Name Role Phone No, Physician Primary Care Provider [phone] Nunu Sanchez NP Unavailable Saul Daily MD Unavailable [phone] Eligio Porras MD Unavailable Allergies Active [...] failure 08/21 Former smoker 08/21/2024 CAD in [place] artery 08/20/2024 Stable angina pectoris 01/31/2024 History of cardiomyopathy 05/18/2022 Coronary artery disease invo lving [place] coronary artery of [place] heart without angina pectoris 05/18/2022 Primary hypertension [...] uit: Not Asked; Counseling Given: Not Answered [facility] Utilities Answer Date Recorded In the [...] often do you attend chur ch or tenriism services? Never 08/21/2024 Do you belong to any clubs o r organizations such as judaism groups, unions, fraternal or athletic groups, or [...] time in the past 12 m [facility], were you homeless or living in a long-term (including now)? Yes 08/21/2024 Personal Safety Answer Date Recorded Have you ever been in or are you currently in a harmful physical or emotional relationship or is someone making you feel afraid or unsafe? 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 MILL Gender Identity Not on file Sexual Orientation Not on file Obstetrics History Last Filed Vital Signs Vital Sign Reading Time Taken Comments Blood Pressure 132/78 10/03/2024 2:27 PM ROLLER BILLET MILL Pulse 71 10/03/2024 2:27 PM ROLLER BILLET MILL Temperature 36.6 C (97.9 F) 08/29/2024 12:34 PM ROLLER BILLET MILL Respiratory Rate 16 09/26/2024 1:49 PM ROLLER BILLET MILL Oxygen Saturation 96% 10/03/2024 2:27 PM ROLLER BILLET MILL Inhaled Oxygen Concentration - - Weight 117.9 kg (260 lb) 10/03/2024 2:27 PM ROLLER BILLET MILL Height 180.3 cm (5' 11) 10/03/2024 2:27 PM ROLLER BILLET MILL Body Mass Index 36.26 10/03/2024 2:27 PM ROLLER BILLET MILL Plan of Treatment Health Maintenance Due Date [...] 09/20/2031, 10/19/2012 Medical Devices Implanted Type Area Traffic Enumerator Device Identifier Shelf Expiration Date Model / Serial / Lot [employer] Plate Bone Low Profile 4 Hole Box Sternum Ti 115.103.04 - [id number] Implanted:Qty: 1 on 08/23/2024 by Saul Daily MD at [facility] Plate N/A: Sternum [employer] 115.103.04 / / [employer] Plate Bone Low Profile 6 Hole H Shape Sternum Ti 115.102.06 - [id number] Implanted:Qty: 1 on 08/23/2024 by Saul Daily MD at [facility] Plate N/A: Sternum [employer] 115.102.06 / / [employer] Plate Bone Low Profile 6 Hole O Shape Sternum Ti 115.104.06 - [id number] Implanted:Qty: 1 on 08/23/2024 by Saul Daily MD at [facility] Plate N/A: Sternum [employer] 115.104.06 / / [employer] Screw Bone Slf Drl Full Thread Locking 3.5x16mm Ti 100.035.16 - [id number] Implanted:Qty: 10 on 08/23/2024 by Saul Daily MD at [facility] Screw N/A: Sternum [employer] 100.035.16 / / [employer] Screw Bone Slf Drl Full Thread Locking 3.5x18mm Ti 100.035.18 - [id number] Implanted:Qty: 6 on 08/23/2024 by Saul Daily MD at [facility] Screw N/A: Sternum [employer] 100.035.18 / / [facility] [place] [address] [place] [address] [address] Advance Directives For more information, please contact: [phone] * Full Code (Latest Code Status on File) Date Activated Date Inactivated Comments 08/23/2024 1:35 PM 08/29/2024 9:25 PM * Full Code Date Activated Date Inactivated Comments 08/21/2024 3:09 AM 08/23/2024 1:35 PM Care Teams Hcc Coders Relationship Specialty Start Date End Date No, Physician PCP - General 05/04/22 Nunu Sanchez NP [address] [address] Nurse Practitioner Cardiovascular Disease 01/31/24 Saul Daily MD [address] [address] Surgeon Cardiothoracic Surgery 08/26/24 Eligio Porras MD [address] [facility] [address] [address] Consulting Physician Cardiology 08/26/24
--- OUTSIDE RECORDS SUMMARY | 2025-03-22 17:57 | XMS_ITS | Referral Summary ---
Author [facility] [address] [place] [address] Care Team Providers Care Wheat Combine Driver Name Role Phone No, Physician Primary Care Provider [phone] Nunu Sanchez NP Unavailable [phone] Saul Daily MD Unavailable [phone] Eligio Porras MD Unavailable Allergies Active [...] failure 08/21 Former smoker 08/21/2024 CAD in [place] artery 08/20/2024 Stable angina pectoris 01/31/2024 History of cardiomyopathy 05/18/2022 Coronary artery disease invo lving [place] coronary artery of [place] heart without angina pectoris 05/18/2022 Primary hypertension 05/18/2022 Social History Tobacco Use Types Packs/Day Years Used Date Smoking Tobacco: Former Cigarettes 0.3 34.9 S tarted: 05/05/1990 Smokeless Tobacco: Current Tobacco Cessation:Ready to Q uit: Not Asked; Counseling Given: Not Answered [facility] Utilities Answer Date Recorded In the past 12 months has [employer], or water [employer] threatened to shut off services in your [...] often do you attend chur ch or confucianism services? Never 08/21/2024 Do you belong to [...] any time in the past 12 m [facility], were you homeless or living in a residential (including now)? Yes 08/21/2024 Personal Safety Answer Date Recorded Have you ever been in or are you currently in a harmful physical or emotional relationship or is someone making you feel afraid or unsafe? 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 Gender Identity Not on file Sexual Orientation Not on file Last Filed Vital Signs Vital Sign Reading Time Taken Comments Blood Pressure 132/78 10/03/2024 2:27 PM DIAL REFINISHER Pulse 71 10/03/2024 2:27 PM DIAL REFINISHER Temperature 36.6 C (97.9 F) 08/29/2024 12:34 PM DIAL REFINISHER Respiratory Rate 16 09/26/2024 1:49 PM DIAL REFINISHER Oxygen Saturation 96% 10/03/2024 2:27 PM DIAL REFINISHER Inhaled Oxygen Concentration - - Weight 117.9 kg (260 lb) 10/03/2024 2:27 PM DIAL REFINISHER Height 180.3 cm (5' 11) 10/03/2024 2:27 PM DIAL REFINISHER Body Mass Index 36.26 10/03/2024 2:27 PM DIAL REFINISHER Plan of Treatment Not on file Medical Devices Implanted Type Area Exhibit Builder Device Identifier Shelf Expiration Date Model / Serial / Lot [employer] Plate Bone Low Profile 4 Hole Box Sternum Ti 115.103.04 - [id number] Implanted:Qty: 1 on 08/23/2024 by Saul Daily MD at [facility] Plate N/A: Sternum [employer] 115.103.04 / / [employer] Plate Bone Low Profile 6 Hole H Shape Sternum Ti 115.102.06 - [id number] Implanted:Qty: 1 on 08/23/2024 by Saul Daily MD at [facility] Plate N/A: Sternum [employer] 115.102.06 / / [employer] Plate Bone Low Profile 6 Hole O Shape Sternum Ti 115.104.06 - [id number] Implanted:Qty: 1 on 08/23/2024 by Saul Daily MD at [facility] Plate N/A: Sternum [employer] 115.104.06 / / [employer] Screw Bone Slf Drl Full Thread Locking 3.5x16mm Ti 100.035.16 - [id number] Implanted:Qty: 10 on 08/23/2024 by Saul Daily MD at [facility] Screw N/A: Sternum [employer] 100.035.16 / / [employer] Screw Bone Slf Drl Full Thread Locking 3.5x18mm Ti 100.035.18 - [id number] Implanted:Qty: 6 on 08/23/2024 by Saul Daily MD at [facility] Screw N/A: Sternum [employer] 100.035.18 / / [place] [address] [facility] IDPA [facility] Advance Directives For more information, please contact: [phone] * Full Code (Latest Code Status on File) Date Activated Date Inactivated Comments 08/23/2024 1:35 PM 08/29/2024 9:25 PM * Full Code Date Activated Date Inactivated Comments 08/21/2024 3:09 AM 08/23/2024 1:35 PM Care Teams Wheat Combine Driver Relationship Specialty Start Date End Date No, Physician PCP - General 05/04/22 Nunu Sanchez NP [address] [place] [id number] Nurse Practitioner Cardiovascular Disease 01/31/24 Saul Daily MD [address] [address] Surgeon Cardiothoracic Surgery 08/26/24 Eligio Porras MD [address] [facility] [address] [address] Consulting Physician Cardiology 08/26/24
--- OUTSIDE RECORDS SUMMARY | 2025-03-22 17:57 | XMS_ITS | Clinical Summary ---
Author Organization [facility] Address [address] [place] [address] Phone Care Team Providers Care Critical Care Technician Name Role Phone Unavailable Primary Care [...] INFLUENZA VACCINE (#1) 2025 Insurance MEDICAID [place] [facility] INDIVIDUAL EXCHANGE [id number]
--- OUTSIDE RECORDS SUMMARY | 2025-03-22 17:57 | XMS_ITS | Clinical Summary ---
Author Organization [facility] Address [address] [place] [address] Care Team Providers Care Negative Cleaner Name Role Phone Unavailable Primary Care Provider Unavailabl e Source Comments [facility],non-owned Affiliates and Associated Physician Practices is amultiple site organization consisting of ambulatory clinics and hospital sitesin [place], [place], [place] and [place]. This disclosure is being madepursuant to the Care Everywhere program and may not contain all information available regarding this patient. 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 Blood BLOOD SPECIMEN / Unknown Venipuncture / Unknown 02/28/2019 3:41 PM CDT 02/28/2019 3:46 PM CDT Carline Pardo MD LAB - HEMATOLOGY ORDERABLES Final Result [address] [phone] * COMPREHENSIVE METABOLIC PANEL (02/28/2019 3:41 PM CDT) Pathologist [facility] BUN 11 7 - 26 mg/dL 02/28/2019 4:03 PM CDT [facility] Creatinine 0.7 0.6 - 1.2 mg/dL 02/28/2019 4:03 PM CDT [facility] Sodium 141 136 - 145 mmol/L 02/28/2019 4:03 PM CDT [facility] Potassium 4.2 3.5 - 4.5 mmol/L 02/28/2019 4:03 PM T [facility] Chloride 106 98 - 107 mmol/L 02/28/2019 4:03 PM T [facility] CO2 24 22 - 29 mmol/L 02/28/2019 4:03 PM T [facility] Glucose 79 70 - 115 mg/dL 02/28/2019 4:03 PM CDT [facility] Calcium 9.5 8.4 - 10.2 mg/dL 02/28/2019 4:03 PM T [facility] Protein Total 7.4 6.0 - 8.3 g/dL 02/28/2019 4:[address] [facility] Albumin 3.9 3.4 - 5.0 g/dL 02/28/2019 4:03 PM [facility] Bilirubin Total 0.3 0.2 - 1.2 mg/dL 02/28/2019 4:03 PM [facility] Alkaline Phosphatase 80 40 - 150 Units/L 02/28/2019 4:03 PM [facility] ALT 26 0 - 55 Units/L 02/28/2019 4:03 PM [facility] AST 15 5 - 34 Units/L 02/28/2019 4:03 PM [facility] Anion Gap 15 8 - 18 02/28/2019 4:03 PM [facility] BUN/Creatinine Ratio 16 7 - 23 02/28/2019 4:03 PM [facility] Osmolality Calculated 290 270 - 300 mOsm/kg 02/28/2019 4:03 PM [facility] Albumin/Globulin Ratio 1.1 1.1 - 2.3 02/28/2019 4:03 PM [facility] eGFR >60 >60 mL/min/1.7 3 m2 02/28/2019 4:03 PM [facility] Blood BLOOD SPECIMEN / Unknown Venipuncture / Unknown 02/28/2019 3:41 PM CDT 02/28/2019 3:46 PM CDT Carline Pardo MD LAB - CHEMISTRY ORDERABLES F inal Result [facility] [address] [place] [address] from Last 3 Months or Most Recently Relevant to [place] [address] MEDICAID - OUT OF STATE * Guarantor: MAYE HERRERA Account Type Relation to Patient Date of Phone Billing Address Personal/Family [address] [place] [id number] [place] - [place] * Guarantor: MAYE HERRERA A Account Type Relation to Patient Date of Phone Billing Address Personal/Family 1970 [address] [place] [id number] MEDICAID [facility]
[2025-03-22 18:20] VITALS: BP 179/109; PULSE 69; RESP 17; O2SAT 98
[2025-03-22 18:25] VITALS: BP 185/109; PULSE 74; RESP 24; O2SAT 99
[2025-03-22 18:25] LABS: Hematocrit 45.0 % (42.0-52.0); Hemoglobin 14.7 g/dL (14.0-18.0); Immature Granulocyte Percent A 0.5 % (0-0.5); Lymphocytes Absolute Auto 1.67 K/mm3 (0.9-3.2); Mean Corpuscular HGB Conc 32.7 g/dl (32-36); Mean Corpuscular Hemoglobin 28.6 pg (26-34); Mean Corpuscular Volume 87.5 fl (80-100); Nucleated Red Blood Cells Absolute Auto 0.000 K/mm3 (0.0-0.012); Nucleated Red Blood Cells Perc 0.0 % (0.0-0.2); Platelet Count Result 240 k/mm3 (150-375); Red Blood Count 5.14 M/mm3 (4.6-6.20); White Blood Count 8.4 K/mm3 (4.5-10.0)
[2025-03-22] MEDS: HYDROcodone/acetaminophen (*CRX) 5-325 MG TABLET 1 TAB PO (18:25)
[2025-03-22 18:27] LABS: Add Urine Microscopic? NO; Appearance Urine Clear (Clear); Glucose Urine UA Negative (Negative); Leukocyte Esterase Ur Negative LEU/UL (Negative); Nitrate Urine Negative (Negative); Specific Grav Ur 1.015 (1.001-1.035)
[2025-03-22 18:37] LABS: Alanine Aminotransferase 35 U/L (6-50); Albumin Level 4.1 g/dL (3.5-5.1); Alkaline Phosphatase 86 U/L (38-126); Anion Gap 9 mmol/L (4-12); Aspartate Amino Transferase 37 U/L (17-59); Bilirubin,Total 0.4 mg/dL (0.2-1.3); Blood Urea Nitrogen 8 mg/dL (9-20); Calcium 9.0 mg/dL (8.4-10.2); Carbon Dioxide 25 mmol/L (22-30); Chloride 104 mmol/L (98-107); Estimated CRCL calculation 125 ml/min; Estimated Glomerular Filt Rate > 60; Glucose 84 mg/dL (65-110); Potassium 3.9 mmol/L (3.4-5.0); Sodium 138 mmol/L (137-145); Total Protein 7.3 g/dL (6.3-8.2)
[2025-03-22 18:38] LABS: INR 1.0; Prothrombin Time 13.5 Seconds (11.1-14.7)
[2025-03-22 18:39] LABS: Partial Thromboplastin Time 27.8 Seconds (22.3-36.8)
--- NOTE | 2025-03-22 19:44 | ED.GENADULT ---
HPI - General Adult General Chief complaint: Back Pain/Injury Stated complaint: L flank pain Time Seen by Provider: 03/22/25 17:25 History of Present Illness HPI narrative: 54-year-old male present to the emergency department for evaluation for 3 weeks intermittent left back pain. Patient does have a prior history of kidney stones and suspects this may be a kidney stone. Patient states he has been able passes previous stones. Denies pain with urination. Patient denies any specific injury. Patient denies any associated nausea vomiting or diarrhea. Related Data Home Medications ?Medication ?Instructions ?Recorded ?Confirmed ?Last Taken ?Type empagliflozin 10 mg tablet 10 mg PO DAILY 02/12/24 08/16/24 07/25/24 History (Jardiance) nitroglycerin 0.4 mg sublingual 0.4 mg sublingual Q5-15M PRN Chest 02/12/24 08/16/24 02/09/24 History tablet Pain sacubitril 24 mg-valsartan 26 mg 1 tablet PO DAILY 02/12/24 08/16/24 07/25/24 History tablet (Entresto) spironolactone 25 mg tablet 25 mg PO DAILY 02/12/24 08/16/24 07/25/24 History (Aldactone) Allergies Allergy/AdvReac Type Severity Reaction Status Date / Time No Known Allergies Allergy Verified 02/12/24 10:03 Review of Systems Review of Systems: All systems reviewed & are unremarkable except as noted in HPI and below PMFSH Past Medical History Medical History (HFpEF) heart failure with preserved ejection fraction echo on 01/03/24 showed Normal systolic function, estimated EF > 70% Grade 1 diastolic dysfunction No significant valvular disease Chronic neck pain Chronic back pain Tobacco use Coronary artery disease Mixed hyperlipidemia Ischemic cardiomyopathy Mild left ventricular enlargement with severe global hypokinesis, EF of 33% global longitudinal strain negative of 11% Surgical History Surgical History History of appendectomy History of heart artery stent History of cardiac catheterization Family History Family History Father No pertinent past medical history Heart disease, Onset Age: 60 Has had 7 stents Other Lung cancer Cerebrovascular accident Acute myocardial infarction Mother MVA (motor vehicle accident), Onset Age: 37 COD Social History Social History Social History: [employer] 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 He lives in his own apartment alone. He does have a 10-year-old son. He still smokes 0.5 packs of cigarettes per day for the last 6 months. He originally smoked at least 1 pack of cigarettes per day previously Since his mid 20s. He occasionally drinks alcohol but denies heavy alcohol use. He occasionally smokes marijuana. Code status: Full code. Surrogate decision maker: Greg (father) Smoking packs per day: 0.30 Smoking cigarettes per day: 6.0 Years smoked: 30 Smoking pack-years: 9.00 Smoking status: Current every day smoker Alcohol intake: current Drinks per week: 5 Alcohol use details: Socially Substance use: current Substance use type: marijuana Last use: 08/15/24 Do You Feel Safe in your Home?: Yes Lack of Transportation: No Lack of Food: Never True Current Housing: I Have Housing Concerned About Future Housing: No Difficulty Paying Gas/Electric Bills: No Difficulty Paying for Meds: No Currently Unemployed: No Education: Associate Degree Difficulty w/ Childcare or Family Care: No Living arrangements: with family Spiritual care concerns: No Exam Narrative: APPEARANCE: Well appearing, no pain, no distress, well-nourished. HEAD: normocephalic, atraumatic. EYES: PERRLA/EOMI, conjunctivae clear. NOSE: Normal no drainage EARS:TMS clear with good light reflex. THROAT: Pharynx clear, no exudate. NECK: Supple. No adenopathy, no masses. RESPIRATORY: Airway patent, respirations nonlabored. Clear to auscultation bilaterally, no rales, rhonchi, wheezing. CARDIOVASCULAR: Regular rate and rhythm without murmurs rubs or gallops. ABDOMINAL: No reproducible left CVA tenderness to palpation MUSCULOSKELETAL: Moves all extremities. Strength/ROM intact, No edema, No calf tenderness. Patient's pain was reproducible with position NEURO: Alert. Cranial nerves II through XII intact. Good gait. Good coordination SKIN: Warm, dry. Normal Color Course Vital Signs Vital signs: Vital Signs Temperature 97.9 F 03/22/25 15:51 Pulse Rate 73 03/22/25 15:51 Respiratory Rate 20 03/22/25 15:51 Blood Pressure 181/107 H 03/22/25 15:51 Pulse Oximetry 98 03/22/25 15:51 Temperature 97.9 F 03/22/25 15:51 Pulse Rate 69 03/22/25 20:14 Respiratory Rate 19 03/22/25 20:14 Blood Pressure 170/105 H 03/22/25 20:14 Pulse Oximetry 98 03/22/25 20:14 Oxygen Delivery Room Air 03/22/25 18:20 Medical Decision Making MDM Narrative Medical decision making narrative: 54-year-old male presenting ED for evaluation for left flank pain. Patient is currently afebrile and leukocytosis hemoglobin of 14.7. Patient has an INR 1.0. No acute abnormalities on his CMP UA was negative for infection and for hematuria. CT scan was negative for ureteral calculi. Suspect patient's symptoms are secondary to muscular strain. Patient will provide medication for pain control in addition to Flexeril for muscle spasm. Patient was updated results of his workup he was comfortable plan for discharge and close follow-up. Differential Diagnosis Differential Diagnosis: Colitis, diverticulitis, ureteral calculi, UTI, muscular strain Vital Signs Vital Signs: Vital Signs Temperature 97.9 F 03/22/25 15:51 Pulse Rate 73 03/22/25 15:51 Respiratory Rate 03/22/25 15:51 Blood Pressure 181/107 H 03/22/25 15:51 Pulse Oximetry 98 03/22/25 15:51 Temperature 97.9 F 03/22/25 15:51 Pulse Rate 69 03/22/25 20:14 Respiratory Rate 03/22/25 20:14 Blood Pressure 170/105 H 03/22/25 20:14 Pulse Oximetry 98 03/22/25 20:14 Oxygen Delivery Room Air 03/22/25 18:20 Lab Data Lab results reviewed: Yes I reviewed the patient's lab results. 03/22/25 18:16 03/22/25 18:16 Labs: Lab Results 03/22/25 Range/Units 18:16 WBC 8.4 (4.5-10.0) K/mm3 RBC 5.14 (4.6-6.20) M/mm3 Hgb 14.7 (14.0-18.0) g/dL Hct 45.0 (42.0-52.0) % MCV 87.5 (80-100) fl MCH 28.6 (26-34) pg MCHC 32.7 (32-36) g/dl RDW 12.5 (11.5-14.5) % Plt Count 240 (150-375) k/mm3 MPV 10.1 (7.4-10.4) fl Immature Gran % (Auto) 0.5 (0-0.5) % Neut % (Auto) 67.8 (45.5-73.1) % Lymph % (Auto) 19.8 (18.3-44.2) % [place] % (Auto) 9.1 H (2.6-8.5) % Eos % (Auto) 2.3 (0-4.4) % Baso % (Auto) 0.5 (0.2-1.2) % Lymph # (Auto) 1.67 (0.9-3.2) K/mm3 [place]ary # (Auto) 0.8 H (0.1-0.6) K/mm3 Eos # (Auto) 0.2 (0-0.3) K/mm3 Baso # (Auto) 0.0 (0.0-0.1) K/mm3 Abs Immat Gran (auto) 0.04 H (0.00-0.031) K/mm3 Absolute Neuts (auto) 5.7 (1.3-6.7) K/mm3 Absolute Nucleated RBC 0.000 (0.0-0.012) K/mm3 Nucleated RBC % 0.0 (0.0-0.2) % PT 13.5 (11.1-14.7) Seconds INR 1.0 APTT 27.8 (22.3-36.8) Seconds Sodium 138 (137-145) mmol/L Potassium 3.9 (3.4-5.0) mmol/L Chloride 104 (98-107) mmol/L Carbon Dioxide 25 (22-30) mmol/L Anion Gap 9 (4-12) mmol/L BUN 8 L D (9-20) mg/dL Creatinine 0.77 (0.7-1.3) mg/dL Estim Creat Clear Calc 125 ml/min Estimated GFR > 60 (59 - ) Glucose 84 (65-110) mg/dL Calcium 9.0 (8.4-10.2) mg/dL Total Bilirubin 0.4 (0.2-1.3) mg/dL AST 37 (17-59) U/L ALT 35 (6-50) U/L Alkaline Phosphatase 86 (38-126) U/L Total Protein 7.3 (6.3-8.2) g/dL Albumin 4.1 (3.5-5.1) g/dL Urine Color Yellow (Yellow) Urine Appearance Clear (Clear) Urine pH 5.5 (5.0-9.0) Ur Specific [place] 1.015 (1.001-1.035) Urine Protein Negative (Negative) mg/dL Urine Glucose (UA) Negative (Negative) mg/dL Urine Ketones Trace H (Negative) mg/dL Ur Blood (Man) Negative (Negative) Urine Nitrate Negative (Negative) Urine Bilirubin Negative (Negative) Urine Urobilinogen 0.2 (<2.0) mg/dL Leukocyte Esterase Rfl Negative (Negative) JORGE LUIS/UL Imaging Data Radiologist's impression: Impressions Abdomen/Pelvis CT 03/22/25 19:40 Impression: Bilateral nonobstructing renal stones, as detailed above. Discharge Plan Discharge Clinical Impression: Back pain Patient Disposition: Home Condition: Stable Instructions: Antibiotic Form, Back Pain (ED) Additional Instructions: Ibuprofen for pain control. [place] as needed for additional pain control. Flexeril for muscle spasm. Have close follow-up with your primary care physician. If you have any worsening symptoms then please call or return to the emergency department. Patient Language: Solomon Islander Prescriptions: New cyclobenzaprine 10 mg tablet 10 mg PO BID PRN (Reason: muscle spasm) Qty: 14 0RF hydrocodone-acetaminophen 5-325 mg tablet 1 tablet PO Q12H PRN (Reason: pain) Qty: 14 0RF No Action aspirin [Children's Aspirin] 81 mg Tablet,Chewable 81 mg PO DAILY@0800 30 Days Qty: 30 11RF metoprolol succinate [Toprol XL] 25 mg Tablet Extended Release 24 Hr 25 mg PO QAM 30 Days Qty: 30 3RF atorvastatin 40 mg Tablet 80 mg PO DAILY 30 Days Qty: 60 1RF Jardiance 10 mg tablet 10 mg PO DAILY Entresto 24-26 mg tablet 1 tablet PO DAILY spironolactone [Aldactone] 25 mg Tablet 25 mg PO DAILY nitroglycerin 0.4 mg Tablet, Sublingual 0.4 mg SUBLINGUAL Q5-15M PRN (Reason: Chest Pain) Rx Instructions: do not exceed 3 doses per episode Follow-up/Referrals: PHYSICIAN,TIMBER MILL WORKER [Primary Care Provider] -
[2025-03-22 20:14] VITALS: BP 170/105; PULSE 69; RESP 19; O2SAT 98
== END 2025-03-22 20:16 | disposition home or self-care (01) ==
PROVIDERS: Emergency Provider Emergency Medicine
DX: M54.9 Dorsalgia, unspecified (principal); N20.0 Calculus of kidney; I25.10 Atherosclerotic heart disease of native coronary artery without angina pectoris; I25.5 Ischemic cardiomyopathy; I50.30 Unspecified diastolic (congestive) heart failure; E78.2 Mixed hyperlipidemia; F17.210 Nicotine dependence, cigarettes, uncomplicated; Z87.442 Personal history of urinary calculi; Z95.5 Presence of coronary angioplasty implant and graft
CPT/HCPCS: 36415; 74176; 80053; 81003; 85025; 85610; 85730; 99284; A9270

== ENCOUNTER 2025-06-20 09:56 | Emergency (ER) | payer OTHER, SELFPAY ==
[2025-06-20 10:10] VITALS: BP 160/98; PULSE 93; RESP 18; TEMP 36.4; O2SAT 98
--- OUTSIDE RECORDS SUMMARY | 2025-06-20 10:29 | XMS_ITS | Encounter Summary ---
Author Organization [facility] Address [address] [place] [address] Care Team Providers Care Display Director Name Role Phone No, Physician Primary Care Provider [phone] Nunu Sanchez AIR CARRIER OPERATIONS INSPECTOR Unavailable [phone] Saul Daily MD Unavailable [phone] Eligio Porras MD Unavailable Encounter Details Date Type Department Care Team (Late st Contact Info) Description 08/19/2024 Orders Only [facility] Health Information Management [address] [place] [id number] Scanning, Provider Social History Tobacco Use Types Packs/Day Years Used Date Smoking Tobacco: Some Days Cigarettes 0.3 35.1 Started: 05/05/1990 Smokeless Tobacco: Current [facility] Utilities Answer Date Recorded In the past 12 months has th youwho electric, gas, oil, or water company threatened to shut off services in your home? Patient declined 08/21/2024 Social Connection and Isolation Panel Answer Date Recorded In a typical week, how many times do you talk on the phone with family, friends, or neighbors? More than three times a week 08/21/2024 How often do you get togethe r with friends or relatives? Never 08/21/2024 How often do you attend chur ch or worship services? Never 08/21/2024 Do you belong to any clubs o r organizations such as gnosticist groups, unions, fraternal or athletic groups, or [...] any time in the past 12 m [facility], were you homeless or living in a correction (including now)? Yes 08/21/2024 Personal Safety Answer Date Recorded Have you ever been in or are you currently in a harmful physical or emotional relationship or is someone making you feel afraid or unsafe? 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 Gender Identity Not on file Sexual Orientation Not on file documented as of this encounter Functional Status documented as of this encounter Plan of Treatment Not on file documented as of this encounter Procedures Procedure Name Priority Date/Time Associated Diagnosis Comments CARDIOLOGY DOCUMENT SCAN 08/19/2024 documented in this encounter Results * Cardiology Document Scan (08/19/2024) Anatomical Region Laterality Modality Other Provider Scanning CV CARDIAC SERVICES PROCEDURES Final Result documented in this encounter Visit Diagnoses Not on filedocumented in this encounter Care Teams Display Director Relationship Specialty Start Date End Date No, Physician PCP - General 05/04/22 Nunu Sanchez NP [address] [place] [address] [address] Nurse Practitioner Cardiovascular Disease 01/31/24 Saul Daily MD [address] [place] [address] Surgeon Cardiothoracic Surgery 08/26/24 Eligio Porras MD [address] [facility] [address] [place] [address] Consulting Physician Cardiology 08/26/24 documented as of this encounter
--- OUTSIDE RECORDS SUMMARY | 2025-06-20 10:29 | XMS_ITS | Clinical Summary ---
Author Organization [facility] Address [address] [place] [address] Phone Care Team Providers Care Healthcare Financial Analyst Name Role Phone Unavailable Primary Care Provider Unavailabl e Allergies No known active allergies Medications oxyCODONE (ROXICODONE) 5 mg tabletIndication s:Contusion of abdominal wall, initial encounter,Contus ion of duodenum, initial encounter Take 1 Tablet (5 mg) by mouth every 4 hours as needed for Pain. Max Daily Amount: 30 mg 20 Tablet 05/06/2024 Active Encounters Date Type Department Care Team Description 04/30/2025 External Device Data [facility]STRACTION Provider, Abstract 04/22/2025 External Device Data [facility]CTION Provider, Abstract 04/22/2025 External Device Data [facility]CTION Provider, Abstract 04/09/2025 External Device Data [facility]STRACTION Provider, Abstract from Last 3 Months Social History Tobacco Use Types Packs/Day Years Used Date Smoking Tobacco: Every Day Cigarettes 0.5 21.8 Started: 2003 Tobacco Cessation:Ready to Q uit: [...] Health Maintenance Due Date Last Done Comments DTAP/TDAP/TD VACCINES (1 - Tdap) 1987 HEPATITIS B VACCINES (1 of 3 - 19+ 3-dose series) 10/1986 COLORECTAL SCREENING 2013 Colorectal Cancer Screening 2013 FIT-DNA Q 3 years 2013 FIT/FOBT Q 1 year 2013 Flex Sig/CT Colonography Q 5 years 2013 ZOSTER VACCINE (1 of 2) 2018 INFLUENZA VACCINE (#1) [address]25 [address] [place] [place] [address] INDIVIDUAL EXCHANGE [id number]
--- OUTSIDE RECORDS SUMMARY | 2025-06-20 10:29 | XMS_ITS | Clinical Summary ---
Author Organization [facility] [address] [facility] [address] Address [address] [place] [address] Care Team Providers Care Living Nurse Name Role Phone No, Physician Primary Care Provider [phone] Nunu Sanchez MINE SAFETY ENGINEER Unavailable [phone] Saul Daily MD Unavailable [phone] Eligio Porras MD Unavailable Allergies Active [...] mouth daily 30 tablet 3 5 Active atorvastatin (LIPITOR) 40 mg tablet Take 1 tablet (40 mg total) by mouth nightly 30 tablet 3 5 Active clopidogreL (PLAVIX) 75 mg tablet Take 1 tablet (75 mg total) by mouth daily 30 tablet 3 5 Active metoprolol tartrate (LOPRESSOR) 25 mg immediate release tablet Take 1 tablet (25 mg total) by mouth 2 (two) times a day 30 tablet 3 5 Active empagliflozin (JARDIANCE) 10 mg tabletIndications:D ilated cardiomyopathy (HCC) Take 1 tablet (10 mg total) by mouth daily 30 tablet 3 5 Active Active Problems Problem Noted Date Diagnosed Date Coronary artery disease of n ative heart with stable angina pectoris 08/22/2024 Dyslipidemia 08/21/2024 Chronic diastolic congestive heart failure 08/21 Former smoker 08/21/2024 CAD in wales artery 08/20/2024 Stable angina pectoris 01/31/2024 History of cardiomyopathy 05/18/2022 Coronary artery disease invo lving wales coronary artery of wales heart without angina pectoris 05/18/2022 Primary hypertension 05/18/2022 Surgical History Surgery Date Site/Laterality Comments APPENDECTOMY 05/06/2019 Right Medical History Medical History Date Comments Hyperlipidemia Hypertension Heart disease Family History Medical History Relation Name Comments Heart disease Father Car Accident Mother Relation Name Status Comments Father Alive Mother Social History Tobacco Use Types Packs/Day Years Used Date Smoking Tobacco: Former Cigarettes 0.3 35.1 S tarted: 05/05/1990 Smokeless Tobacco: Current Tobacco Cessation:Ready to Q uit: Not Asked; Counseling Given: Not Answered [facility] Utilities Answer Date Recorded In the past 12 months has th e [email or web address], gas, oil, or water Sessions threatened to shut off services in your [...] often do you attend chur ch or temple services? Never 08/21/2024 Do you belong to any clubs o r organizations such as mormon groups, unions, fraternal or athletic groups, or [...] any time in the past 12 m [facility], were you homeless or living in a halfway (including now)? Yes 08/21/2024 Personal Safety Answer Date Recorded Have you ever been in or are you currently in a harmful physical or emotional relationship or is someone making you feel afraid or unsafe? 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 Gender Identity Not on file Sexual Orientation Not on file Obstetrics History Last Filed Vital Signs Vital Sign Reading Time Taken Comments Blood Pressure 132/78 10/03/2024 2:27 PM GAS DERRICK OPERATOR Pulse 71 10/03/2024 2:27 PM GAS DERRICK OPERATOR Temperature 36.6 C (97.9 F) 08/29/2024 12:34 PM GAS DERRICK OPERATOR Respiratory Rate 16 09/26/2024 1:49 PM GAS DERRICK OPERATOR Oxygen Saturation 96% 10/03/2024 2:27 PM GAS DERRICK OPERATOR Inhaled Oxygen Concentration - - Weight 117.9 kg (260 lb) 10/03/2024 2:27 PM GAS DERRICK OPERATOR Height 180.3 cm (5' 11) 10/03/2024 2:27 PM GAS DERRICK OPERATOR Body Mass Index 36.26 10/03/2024 2:27 PM GAS DERRICK OPERATOR Plan of Treatment Health Maintenance Due Date Last Done Comments Colon Cancer Screening-Colonoscopy 1968 Hepatitis C Screening 1968 Prostate Cancer Screening-PSA 1968 Hepatitis B Screening 1986 Regular Well Visit/Exam 18-64 1986 Pneumococcal vaccine <65 (1 of 2 - PCV) 1987 Zoster Vaccine (1 of 2) 2018 Influenza Vaccine (#1) 2025 Depression Screening 08/20/2025 08/20/2024, 08/20/20 24 DTaP/Tdap/Td Vaccine (3 - Td or Tdap) 09/20/2031, 10/19/2012 Medical Devices Implanted Type Area Senior Java Ui Developer Device Identifier Shelf Expiration Date Model / Serial / Lot [employer] Plate Bone Low Profile 4 Hole Box Sternum Ti 115.103.04 - [id number] Implanted:Qty: 1 on 08/23/2024 by Saul Daily MD at [facility] Plate N/A: Sternum [employer] 115.103.04 / / [employer] Plate Bone Low Profile 6 Hole H Shape Sternum Ti 115.102.06 - [id number] Implanted:Qty: 1 on 08/23/2024 by Saul Daily MD at [facility] Plate N/A: Sternum [employer] 115.102.06 / / [employer] Plate Bone Low Profile 6 Hole O Shape Sternum Ti 115.104.06 - [id number] Implanted:Qty: 1 on 08/23/2024 by Saul Daily MD at [facility] Plate N/A: Sternum [employer] 115.104.06 / / [employer] Screw Bone Slf Drl Full Thread Locking 3.5x16mm Ti 100.035.16 - [id number] Implanted:Qty: 10 on 08/23/2024 by Saul Daily MD at [facility] Screw N/A: Sternum [employer] 100.035.16 / / [employer] Screw Bone Slf Drl Full Thread Locking 3.5x18mm Ti 100.035.18 - [id number] Implanted:Qty: 6 on 08/23/2024 by Saul Daily MD at [facility] Screw N/A: Sternum [employer] 100.035.18 / / Insurance [facility] [address] [place] Advance Directives For more information, please contact: [phone] * Full Code (Latest Code Status on File) Date Activated Date Inactivated Comments 08/23/2024 1:35 PM 08/29/2024 9:25 PM * Full Code Date Activated Date Inactivated Comments 08/21/2024 3:09 AM 08/23/2024 1:35 PM Care Teams Living Nurse Relationship Specialty Start Date End Date No, Physician PCP - General 05/04/22 Nunu Sanchez NP [address] [place] [id number] Nurse Practitioner Cardiovascular Disease 01/31/24 Saul Daily MD [address] [place] [address] [address] Surgeon Cardiothoracic Surgery 08/26/24 Eligio Porras MD [address] [address] Consulting Physician Cardiology 08/26/24
--- OUTSIDE RECORDS SUMMARY | 2025-06-20 10:29 | XMS_ITS | Encounter Summary ---
Author Organization [facility] Healthcare Address [address] [place] [address] Care Team Providers Care Umbrella Frame Maker Name Role Phone No, Physician Primary Care Provider [phone] Nunu Sanchez STOGY ROLLER Unavailable [phone] Saul Daily MD Unavailable [phone] Eligio Porras MD Unavailable Encounter Details Date Type Department Care Team (Late st Contact Info) Description 08/17/2024 Orders Only [facility] Health Information Management [address] [place] [id number] Scanning, Provider Social History Tobacco Use Types Packs/Day Years Used Date Smoking Tobacco: Some Days Cigarettes 0.3 35.1 Started: 05/05/1990 Smokeless Tobacco: Current [facility] Utilities Answer Date Recorded In the past 12 months has th [employer] electric, gas, oil, or water company threatened [...] often do you attend chur ch or christianity services? Never 08/21/2024 Do you belong to any clubs o r organizations such as yazidism groups, unions, fraternal or athletic groups, or [...] any time in the past 12 m [facility], were you homeless or living in a jail (including now)? Yes 08/21/2024 Personal Safety Answer Date Recorded Have you ever been in or are you currently in a harmful physical or emotional relationship or is someone making you feel afraid or unsafe? 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 Male 7:27 PM WEB SPECIALIST Gender Identity Not on file Sexual Orientation Not on file documented as of this encounter Plan of Treatment Not on file documented as of this encounter Procedures Procedure Name Priority Date/Time Associated Diagnosis Comments CARDIOLOGY DOCUMENT SCAN 08/17/2024 documented in this encounter Results * Cardiology Document Scan (08/17/2024) Anatomical Region Laterality Modality Other us Provider Scanning CV CARDIAC SERVICES PROCEDURES Final Result documented in this encounter Visit Diagnoses Not on filedocumented in this encounter Care Teams Umbrella Frame Maker Relationship Specialty Start Date End Date No, Physician PCP - General 05/04/22 Nunu Sanchez NP [address] [address] Nurse Practitioner Cardiovascular Disease 01/31/24 Saul Daily MD [address] [address] Surgeon Cardiothoracic Surgery 08/26/24 Eligio Porras MD [address] [address] Consulting Physician Cardiology 08/26/24 documented as of this encounter
--- OUTSIDE RECORDS SUMMARY | 2025-06-20 10:29 | XMS_ITS | Clinical Summary ---
Author Organization [facility] Address [address] [place] [address] Care Team Providers Care Airplane Pilot Commercial Name Role Phone Unavailable Primary Care Provider Unavailabl e Source Comments [facility],non-owned Affiliates and Associated Physician Practices is amultiple site organization consisting of ambulatory clinics and hospital sitesin [place], [place], [place] and [place]. This disclosure is being madepursuant to the Care Everywhere program and may not contain all information available regarding this patient. Last updated 18.[facility] [employer] Allergies Active Allergy Reactions Criticality Noted Date [...] on file Legal Sex Male 6:27 PM TENNIS PLAYER Gender Identity Not on file Sexual Orientation [...] FOR DIABETES 02/28/2022 9, 02/04/2019 DEPRESSION SCREENING 09/04/2024 COVID-19 VACCINE (1 - 2023-2 5 season) 2025 INFLUENZA VACCINE (#1) 2025 HIV SCREENING Completed [...] A/C/Y/W VACCINE Aged Out No longer eligible b ased on patient's age to complete this topic [...] ve Non-react judi 02/28/2019 4:24 PM CDT [facility] Comment: Neither HIV-1 p24 Antigen nor HIV-1/HIV-2 Antibodies are detected. Blood BLOOD SPECIMEN / Unknown Venipuncture / Unknown 02/28/2019 3:41 PM CDT 02/28/2019 3:46 PM CDT us Carline Pardo MD LAB - HEMATOLOGY ORDERABLES Final Result Performing Organization Address City/State/[facility] Co de Phone Number [address] [phone] * COMPREHENSIVE METABOLIC PANEL (02/28/2019 3:41 PM CDT) BUN 11 7 - 26 mg/dL 02/28/2019 4:03 PM CDT [facility] Creatinine 0.7 0.6 - 1.2 mg/dL 02/28/2019 4:03 PM [facility] Sodium 141 136 - 145 mmol/L 02/28/2019 4:03 PM [facility] Potassium 4.2 3.5 - 4.5 mmol/L 02/28/2019 4:03 PM [facility] Chloride 106 98 - 107 mmol/L 02/28/2019 4:03 PM [facility] CO2 24 22 - 29 mmol/L 02/28/2019 4:03 PM [facility] Glucose 79 70 - 115 mg/dL 02/28/2019 4:03 PM [facility] Calcium 9.5 8.4 - 10.2 mg/dL 02/28/2019 4:03 PM [facility] Protein Total 7.4 6.0 - 8.3 g/dL 02/28/2019 4:03 PM [facility] Albumin 3.9 3.4 - 5.0 g/dL 02/28/2019 4:03 PM [facility] Bilirubin Total 0.3 0.2 - 1.2 mg/dL 02/28/2019 4:03 PM [facility] Alkaline Phosphatase 80 40 - 150 Units/L 02/28/2019 4:03 PM [facility] ALT 26 0 - 55 Units/L 02/28/2019 4:03 PM [facility] AST 15 5 - 34 Units/L 02/28/2019 4:03 PM [facility] Anion Gap 15 8 - 18 02/28/2019 4:03 PM [facility] BUN/Creatinine Ratio 16 7 - 23 02/28/2019 4:03 PM [facility] Osmolality Calculated 290 270 - 300 mOsm/kg 02/28/2019 4:03 PM [facility] Albumin/Globulin Ratio 1.1 1.1 - 2.3 02/28/2019 4:03 PM [facility] eGFR >60 >60 mL/min/1.7 3 m2 02/28/2019 4:03 PM [facility] Blood BLOOD SPECIMEN / Unknown Venipuncture / Unknown 02/28/2019 3:41 PM CDT 02/28/2019 3:46 PM T Carline Pardo MD LAB - CHEMISTRY ORDERABLES F inal Result Performing Organization Address [facility]/State/ZIP Co de Phone Number [address] [phone] from Last 3 Months or Most Recently Relevant to Health Maintenance Insurance * Guarantor: Allen Account Type Relation to Patient Date of Phone Billing Address Personal/Family Self 1970 [address] [place] [address] MEDICAID - OUT OF STATE * Guarantor: MAYE HERRERA Account Type Relation to Patient Date of Phone Billing Address Personal/Family 1970 [address] [place] [id number] MEDICAID - [place] Member Subscriber Plan / Payer (Ef fective for All Dates) Name:Allen Relation to Subscriber:Self Name:Allen Payer ID:Not on file Group ID:Not on file Type:Medicaid [place] Address: [place] [id number] * Guarantor: MAYE HERRERA Account Type Relation to Patient Date of Phone Billing Address Personal/Family 1970 [address] [place] [id number] MEDICAID [facility]
--- OUTSIDE RECORDS SUMMARY | 2025-06-20 10:35 | XMS_ITS | Clinical Summary ---
Author Organization [facility] Address [address] [place] [address] Care Team Providers Care Personnel Adviser Name Role Phone Martina Wiseman EDUARDO Primary Care Provider [phone] Allergies Active Allergy Reactions Criticality Noted Date Comments Peanut Butter Flavoring Agen t (Non-Screening) Angioedema High 02/04/2019 Medications furosemide (LASIX) 20 MG tablet Take 1 tablet (20 mg total) by mouth every morning for 30 days. 30 tablet 3 Active aspirin EC (ECOTRIN) 81 MG tablet Take 1 tablet (81 mg total) by mouth daily. 30 tablet 3 Active atorvastatin (LIPITOR) 40 MG tablet Take 1 tablet (40 mg total) by mouth daily. 30 tablet 3 Active metoprolol succinate ER (TOPROL-XL) 25 MG 24 hr tablet TAKE 1 TABLET(25 MG) BY MOUTH DAILY 90 tablet 3 Active sacubitril-vals [place] (ENTRESTO) 24-26 MG tablet Take 1 tablet by mouth 2 (two) times daily. CALL FOR AN APPOINTMENT 30 tablet 4 Active ticagrelor (BRILINTA) 90 mg tablet Take 1 tablet (90 mg total) by mouth 2 (two) times daily. PLEASE CALL FOR APPOINTMENT 60 tablet 4 Active Active Problems Problem Noted Date Diagnosed Date Systolic heart failure 07/19/2022 Assessment & Plan (07/19/2022 3:40 PM ASSEMBLER PRODUCTION LINE): Now preserved Continued on entresto and metoprolol Lasix dose decreased to 20mg daily - spironolactone decreased to 12.5mg daily Educated on fluid status monitoring which includes daily weights low-sodium diet and monitoring fluid intake. Also continued on jardiance 10mg daily Euvolemic on exam - Coronary artery disease involving [place]ahu[place] coronar y artery 07/13/2022 Assessment & Plan (07/19/2022 3:36 PM ASSEMBLER PRODUCTION LINE): 05/05/22 s/p PCI x 3 RCA DAPT with aspirin and Brilinta Continued on metoprolol and atorvastatin Left arm weakness 07/08/2022 Nerve root avulsion 07/08/2022 Atrial tachycardia 06/30/2022 Assessment & Plan (07/13/2022 3:56 PM ASSEMBLER PRODUCTION LINE): EP evaluated while inpatient - Atrial tachycardia Started on amio EM x 30 days ordered thru EP Dizziness 06/29/2022 Family History Medical History Relation Comments Heart Father Heart Sister Relation Status Comments Father Sister Social History Tobacco Use Types Packs/Day Years Used Date Smoking Tobacco: Former Smokeless Tobacco: Never Tobacco Cessation:Counseling Given: Not Answered Alcohol Use Standard Drinks/Week Comments No 0 (1 standard drink = 0.6 oz pur e alcohol) AUDIT-C Answer Date Recorded Frequency of Alcohol Consumption Never 02/18/2019 Average Number of Drinks Not on file 019 Frequency of Binge Drinking Not on file 02/02 Sex and Gender Information Value Date Recorded Sex Assigned at Not on file Legal Sex Male 7:02 PM CDT Gender Identity Not on file Sexual Orientation Not on file Last Filed Vital Signs Vital Sign Reading Time Taken Comments Blood Pressure 129/90 01/16/2023 5:00 PM CDT Pulse 103 01/16/2023 5:05 PM CDT Temperature 36.7 C (98 F) 01/16/2023 12:02 PM CDT Respiratory Rate 21 01/16/2023 5:00 PM CDT Oxygen Saturation 95% 01/16/2023 5:00 PM CDT Inhaled Oxygen Concentration - - Weight 107 kg (236 lb) 07/14/2022 11:01 AM ASSEMBLER PRODUCTION LINE Height 180.3 cm (5' 11) 07/14/2022 11:01 AM ASSEMBLER PRODUCTION LINE Body Mass Index 32.92 07/14/2022 11:01 AM ASSEMBLER PRODUCTION LINE Plan of Treatment Health Maintenance Due Date Last Done Comments ASCVD LDL 1968 ASCVD Statin 1968 Colorectal Cancer Screening Colonoscopy (10 Years) 1968 Annual Physical 1971 Hepatitis C 1986 Hepatitis B Vaccines (1 of 3 - 19+ 3-dose series) 1987 Pneumococcal Vaccine: 50+ Years (1 of 2 - PCV) 1987 Zoster Vaccines (1 of 2) 2018 COVID-19 Vaccine (1 - 2023-2 5 season) 2025 Influenza Adult (#1) 2025 DTaP, Tdap and Td Vaccines ( 3 - Td or Tdap) 09/20/2031 09/20/2021, 10/19/2012 Meningococcal B Vaccine Aged Out No l onger eligible based on patient's age to complete this topic Meningococcal Vaccine Aged Out No bibi kelsie eligible based on patient's age to complete this topic RSV Immunizations Under 20 Months Aged Out No longer eligible b ased on patient's age to complete this topic Goals Goal Patient Goal Type Associated Problems Recent Progress Patient-Stated? Author Patient will return to prior living situation and remain independent in ADLs upon discharge from hospital Lifestyle No Sonia Smalls, RN Insurance MEDICAID Advance Directives * Full Code (Latest Code Status on File) Date Activated Date Inactivated Comments 06/29/2022 12:09 PM 06/30/2022 8:30 PM Care Teams Personnel Adviser Relationship Specialty Start Date End Date Martina Wiseman FNP [address] [place] [id number] PCP - General Nurse Practitioner Family 07/14/22
[2025-06-20 10:38] LABS: EDCOVIDSCREEN Negative (Negative); EDINFLUASCREEN Negative (Negative); EDINFLUBSCREEN Negative (Negative)
[2025-06-20 10:38] LABS: EDSTREPNEGPOS1 Negative (Negative)
--- NOTE | 2025-06-20 10:51 | ED.URI ---
HPI - URI/Sore Throat General Chief Complaint: Upper Respiratory Infection Stated Complaint: URI Time Seen by Provider: 06/20/25 10:35 Source: patient and RN notes reviewed Mode of arrival: ambulatory Limitations: no limitations History of Present Illness HPI Narrative: 55-year-old male presents Express Care complaining of upper respiratory symptoms that started last night. Patient reports body aches, cough, congestion, runny nose, sore throat. Patient denies any fevers, chills, nausea, vomiting, chest pain, difficulty breathing, diarrhea, abdominal pain, or any other upper respiratory symptoms, or any other symptoms. Patient has a history of a coronary bypass and coronary artery disease. Patient said he stopped taking all his medications his sweatband flanger prescribed 5 months ago because he did not like the way they make him feel. Related Data Home Medications ?Medication ?Instructions ?Recorded ?Confirmed ?Last Taken ?Type nitroglycerin 0.4 mg sublingual 0.4 mg sublingual Q5-15M PRN Chest 02/12/24 08/16/24 02/09/24 History tablet Pain Allergies Allergy/AdvReac Type Severity Reaction Status Date / Time No Known Allergies Allergy Verified 06/20/25 10:05 Review of Systems Review of Systems: CONSTITUTIONAL: Denies fever, chills, or sweats. Positive for body aches. EYES: Denies visual changes, redness, or discharge. ENT: Denies rhinorrhea, congestion, sore throat. Negative for otalgia. CARDIOVASCULAR: Denies chest pain, palpitations, or edema. RESPIRATORY: Positive for cough. Negative for difficulty breathing or dyspnea. GASTROINTESTINAL: Denies abdominal pain, nausea, vomiting, or diarrhea. GENITOURINARY: Denies dysuria or hematuria. SKIN: Denies rash or itching. MUSCULOSKELETAL: Denies back pain, joint pain, or myalgia. NEUROLOGIC: Denies headache, numbness, or weakness. PSYCHIATRIC: Denies anxiety or depression. All other systems reviewed are negative, except as documented in HPI. [facility] Past Medical History Medical History (HFpEF) heart failure with preserved ejection fraction echo on 01/03/24 showed Normal systolic function, estimated EF > 70% Grade 1 diastolic dysfunction No significant valvular disease Chronic neck pain Chronic back pain Tobacco use Coronary artery disease Mixed hyperlipidemia Ischemic cardiomyopathy Mild left ventricular enlargement with severe global hypokinesis, EF of 33% global longitudinal strain negative of 11% Surgical History Surgical History History of appendectomy History of heart artery stent History of cardiac catheterization Family History Family History Father No pertinent past medical history Heart disease, Onset Age: 58 Has had 7 stents Other Lung cancer Cerebrovascular accident Acute myocardial infarction Mother MVA (motor vehicle accident), Onset Age: 37 COD Social History Social History Social History: [employer] where he works in [employer]. He lives in his own apartment alone. He does have a 10-year-old son. He still smokes 0.5 packs of cigarettes per day for the last 6 months. He originally smoked at least 1 pack of cigarettes per day previously Since his mid 20s. He occasionally drinks alcohol but denies heavy alcohol use. He occasionally smokes marijuana. Code status: Full code. Surrogate decision maker: Greg (father) Smoking packs per day: 0.30 Smoking cigarettes per day: 6.0 Years smoked: 30 Smoking pack-years: 9.00 Smoking status: Current every day smoker Alcohol intake: current Drinks per week: 5 Alcohol use details: Socially Substance use: current Substance use type: marijuana Last use: 08/15/24 Do You Feel Safe in your Home?: Yes Lack of Transportation: No Lack of Food: Never True Current Housing: I Have Housing Concerned About Future Housing: No Difficulty Paying Gas/Electric Bills: No Difficulty Paying for Meds: No Currently Unemployed: No Education: Associate Degree Difficulty w/ Childcare or Family Care: No Living arrangements: with family Spiritual care concerns: No Comments At the time of my signature, I reviewed and agree with the nursing past medical, surgical, social, and family history. There is no relevant family history pertinent to the patient complaint. Exam Narrative: GENERAL: This is a well-nourished, well-developed adult, in no apparent distress. They are non ill-appearing, nontoxic appearing. HEAD: normocephalic, atraumatic. EYES: Sclera clear/white. Conjunctiva normal. Vision is grossly intact. Extraocular movements intact EARS: External ears normal, auditory canals clear and without drainage, TMs normal without perforation. Hearing grossly intact. NOSE: External nose normal with no obvious nasal discharge, nasal turbinates erythematous, no rhinorrhea. THROAT: Mucous membranes moist, posterior pharynx erythematous. No exudate. Uvula midline. Postnasal drip present. NECK: Neck supple, non-tender without lymphadenopathy, masses or thyromegaly. CARDIOVASCULAR: Regular rate and rhythm without murmurs, gallops, or rubs. RESPIRATORY: Clear to auscultation. Breath sounds equal bilaterally. No wheezes, rales, or rhonchi. SKIN: warm, Dry, intact with no suspicious lesions or rash, good texture and turgor. NEURO: awake, alert, and oriented to person, place and time. There were no obvious focal neurologic abnormalities. EXTREMITIES: No joint tenderness, effusion, or edema noted. BACK: Nontender without deformity. No CVA tenderness. Course Course Emergency Course: Portions of this record may have been created with voice recognition software Level of Care: Express Care Visit Vital Signs Vital signs: Vital Signs Temperature 97.6 F 06/20/25 10:10 Pulse Rate 93 06/20/25 10:10 Respiratory Rate 18 06/20/25 10:10 Blood Pressure 160/98 H 06/20/25 10:10 Pulse Oximetry 98 06/20/25 10:10 Oxygen Delivery Room Air 06/20/25 10:10 Temperature 97.6 F 06/20/25 10:10 Pulse Rate 93 06/20/25 10:10 Respiratory Rate 18 06/20/25 10:10 Blood Pressure 160/98 H 06/20/25 10:10 Pulse Oximetry 98 06/20/25 10:10 Oxygen Delivery Room Air 06/20/25 10:10 Reviewed MDM - URI/Sore Throat MDM Narrative Medical decision making narrative: Rapid COVID, flu, strep were negative. A throat culture is pending. Symptoms likely upper viral upper respiratory infection. Discussed with patient the importance of his medications that he takes for his heart and advised him to discuss this with his sweatband flanger to resume his treatment regimen. Discussed physical exam findings. Advised supportive measures and signs/symptoms to go to the ER. Pt is appropriate for outpt treatment and f/u. Differential Diagnosis Differential diagnosis: Likely upper respiratory infection, sinusitis, viral infection, influenza and pharyngitis Lab Data Attestation: I reviewed the patient's lab results. Labs: Lab Results 06/20/25 06/20/25 Range/Units 10:36 10:37 POC Influenza A Ag Negative (Negative) POC Influenza B Ag Negative (Negative) POC SARS CoV-2 Ag Negative (Negative) POC Grp A Strep Screen Negative (Negative) Critical Care Time Critical Care Time Critical Care Time: No Discharge Plan Discharge Clinical Impression: Upper respiratory infection Patient Disposition: Home Condition: Stable Instructions: Antibiotic Form, Upper Respiratory Infection (ED) Additional Instructions: Your rapid COVID, flu, rapid strep swab was negative today at [facility]. You will be notified in a few days if the culture comes back positive for strep, and appropriate antibiotics will be called in for you at that time. Your symptoms are likely due to a viral illness, which is not treated with antibiotics. Viral symptoms can be present for up to 10-14 days. Take Tylenol as needed for fever or pain. Follow instructions on the bottle. If he take DayQuil or NyQuil do not take additional Tylenol as it already contains Tylenol. Rest and stay hydrated. Follow up with your PCP in 5-7 days if symptoms are not improving. Go to the ER immediately if you developed chest pains, nausea, vomiting, worsening symptoms, difficulty breathing or swallowing, or any serious concerns. Please talk to your sweatband flanger about your medications. Patient Language: Pashto Prescriptions: No Action nitroglycerin 0.4 mg Tablet, Sublingual 0.4 mg SUBLINGUAL Q5-15M PRN (Reason: Chest Pain) Rx Instructions: do not exceed 3 doses per episode Follow-up/Referrals: Trung Waller MD [Primary Care Provider, [facility]] Time of Disposition: 10:45
== END 2025-06-20 11:15 | disposition home or self-care (01) ==
PROVIDERS: PCP Family Medicine
DX: J06.9 Acute upper respiratory infection, unspecified (principal); Z20.822 Contact with and (suspected) exposure to COVID-19; F17.210 Nicotine dependence, cigarettes, uncomplicated; I25.10 Atherosclerotic heart disease of native coronary artery without angina pectoris; I50.9 Heart failure, unspecified; E78.2 Mixed hyperlipidemia; I25.5 Ischemic cardiomyopathy; Z95.5 Presence of coronary angioplasty implant and graft
CPT/HCPCS: 87081; 87426; 87804; 87880; 99213; G0463